=== PATIENT | female | born 1945 | race Caucasian/White ===

== ENCOUNTER 2021-12-17 11:50 | Outpatient (CLI) | payer MEDICARE, MEDICAID, SELFPAY ==
[2021-12-17 14:10] LABS: Basophils % 0.5 %; Eosinophils # 0.3 10^3/uL (0.0-0.8); Eosinophils % 3.9 %; Hematocrit 38.7 % (37.0-47.0); Hemoglobin 12.3 g/dL (11.5-15.3); Lymphocytes # 1.9 10^3/uL (0.8-4.8); Mean Corpuscular HGB Conc 31.8 g/dL (30.0-36.0); Mean Corpuscular Hemoglobin 29.3 pg (28.0-34.0); Mean Corpuscular Volume 92.1 fl (81-99); Mean Platelet Volume 10.3 fL (7.4-10.4); Monocytes # 0.6 10^3/uL (0.2-0.9); Monocytes % 7.5 %; Neutrophils # 4.71 10^3/uL (1.8-7.7); Neutrophils % 62.7 %; Nucleated Red Blood Cells % 0 %; Platelet Count 289 10^3/cmm (130-400); Red Cell Distribution Width 12.8 % (12.1-15.1); White Blood Count 7.5 10^3/uL (4.0-10.0)
[2021-12-17 14:40] LABS: Alanine Aminotransferase 21 U/L (0-33); Albumin Level 3.9 g/dL (3.5-5.2); Alkaline Phosphatase 85 IU/L (35-105); Aspartate Amino Transferase 23 U/L (0-32); Blood Urea Nitrogen 8 mg/dL (8-23); Calcium 9.3 mg/dL (8.5-10.5); Carbon Dioxide 22 mmol/L (22-29); Chloride 99 mmol/L (98-107); Globulin 3.6 g/dL (1.3-4.6); Glucose 117 mg/dL (65-115); Osmolality Calculated 283 mOsm/kg (285-295); Sodium 137 mmol/L (136-145); Total Bilirubin 0.4 mg/dL (0.15-1.2); Total Protein 7.5 g/dL (6.6-8.7)
[2021-12-17 21:40] LABS: Carcinoembryonic Antigen 52.1 ng/mL (0.0-4.7)
--- NOTE | 2021-12-18 16:31 | ONC CON_ITS ---
Dr. Gonzalez New Patient Note Patient: Beryl Cespedes Unit #: [id number]: 1945 Dicatated By: Mita Gonzalez M.D.Date of Visit: Dec 17, 2021 Onc MED New Patient/Consult Referring Physician: Brannon Genao History of Present Illness: Ms. Beryl Cespedes, is a 76-year-old female with a history of progressive constipation, abdominal fullness, and abdominal pain went to [facility] in [place] and underwent CT scan of abdomen pelvis on November 23, 2021 which showed primary colonic neoplasm involving the mid sigmoid colon resulting in high-grade obstruction and an area of contained perforation along the left lateral aspect of sigmoid colon extending to the central mesentery. Also findings suggesting of widespread peritoneal carcinomatosis. Small volume ascites in the scattered area of omental nodularity. Enlarged retroperitoneal lymph nodes and extensive bilateral pulmonary metastasis. No visualized hepatic metastasis., She was transferred to [facility] and underwent exploratory laparotomy, lysis of adhesions, total abdominal colectomy with en bloc resection of aortocaval lymph nodes. Ileorectal anastomosis, omentectomy, cholecystectomy, small bowel resection x1 on November 23, 2021. 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 She has history of hysterectomy,, denies any smoking or alcohol use. Today, patient denies any fever chills denies any nausea or vomiting denies any diarrhea or constipation denies any abdominal pain or fullness, Past Medical History: Ms. Cespedes's medical history is unremarkable. Past Surgical History: Ms. Severinos surgical/procedural history consists of cholecystectomy, exploratory laparotomy in 2021, and total colectomy, omenectomy, small bowel resection in 2021. Medications: Atenolol 1 Tablet (of 50 mg) Oral daily, Lisinopril 1 Tablet (of 40 mg) Oral daily, Magnesium Tablet Oral, One-A-Day Womens 50 Plus 1 Tablet Oral daily, Zinc (50 mg) Tablet Oral daily Allergies: No Known Allergies. Social History: Ms. Cespedes is . Ms. Cespedes has never smoked. She drinks occasionally. Family History: There is no documented family history. Review Of Symptoms: Review of Systems is not available for this patient. Vital Signs: Performed on Dec 17, 2021 13:45: 5, 0, 29.62, 1.79 sq.m, 63 in, 96 %, 120 /min (HIGH), 16 /min, 191/113 mm(hg) (HIGH), 97.7 F (LOW), and 167.2 lbs (HIGH). Performance Status: 1 - No physically strenuous activity, but ambulatory and able to carry out light or sedentary work (e.g. office work, light house work). (ECOG) Physical Examination: ENMT - No mouth sores, no thrush, no jaundice, Respiratory - Lungs are clear to auscultation, Cardiovascular - Regular rate and rhythm of heart, Abdomen - Soft, bowel sounds present, well-healed surgical scar, Extremities - No visible edema. Lab/Imaging: Most recent lab results are not available for this patient. Impression: Moderately differentiated adenocarcinoma involving distal sigmoid colon status post exploratory laparotomy, total abdominal colectomy with en bloc resection of aortocaval lymph nodes, ileorectal anastomosis, omentectomy, lysis of adhesions done on November 23, 2021 and final pathology report showed moderately differentiated adenocarcinoma tumor invades visceral peritoneum, T4a, 1 out of 22 lymph node positive, N1 a and resected omentum shows multifocal metastatic adenocarcinoma M1c, CT scan of abdomen pelvis done on November 23, 2021 showed extensive bibasal pulmonary nodules/metastasis, visualized liver was unremarkable. And primary colonic neoplasm involving mid sigmoid colon causing high-grade obstruction and there is an area of contained perforation along the left lateral aspect of sigmoid colon. And findings consistent with widespread peritoneal carcinomatosis and scattered areas of omental nodularity Plan: Discussed with patient regarding her disease status and treatment options, patient has advanced stage locoregional disease but concern was bibasilar nodules seen on her CT scan of abdomen pelvis done on November 23, 2021, which could be metastatic disease or inflammatory/infection/aspiration. At this point, we will consider CT PET scan to assess extent of disease, also obtain baseline CEA, CBC CMP. I will also discuss with pathology regarding testing for molecular profiling including [place]/NRAS, BRAF and MMR/MSI status also request for HER-2/jose status. She will return to clinic after CT PET scan, hopefully by that time will have her molecular testing report back for further discussion and treatment planning. Signed By: Mita Gonzalez M.D. <<Signature on File>>
== END 2021-12-17 11:51 | disposition home or self-care (01) ==
PROVIDERS: Family Provider Nurse Practitioner Family; PCP Registered Nurse; Visit Provider Internal Medicine Hematology & Oncology
DX: C18.9 Malignant neoplasm of colon, unspecified (principal); C77.8 Secondary and unspecified malignant neoplasm of lymph nodes of multiple regions; Z79.899 Other long term (current) drug therapy
CPT/HCPCS: 36415; 80053; 82378; 85025; 99205

== ENCOUNTER 2022-01-07 13:47 | Outpatient (CLI) | payer MEDICARE, MEDICAID, SELFPAY ==
[2022-01-07 14:32] LABS: Basophils # 0.1 10^3/uL (0.0-0.1); Basophils % 0.7 %; Eosinophils # 0.4 10^3/uL (0.0-0.8); Eosinophils % 3.6 %; Hematocrit 42.5 % (37.0-47.0); Lymphocytes # 2.8 10^3/uL (0.8-4.8); Lymphocytes % 28.4 %; Mean Corpuscular HGB Conc 30.6 g/dL (30.0-36.0); Mean Corpuscular Hemoglobin 29.2 pg (28.0-34.0); Mean Corpuscular Volume 95.5 fl (81-99); Mean Platelet Volume 10.4 fL (7.4-10.4); Monocytes # 0.7 10^3/uL (0.2-0.9); Monocytes % 7.3 %; Neutrophils # 5.88 10^3/uL (1.8-7.7); Neutrophils % 59.6 %; Nucleated Red Blood Cells % 0 %; Platelet Count 314 10^3/cmm (130-400); Red Blood Count 4.45 10^6/uL (4.1-5.3); Red Cell Distribution Width 13.2 % (12.1-15.1); White Blood Count 9.9 10^3/uL (4.0-10.0)
[2022-01-07 15:05] LABS: Carcinoembryonic Antigen 63.1 ng/mL (0.0-4.7)
[2022-01-07 15:16] LABS: Alanine Aminotransferase 19 U/L (0-33); Albumin Level 4.1 g/dL (3.5-5.2); Alkaline Phosphatase 82 IU/L (35-105); Aspartate Amino Transferase 20 U/L (0-32); Blood Urea Nitrogen 16 mg/dL (8-23); Calcium 9.3 mg/dL (8.5-10.5); Carbon Dioxide 20 mmol/L (22-29); Chloride 98 mmol/L (98-107); Globulin 3.8 g/dL (1.3-4.6); Glucose 138 mg/dL (65-115); Osmolality Calculated 281 mOsm/kg (285-295); Sodium 134 mmol/L (136-145); Total Bilirubin 0.3 mg/dL (0.15-1.2); Total Protein 7.9 g/dL (6.6-8.7)
--- NOTE | 2022-01-07 16:41 | ONC FU_ITS ---
Dr. Gonzalez follow up note Patient: Beryl Cespedes Unit #: [id number]: 1945 Dicatated By: Mita Gonzalez M.D.Date of Visit:Jan 07, 2022 Onc Med Follow-up/Prog Note History of Present Illness: Ms. Beryl Cespedes, is a 76-year-old female with a history of progressive constipation, abdominal fullness, and abdominal pain went to [facility] in [place] and underwent CT scan of abdomen pelvis on November 23, 2021 which showed primary colonic neoplasm involving the mid sigmoid colon resulting in high-grade obstruction and an area of contained perforation along the left lateral aspect of sigmoid colon extending to the central mesentery. Also findings suggesting of widespread peritoneal carcinomatosis. Small volume ascites in the scattered area of omental nodularity. Enlarged retroperitoneal lymph nodes and extensive bilateral pulmonary metastasis. No visualized hepatic metastasis., She was transferred to [facility] and underwent exploratory laparotomy, lysis of adhesions, total abdominal colectomy with en bloc resection of aortocaval lymph nodes. Ileorectal anastomosis, omentectomy, cholecystectomy, small bowel resection x1 on November 23, 2021. 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 She has history of hysterectomy,, denies any smoking or alcohol use. CT PET scan done on December 27, 2021 showed FDG positive left supraclavicular lymph node measured 2.7 cm with SUV of 5.9. Multiple mediastinal lymph nodes are FDG positive and consistent with mesenteric disease. Also right paratracheal, left hilar, right para-aortic, right hilar and bilateral retrocrural territory. There are innumerable bilateral FDG positive pulmonary nodules representing metastatic disease. At the level of abdomen, retroperitoneal lymph nodes are too small to characterize. The right-sided mesenteric root node measures 1.6 cm SUV 3.8 consistent with malignancy. Came for follow-up, denies any specific complaints, no fever chills, no nausea or vomiting, no diarrhea or constipation, no abdominal pain or fullness, no jaundice, no dysuria or hematuria. Medications: Atenolol 1 Tablet (of 50 mg) Oral daily, Lisinopril 1 Tablet (of 40 mg) Oral daily, Magnesium Tablet Oral, One-A-Day Womens 50 Plus 1 Tablet Oral daily, Zinc (50 mg) Tablet Oral daily Allergies: No Known Allergies. Review of Systems: Review of Systems is not available for this patient. Vital Signs: Performed on Jan 07, 2022 15:47 Height - 63.00 in Weight - 164.4 lbs (LOW) BSA - 1.78 sq.m BMI - 29.12 Temperature - 97.8 F (LOW) Pulse - 77 /min Respiration - 18 /min BP - 173/94 mm(hg) (HIGH) O2 Sat - 95 % (LOW) Pain - 0 Fatigue - 4 Performance Status: 0 - Fully active, able to carry on all predisease activities without restrictions. (ECOG) Physical Examination: ENMT - No mouth sores, no thrush, no jaundice, Respiratory - Lungs are clear to auscultation, Cardiovascular - Regular rate and rhythm of heart, Abdomen - Soft, bowel sounds present, Extremities - No visible edema. Lab/Imaging: Most recent lab results are not available for this patient. Impression: Moderately differentiated adenocarcinoma involving distal sigmoid colon status post exploratory laparotomy, total abdominal colectomy with en bloc resection of aortocaval lymph nodes, ileorectal anastomosis, omentectomy, lysis of adhesions done on November 23, 2021 and final pathology report showed moderately differentiated adenocarcinoma tumor invades visceral peritoneum, T4a, 1 out of 22 lymph node positive, N1 a and resected omentum shows multifocal metastatic adenocarcinoma M1c, CT scan of abdomen pelvis done on November 23, 2021 showed extensive bibasal pulmonary nodules/metastasis, visualized liver was unremarkable. And primary colonic neoplasm involving mid sigmoid colon causing high-grade obstruction and there is an area of contained perforation along the left lateral aspect of sigmoid colon. And findings consistent with widespread peritoneal carcinomatosis and scattered areas of omental nodularity Plan: Discussed with patient regarding her labs white blood count 9.9 hemoglobin 13 g hematocrit 42.5 platelets 314,000 CMP within normal limit except sodium 134 and CEA level 63.1 compared to 52.1 on December 17, [address] PET scan done on December 27, 2021 shows FDG positive lymphadenopathy in left supraclavicular, mediastinum, mesenteric root territories. Innumerable bilateral FDG positive pulmonary nodules. Postsurgical changes from recent colectomy. Clinically, patient doing well with no new signs symptom but her CT PET scan showed extensive metastatic disease involving bilateral lungs with multiple pulmonary nodules and extensive mediastinal/hilar/left supraclavicular lymphadenopathy and mesenteric root territories. Her lab work-up shows progressive CEA level, consistent with metastatic colorectal cancer. At this point we will consider systemic therapy with FOLFOX every 2 weeks x6, followed by CT PET scan to assess disease response. All the side effect possible benefits associate with FOLFOX including but not limited to bone marrow suppression, hair loss, nausea vomiting, peripheral neuropathy/intolerance to cold beverages especially with oxaliplatin, jaundice, mouth sores, diarrhea, skin rash especially with 5-FU. Further teaching will be done by chemotherapy nurse. We will obtain approval from her insurance prior to the treatment. In the meantime we will request port placement to facilitate chemotherapy. She will return to clinic 1 week after initiating FOLFOX, with CBC CMP. Signed By: Mita Gonzalez M.D. <<Signature on File>>
== END 2022-01-07 13:48 | disposition home or self-care (01) ==
PROVIDERS: PCP Registered Nurse; Visit Provider Internal Medicine Hematology & Oncology
DX: C18.7 Malignant neoplasm of sigmoid colon (principal); C77.8 Secondary and unspecified malignant neoplasm of lymph nodes of multiple regions; Z79.899 Other long term (current) drug therapy
CPT/HCPCS: 36415; 80053; 82378; 85025; 99214

== ENCOUNTER → 2022-01-21 08:59 | Outpatient (BNVA) | payer MEDICARE, SELFPAY | PROVIDERS: PCP Registered Nurse; Visit Provider Surgery | DX: Z20.822 Contact with and (suspected) exposure to COVID-19 (principal) | CPT/HCPCS: 87635 ==

== ENCOUNTER 2022-01-26 11:24 | Day surgery (SDC) | payer MEDICARE, MEDICAID, SELFPAY ==
[2022-01-23 11:48] VITALS: BMI 26.7
[2022-01-26] VITALS (8 sets, daily range): BP systolic 123–180; BP diastolic 83–123; PULSE 95–127; RESP 14–20; TEMP 36.2–36.6; O2SAT 94–98
--- NOTE | 2022-01-26 | SCC_ITS ---
Procedure done: 1. Placement of right internal jugular vein PowerPort 2. Fluoroscopic guidance and interpretation for placement of catheter 3. Ultrasound guidance to access the right internal jugular vein 9.3 seconds of fluoroscopic guidance, for a cumulative dose of 1.20 mGy, was provided to Dr. Lisa by the radiology department. C-arm images of the chest were saved for the patient's permanent record. [facility]
--- NOTE | 2022-01-26 11:58 | SC_ITS ---
WS: [id number] INTRAOPERATIVE TECHNIQUE: 2 Spot fluoroscopic images for intraoperative purposes. FLUOROSCOPY TIME: 9.3 seconds CLINICAL INFORMATION: Powerport Placement COMPARISON: None. FINDINGS: RIGHT Port-A-Cath with tip in the distal SVC. No visualized pneumothorax. SC/C-arm FL for CVA [id number] IMPRESSION: Images obtained for intraoperative purposes.
[2022-01-26] MEDS: sodium chloride 0.9% 1,000 ML 30 ML IV (12:18)
--- NOTE | 2022-01-26 14:05 | W.PM.OPSUD ---
Surgery/Procedure H&P Update DATE OF PROCEDURE: January 26, 2022 DATE H&P PERFORMED: 01/14/22 PREOP DIAGNOSIS: COLON CANCER PRIMARY INDICATION FOR PROCEDURE: The same PLANNED PROCEDURE: Operation Date: 01/26/22 13:10 Proposed Procedures p Portacath Placement 65507/c80.1(Not Applicable) - Flip Lisa MD
[2022-01-26] MEDS: midazolam 1 mg/mL INJ 2 mL 2 MG IVP (14:31)
--- NOTE | 2022-01-26 14:47 | ANES.PREANE2 ---
Pre-Anesthetic Assessment Height/Weight: Height 1.63 m Weight 70.76 kg Temp Pulse Resp BP Pulse Ox 97.9 F 109 H 14 123/83 94 01/26/22 14:32 01/26/22 14:32 01/26/22 14:32 01/26/22 14:32 01/26/22 14:32 Preop Diagnosis: COLON CANCER Operation Date: 01/26/22 13:10 Proposed Procedures p Portacath Placement 57510/c80.1(Not Applicable) - Flip Lisa MD Familial anesthetic complications: None Was Beta Benjie taken within 24 hours: Yes Was Clonidine taken within 24 hours: N/A Last intake: Intake Last Liquid Date 01/25/22 Last Liquid Time 20:00 Last Solid Date 01/25/22 Last Solid Time 20:00 Social No alcohol and No tobacco Exam alert, oriented x 3, clear to auscultation bilaterally and regular rate & rhythm Airway Submandibular: within normal limits Cervical ROM: within normal limits Mallampati: Class II Dentition: partials CV/HEM Hypertension Anesthetic Plan ASA status: 2 Anesthesia: Choice Risk of > 500 ml blood loss (7ml/kg in children): No Medications/Allergies Home Medications Medication Instructions Recorded Confirmed Last Taken Type lisinopril 40 mg tablet 40 mg PO DAILY 90 Days #90 tab 07/10/21 01/26/22 01/25/22 Rx atenolol 50 mg tablet 50 mg PO DAILY 01/23/22 01/26/22 01/25/22 History Allergies Allergy/AdvReac Type Severity Reaction Status Date / Time No Known Allergies Allergy Verified 01/26/22 12:02 Current Medications Generic Name Dose Route Start Last Admin Trade Name Cruzitoq PRN Reason Stop Dose Admin Sodium Chloride 1,000 mls @ 30 mls/hr 01/26/22 12:00 01/26/22 12:18 Sodium Chloride 0.9% IV 01/27/22 11:59 30 mls/hr .Q24H GARETT Administration PFSH Anesthesia Medical History Essential hypertension Social History Smoking and tobacco status: never smoked Alcohol intake: never Adopted: No Caregiver/support person: No Current gender identity: Female Data Anesthesia Cardiac Studies: No Data to Display
[2022-01-26] MEDS: lidocaine 2% INJ 20 mL INJECTION (15:43)
[2022-01-26] MEDS: heparin, porcine 1,000 unit/mL INJ 10 mL 10000 UNIT XX (16:00)
--- NOTE | 2022-01-26 16:08 | PM.OP ---
Operative Report Date of procedure: January 26, 2022 Pre-op diagnosis: Preop Diagnosis COLON CANCER Post-op diagnosis: The same Procedure done: 1. Placement of right internal jugular vein PowerPort 2. Fluoroscopic guidance and interpretation for placement of catheter 3. Ultrasound guidance to access the right internal jugular vein Surgeon: Flip Lisa MD [employer]: Hermila Patel Anesthesia: MAC (post acute care registered nurse Tomy Hernandez) Estimated blood loss (mL): 5 Procedure: Patient was identified in the holding area and taken to the operative room and placed in supine position IV propofol was given by the anesthesia provider ,both arms were tucked,Time-out was done verifying the patient's name/date of /planned procedure and destination after the procedure, all were in agreement. SCDs confirmed to be functioning, preoperative antibiotics administered per protocol, and beta ari protocol was confirmed, appropriate positioning of the patient was done by me. Medications were reviewed to assess for anticoagulant usage. Risks and benefits and prevention of central line associated blood stream infection (CLABSI) were discussed with the patient/CPOA, and a consent was obtained. Monitors were in place and monitored throughout the procedure. All necessary supplies were available prior to start. Hand hygiene was completed prior to starting. Maximum barrier technique was utilized including a sterile gown, sterile gloves with a hat and mask. Site was was prepped with [chlorhexidine] and a full body drape was placed. 5 mL of 2% lidocaine was injected into the skin with a 25 gauge needle. Prep& drape was done under the usual sterile technique, lidocaine 2% was injected at the site of the stick, started by the Right subclavian vein and I retrieved arterial blood in the attempt was done twice without obvious success to retrieve venous blood. So I decided to deviate my attention towards the right internal jugular vein. Appropriate pressure was held onto the subclavian area for few minutes. At that point right Internal Juglar vein stick that retrieved venous blood was obtained from the first stick under ultrasound guidance and there was no evidence of intraluminal thrombosis, interpretation was done by me through the whole entire procedure, a guidewire was then threaded and under the guidance of fluoroscopy position was confirmed to be in the IVC and my interpretation, there was no PVC changes, at that point the guidewire was secured to the drapes with a hemostat and the needle was taken out. Attention was then deviated towards creation of a pocket for the port were lidocaine 2% was injected using an 15 blade knife skin incision was created at the right upper Chest ,dissection using the Bovie to create a pocket for the PowerPortto be accommodated, hemostasis was secured, after the port being appropriately flushed it was inserted into the pocket and a tunneler was used to accommodate the catheter of the PowerPort to be delivered through the incision first created at the site of the stick, then I was able to retrieve the catheter at the index site of the stick. At that point under fluoroscopy an estimated length was measured for the catheter and was cut at the designed level, followed by that a dilator with the sheath introduced onto the guidewire the dilator and the wire were retrieved and the catheter of the port was introduced via the sheath where it was peeled off and the catheter maintained to be in the SVC that was confirmed with fluoroscopy, and the fluoroscopy interpretation was done by me throughout the entire procedure. Multiple flushes of the port was done by diluted heparin and I was able to retrieve without difficulty venous blood as well as appropriate flushing was achieved. The port was kept in its,3-0 Vicryl deep subdermal interrupted sutures, skin was then closed by 4-0 Monocryl as subcuticular closure. The port was appropriately flushed with heparin and venous blood was withdrawn without difficulty The stick site was closed by 4-0 Monocryl and Dermabond was used followed by dressing. Patient tolerated the procedure well was taken to the recovery area Count was correct at the end of the procedure I was present for the whole entire procedure Postprocedure chest x-ray was done and showed no pneumothorax and appropriate position of the PowerPort and catheter.
--- NOTE | 2022-01-26 16:22 | XRR_ITS ---
PROCEDURE INFORMATION: Exam: XR Chest Exam date and time: 01/26/2022 4:26 PM Age: 76 years old Clinical indication: Device placement; Other: Status post placement of right internal jugular vein, powerport; Prior surgery; Surgery date: Post-operative (0-2 days) TECHNIQUE: Imaging protocol: XR of the chest. Views: 1 view. COMPARISON: CT abdomen pelvis w con* [id number] 11/22/2021 8:20 PM FINDINGS: Tubes, catheters and devices: Right Mediport catheter. Lungs: Multiple pulmonary nodules consistent with pulmonary metastasis with the largest in the left lateral mid lung field measuring 1.9 cm in diameter. Pleural spaces: Unremarkable. No pleural effusion. No pneumothorax. Heart/Mediastinum: Unremarkable. No cardiomegaly. Bones/joints: Unremarkable. XR/XR chest 1V portable [id number] IMPRESSION: 1. Right Mediport catheter. 2. Multiple pulmonary nodules consistent with pulmonary metastasis with the largest in the left lateral mid lung field measuring 1.9 cm in diameter.
--- NOTE | 2022-01-26 17:39 | ANE.PACU2 ---
Inpatient post-anesthesia follow up: Airway intact: Yes Vital signs: Temperature 97.2 F Pulse Rate 101 Respiratory Rate 16 Blood Pressure 162/96 Pulse Oximetry 97 Oxygen Delivery Me thod Room Air Oxygen Flow Rate Fraction of Inspir ed Oxygen Hydration adequate: Yes Nausea and vomiting: No Pain level: 2 Mental status: Baseline
== END 2022-01-26 17:26 | disposition home or self-care (01) ==
PROVIDERS: PCP Registered Nurse; Visit Provider Surgery
PROC: (CPT 36561; principal; 2022-01-26 13:00)
DX: C18.9 Malignant neoplasm of colon, unspecified (principal); I10 Essential (primary) hypertension
CPT/HCPCS: 36561; 71045; 77001; C1788; J0690; J1644; J2250; J2704; J3010; J7030

== ENCOUNTER → 2022-01-27 09:15 | Outpatient (BNVA) | payer MEDICARE, SELFPAY | PROVIDERS: PCP Registered Nurse; Visit Provider Nurse Practitioner | DX: C18.9 Malignant neoplasm of colon, unspecified (principal); C77.2 Secondary and unspecified malignant neoplasm of intra-abdominal lymph nodes | CPT/HCPCS: 80053; 85025 ==

== ENCOUNTER 2022-01-28 07:51 | Outpatient (CLI) | payer MEDICARE, MEDICAID, SELFPAY ==
[2022-01-28] MEDS: palonosetron 0.25 mg/5 mL SDV IV (09:35)
[2022-01-28] MEDS: dextrose 5% 250 ML 75 ML IV (09:35)
--- NOTE | 2022-02-04 21:22 | ONC FU_ITS ---
Arelis Bradshaw Progress Note Patient: Beryl Cespedes Unit #: [id number]: 1945 Dicatated By: Arelis Bradshaw N.P.Date of Visit:Jan 28, 2022 Onc MED Follow-up/Prog Note Chief Complaint: Colon cancer History of Present Illness: Ms. Beryl Cespedes, is a 76-year-old female with a history of progressive constipation, abdominal fullness, and abdominal pain went to [facility] in [place] and underwent CT scan of abdomen pelvis on November 23, 2021 which showed primary colonic neoplasm involving the mid sigmoid colon resulting in high-grade obstruction and an area of contained perforation along the left lateral aspect of sigmoid colon extending to the central mesentery. Also findings suggesting of widespread peritoneal carcinomatosis. Small volume ascites in the scattered area of omental nodularity. Enlarged retroperitoneal lymph nodes and extensive bilateral pulmonary metastasis. No visualized hepatic metastasis., She was transferred to [facility] and underwent exploratory laparotomy, lysis of adhesions, total abdominal colectomy with en bloc resection of aortocaval lymph nodes. Ileorectal anastomosis, omentectomy, cholecystectomy, small bowel resection x1 on November 23, 2021. 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 She has history of hysterectomy,, denies any smoking or alcohol use. CT PET scan done on December 27, 2021 showed FDG positive left supraclavicular lymph node measured 2.7 cm with SUV of 5.9. Multiple mediastinal lymph nodes are FDG positive and consistent with mesenteric disease. Also right paratracheal, left hilar, right para-aortic, right hilar and bilateral retrocrural territory. There are innumerable bilateral FDG positive pulmonary nodules representing metastatic disease. At the level of abdomen, retroperitoneal lymph nodes are too small to characterize. The right-sided mesenteric root node measures 1.6 cm SUV 3.8 consistent with malignancy. Patient presents today for education on FOLFOX. She states she has some mild fatigue. Her appetite has been good. She denies fever, chills, night sweats. No sinus drainage or mouth sores. No shortness of breath, cough, chest pain. No nausea or vomiting. No urinary symptoms. No joint or muscle pain. No headaches or dizziness. Review Of Symptoms: see above. Past Medical History: Ms. Cespedes's medical history is unremarkable. Past Surgical History: Cholecystectomy Exploratory laparotomy in 2021 Total colectomy, omenectomy, small bowel resection in 2021 Allergies: No Known Allergies. Medications: Atenolol 1 Tablet (of 50 mg) Oral daily Lisinopril 1 Tablet (of 40 mg) Oral daily Magnesium Tablet Oral One-A-Day Womens 50 Plus 1 Tablet Oral daily Zinc (50 mg) Tablet Oral daily Family History: There is no documented family history. Social History: Ms. Cespedes is . Ms. Cespedes has never smoked. She drinks occasionally. Physical Examination: Performed on Jan 28, 2022 08:22: Height - 63.00 in, BP - 161/79 mm(hg) (HIGH), Performed on Jan 28, 2022 08:22: Height - 63.00 in, Weight - 164.2 lbs (LOW), BSA - 1.78 sq.m, BMI - 29.09, Temperature - 98.4 F, Pulse - 83 /min, Respiration - 16 /min, BP - 172/78 mm(hg) (HIGH), O2 Sat - 97 %, Pain - 0, and Fatigue - 3. Performance Status: 0 - Fully active, able to carry on all predisease activities without restrictions. (ECOG) Constitutional Alert, cooperative, oriented. Mood and affect appropriate. Appears close to chronological age. Well nourished. Well developed. Head Normocephalic; no scars. Respiratory Lungs are clear to auscultation without rhonchi or wheezing. Cardiovascular Regular rate and rhythm of heart without murmurs, gallops or rubs. Abdomen Non-tender, non-distended, no masses, ascites or hepatosplenomegaly. Good bowel sounds. No guarding or rebound tenderness. Extremities No visible deformities, no cyanosis, clubbing or edema. Pulses 3+ and equal bilaterally. Musculoskeletal No tenderness or swelling, normal range of motion without obvious weakness. Psychiatric Alert and oriented times three. Coherent speech. Verbalizes understanding of our discussions today. Laboratory: Test performed on Jan 28, 2022 08:08 Manual Diff Cancelled via OM: Entered in error Test performed on Jan 27, 2022 08:54 Cr Clearance (Est) 109.16 mL/min Neutrophils (Gran) 7.09 10^9/L Eosinophils 0.1836 10^9/L Basophils 0.0864 10^9/L Impression: Moderately differentiated adenocarcinoma involving distal sigmoid colon status post exploratory laparotomy, total abdominal colectomy with en bloc resection of aortocaval lymph nodes, ileorectal anastomosis, omentectomy, lysis of adhesions done on November 23, 2021 and final pathology report showed moderately differentiated adenocarcinoma tumor invades visceral peritoneum, T4a, 1 out of 22 lymph node positive, N1 a and resected omentum shows multifocal metastatic adenocarcinoma M1c, CT scan of abdomen pelvis done on November 23, 2021 showed extensive bibasal pulmonary nodules/metastasis, visualized liver was unremarkable. And primary colonic neoplasm involving mid sigmoid colon causing high-grade obstruction and there is an area of contained perforation along the left lateral aspect of sigmoid colon. And findings consistent with widespread peritoneal carcinomatosis and scattered areas of omental nodularity Plan: Patient presents today for education on FOLFOX. Handouts were provided. We discussed side effects including nausea, vomiting, neutropenia and thrombocytopenia. She denies questions at this time. She will receive her first dose of FOLFOX today and return to the clinic in 1 week with CBC and CMP. Signed By: Arelis Bradshaw N.Mike. <<Signature on File>>
== END 2022-01-28 07:52 | disposition home or self-care (01) ==
PROVIDERS: PCP Registered Nurse; Visit Provider Internal Medicine Hematology & Oncology
DX: Z51.11 Encounter for antineoplastic chemotherapy (principal); C18.7 Malignant neoplasm of sigmoid colon; C77.8 Secondary and unspecified malignant neoplasm of lymph nodes of multiple regions; Z79.899 Other long term (current) drug therapy
CPT/HCPCS: 96367; 96409; 96411; 96413; 96415; 96417; 99215; J0640; J1100; J2469; J9190; J9263

== ENCOUNTER 2022-01-30 10:40 | Outpatient (CLI) | payer MEDICARE, MEDICAID, SELFPAY | END 2022-01-30 10:41 | disposition home or self-care (01) | PROVIDERS: PCP Registered Nurse; Visit Provider Internal Medicine Hematology & Oncology | DX: Z45.2 Encounter for adjustment and management of vascular access device (principal) | CPT/HCPCS: 96523 ==

== ENCOUNTER 2022-02-03 07:43 | Outpatient (CLI) | payer MEDICARE, MEDICAID, SELFPAY ==
[2022-02-03 08:18] LABS: Basophils % 0.6 %; Eosinophils # 0.3 10^3/uL (0.0-0.8); Eosinophils % 3.8 %; Hematocrit 40.1 % (37.0-47.0); Hemoglobin 12.7 g/dL (11.5-15.3); Lymphocytes # 2.1 10^3/uL (0.8-4.8); Lymphocytes % 32.2 %; Mean Corpuscular HGB Conc 31.7 g/dL (30.0-36.0); Mean Corpuscular Hemoglobin 28.9 pg (28.0-34.0); Mean Corpuscular Volume 91.3 fl (81-99); Mean Platelet Volume 10.4 fL (7.4-10.4); Monocytes # 0.3 10^3/uL (0.2-0.9); Monocytes % 4.4 %; Neutrophils # 3.87 10^3/uL (1.8-7.7); Neutrophils % 58.8 %; Nucleated Red Blood Cells % 0 %; Platelet Count 229 10^3/cmm (130-400); Red Blood Count 4.39 10^6/uL (4.1-5.3); Red Cell Distribution Width 12.9 % (12.1-15.1); White Blood Count 6.6 10^3/uL (4.0-10.0)
[2022-02-03 08:36] LABS: Alanine Aminotransferase 13 U/L (0-33); Alkaline Phosphatase 68 IU/L (35-105); Anion Gap 14.7 (5-19); Aspartate Amino Transferase 14 U/L (0-32); Blood Urea Nitrogen 13 mg/dL (8-23); Calcium 9.5 mg/dL (8.5-10.5); Carbon Dioxide 24 mmol/L (22-29); Chloride 100 mmol/L (98-107); Globulin 3.3 g/dL (1.3-4.6); Glucose 127 mg/dL (65-115); Osmolality Calculated 282 mOsm/kg (285-295); Potassium 3.7 mmol/L (3.5-5.1); Sodium 135 mmol/L (136-145); Total Bilirubin 0.5 mg/dL (0.15-1.2); Total Protein 7.3 g/dL (6.6-8.7)
== END 2022-02-03 07:44 | disposition home or self-care (01) ==
PROVIDERS: PCP Registered Nurse; Visit Provider Internal Medicine Hematology & Oncology
DX: C18.7 Malignant neoplasm of sigmoid colon (principal); C78.7 Secondary malignant neoplasm of liver and intrahepatic bile duct; C78.6 Secondary malignant neoplasm of retroperitoneum and peritoneum; R19.7 Diarrhea, unspecified; Z79.899 Other long term (current) drug therapy
CPT/HCPCS: 36591; 80053; 85025

== ENCOUNTER 2022-02-04 10:48 | Outpatient (CLI) | payer MEDICARE, MEDICAID, SELFPAY ==
--- NOTE | 2022-02-09 07:55 | ONC FU_ITS ---
Dr. Gonzalez follow up note Patient: Beryl Cespedes Unit #: [id number]: 1945 Dicatated By: Mita Gonzalez M.D.Date of Visit:Feb 04, 2022 Onc Med Follow-up/Prog Note History of Present Illness: Ms. Beryl Cespedes, is a 76-year-old female with a history of progressive constipation, abdominal fullness, and abdominal pain went to [facility] in [place] and underwent CT scan of abdomen pelvis on November 23, 2021 which showed primary colonic neoplasm involving the mid sigmoid colon resulting in high-grade obstruction and an area of contained perforation along the left lateral aspect of sigmoid colon extending to the central mesentery. Also findings suggesting of widespread peritoneal carcinomatosis. Small volume ascites in the scattered area of omental nodularity. Enlarged retroperitoneal lymph nodes and extensive bilateral pulmonary metastasis. No visualized hepatic metastasis., She was transferred to [facility] and underwent exploratory laparotomy, lysis of adhesions, total abdominal colectomy with en bloc resection of aortocaval lymph nodes. Ileorectal anastomosis, omentectomy, cholecystectomy, small bowel resection x1 on November 23, 2021. 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 She has history of hysterectomy,, denies any smoking or alcohol use. CT PET scan done on December 27, 2021 showed FDG positive left supraclavicular lymph node measured 2.7 cm with SUV of 5.9. Multiple mediastinal lymph nodes are FDG positive and consistent with mesenteric disease. Also right paratracheal, left hilar, right para-aortic, right hilar and bilateral retrocrural territory. There are innumerable bilateral FDG positive pulmonary nodules representing metastatic disease. At the level of abdomen, retroperitoneal lymph nodes are too small to characterize. The right-sided mesenteric root node measures 1.6 cm SUV 3.8 consistent with malignancy. Started on FOLFOX on January 28, 2022 Came for follow-up, denies any specific complaints, no fever chills, no nausea or vomiting, no diarrhea constipation, no mouth sores, no peripheral numbness, tolerated first cycle of FOLFOX well Medications: Atenolol 1 Tablet (of 50 mg) Oral daily, Lisinopril 1 Tablet (of 40 mg) Oral daily, Magnesium Tablet Oral, One-A-Day Womens 50 Plus 1 Tablet Oral daily, Zinc (50 mg) Tablet Oral daily Allergies: No Known Allergies. Review of Systems: Review of Systems is not available for this patient. Vital Signs: Performed on Feb 04, 2022 15:33 Height - 63.00 in Weight - 162.2 lbs (LOW) BSA - 1.77 sq.m BMI - 28.73 Temperature - 97.4 F (LOW) Pulse - 93 /min Respiration - 18 /min BP - 156/87 mm(hg) (HIGH) O2 Sat - 98 % Pain - 0 Fatigue - 3 Performance Status: 1 - No physically strenuous activity, but ambulatory and able to carry out light or sedentary work (e.g. office work, light house work). (ECOG) Physical Examination: ENMT - No mouth sores, no thrush, no jaundice, Respiratory - Lungs are clear to auscultation, Cardiovascular - Regular rate and rhythm of heart, Abdomen - Soft, bowel sounds present, Extremities - No visible edema. Lab/Imaging: Test performed on Jan 28, 2022 08:08 Manual Diff Cancelled via OM: Entered in error Test performed on Jan 27, 2022 08:54 Cr Clearance (Est) 109.16 mL/min Neutrophils (Gran) 7.09 10^9/L Eosinophils 0.1836 10^9/L Basophils 0.0864 10^9/L Impression: Moderately differentiated adenocarcinoma involving distal sigmoid colon status post exploratory laparotomy, total abdominal colectomy with en bloc resection of aortocaval lymph nodes, ileorectal anastomosis, omentectomy, lysis of adhesions done on November 23, 2021 and final pathology report showed moderately differentiated adenocarcinoma tumor invades visceral peritoneum, T4a, 1 out of 22 lymph node positive, N1 a and resected omentum shows multifocal metastatic adenocarcinoma M1c, CT scan of abdomen pelvis done on November 23, 2021 showed extensive bibasal pulmonary nodules/metastasis, visualized liver was unremarkable. And primary colonic neoplasm involving mid sigmoid colon causing high-grade obstruction and there is an area of contained perforation along the left lateral aspect of sigmoid colon. And findings consistent with widespread peritoneal carcinomatosis and scattered areas of omental nodularity Plan: .Discussed with patient regarding her labs white blood count 6.6 hemoglobin 12.7 hematocrit 40.1 platelets 229,000 CMP within normal limit except sodium 135 Clinically, patient doing well with no new signs symptom suggestive of disease progression, tolerated first cycle of systemic therapy with FOLFOX well, her lab work-up is reasonable, she will return to clinic in 1 week with CBC CMP and if reasonable, will consider next cycle of FOLFOX. Signed By: Mita Gonzalez M.D. <<Signature on File>>
== END 2022-02-04 10:49 | disposition home or self-care (01) ==
PROVIDERS: PCP Registered Nurse; Visit Provider Internal Medicine Hematology & Oncology
DX: C18.7 Malignant neoplasm of sigmoid colon (principal); C78.02 Secondary malignant neoplasm of left lung; C78.01 Secondary malignant neoplasm of right lung; C78.6 Secondary malignant neoplasm of retroperitoneum and peritoneum; Z79.899 Other long term (current) drug therapy
CPT/HCPCS: 99214

== ENCOUNTER → 2022-02-10 11:11 | Outpatient (BNVA) | payer MEDICARE, MEDICAID, SELFPAY | PROVIDERS: PCP Registered Nurse; Visit Provider Internal Medicine Hematology & Oncology | DX: C18.9 Malignant neoplasm of colon, unspecified (principal); C77.2 Secondary and unspecified malignant neoplasm of intra-abdominal lymph nodes | CPT/HCPCS: 80053; 85025 ==

== ENCOUNTER 2022-02-11 07:41 | Outpatient (CLI) | payer MEDICARE, MEDICAID, SELFPAY ==
--- NOTE | 2022-02-11 08:52 | ONC FU_ITS ---
Dr. Gonzalez follow up note Patient: Beryl Cespedes Unit #: [id number]: 1945 Dicatated By: Mita Gonzalez M.D.Date of Visit:Feb 11, 2022 Onc Med Follow-up/Prog Note History of Present Illness: Ms. Beryl Cespedes, is a 76-year-old female with a history of progressive constipation, abdominal fullness, and abdominal pain went to [facility] in [place] and underwent CT scan of abdomen pelvis on November 23, 2021 which showed primary colonic neoplasm involving the mid sigmoid colon resulting in high-grade obstruction and an area of contained perforation along the left lateral aspect of sigmoid colon extending to the central mesentery. Also findings suggesting of widespread peritoneal carcinomatosis. Small volume ascites in the scattered area of omental nodularity. Enlarged retroperitoneal lymph nodes and extensive bilateral pulmonary metastasis. No visualized hepatic metastasis., She was transferred to [facility] and underwent exploratory laparotomy, lysis of adhesions, total abdominal colectomy with en bloc resection of aortocaval lymph nodes. Ileorectal anastomosis, omentectomy, cholecystectomy, small bowel resection x1 on November 23, 2021. 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 She has history of hysterectomy,, denies any smoking or alcohol use. CT PET scan done on December 27, 2021 showed FDG positive left supraclavicular lymph node measured 2.7 cm with SUV of 5.9. Multiple mediastinal lymph nodes are FDG positive and consistent with mesenteric disease. Also right paratracheal, left hilar, right para-aortic, right hilar and bilateral retrocrural territory. There are innumerable bilateral FDG positive pulmonary nodules representing metastatic disease. At the level of abdomen, retroperitoneal lymph nodes are too small to characterize. The right-sided mesenteric root node measures 1.6 cm SUV 3.8 consistent with malignancy. Started on FOLFOX on January 28, 2022 Came for follow-up, denies any specific complaints, no fever chills, no nausea or vomiting, no diarrhea or constipation, no mouth sores, no skin rash, no jaundice. Tolerated first cycle of FOLFOX well. Medications: Atenolol 1 Tablet (of 50 mg) Oral daily, Lisinopril 1 Tablet (of 40 mg) Oral daily, Magnesium Tablet Oral, One-A-Day Womens 50 Plus 1 Tablet Oral daily, Zinc (50 mg) Tablet Oral daily Allergies: No Known Allergies. Review of Systems: Review of Systems is not available for this patient. Vital Signs: Performed on Feb 11, 2022 08:17 Height - 63.00 in Weight - 162.4 lbs (HIGH) BSA - 1.77 sq.m BMI - 28.77 Temperature - 97.5 F (LOW) Pulse - 76 /min Respiration - 17 /min BP - 185/84 mm(hg) (HIGH) O2 Sat - 95 % (LOW) Pain - 0 Fatigue - 0 Performance Status: 0 - Fully active, able to carry on all predisease activities without restrictions. (ECOG) Physical Examination: ENMT - No mouth sores, no thrush, no jaundice, Respiratory - Lungs are clear to auscultation, Cardiovascular - Regular rate and rhythm of heart, Abdomen - Soft, bowel sounds present, Extremities - No visible edema. Lab/Imaging: Test performed on Jan 28, 2022 08:08 Manual Diff Cancelled via OM: Entered in error Test performed on Jan 27, 2022 08:54 Cr Clearance (Est) 109.16 mL/min Neutrophils (Gran) 7.09 10^9/L Eosinophils 0.1836 10^9/L Basophils 0.0864 10^9/L Impression: Moderately differentiated adenocarcinoma involving distal sigmoid colon status post exploratory laparotomy, total abdominal colectomy with en bloc resection of aortocaval lymph nodes, ileorectal anastomosis, omentectomy, lysis of adhesions done on November 23, 2021 and final pathology report showed moderately differentiated adenocarcinoma tumor invades visceral peritoneum, T4a, 1 out of 22 lymph node positive, N1 a and resected omentum shows multifocal metastatic adenocarcinoma M1c, CT scan of abdomen pelvis done on November 23, 2021 showed extensive bibasal pulmonary nodules/metastasis, visualized liver was unremarkable. And primary colonic neoplasm involving mid sigmoid colon causing high-grade obstruction and there is an area of contained perforation along the left lateral aspect of sigmoid colon. And findings consistent with widespread peritoneal carcinomatosis and scattered areas of omental nodularity Plan: Discussed with patient regarding her labs white blood count 7.1 hemoglobin 13.5 hematocrit 42.1 platelets 232,000, CMP within normal limits Clinically, patient doing well with no new signs symptom suggestive of disease progression, tolerated first cycle of FOLFOX well but with expected side effects. Her lab work-up is within normal range so we will proceed with cycle #2 with FOLFOX and then she will return to clinic in 2 weeks with CBC CMP This morning her blood pressure was up around 185/84 and patient has no symptoms, as per patient anytime she goes to doctor's office her blood pressure always go up but at home it is always within normal range, she is on atenolol and JACKSON inhibitors prescribed by her PMD. Patient also has anxiety disorder, she was given lorazepam in recent past but patient is not taking as recommended so she was advised to try lorazepam as recommended and also advised to monitor her blood pressure at home. We will also monitor her blood pressure during chemo infusion and intervene if needed. Signed By: Mita Gonzalez M.D. <<Signature on File>>
[2022-02-11] MEDS: LORazepam 0.5 mg Tablet PO (09:15)
[2022-02-11] MEDS: palonosetron 0.25 mg/5 mL SDV IV (09:34)
[2022-02-11] MEDS: dextrose 5% 250 ML 100 ML IV (09:55)
== END 2022-02-11 07:42 | disposition home or self-care (01) ==
PROVIDERS: PCP Registered Nurse; Visit Provider Internal Medicine Hematology & Oncology
DX: Z51.11 Encounter for antineoplastic chemotherapy (principal); C18.7 Malignant neoplasm of sigmoid colon; C78.02 Secondary malignant neoplasm of left lung; C78.01 Secondary malignant neoplasm of right lung; C78.6 Secondary malignant neoplasm of retroperitoneum and peritoneum; Z79.899 Other long term (current) drug therapy
CPT/HCPCS: 96367; 96368; 96374; 96411; 96413; 96415; 96416; 96417; 99215; J0640; J1100; J2469; J9190; J9263

== ENCOUNTER 2022-02-13 10:38 | Outpatient (CLI) | payer MEDICARE, SELFPAY | END 2022-02-13 10:39 | disposition home or self-care (01) | PROVIDERS: PCP Registered Nurse; Visit Provider Internal Medicine Hematology & Oncology | DX: Z45.2 Encounter for adjustment and management of vascular access device (principal) | CPT/HCPCS: 96523 ==

== ENCOUNTER 2022-02-26 11:42 | Outpatient (RCR) | payer MEDICARE, SELFPAY ==
[2022-02-24 08:29] LABS: Basophils # 0.1 10^3/uL (0.0-0.1); Basophils % 0.9 %; Eosinophils # 0.5 10^3/uL (0.0-0.8); Eosinophils % 6.5 %; Hematocrit 39.8 % (37.0-47.0); Hemoglobin 12.7 g/dL (11.5-15.3); Lymphocytes # 2.7 10^3/uL (0.8-4.8); Lymphocytes % 36.4 %; Mean Corpuscular HGB Conc 31.9 g/dL (30.0-36.0); Mean Corpuscular Hemoglobin 29.1 pg (28.0-34.0); Mean Corpuscular Volume 91.3 fl (81-99); Monocytes # 0.7 10^3/uL (0.2-0.9); Monocytes % 9.9 %; Neutrophils # 3.39 10^3/uL (1.8-7.7); Nucleated Red Blood Cells % 0 %; Platelet Count 171 10^3/cmm (130-400); Red Blood Count 4.36 10^6/uL (4.1-5.3); Red Cell Distribution Width 14.3 % (12.1-15.1); White Blood Count 7.4 10^3/uL (4.0-10.0)
[2022-02-24 08:44] LABS: Alanine Aminotransferase 15 U/L (0-33); Albumin Level 3.7 g/dL (3.5-5.2); Alkaline Phosphatase 75 IU/L (35-105); Anion Gap 13.9 (5-19); Aspartate Amino Transferase 21 U/L (0-32); Blood Urea Nitrogen 11 mg/dL (8-23); Calcium 9.5 mg/dL (8.5-10.5); Carbon Dioxide 24 mmol/L (22-29); Chloride 104 mmol/L (98-107); Globulin 3.8 g/dL (1.3-4.6); Glucose 107 mg/dL (65-115); Osmolality Calculated 286 mOsm/kg (285-295); Potassium 3.9 mmol/L (3.5-5.1); Sodium 138 mmol/L (136-145); Total Bilirubin 0.4 mg/dL (0.15-1.2); Total Protein 7.5 g/dL (6.6-8.7)
--- NOTE | 2022-02-24 09:51 | ONC FU_ITS ---
Arelis Bradshaw Progress Note Patient: Beryl Cespedes Unit #: [id number]: 1945 Dicatated By: Arelis Bradshaw N.P.Date of Visit:Feb 24, 2022 Onc MED Follow-up/Prog Note Chief Complaint: Colon cancer History of Present Illness: Ms. Beryl Cespedes, is a 76-year-old female with a history of progressive constipation, abdominal fullness, and abdominal pain went to [facility] in [place] and underwent CT scan of abdomen pelvis on November 23, 2021 which showed primary colonic neoplasm involving the mid sigmoid colon resulting in high-grade obstruction and an area of contained perforation along the left lateral aspect of sigmoid colon extending to the central mesentery. Also findings suggesting of widespread peritoneal carcinomatosis. Small volume ascites in the scattered area of omental nodularity. Enlarged retroperitoneal lymph nodes and extensive bilateral pulmonary metastasis. No visualized hepatic metastasis., She was transferred to [facility] and underwent exploratory laparotomy, lysis of adhesions, total abdominal colectomy with en bloc resection of aortocaval lymph nodes. Ileorectal anastomosis, omentectomy, cholecystectomy, small bowel resection x1 on November 23, 2021. 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 She has history of hysterectomy,, denies any smoking or alcohol use. CT PET scan done on December 27, 2021 showed FDG positive left supraclavicular lymph node measured 2.7 cm with SUV of 5.9. Multiple mediastinal lymph nodes are FDG positive and consistent with mesenteric disease. Also right paratracheal, left hilar, right para-aortic, right hilar and bilateral retrocrural territory. There are innumerable bilateral FDG positive pulmonary nodules representing metastatic disease. At the level of abdomen, retroperitoneal lymph nodes are too small to characterize. The right-sided mesenteric root node measures 1.6 cm SUV 3.8 consistent with malignancy. Started on FOLFOX on January 28, 2022 Patient presents today for follow-up. She states she is doing well. She is tolerating the FOLFOX regimen well. She states she has mild fatigue but she just rest when she needs to. Her appetite has been good. She denies fever, chills, hot flashes. No sinus drainage or mouth sores. No shortness of breath, cough, chest pain. No nausea or vomiting. She has diarrhea usually for the first day after treatment but it is controlled with Imodium. No urinary symptoms. No joint or muscle pain. No headaches or dizziness. No numbness or paresthesias. Review Of Symptoms:Review of Systems is not available for this patient. Past Medical History: Ms. Cespedes's medical history is unremarkable. Past Surgical History: Cholecystectomy Exploratory laparotomy in 2021 Total colectomy, omenectomy, small bowel resection in 2021 Allergies: No Known Allergies. Medications: Atenolol 1 Tablet (of 50 mg) Oral daily Lisinopril 1 Tablet (of 40 mg) Oral daily Magnesium Tablet Oral One-A-Day Womens 50 Plus 1 Tablet Oral daily Zinc (50 mg) Tablet Oral daily Family History: There is no documented family history. Social History: Ms. Cespedes is . Ms. Cespedes has never smoked. She drinks occasionally. Physical Examination: Performed on Feb 24, 2022 09:38: Height - 63.00 in, BP - 183/92 mm(hg) (HIGH), Performed on Feb 24, 2022 09:38: Height - 63.00 in, Weight - 164.0 lbs (HIGH), BSA - 1.78 sq.m, BMI - 29.05, Temperature - 97.6 F (LOW), Pulse - 74 /min, Respiration - 16 /min, BP - 198/80 mm(hg) (HIGH), O2 Sat - 98 %, Pain - 0, and Fatigue - 4. Performance Status: 1 - No physically strenuous activity, but ambulatory and able to carry out light or sedentary work (e.g. office work, light house work). (ECOG) Constitutional Alert, cooperative, oriented. Mood and affect appropriate. Appears close to chronological age. Well nourished. Well developed. Head Normocephalic; no scars. Respiratory Lungs are clear to auscultation without rhonchi or wheezing. Cardiovascular Regular rate and rhythm of heart without murmurs, gallops or rubs. Abdomen Non-tender, non-distended, no masses, ascites or hepatosplenomegaly. Good bowel sounds. No guarding or rebound tenderness. Extremities No edema Musculoskeletal No tenderness or swelling, normal range of motion without obvious weakness. Psychiatric Alert and oriented times three. Coherent speech. Verbalizes understanding of our discussions today. Laboratory: Test performed on Feb 24, 2022 08:10 Sodium 138 mmol/L Potassium 3.9 mmol/L Chloride 104 mmol/L CO2 24 mmol/L Anion Gap 13.9 BUN 11 mg/dL Creatinine 0.5 mg/dL Cr Clearance (Est) 109.1600 mL/min Glucose 107 mg/dL Osmolality - Calculated 286 mOsm/kg Calcium 9.5 mg/dL Protein, Total 7.5 g/dL Albumin 3.7 g/dL Globulin 3.8 g/dL Bilirubin, Total 0.4 mg/dL ALT (SGPT) 15 U/L AST (SGOT) 21 U/L Alkaline Phosphatase 75 IU/L WBC 7.4 10 3/uL RBC 4.36 10 6/uL HGB 12.7 g/dL HCT 39.8 % MCV 91.3 fl MCH 29.1 pg MCHC 31.9 g/dL RDW 14.3 % Platelet Count 171 10 3/cmm MPV 10.0 fL Neutrophils 3.39 10 3/uL Lymphocytes 2.7 10 3/uL Monocytes 0.7 10 3/uL Eosinophils 0.5 10 3/uL Basophils 0.1 10 3/uL Neutrophil % 46.0 % Lymphocyte % 36.4 % Monocyte % 9.9 % Eosinophil % 6.5 % Basophils % 0.9 % NRBC % 0 % Test performed on Jan 28, 2022 08:08 Manual Diff Cancelled via OM: Entered in error Impression: Moderately differentiated adenocarcinoma involving distal sigmoid colon status post exploratory laparotomy, total abdominal colectomy with en bloc resection of aortocaval lymph nodes, ileorectal anastomosis, omentectomy, lysis of adhesions done on November 23, 2021 and final pathology report showed moderately differentiated adenocarcinoma tumor invades visceral peritoneum, T4a, 1 out of 22 lymph node positive, N1 a and resected omentum shows multifocal metastatic adenocarcinoma M1c, CT scan of abdomen pelvis done on November 23, 2021 showed extensive bibasal pulmonary nodules/metastasis, visualized liver was unremarkable. And primary colonic neoplasm involving mid sigmoid colon causing high-grade obstruction and there is an area of contained perforation along the left lateral aspect of sigmoid colon. And findings consistent with widespread peritoneal carcinomatosis and scattered areas of omental nodularity Plan: Labs were reviewed with patient. CBC and CMP are within normal limits. Patient is doing well and tolerating FOLFOX treatment every 2 weeks. She is having mild diarrhea that is controlled with Imodium and the diarrhea only occurs immediately after treatment. She will continue with cycle 3 today and return to the clinic in 2 weeks with CBC and CMP. Signed By: Arelis Bradshaw N.P. <<Signature on File>>
[2022-02-24] MEDS: palonosetron 0.25 mg/5 mL SDV IV (10:00)
[2022-02-24] MEDS: dextrose 5% 250 ML 100 ML IV (10:00)
== END 2022-03-07 23:59 | disposition home or self-care (01) ==
LOC: ONCMED 11:42
PROVIDERS: PCP Registered Nurse; Visit Provider Nurse Practitioner Family
DX: Z51.11 Encounter for antineoplastic chemotherapy (principal); C18.7 Malignant neoplasm of sigmoid colon; C77.8 Secondary and unspecified malignant neoplasm of lymph nodes of multiple regions; C78.5 Secondary malignant neoplasm of large intestine and rectum; C78.6 Secondary malignant neoplasm of retroperitoneum and peritoneum; C78.01 Secondary malignant neoplasm of right lung; C78.02 Secondary malignant neoplasm of left lung; K52.1 Toxic gastroenteritis and colitis; T45.1X5A Adverse effect of antineoplastic and immunosuppressive drugs, initial encounter; Z79.899 Other long term (current) drug therapy
CPT/HCPCS: 80053; 85025; 96367; 96375; 96411; 96413; 96415; 96416; 96417; 96523; 99215; J0640; J1100; J2469; J9190; J9263

== ENCOUNTER 2022-04-07 08:30 | Oncology outpatient (recurring) (ONCR) | payer MEDICARE, MEDICAID, SELFPAY ==
[2022-03-09 08:38] LABS: Basophils # 0.1 10^3/uL (0.0-0.1); Basophils % 1.2 %; Eosinophils # 0.6 10^3/uL (0.0-0.8); Eosinophils % 7.7 %; Hematocrit 41.4 % (37.0-47.0); Hemoglobin 13.4 g/dL (11.5-15.3); Lymphocytes # 2.7 10^3/uL (0.8-4.8); Lymphocytes % 35.6 %; Mean Corpuscular HGB Conc 32.4 g/dL (30.0-36.0); Mean Corpuscular Hemoglobin 29.6 pg (28.0-34.0); Mean Corpuscular Volume 91.6 fl (81-99); Mean Platelet Volume 9.9 fL (7.4-10.4); Monocytes # 0.8 10^3/uL (0.2-0.9); Monocytes % 10.3 %; Neutrophils # 3.42 10^3/uL (1.8-7.7); Neutrophils % 44.8 %; Nucleated Red Blood Cells % 0 %; Platelet Count 138 10^3/cmm (130-400); Red Blood Count 4.52 10^6/uL (4.1-5.3); Red Cell Distribution Width 15.8 % (12.1-15.1); White Blood Count 7.6 10^3/uL (4.0-10.0)
[2022-03-09 09:02] LABS: Alanine Aminotransferase 18 U/L (0-33); Albumin Level 3.6 g/dL (3.5-5.2); Alkaline Phosphatase 78 IU/L (35-105); Anion Gap 15.1 (5-19); Aspartate Amino Transferase 24 U/L (0-32); Blood Urea Nitrogen 11 mg/dL (8-23); Calcium 9.9 mg/dL (8.5-10.5); Carbon Dioxide 25 mmol/L (22-29); Chloride 100 mmol/L (98-107); Glucose 99 mg/dL (65-115); Osmolality Calculated 281 mOsm/kg (285-295); Potassium 4.1 mmol/L (3.5-5.1); Sodium 136 mmol/L (136-145); Total Bilirubin 0.5 mg/dL (0.15-1.2); Total Protein 7.6 g/dL (6.6-8.7)
[2022-03-09 09:18] VITALS: BMI 27.8
[2022-03-09] MEDS: palonosetron 0.25 mg/5 mL SDV IVP (11:05)
[2022-03-09] MEDS: dextrose 5% 250 ML 75 ML IV (11:06)
[2022-03-09] MEDS: oxaliplatin 160 MG in dextrose 5% 250 ML 70.5 MG IV (12:02)
[2022-03-09] MEDS: leucovorin 740 MG in dextrose 5% 250 ML 81 MG IV (12:02)
[2022-03-09] MEDS: fluorouraciL 50 mg/ml MDV 100 mL 750 MG IVP (15:01)
[2022-03-09] MEDS: fluorouraciL 4,400 MG, elastomeric pump 1 PUMP in sodium chloride 0.9% (100 ml) 4 ML IV (15:10)
[2022-03-11 14:00] VITALS: BP 156/78; PULSE 67; RESP 16; O2SAT 100
[2022-03-23 08:09] VITALS: BMI 28.0
[2022-03-23 08:33] LABS: Basophils # 0.1 10^3/uL (0.0-0.1); Basophils % 1.2 %; Eosinophils # 0.3 10^3/uL (0.0-0.8); Eosinophils % 6.1 %; Hemoglobin 13.2 g/dL (11.5-15.3); Lymphocytes # 2.1 10^3/uL (0.8-4.8); Lymphocytes % 40.5 %; Mean Corpuscular HGB Conc 32.2 g/dL (30.0-36.0); Mean Corpuscular Hemoglobin 29.9 pg (28.0-34.0); Mean Corpuscular Volume 92.8 fl (81-99); Mean Platelet Volume 10.2 fL (7.4-10.4); Monocytes # 0.6 10^3/uL (0.2-0.9); Monocytes % 11.1 %; Neutrophils # 2.13 10^3/uL (1.8-7.7); Neutrophils % 40.9 %; Nucleated Red Blood Cells % 0 %; Platelet Count 104 10^3/cmm (130-400); Red Blood Count 4.42 10^6/uL (4.1-5.3); Red Cell Distribution Width 16.9 % (12.1-15.1); White Blood Count 5.2 10^3/uL (4.0-10.0)
[2022-03-23 08:54] LABS: Alanine Aminotransferase 18 U/L (0-33); Albumin Level 3.8 g/dL (3.5-5.2); Alkaline Phosphatase 86 IU/L (35-105); Anion Gap 15.9 (5-19); Aspartate Amino Transferase 28 U/L (0-32); Blood Urea Nitrogen 11 mg/dL (8-23); Calcium 9.5 mg/dL (8.5-10.5); Carbon Dioxide 24 mmol/L (22-29); Chloride 102 mmol/L (98-107); Globulin 3.6 g/dL (1.3-4.6); Glucose 103 mg/dL (65-115); Osmolality Calculated 286 mOsm/kg (285-295); Potassium 3.9 mmol/L (3.5-5.1); Sodium 138 mmol/L (136-145); Total Bilirubin 0.6 mg/dL (0.15-1.2); Total Protein 7.4 g/dL (6.6-8.7)
[2022-03-23] MEDS: dextrose 5% 250 ML 100 ML IV (09:52)
[2022-03-23] MEDS: palonosetron 0.25 mg/5 mL SDV IVP (09:54)
[2022-03-23] MEDS: leucovorin 740 MG in dextrose 5% 250 ML 81 MG IV (10:29)
[2022-03-23] MEDS: OXALIPLATIN IV (10:31)
[2022-03-23] MEDS: DEXTROSE 5% IV (10:31)
[2022-03-23] MEDS: fluorouraciL 50 mg/ml MDV 100 mL 750 MG IVP (14:20)
[2022-03-23] MEDS: fluorouraciL 4,400 MG, elastomeric pump 1 PUMP in sodium chloride 0.9% (100 ml) 4 ML IV (14:22)
[2022-03-23 14:31] VITALS: BP 190/94; PULSE 82; RESP 16; TEMP 36.1; O2SAT 96
[2022-03-25 14:35] VITALS: BP 151/71; PULSE 67; RESP 16; TEMP 36; O2SAT 96
[2022-04-07 08:43] LABS: Basophils # 0.1 10^3/uL (0.0-0.1); Eosinophils # 0.2 10^3/uL (0.0-0.8); Eosinophils % 3.8 %; Hematocrit 39.6 % (37.0-47.0); Hemoglobin 13.2 g/dL (11.5-15.3); Lymphocytes # 2.3 10^3/uL (0.8-4.8); Mean Corpuscular HGB Conc 33.3 g/dL (30.0-36.0); Mean Corpuscular Hemoglobin 30.7 pg (28.0-34.0); Mean Corpuscular Volume 92.1 fl (81-99); Mean Platelet Volume 10.5 fL (7.4-10.4); Monocytes # 0.6 10^3/uL (0.2-0.9); Monocytes % 13.9 %; Nucleated Red Blood Cells % 0 %; Platelet Count 97 10^3/cmm (130-400); Red Cell Distribution Width 17.6 % (12.1-15.1)
[2022-04-07 08:57] LABS: Neutrophils # 0.83 10^3/uL (1.8-7.7)
[2022-04-07 09:13] LABS: Alanine Aminotransferase 17 U/L (0-33); Albumin Level 3.8 g/dL (3.5-5.2); Alkaline Phosphatase 87 IU/L (35-105); Anion Gap 15.9 (5-19); Aspartate Amino Transferase 28 U/L (0-32); Blood Urea Nitrogen 12 mg/dL (8-23); Calcium 9.3 mg/dL (8.5-10.5); Carbon Dioxide 24 mmol/L (22-29); Chloride 102 mmol/L (98-107); Globulin 3.5 g/dL (1.3-4.6); Glucose 109 mg/dL (65-115); Osmolality Calculated 286 mOsm/kg (285-295); Potassium 3.9 mmol/L (3.5-5.1); Sodium 138 mmol/L (136-145); Total Bilirubin 0.7 mg/dL (0.15-1.2); Total Protein 7.3 g/dL (6.6-8.7)
== END 2022-04-07 23:59 | disposition home or self-care (01) ==
PROVIDERS: Nurse Practitioner; Nurse Practitioner Family; PCP Registered Nurse; Visit Provider Internal Medicine Hematology & Oncology
DX: C18.7 Malignant neoplasm of sigmoid colon (principal); C77.2 Secondary and unspecified malignant neoplasm of intra-abdominal lymph nodes; D70.1 Agranulocytosis secondary to cancer chemotherapy; T45.1X5A Adverse effect of antineoplastic and immunosuppressive drugs, initial encounter; I10 Essential (primary) hypertension; Z87.891 Personal history of nicotine dependence
CPT/HCPCS: 36591; 80053; 85025; 96367; 96368; 96375; 96411; 96413; 96415; 96416; 96523; 99214; 99999; J0640; J1100; J2469; J9190; J9263

== ENCOUNTER 2022-04-30 14:00 | Oncology outpatient (recurring) (ONCR) | payer MEDICARE, MEDICAID, SELFPAY ==
[2022-04-14 08:16] VITALS: BMI 27.9
[2022-04-14 08:40] LABS: Basophils # 0.1 10^3/uL (0.0-0.1); Basophils % 1.2 %; Eosinophils # 0.2 10^3/uL (0.0-0.8); Eosinophils % 3.5 %; Hematocrit 41.7 % (37.0-47.0); Hemoglobin 13.7 g/dL (11.5-15.3); Lymphocytes # 2.9 10^3/uL (0.8-4.8); Lymphocytes % 43.2 %; Mean Corpuscular HGB Conc 32.9 g/dL (30.0-36.0); Mean Corpuscular Hemoglobin 31.1 pg (28.0-34.0); Mean Corpuscular Volume 94.6 fl (81-99); Mean Platelet Volume 10.4 fL (7.4-10.4); Monocytes # 0.8 10^3/uL (0.2-0.9); Monocytes % 11.5 %; Neutrophils # 2.64 10^3/uL (1.8-7.7); Nucleated Red Blood Cells % 0 %; Platelet Count 209 10^3/cmm (130-400); Red Blood Count 4.41 10^6/uL (4.1-5.3); Red Cell Distribution Width 17.5 % (12.1-15.1); White Blood Count 6.8 10^3/uL (4.0-10.0)
[2022-04-14 08:46] LABS: Alanine Aminotransferase 16 U/L (0-33); Albumin Level 3.9 g/dL (3.5-5.2); Alkaline Phosphatase 100 IU/L (35-105); Anion Gap 14.4 (5-19); Aspartate Amino Transferase 25 U/L (0-32); Blood Urea Nitrogen 14 mg/dL (8-23); Calcium 9.5 mg/dL (8.5-10.5); Carbon Dioxide 28 mmol/L (22-29); Chloride 100 mmol/L (98-107); Globulin 3.8 g/dL (1.3-4.6); Glucose 109 mg/dL (65-115); Osmolality Calculated 287 mOsm/kg (285-295); Potassium 4.4 mmol/L (3.5-5.1); Sodium 138 mmol/L (136-145); Total Bilirubin 0.5 mg/dL (0.15-1.2); Total Protein 7.7 g/dL (6.6-8.7)
[2022-04-14] MEDS: dextrose 5% 250 ML 100 ML IV (09:25)
[2022-04-14] MEDS: palonosetron 0.25 mg/5 mL SDV IVP (09:27)
[2022-04-14 10:09] LABS: Carcinoembryonic Antigen 3.3 ng/mL (0.0-4.7)
[2022-04-14] MEDS: DEXTROSE 5% IV (10:38)
[2022-04-14] MEDS: OXALIPLATIN IV (10:38)
[2022-04-14] MEDS: leucovorin 740 MG in dextrose 5% 250 ML 81 MG IV (10:38)
[2022-04-14] MEDS: fluorouraciL 50 mg/ml MDV 100 mL 750 MG IVP (14:17)
[2022-04-14] MEDS: fluorouraciL 4,400 MG, elastomeric pump 1 PUMP in sodium chloride 0.9% (100 ml) 4 ML IV (14:18)
[2022-04-14 14:39] VITALS: BP 140/75; PULSE 80; RESP 18; TEMP 35.8; O2SAT 94
[2022-04-16 12:56] VITALS: BP 168/77; PULSE 70; RESP 16; TEMP 35.9; O2SAT 99
[2022-04-28 08:34] LABS: Basophils # 0.1 10^3/uL (0.0-0.1); Eosinophils # 0.2 10^3/uL (0.0-0.8); Hematocrit 38.4 % (37.0-47.0); Hemoglobin 12.7 g/dL (11.5-15.3); Lymphocytes # 2.4 10^3/uL (0.8-4.8); Mean Corpuscular HGB Conc 33.1 g/dL (30.0-36.0); Mean Corpuscular Hemoglobin 31.2 pg (28.0-34.0); Mean Corpuscular Volume 94.3 fl (81-99); Mean Platelet Volume 10.7 fL (7.4-10.4); Monocytes # 0.7 10^3/uL (0.2-0.9); Monocytes % 13.4 %; Neutrophils % 34.4 %; Nucleated Red Blood Cells % 0 %; Platelet Count 127 10^3/cmm (130-400); Red Blood Count 4.07 10^6/uL (4.1-5.3); Red Cell Distribution Width 16.7 % (12.1-15.1); White Blood Count 4.9 10^3/uL (4.0-10.0)
[2022-04-28 08:50] LABS: Alanine Aminotransferase 16 U/L (0-33); Albumin Level 3.8 g/dL (3.5-5.2); Alkaline Phosphatase 88 IU/L (35-105); Aspartate Amino Transferase 27 U/L (0-32); Blood Urea Nitrogen 13 mg/dL (8-23); Calcium 9.3 mg/dL (8.5-10.5); Carbon Dioxide 26 mmol/L (22-29); Chloride 101 mmol/L (98-107); Globulin 3.3 g/dL (1.3-4.6); Glucose 116 mg/dL (65-115); Osmolality Calculated 285 mOsm/kg (285-295); Sodium 137 mmol/L (136-145); Total Bilirubin 0.7 mg/dL (0.15-1.2); Total Protein 7.1 g/dL (6.6-8.7)
[2022-04-28] MEDS: dextrose 5% 250 ML 75 ML IV (10:45)
[2022-04-28] MEDS: palonosetron 0.25 mg/5 mL SDV IVP (10:45)
[2022-04-28] MEDS: leucovorin 740 MG in dextrose 5% 250 ML 81 MG IV (11:58)
[2022-04-28] MEDS: DEXTROSE 5% IV (11:59)
[2022-04-28] MEDS: OXALIPLATIN IV (11:59)
[2022-04-28] MEDS: fluorouraciL 50 mg/ml MDV 100 mL 750 MG IVP (15:32)
[2022-04-28] MEDS: fluorouraciL 4,400 MG, elastomeric pump 1 PUMP in sodium chloride 0.9% (100 ml) 4 ML IV (15:33)
[2022-04-28 16:02] VITALS: BP 138/81; PULSE 67; TEMP 36.4; O2SAT 97
== END 2022-05-07 23:59 | disposition home or self-care (01) ==
PROVIDERS: PCP Registered Nurse; Visit Provider Internal Medicine Hematology & Oncology
DX: Z45.2 Encounter for adjustment and management of vascular access device (principal); Z53.9 Procedure and treatment not carried out, unspecified reason
CPT/HCPCS: 36591; 80053; 82378; 85025; 96367; 96368; 96375; 96411; 96413; 96415; 96416; 96523; 99214; J0640; J1100; J2469; J9190; J9263

== ENCOUNTER 2022-06-01 09:00 | Oncology outpatient (recurring) (ONCR) | payer MEDICARE, MEDICAID, SELFPAY ==
[2022-05-12 08:29] LABS: Basophils # 0.1 10^3/uL (0.0-0.1); Basophils % 1.4 %; Eosinophils # 0.2 10^3/uL (0.0-0.8); Eosinophils % 3.6 %; Hematocrit 36.4 % (37.0-47.0); Hemoglobin 12.1 g/dL (11.5-15.3); Lymphocytes # 2.3 10^3/uL (0.8-4.8); Lymphocytes % 55.9 %; Mean Corpuscular HGB Conc 33.2 g/dL (30.0-36.0); Mean Corpuscular Hemoglobin 32.2 pg (28.0-34.0); Mean Corpuscular Volume 96.8 fl (81-99); Mean Platelet Volume 11.1 fL (7.4-10.4); Monocytes # 0.6 10^3/uL (0.2-0.9); Monocytes % 14.9 %; Nucleated Red Blood Cells % 0 %; Platelet Count 82 10^3/cmm (130-400); Red Blood Count 3.76 10^6/uL (4.1-5.3); Red Cell Distribution Width 16.8 % (12.1-15.1); White Blood Count 4.2 10^3/uL (4.0-10.0)
[2022-05-12 08:55] LABS: Alanine Aminotransferase 17 U/L (0-33); Albumin Level 3.8 g/dL (3.5-5.2); Alkaline Phosphatase 87 IU/L (35-105); Aspartate Amino Transferase 33 U/L (0-32); Blood Urea Nitrogen 9 mg/dL (8-23); Carbon Dioxide 23 mmol/L (22-29); Chloride 102 mmol/L (98-107); Globulin 3.1 g/dL (1.3-4.6); Glucose 101 mg/dL (65-115); Osmolality Calculated 285 mOsm/kg (285-295); Sodium 138 mmol/L (136-145); Total Bilirubin 0.6 mg/dL (0.15-1.2); Total Protein 6.9 g/dL (6.6-8.7)
[2022-05-18 09:02] VITALS: BMI 28.1
[2022-05-18 09:07] LABS: Basophils % 0.9 %; Eosinophils # 0.1 10^3/uL (0.0-0.8); Eosinophils % 2.5 %; Hematocrit 39.2 % (37.0-47.0); Hemoglobin 12.9 g/dL (11.5-15.3); Lymphocytes # 2.6 10^3/uL (0.8-4.8); Lymphocytes % 58.1 %; Mean Corpuscular HGB Conc 32.9 g/dL (30.0-36.0); Mean Corpuscular Hemoglobin 32.3 pg (28.0-34.0); Mean Platelet Volume 10.7 fL (7.4-10.4); Monocytes # 0.7 10^3/uL (0.2-0.9); Monocytes % 14.8 %; Neutrophils # 1.04 10^3/uL (1.8-7.7); Neutrophils % 23.3 %; Nucleated Red Blood Cells % 0 %; Platelet Count 152 10^3/cmm (130-400); Red Cell Distribution Width 16.1 % (12.1-15.1); White Blood Count 4.5 10^3/uL (4.0-10.0)
[2022-05-18 09:21] LABS: Alanine Aminotransferase 19 U/L (0-33); Alkaline Phosphatase 95 IU/L (35-105); Aspartate Amino Transferase 31 U/L (0-32); Blood Urea Nitrogen 11 mg/dL (8-23); Calcium 9.6 mg/dL (8.5-10.5); Carbon Dioxide 26 mmol/L (22-29); Chloride 100 mmol/L (98-107); Globulin 3.3 g/dL (1.3-4.6); Glucose 105 mg/dL (65-115); Osmolality Calculated 284 mOsm/kg (285-295); Sodium 137 mmol/L (136-145); Total Bilirubin 0.6 mg/dL (0.15-1.2); Total Protein 7.3 g/dL (6.6-8.7)
[2022-05-18 09:28] LABS: Anion Gap 15.2 (5-19); Potassium 4.2 mmol/L (3.5-5.1)
[2022-05-25 09:00] LABS: Basophils # 0.1 10^3/uL (0.0-0.1); Basophils % 0.7 %; Eosinophils # 0.2 10^3/uL (0.0-0.8); Eosinophils % 2.2 %; Hematocrit 39.9 % (37.0-47.0); Hemoglobin 12.8 g/dL (11.5-15.3); Lymphocytes # 2.5 10^3/uL (0.8-4.8); Lymphocytes % 36.7 %; Mean Corpuscular HGB Conc 32.1 g/dL (30.0-36.0); Mean Corpuscular Hemoglobin 32.7 pg (28.0-34.0); Mean Corpuscular Volume 101.8 fl (81-99); Mean Platelet Volume 10.4 fL (7.4-10.4); Monocytes # 0.7 10^3/uL (0.2-0.9); Monocytes % 10.5 %; Neutrophils # 3.36 10^3/uL (1.8-7.7); Neutrophils % 49.3 %; Nucleated Red Blood Cells % 0 %; Platelet Count 142 10^3/cmm (130-400); Red Blood Count 3.92 10^6/uL (4.1-5.3); Red Cell Distribution Width 15.2 % (12.1-15.1); White Blood Count 6.8 10^3/uL (4.0-10.0)
[2022-05-25 09:59] LABS: Alanine Aminotransferase 19 U/L (0-33); Albumin Level 3.9 g/dL (3.5-5.2); Alkaline Phosphatase 94 IU/L (35-105); Anion Gap 13.2 (5-19); Aspartate Amino Transferase 27 U/L (0-32); Blood Urea Nitrogen 12 mg/dL (8-23); Calcium 9.5 mg/dL (8.5-10.5); Carbon Dioxide 27 mmol/L (22-29); Chloride 103 mmol/L (98-107); Globulin 3.4 g/dL (1.3-4.6); Glucose 95 mg/dL (65-115); Osmolality Calculated 288 mOsm/kg (285-295); Potassium 4.2 mmol/L (3.5-5.1); Sodium 139 mmol/L (136-145); Total Bilirubin 0.5 mg/dL (0.15-1.2); Total Protein 7.3 g/dL (6.6-8.7)
[2022-05-25] MEDS: dextrose 5% 250 ML 100 ML IV (10:59)
[2022-05-25] MEDS: palonosetron 0.25 mg/5 mL SDV IVP (11:00)
[2022-05-25] MEDS: DEXTROSE 5% IV (11:21)
[2022-05-25] MEDS: leucovorin 740 MG in dextrose 5% 250 ML 81 MG IV (11:21)
[2022-05-25] MEDS: OXALIPLATIN IV (11:21)
[2022-05-25] MEDS: fluorouraciL 50 mg/ml MDV 100 mL 750 MG IVP (14:59)
[2022-05-25] MEDS: fluorouraciL 4,400 MG, elastomeric pump 1 PUMP in sodium chloride 0.9% (100 ml) 4 ML IV (14:59)
[2022-05-25 15:22] VITALS: BP 171/86; PULSE 78; TEMP 36.8; O2SAT 95
[2022-05-27] MEDS: pegfilgrastim 6 mg/0.6 mL Kit (onpro) SUBCUT (11:25)
[2022-05-27 11:57] VITALS: BP 136/72; PULSE 64; RESP 18; TEMP 36.7; O2SAT 95
[2022-06-01 09:11] LABS: Basophils # 0.1 10^3/uL (0.0-0.1); Basophils % 0.6 %; Eosinophils # 0.1 10^3/uL (0.0-0.8); Eosinophils % 0.7 %; Hematocrit 39.3 % (37.0-47.0); Hemoglobin 12.7 g/dL (11.5-15.3); Lymphocytes # 2.7 10^3/uL (0.8-4.8); Lymphocytes % 13.9 %; Mean Corpuscular HGB Conc 32.3 g/dL (30.0-36.0); Mean Corpuscular Hemoglobin 32.8 pg (28.0-34.0); Mean Corpuscular Volume 101.6 fl (81-99); Monocytes # 0.9 10^3/uL (0.2-0.9); Monocytes % 4.8 %; Neutrophils # 15.37 10^3/uL (1.8-7.7); Neutrophils % 79.3 %; Nucleated Red Blood Cells % 0 %; Platelet Count 84 10^3/cmm (130-400); Positive M 1; Red Blood Count 3.87 10^6/uL (4.1-5.3); Red Cell Distribution Width 14.4 % (12.1-15.1); White Blood Count 19.4 10^3/uL (4.0-10.0)
[2022-06-01 09:34] LABS: Alanine Aminotransferase 16 U/L (0-33); Alkaline Phosphatase 183 IU/L (35-105); Anion Gap 15.1 (5-19); Aspartate Amino Transferase 25 U/L (0-32); Blood Urea Nitrogen 9 mg/dL (8-23); Calcium 9.4 mg/dL (8.5-10.5); Carbon Dioxide 26 mmol/L (22-29); Chloride 101 mmol/L (98-107); Globulin 2.8 g/dL (1.3-4.6); Glucose 106 mg/dL (65-115); Osmolality Calculated 285 mOsm/kg (285-295); Potassium 4.1 mmol/L (3.5-5.1); Sodium 138 mmol/L (136-145); Total Bilirubin 0.7 mg/dL (0.15-1.2); Total Protein 6.8 g/dL (6.6-8.7)
== END 2022-06-07 23:59 | disposition home or self-care (01) ==
PROVIDERS: Nurse Practitioner Family; PCP Registered Nurse; Visit Provider Internal Medicine Hematology & Oncology
DX: C18.7 Malignant neoplasm of sigmoid colon (principal); C78.5 Secondary malignant neoplasm of large intestine and rectum; R18.0 Malignant ascites; C77.8 Secondary and unspecified malignant neoplasm of lymph nodes of multiple regions; C78.01 Secondary malignant neoplasm of right lung; C78.02 Secondary malignant neoplasm of left lung; D69.6 Thrombocytopenia, unspecified; Z79.899 Other long term (current) drug therapy
CPT/HCPCS: 36591; 80053; 85025; 96367; 96368; 96375; 96377; 96411; 96413; 96415; 96416; 96523; 99214; 99215; J0640; J1100; J2469; J2506; J9190; J9263

== ENCOUNTER 2022-07-08 13:00 | Oncology outpatient (recurring) (ONCR) | payer MEDICARE, MEDICAID, SELFPAY ==
[2022-06-08 08:48] VITALS: BMI 28.3
[2022-06-08 08:56] LABS: Basophils # 0.1 10^3/uL (0.0-0.1); Basophils % 0.7 %; Eosinophils # 0.2 10^3/uL (0.0-0.8); Eosinophils % 1.2 %; Hematocrit 42.4 % (37.0-47.0); Hemoglobin 13.7 g/dL (11.5-15.3); Lymphocytes % 23.1 %; Mean Corpuscular HGB Conc 32.3 g/dL (30.0-36.0); Mean Corpuscular Hemoglobin 32.9 pg (28.0-34.0); Mean Corpuscular Volume 101.7 fl (81-99); Mean Platelet Volume 11.2 fL (7.4-10.4); Monocytes # 0.9 10^3/uL (0.2-0.9); Monocytes % 6.8 %; Neutrophils # 8.42 10^3/uL (1.8-7.7); Neutrophils % 64.7 %; Nucleated Red Blood Cells % 0 %; Platelet Count 95 10^3/cmm (130-400); Red Blood Count 4.17 10^6/uL (4.1-5.3); Red Cell Distribution Width 14.7 % (12.1-15.1)
[2022-06-08 09:17] LABS: Alanine Aminotransferase 22 U/L (0-33); Albumin Level 3.9 g/dL (3.5-5.2); Alkaline Phosphatase 163 IU/L (35-105); Aspartate Amino Transferase 33 U/L (0-32); Blood Urea Nitrogen 10 mg/dL (8-23); Calcium 9.5 mg/dL (8.5-10.5); Carbon Dioxide 27 mmol/L (22-29); Chloride 102 mmol/L (98-107); Globulin 3.4 g/dL (1.3-4.6); Glucose 104 mg/dL (65-115); Osmolality Calculated 287 mOsm/kg (285-295); Sodium 139 mmol/L (136-145); Total Bilirubin 0.5 mg/dL (0.15-1.2); Total Protein 7.3 g/dL (6.6-8.7)
[2022-06-08 09:32] LABS: Anion Gap 14.4 (5-19); Potassium 4.4 mmol/L (3.5-5.1)
[2022-06-08] MEDS: dextrose 5% 250 ML 100 ML IV (10:50)
[2022-06-08] MEDS: palonosetron 0.25 mg/5 mL SDV IVP (10:51)
[2022-06-08] MEDS: leucovorin 740 MG in dextrose 5% 250 ML 81 MG IV (11:19)
[2022-06-08] MEDS: OXALIPLATIN IV (11:19)
[2022-06-08] MEDS: DEXTROSE 5% IV (11:19)
[2022-06-08] MEDS: fluorouraciL 4,400 MG, elastomeric pump 1 PUMP in sodium chloride 0.9% (100 ml) 4 ML IV (14:59)
[2022-06-08 15:09] VITALS: BP 153/78; PULSE 70; TEMP 37.1; O2SAT 96
[2022-06-10] MEDS: pegfilgrastim 6 mg/0.6 mL Kit (onpro) SUBCUT (13:23)
[2022-06-22 08:46] VITALS: BMI 28.1
[2022-06-22 08:46] LABS: Basophils # 0.1 10^3/uL (0.0-0.1); Basophils % 0.6 %; Eosinophils # 0.1 10^3/uL (0.0-0.8); Eosinophils % 0.6 %; Hematocrit 42.1 % (37.0-47.0); Hemoglobin 13.5 g/dL (11.5-15.3); Lymphocytes # 3.3 10^3/uL (0.8-4.8); Lymphocytes % 22.8 %; Mean Corpuscular HGB Conc 32.1 g/dL (30.0-36.0); Mean Corpuscular Hemoglobin 32.8 pg (28.0-34.0); Mean Corpuscular Volume 102.2 fl (81-99); Monocytes % 6.7 %; Neutrophils % 65.8 %; Nucleated Red Blood Cells % 0 %; Platelet Count 99 10^3/cmm (130-400); Red Blood Count 4.12 10^6/uL (4.1-5.3); Red Cell Distribution Width 14.6 % (12.1-15.1); White Blood Count 14.4 10^3/uL (4.0-10.0)
[2022-06-22 09:18] LABS: Alanine Aminotransferase 17 U/L (0-33); Albumin Level 4.1 g/dL (3.5-5.2); Alkaline Phosphatase 197 IU/L (35-105); Anion Gap 15.6 (5-19); Aspartate Amino Transferase 27 U/L (0-32); Blood Urea Nitrogen 18 mg/dL (8-23); Calcium 9.2 mg/dL (8.5-10.5); Carbon Dioxide 26 mmol/L (22-29); Chloride 102 mmol/L (98-107); Globulin 3.3 g/dL (1.3-4.6); Glucose 114 mg/dL (65-115); Osmolality Calculated 291 mOsm/kg (285-295); Potassium 4.6 mmol/L (3.5-5.1); Sodium 139 mmol/L (136-145); Total Bilirubin 0.5 mg/dL (0.15-1.2); Total Protein 7.4 g/dL (6.6-8.7)
[2022-06-22] MEDS: dextrose 5% 250 ML 100 ML IV (10:53)
[2022-06-22] MEDS: palonosetron 0.25 mg/5 mL SDV IVP (10:53)
[2022-06-22] MEDS: leucovorin 720 MG in dextrose 5% 250 ML 80.5 MG IV (11:17)
[2022-06-22 14:55] VITALS: BP 137/79; PULSE 66; RESP 16; TEMP 35.6; O2SAT 95
[2022-06-22] MEDS: fluorouraciL 4,300 MG, elastomeric pump 1 PUMP in sodium chloride 0.9% (100 ml) 6 ML IV (15:04)
[2022-07-06 08:47] LABS: Basophils # 0.1 10^3/uL (0.0-0.1); Basophils % 1.2 %; Eosinophils # 0.1 10^3/uL (0.0-0.8); Eosinophils % 2.3 %; Hematocrit 39.6 % (37.0-47.0); Hemoglobin 13.1 g/dL (11.5-15.3); Lymphocytes % 41.9 %; Mean Corpuscular HGB Conc 33.1 g/dL (30.0-36.0); Mean Corpuscular Hemoglobin 33.2 pg (28.0-34.0); Mean Corpuscular Volume 100.3 fl (81-99); Mean Platelet Volume 10.8 fL (7.4-10.4); Monocytes # 0.8 10^3/uL (0.2-0.9); Monocytes % 17.3 %; Neutrophils # 1.81 10^3/uL (1.8-7.7); Neutrophils % 37.3 %; Nucleated Red Blood Cells % 0 %; Platelet Count 106 10^3/cmm (130-400); Red Blood Count 3.95 10^6/uL (4.1-5.3); White Blood Count 4.9 10^3/uL (4.0-10.0)
[2022-07-06 09:10] LABS: Alanine Aminotransferase 16 U/L (0-33); Albumin Level 3.9 g/dL (3.5-5.2); Alkaline Phosphatase 107 U/L (35-105); Aspartate Amino Transferase 37 U/L (0-32); Blood Urea Nitrogen 10 mg/dL (8-23); Calcium 9.4 mg/dL (8.5-10.5); Carbon Dioxide 27 mmol/L (22-29); Chloride 102 mmol/L (98-107); Globulin 3.2 g/dL (1.3-4.6); Glucose 128 mg/dL (65-115); Osmolality Calculated 289 mOsm/kg (285-295); Sodium 139 mmol/L (136-145); Total Bilirubin 0.8 mg/dL (0.15-1.2); Total Protein 7.1 g/dL (6.6-8.7)
[2022-07-06 09:12] LABS: Anion Gap 14.7 (5-19); Potassium 4.7 mmol/L (3.5-5.1)
[2022-07-06] MEDS: dextrose 5% 250 ML 100 ML IV (10:51)
[2022-07-06] MEDS: palonosetron 0.25 mg/5 mL SDV IVP (10:52)
[2022-07-06] MEDS: leucovorin 720 MG in dextrose 5% 250 ML 80.5 MG IV (11:13)
[2022-07-06] MEDS: fluorouraciL 4,300 MG, elastomeric pump 1 PUMP in sodium chloride 0.9% (100 ml) 6 ML IV (14:50)
[2022-07-06 14:59] VITALS: BP 160/80; PULSE 70; TEMP 36.6; O2SAT 96
== END 2022-07-08 23:59 | disposition home or self-care (01) ==
PROVIDERS: Nurse Practitioner Family; PCP Registered Nurse; Visit Provider Internal Medicine Hematology & Oncology
DX: Z45.2 Encounter for adjustment and management of vascular access device (principal)
CPT/HCPCS: 80053; 85025; 96367; 96368; 96375; 96377; 96413; 96415; 96416; 96523; 99214; 99215; J0640; J1100; J2469; J2506; J9190; J9263

== ENCOUNTER 2022-07-29 13:01 | Oncology outpatient (recurring) (ONCR) | payer MEDICARE, MEDICAID, SELFPAY ==
[2022-07-20 08:41] LABS: Basophils # 0.1 10^3/uL (0.0-0.1); Basophils % 1.3 %; Eosinophils # 0.1 10^3/uL (0.0-0.8); Eosinophils % 3.1 %; Hematocrit 39.4 % (37.0-47.0); Hemoglobin 12.8 g/dL (11.5-15.3); Lymphocytes # 2.1 10^3/uL (0.8-4.8); Lymphocytes % 53.6 %; Mean Corpuscular HGB Conc 32.5 g/dL (30.0-36.0); Mean Corpuscular Hemoglobin 32.8 pg (28.0-34.0); Mean Platelet Volume 11.3 fL (7.4-10.4); Monocytes # 0.5 10^3/uL (0.2-0.9); Monocytes % 12.3 %; Neutrophils # 1.15 10^3/uL (1.8-7.7); Neutrophils % 29.4 %; Nucleated Red Blood Cells % 0 %; Platelet Count 64 10^3/cmm (130-400); Red Cell Distribution Width 13.9 % (12.1-15.1); White Blood Count 3.9 10^3/uL (4.0-10.0)
[2022-07-20 09:12] LABS: Alanine Aminotransferase 22 U/L (0-33); Alkaline Phosphatase 112 U/L (35-105); Anion Gap 13.1 (5-19); Aspartate Amino Transferase 33 U/L (0-32); Blood Urea Nitrogen 11 mg/dL (8-23); Calcium 9.2 mg/dL (8.5-10.5); Carbon Dioxide 26 mmol/L (22-29); Chloride 104 mmol/L (98-107); Globulin 3.2 g/dL (1.3-4.6); Glucose 111 mg/dL (65-115); Osmolality Calculated 288 mOsm/kg (285-295); Potassium 4.1 mmol/L (3.5-5.1); Sodium 139 mmol/L (136-145); Total Bilirubin 0.6 mg/dL (0.15-1.2); Total Protein 7.2 g/dL (6.6-8.7)
[2022-07-27 08:24] LABS: Eosinophils # 0.1 10^3/uL (0.0-0.8); Hematocrit 40.5 % (37.0-47.0); Hemoglobin 13.4 g/dL (11.5-15.3); Lymphocytes # 2.3 10^3/uL (0.8-4.8); Lymphocytes % 56.7 %; Mean Corpuscular HGB Conc 33.1 g/dL (30.0-36.0); Mean Corpuscular Hemoglobin 33.9 pg (28.0-34.0); Mean Corpuscular Volume 102.5 fl (81-99); Mean Platelet Volume 10.7 fL (7.4-10.4); Monocytes # 0.6 10^3/uL (0.2-0.9); Monocytes % 13.8 %; Neutrophils # 1.03 10^3/uL (1.8-7.7); Neutrophils % 25.3 %; Nucleated Red Blood Cells % 0 %; Platelet Count 119 10^3/cmm (130-400); Red Blood Count 3.95 10^6/uL (4.1-5.3); Red Cell Distribution Width 13.8 % (12.1-15.1); White Blood Count 4.1 10^3/uL (4.0-10.0)
[2022-07-27 08:52] LABS: Alanine Aminotransferase 17 U/L (0-33); Albumin Level 3.6 g/dL (3.5-5.2); Alkaline Phosphatase 106 U/L (35-105); Anion Gap 12.2 (5-19); Aspartate Amino Transferase 35 U/L (0-32); Blood Urea Nitrogen 8 mg/dL (8-23); Calcium 9.5 mg/dL (8.5-10.5); Carbon Dioxide 29 mmol/L (22-29); Chloride 99 mmol/L (98-107); Globulin 3.8 g/dL (1.3-4.6); Glucose 105 mg/dL (65-115); Osmolality Calculated 281 mOsm/kg (285-295); Potassium 4.2 mmol/L (3.5-5.1); Sodium 136 mmol/L (136-145); Total Bilirubin 0.6 mg/dL (0.15-1.2); Total Protein 7.4 g/dL (6.6-8.7)
[2022-07-27 09:12] VITALS: BMI 28.6
[2022-07-27] MEDS: dextrose 5% 250 ML 75 ML IV (10:27)
[2022-07-27] MEDS: palonosetron 0.25 mg/5 mL SDV IVP (10:29)
[2022-07-27] MEDS: leucovorin 720 MG in dextrose 5% 250 ML 80.5 MG IV (11:21)
[2022-07-27] MEDS: fluorouraciL 3,500 MG, elastomeric pump 1 PUMP in sodium chloride 0.9% (100 ml) 22 ML IV (14:55)
[2022-07-27 15:07] VITALS: BP 124/74; PULSE 66; RESP 16; TEMP 36.3; O2SAT 98
== END 2022-08-07 23:59 | disposition home or self-care (01) ==
PROVIDERS: PCP Registered Nurse; Visit Provider Internal Medicine Hematology & Oncology
DX: Z53.9 Procedure and treatment not carried out, unspecified reason; Z45.2 Encounter for adjustment and management of vascular access device
CPT/HCPCS: 36591; 80053; 85025; 96367; 96368; 96375; 96413; 96415; 96416; 96523; 99214; 99215; J0640; J1100; J2469; J9190; J9263

== ENCOUNTER → 2022-08-03 09:10 | Outpatient (BNVA) | payer MEDICARE, MEDICAID, SELFPAY | PROVIDERS: PCP Registered Nurse; Visit Provider Internal Medicine Hematology & Oncology | DX: C18.7 Malignant neoplasm of sigmoid colon (principal) | CPT/HCPCS: 80053; 85025 ==

== ENCOUNTER 2022-09-07 08:00 | Oncology outpatient (recurring) (ONCR) | payer MEDICARE, MEDICAID, SELFPAY ==
[2022-08-10 08:38] LABS: Basophils % 0.8 %; Eosinophils # 0.1 10^3/uL (0.0-0.8); Eosinophils % 1.8 %; Hematocrit 40.4 % (37.0-47.0); Hemoglobin 13.1 g/dL (11.5-15.3); Lymphocytes # 2.1 10^3/uL (0.8-4.8); Lymphocytes % 54.2 %; Mean Corpuscular HGB Conc 32.4 g/dL (30.0-36.0); Mean Corpuscular Hemoglobin 33.2 pg (28.0-34.0); Mean Corpuscular Volume 102.3 fl (81-99); Mean Platelet Volume 10.9 fL (7.4-10.4); Monocytes # 0.5 10^3/uL (0.2-0.9); Monocytes % 13.4 %; Neutrophils # 1.14 10^3/uL (1.8-7.7); Neutrophils % 29.8 %; Nucleated Red Blood Cells % 0 %; Platelet Count 113 10^3/cmm (130-400); Red Blood Count 3.95 10^6/uL (4.1-5.3); Red Cell Distribution Width 13.5 % (12.1-15.1); White Blood Count 3.8 10^3/uL (4.0-10.0)
[2022-08-10 09:06] LABS: Alanine Aminotransferase 19 U/L (0-33); Albumin Level 3.8 g/dL (3.5-5.2); Alkaline Phosphatase 104 U/L (35-105); Aspartate Amino Transferase 30 U/L (0-32); Blood Urea Nitrogen 9 mg/dL (8-23); Calcium 9.4 mg/dL (8.5-10.5); Carbon Dioxide 26 mmol/L (22-29); Chloride 101 mmol/L (98-107); Globulin 3.4 g/dL (1.3-4.6); Glucose 103 mg/dL (65-115); Osmolality Calculated 285 mOsm/kg (285-295); Sodium 138 mmol/L (136-145); Total Bilirubin 0.7 mg/dL (0.15-1.2); Total Protein 7.2 g/dL (6.6-8.7)
[2022-08-10] MEDS: dextrose 5% 250 ML 100 ML IV (10:30)
[2022-08-10] MEDS: palonosetron 0.25 mg/5 mL SDV IVP (10:30)
[2022-08-10] MEDS: leucovorin 730 MG in dextrose 5% 250 ML 80.75 MG IV (11:08)
[2022-08-10] MEDS: fluorouraciL 3,500 MG, elastomeric pump 1 PUMP in sodium chloride 0.9% (100 ml) 22 ML IV (14:41)
[2022-08-10 15:07] VITALS: BP 157/80; PULSE 72; TEMP 36.7; O2SAT 94
[2022-08-12] MEDS: pegfilgrastim 6 mg/0.6 mL Kit (onpro) SUBCUT (13:25)
[2022-08-24 08:13] LABS: Basophils # 0.1 10^3/uL (0.0-0.1); Basophils % 0.8 %; Eosinophils # 0.1 10^3/uL (0.0-0.8); Eosinophils % 0.5 %; Hematocrit 41.1 % (37.0-47.0); Hemoglobin 13.7 g/dL (11.5-15.3); Lymphocytes # 2.9 10^3/uL (0.8-4.8); Lymphocytes % 25.2 %; Mean Corpuscular HGB Conc 33.3 g/dL (30.0-36.0); Mean Corpuscular Hemoglobin 34.3 pg (28.0-34.0); Monocytes # 0.8 10^3/uL (0.2-0.9); Monocytes % 7.1 %; Neutrophils # 7.29 10^3/uL (1.8-7.7); Neutrophils % 62.8 %; Nucleated Red Blood Cells % 0 %; Platelet Count 73 10^3/cmm (130-400); Red Blood Count 3.99 10^6/uL (4.1-5.3); Red Cell Distribution Width 14.1 % (12.1-15.1); White Blood Count 11.6 10^3/uL (4.0-10.0)
[2022-08-24 08:38] LABS: Alanine Aminotransferase 19 U/L (0-33); Alkaline Phosphatase 175 U/L (35-105); Blood Urea Nitrogen 11 mg/dL (8-23); Calcium 9.6 mg/dL (8.5-10.5); Carbon Dioxide 27 mmol/L (22-29); Chloride 98 mmol/L (98-107); Globulin 3.6 g/dL (1.3-4.6); Glucose 106 mg/dL (65-115); Osmolality Calculated 282 mOsm/kg (285-295); Sodium 136 mmol/L (136-145); Total Bilirubin 0.7 mg/dL (0.15-1.2); Total Protein 7.6 g/dL (6.6-8.7)
[2022-08-24 08:41] LABS: Anion Gap 15.3 (5-19); Aspartate Amino Transferase 36 U/L (0-32); Potassium 4.3 mmol/L (3.5-5.1)
[2022-09-03 08:35] LABS: Basophils # 0.1 10^3/uL (0.0-0.1); Basophils % 0.7 %; Eosinophils # 0.1 10^3/uL (0.0-0.8); Hemoglobin 13.5 g/dL (11.5-15.3); Lymphocytes # 2.8 10^3/uL (0.8-4.8); Lymphocytes % 38.8 %; Mean Corpuscular HGB Conc 32.9 g/dL (30.0-36.0); Mean Corpuscular Hemoglobin 33.8 pg (28.0-34.0); Mean Corpuscular Volume 102.5 fl (81-99); Mean Platelet Volume 10.6 fL (7.4-10.4); Monocytes # 0.8 10^3/uL (0.2-0.9); Monocytes % 10.3 %; Neutrophils # 3.54 10^3/uL (1.8-7.7); Neutrophils % 48.8 %; Nucleated Red Blood Cells % 0 %; Platelet Count 150 10^3/cmm (130-400); Red Cell Distribution Width 13.9 % (12.1-15.1); White Blood Count 7.3 10^3/uL (4.0-10.0)
[2022-09-03 08:54] LABS: Alanine Aminotransferase 17 U/L (0-33); Albumin Level 3.9 g/dL (3.5-5.2); Alkaline Phosphatase 114 U/L (35-105); Anion Gap 14.2 (5-19); Aspartate Amino Transferase 28 U/L (0-32); Blood Urea Nitrogen 13 mg/dL (8-23); Calcium 9.6 mg/dL (8.5-10.5); Carbon Dioxide 26 mmol/L (22-29); Chloride 99 mmol/L (98-107); Globulin 3.6 g/dL (1.3-4.6); Glucose 100 mg/dL (65-115); Osmolality Calculated 280 mOsm/kg (285-295); Potassium 4.2 mmol/L (3.5-5.1); Sodium 135 mmol/L (136-145); Total Bilirubin 0.5 mg/dL (0.15-1.2); Total Protein 7.5 g/dL (6.6-8.7)
[2022-09-07 08:19] LABS: Basophils % 0.5 %; Eosinophils # 0.1 10^3/uL (0.0-0.8); Eosinophils % 1.1 %; Hematocrit 41.1 % (37.0-47.0); Hemoglobin 13.5 g/dL (11.5-15.3); Lymphocytes # 3.3 10^3/uL (0.8-4.8); Lymphocytes % 45.1 %; Mean Corpuscular HGB Conc 32.8 g/dL (30.0-36.0); Mean Corpuscular Hemoglobin 33.7 pg (28.0-34.0); Mean Corpuscular Volume 102.5 fl (81-99); Mean Platelet Volume 10.5 fL (7.4-10.4); Monocytes # 0.8 10^3/uL (0.2-0.9); Monocytes % 10.9 %; Neutrophils # 3.06 10^3/uL (1.8-7.7); Nucleated Red Blood Cells % 0 %; Platelet Count 132 10^3/cmm (130-400); Red Blood Count 4.01 10^6/uL (4.1-5.3); Red Cell Distribution Width 13.5 % (12.1-15.1); White Blood Count 7.3 10^3/uL (4.0-10.0)
[2022-09-07 08:42] LABS: Alanine Aminotransferase 18 U/L (0-33); Albumin Level 3.7 g/dL (3.5-5.2); Alkaline Phosphatase 117 U/L (35-105); Anion Gap 13.2 (5-19); Aspartate Amino Transferase 30 U/L (0-32); Blood Urea Nitrogen 10 mg/dL (8-23); Calcium 9.4 mg/dL (8.5-10.5); Carbon Dioxide 26 mmol/L (22-29); Chloride 96 mmol/L (98-107); Globulin 3.8 g/dL (1.3-4.6); Glucose 104 mg/dL (65-115); Osmolality Calculated 271 mOsm/kg (285-295); Potassium 4.2 mmol/L (3.5-5.1); Sodium 131 mmol/L (136-145); Total Bilirubin 0.7 mg/dL (0.15-1.2); Total Protein 7.5 g/dL (6.6-8.7)
[2022-09-07] MEDS: palonosetron 0.25 mg/5 mL SDV IVP (10:35)
[2022-09-07] MEDS: leucovorin 730 MG in dextrose 5% 250 ML 500 MG IV (11:05)
[2022-09-07] MEDS: fluorouraciL 3,500 MG, elastomeric pump 1 PUMP in sodium chloride 0.9% (100 ml) 22 ML IV (11:47)
[2022-09-07] MEDS: sodium chloride 0.9% (100 ml) 100 ML 25 ML (11:54)
[2022-09-07 11:59] VITALS: BP 151/76; PULSE 67; RESP 16; TEMP 36.1; O2SAT 97
== END 2022-09-07 23:59 | disposition home or self-care (01) ==
PROVIDERS: PCP Registered Nurse; Visit Provider Internal Medicine Hematology & Oncology
DX: C18.7 Malignant neoplasm of sigmoid colon (principal); C77.2 Secondary and unspecified malignant neoplasm of intra-abdominal lymph nodes
CPT/HCPCS: 36591; 80053; 85025; 96366; 96367; 96368; 96372; 96375; 96377; 96413; 96415; 96416; 96523; 99214; J0640; J1100; J2469; J2506; J7060; J9190; J9263

== ENCOUNTER 2022-10-07 10:00 | Oncology outpatient (recurring) (ONCR) | payer MEDICARE, MEDICAID, SELFPAY ==
[2022-09-21 12:39] LABS: Basophils % 0.5 %; Eosinophils # 0.1 10^3/uL (0.0-0.8); Eosinophils % 1.8 %; Hematocrit 39.3 % (37.0-47.0); Hemoglobin 13.2 g/dL (11.5-15.3); Lymphocytes # 3.7 10^3/uL (0.8-4.8); Lymphocytes % 49.5 %; Mean Corpuscular HGB Conc 33.6 g/dL (30.0-36.0); Mean Corpuscular Hemoglobin 34.1 pg (28.0-34.0); Mean Corpuscular Volume 101.6 fl (81-99); Mean Platelet Volume 10.3 fL (7.4-10.4); Monocytes # 0.7 10^3/uL (0.2-0.9); Monocytes % 8.8 %; Neutrophils % 39.3 %; Nucleated Red Blood Cells % 0 %; Platelet Count 118 10^3/cmm (130-400); Red Blood Count 3.87 10^6/uL (4.1-5.3); Red Cell Distribution Width 12.8 % (12.1-15.1); White Blood Count 7.4 10^3/uL (4.0-10.0)
[2022-09-21 13:07] LABS: Alanine Aminotransferase 18 U/L (0-33); Albumin Level 3.7 g/dL (3.5-5.2); Alkaline Phosphatase 103 U/L (35-105); Aspartate Amino Transferase 28 U/L (0-32); Blood Urea Nitrogen 12 mg/dL (8-23); Calcium 9.6 mg/dL (8.5-10.5); Carbon Dioxide 26 mmol/L (22-29); Chloride 99 mmol/L (98-107); Glucose 101 mg/dL (65-115); Osmolality Calculated 276 mOsm/kg (285-295); Sodium 133 mmol/L (136-145); Total Bilirubin 0.6 mg/dL (0.15-1.2); Total Protein 7.7 g/dL (6.6-8.7)
[2022-09-22] MEDS: sodium chloride 0.9% 250 ML 100 ML IV (10:11)
[2022-09-22] MEDS: palonosetron 0.25 mg/5 mL SDV IVP (10:12)
[2022-09-22] MEDS: bevacizumab-awwb 380 MG in sodium chloride 0.9% (100 ml) 100 ML 86.7 MG IV (10:43)
[2022-09-22] MEDS: leucovorin 730 MG in dextrose 5% 250 ML 62.5 MG IV (12:15)
[2022-09-22 12:45] LABS: Bilirubin Urine Neg (Negative); Blood Urine Neg (Negative); Glucose Urine UA Norm (Normal); Ketones Urine Negative (Negative); Leukocyte Esterase Urine 2+ (Negative); Nitrate Urine Negative (Negative); Protein Urine Trace (Negative); Urine Appearance Hazy (CLEAR); Urine Color Yellow (Yellow); Urobilinogen Urine Neg (Negative); pH Urine 5 (5-7)
[2022-09-22] MEDS: fluorouraciL 3,500 MG, elastomeric pump 1 PUMP in sodium chloride 0.9% (100 ml) 22 ML IV (12:54)
[2022-09-22 12:55] VITALS: BP 162/83; PULSE 78; RESP 18; TEMP 36.7; O2SAT 99
[2022-09-22 13:05] LABS: Add Urine Culture? No; Bacteria Urine TRACE /hpf; RBC Urine 0-4 /hpf (0-2); Squamous Epithelial Cell Urine 0-4 /hpf (0-5)
[2022-10-07 10:39] LABS: Basophils % 0.6 %; Eosinophils # 0.1 10^3/uL (0.0-0.8); Hematocrit 40.5 % (37.0-47.0); Hemoglobin 13.4 g/dL (11.5-15.3); Lymphocytes # 3.1 10^3/uL (0.8-4.8); Lymphocytes % 49.1 %; Mean Corpuscular HGB Conc 33.1 g/dL (30.0-36.0); Mean Corpuscular Hemoglobin 33.5 pg (28.0-34.0); Mean Corpuscular Volume 101.3 fl (81-99); Mean Platelet Volume 10.1 fL (7.4-10.4); Monocytes # 0.4 10^3/uL (0.2-0.9); Monocytes % 6.4 %; Neutrophils # 2.67 10^3/uL (1.8-7.7); Neutrophils % 41.9 %; Nucleated Red Blood Cells % 0 %; Platelet Count 145 10^3/cmm (130-400); Red Cell Distribution Width 12.4 % (12.1-15.1); White Blood Count 6.4 10^3/uL (4.0-10.0)
[2022-10-07 11:12] LABS: Carcinoembryonic Antigen 1.6 ng/mL (0.0-4.7)
[2022-10-07 11:23] LABS: Alanine Aminotransferase 21 U/L (0-33); Alkaline Phosphatase 103 U/L (35-105); Aspartate Amino Transferase 28 U/L (0-32); Blood Urea Nitrogen 14 mg/dL (8-23); Calcium 9.5 mg/dL (8.5-10.5); Carbon Dioxide 24 mmol/L (22-29); Chloride 102 mmol/L (98-107); Globulin 3.4 g/dL (1.3-4.6); Glucose 98 mg/dL (65-115); Osmolality Calculated 282 mOsm/kg (285-295); Sodium 136 mmol/L (136-145); Total Bilirubin 0.7 mg/dL (0.15-1.2); Total Protein 7.4 g/dL (6.6-8.7)
[2022-10-07] MEDS: dextrose 5% 250 ML 100 ML IV (12:52)
[2022-10-07] MEDS: palonosetron 0.25 mg/5 mL SDV IVP (12:52)
[2022-10-07] MEDS: leucovorin 730 MG in dextrose 5% 250 ML 80.75 MG IV (13:21)
[2022-10-07] MEDS: fluorouraciL 3,500 MG, elastomeric pump 1 PUMP in sodium chloride 0.9% (100 ml) 22 ML IV (13:58)
== END 2022-10-07 23:59 | disposition home or self-care (01) ==
PROVIDERS: PCP Registered Nurse; Visit Provider Internal Medicine Hematology & Oncology
DX: Z51.11 Encounter for antineoplastic chemotherapy (principal); C18.7 Malignant neoplasm of sigmoid colon; C78.6 Secondary malignant neoplasm of retroperitoneum and peritoneum; C77.8 Secondary and unspecified malignant neoplasm of lymph nodes of multiple regions; C78.01 Secondary malignant neoplasm of right lung; C78.02 Secondary malignant neoplasm of left lung; K65.8 Other peritonitis; G62.0 Drug-induced polyneuropathy; T45.1X5A Adverse effect of antineoplastic and immunosuppressive drugs, initial encounter; Z79.899 Other long term (current) drug therapy
CPT/HCPCS: 36591; 80053; 81001; 82378; 85025; 96367; 96375; 96413; 96415; 96416; 96523; 99214; J0640; J1100; J2469; J7050; J7060; J9190; Q5107

== ENCOUNTER 2022-10-19 08:00 | Oncology outpatient (recurring) (ONCR) | payer MEDICARE, MEDICAID, SELFPAY ==
[2022-10-19 08:31] LABS: Basophils % 0.7 %; Eosinophils # 0.1 10^3/uL (0.0-0.8); Eosinophils % 1.6 %; Hematocrit 40.8 % (37.0-47.0); Hemoglobin 13.6 g/dL (11.5-15.3); Lymphocytes # 2.9 10^3/uL (0.8-4.8); Lymphocytes % 47.3 %; Mean Corpuscular HGB Conc 33.3 g/dL (30.0-36.0); Mean Corpuscular Hemoglobin 33.4 pg (28.0-34.0); Mean Corpuscular Volume 100.2 fl (81-99); Mean Platelet Volume 10.2 fL (7.4-10.4); Monocytes # 0.6 10^3/uL (0.2-0.9); Monocytes % 9.1 %; Neutrophils # 2.53 10^3/uL (1.8-7.7); Neutrophils % 41.1 %; Nucleated Red Blood Cells % 0 %; Platelet Count 143 10^3/cmm (130-400); Red Blood Count 4.07 10^6/uL (4.1-5.3); Red Cell Distribution Width 12.3 % (12.1-15.1); White Blood Count 6.2 10^3/uL (4.0-10.0)
[2022-10-19 09:34] LABS: Alanine Aminotransferase 20 U/L (0-33); Alkaline Phosphatase 105 U/L (35-105); Anion Gap 14.7 (5-19); Aspartate Amino Transferase 26 U/L (0-32); Blood Urea Nitrogen 10 mg/dL (8-23); Calcium 9.8 mg/dL (8.5-10.5); Carbon Dioxide 26 mmol/L (22-29); Chloride 90 mmol/L (98-107); Globulin 3.4 g/dL (1.3-4.6); Glucose 91 mg/dL (65-115); Osmolality Calculated 263 mOsm/kg (285-295); Potassium 3.7 mmol/L (3.5-5.1); Sodium 127 mmol/L (136-145); Total Bilirubin 0.5 mg/dL (0.15-1.2); Total Protein 7.4 g/dL (6.6-8.7)
[2022-10-19] MEDS: palonosetron 0.25 mg/5 mL SDV IVP (10:50)
[2022-10-19] MEDS: sodium chloride 0.9% 250 ML 75 ML IV (10:50)
[2022-10-19] MEDS: bevacizumab-awwb 380 MG in sodium chloride 0.9% (100 ml) 100 ML 300 MG IV (11:15)
[2022-10-19] MEDS: leucovorin 720 MG in dextrose 5% 250 ML 62.5 MG IV (11:41)
[2022-10-19 12:17] VITALS: BP 156/75; PULSE 67; RESP 16; TEMP 36.2; O2SAT 97
[2022-10-19] MEDS: fluorouraciL 3,500 MG, elastomeric pump 1 PUMP in sodium chloride 0.9% (100 ml) 22 ML IV (12:22)
== END 2022-10-20 08:58 | disposition home or self-care (01) ==
PROVIDERS: PCP Registered Nurse; Visit Provider Internal Medicine Hematology & Oncology
DX: C18.7 Malignant neoplasm of sigmoid colon; Z51.11 Encounter for antineoplastic chemotherapy; Z90.49 Acquired absence of other specified parts of digestive tract; R91.8 Other nonspecific abnormal finding of lung field; C77.8 Secondary and unspecified malignant neoplasm of lymph nodes of multiple regions; G62.0 Drug-induced polyneuropathy; T45.1X5A Adverse effect of antineoplastic and immunosuppressive drugs, initial encounter; I10 Essential (primary) hypertension; E87.1 Hypo-osmolality and hyponatremia; F41.9 Anxiety disorder, unspecified; Z79.899 Other long term (current) drug therapy; Z79.52 Long term (current) use of systemic steroids
CPT/HCPCS: 80053; 85025; 96367; 96375; 96413; 96416; 96523; 99215; J0640; J1100; J2469; J7050; J7060; J9190; Q5107

== ENCOUNTER 2022-11-05 10:00 | Oncology outpatient (recurring) (ONCR) | payer MEDICARE, MEDICAID, SELFPAY ==
[2022-10-21 11:40] VITALS: BP 184/83; PULSE 65; RESP 18; TEMP 36.5; O2SAT 96
[2022-11-03 08:23] LABS: Basophils # 0.1 10^3/uL (0.0-0.1); Basophils % 0.8 %; Eosinophils # 0.1 10^3/uL (0.0-0.8); Eosinophils % 1.4 %; Hematocrit 41.3 % (37.0-47.0); Hemoglobin 13.7 g/dL (11.5-15.3); Lymphocytes # 3.1 10^3/uL (0.8-4.8); Lymphocytes % 48.4 %; Mean Corpuscular HGB Conc 33.2 g/dL (30.0-36.0); Mean Corpuscular Hemoglobin 33.2 pg (28.0-34.0); Mean Platelet Volume 9.7 fL (7.4-10.4); Monocytes # 0.5 10^3/uL (0.2-0.9); Neutrophils # 2.61 10^3/uL (1.8-7.7); Neutrophils % 41.2 %; Nucleated Red Blood Cells % 0 %; Platelet Count 180 10^3/cmm (130-400); Red Blood Count 4.13 10^6/uL (4.1-5.3); Red Cell Distribution Width 12.6 % (12.1-15.1); White Blood Count 6.3 10^3/uL (4.0-10.0)
[2022-11-03 08:44] LABS: Add Urine Microscopic? NO; Charge for UA Resulting for Rev
[2022-11-03 08:49] LABS: Bilirubin Urine Neg (Negative); Blood Urine Neg (Negative); Glucose Urine UA Norm (Normal); Ketones Urine Negative (Negative); Leukocyte Esterase Urine Negative (Negative); Nitrate Urine Negative (Negative); Protein Urine Neg (Negative); Urine Appearance Clear (CLEAR); Urine Color Amber (Yellow); Urobilinogen Urine Norm (Negative); pH Urine 5 (5-7)
[2022-11-03 08:54] LABS: Carcinoembryonic Antigen 1.9 ng/mL (0.0-4.7)
[2022-11-03 09:06] LABS: Alanine Aminotransferase 18 U/L (0-33); Alkaline Phosphatase 94 U/L (35-105); Anion Gap 14.3 (5-19); Aspartate Amino Transferase 25 U/L (0-32); Blood Urea Nitrogen 8 mg/dL (8-23); Calcium 9.4 mg/dL (8.5-10.5); Carbon Dioxide 28 mmol/L (22-29); Chloride 100 mmol/L (98-107); Globulin 3.4 g/dL (1.3-4.6); Glucose 104 mg/dL (65-115); Osmolality Calculated 285 mOsm/kg (285-295); Potassium 4.3 mmol/L (3.5-5.1); Sodium 138 mmol/L (136-145); Total Bilirubin 0.7 mg/dL (0.15-1.2); Total Protein 7.4 g/dL (6.6-8.7)
[2022-11-03] MEDS: dextrose 5% 250 ML 75 ML IV (10:51)
[2022-11-03] MEDS: palonosetron 0.25 mg/5 mL SDV IVP (10:53)
[2022-11-03] MEDS: leucovorin 720 MG in dextrose 5% 250 ML 62.5 MG IV (11:33)
[2022-11-03] MEDS: fluorouraciL 3,500 MG, elastomeric pump 1 PUMP in sodium chloride 0.9% (100 ml) 22 ML IV (12:07)
[2022-11-03 13:48] VITALS: BP 160/82; PULSE 57; RESP 16; TEMP 36.6; O2SAT 97
[2022-11-05 10:03] VITALS: BP 174/92; PULSE 70; RESP 18; TEMP 36.5; O2SAT 95
== END 2022-11-07 23:59 | disposition home or self-care (01) ==
PROVIDERS: PCP Registered Nurse; Visit Provider Internal Medicine Hematology & Oncology
DX: C18.7 Malignant neoplasm of sigmoid colon; C78.6 Secondary malignant neoplasm of retroperitoneum and peritoneum; C77.8 Secondary and unspecified malignant neoplasm of lymph nodes of multiple regions; C78.01 Secondary malignant neoplasm of right lung; C78.02 Secondary malignant neoplasm of left lung
CPT/HCPCS: 80053; 81003; 82378; 85025; 96367; 96375; 96416; 96523; 99214; J0640; J1100; J2469; J7060; J9190

== ENCOUNTER → 2022-11-17 08:06 | Outpatient (BNVA) | payer MEDICARE, MEDICAID, SELFPAY | PROVIDERS: PCP Registered Nurse; Visit Provider Internal Medicine Hematology & Oncology | DX: C18.7 Malignant neoplasm of sigmoid colon (principal) | CPT/HCPCS: 99215 ==

== ENCOUNTER 2022-12-03 12:00 | Oncology outpatient (recurring) (ONCR) | payer MEDICARE, MEDICAID, SELFPAY ==
[2022-11-17 08:36] LABS: Basophils # 0.1 10^3/uL (0.0-0.1); Basophils % 0.6 %; Eosinophils # 0.1 10^3/uL (0.0-0.8); Hemoglobin 13.3 g/dL (11.5-15.3); Lymphocytes # 3.3 10^3/uL (0.8-4.8); Lymphocytes % 40.5 %; Mean Corpuscular HGB Conc 32.4 g/dL (30.0-36.0); Mean Corpuscular Hemoglobin 32.6 pg (28.0-34.0); Mean Corpuscular Volume 100.5 fl (81-99); Monocytes # 0.5 10^3/uL (0.2-0.9); Monocytes % 6.4 %; Neutrophils # 4.21 10^3/uL (1.8-7.7); Neutrophils % 51.4 %; Nucleated Red Blood Cells % 0 %; Platelet Count 155 10^3/cmm (130-400); Red Blood Count 4.08 10^6/uL (4.1-5.3); Red Cell Distribution Width 12.9 % (12.1-15.1); White Blood Count 8.2 10^3/uL (4.0-10.0)
[2022-11-17 08:58] LABS: Alanine Aminotransferase 19 U/L (0-33); Alkaline Phosphatase 83 U/L (35-105); Anion Gap 16.2 (5-19); Aspartate Amino Transferase 29 U/L (0-32); Blood Urea Nitrogen 9 mg/dL (8-23); Calcium 8.9 mg/dL (8.5-10.5); Carbon Dioxide 25 mmol/L (22-29); Chloride 102 mmol/L (98-107); Globulin 3.3 g/dL (1.3-4.6); Glucose 104 mg/dL (65-115); Osmolality Calculated 287 mOsm/kg (285-295); Potassium 4.2 mmol/L (3.5-5.1); Sodium 139 mmol/L (136-145); Total Bilirubin 0.7 mg/dL (0.15-1.2); Total Protein 7.3 g/dL (6.6-8.7)
[2022-11-17 08:59] LABS: Creatinine Clr Calc Pharmacy 57.4721
[2022-11-17] MEDS: sodium chloride 0.9% 250 ML 75 ML IV (10:05)
[2022-11-17] MEDS: palonosetron 0.25 mg/5 mL SDV IVP (10:06)
[2022-11-17] MEDS: bevacizumab-awwb 380 MG in sodium chloride 0.9% (100 ml) 100 ML 300 MG IV (10:38)
[2022-11-17] MEDS: leucovorin 730 MG in dextrose 5% 250 ML 62.5 MG IV (11:11)
[2022-11-17] MEDS: fluorouraciL 3,500 MG, elastomeric pump 1 PUMP in sodium chloride 0.9% (100 ml) 22 ML IV (11:48)
[2022-11-17 11:55] VITALS: BP 181/90; PULSE 61; RESP 16; TEMP 35.9; O2SAT 97
[2022-12-01 09:41] VITALS: BMI 28.7
[2022-12-01 09:45] LABS: Basophils % 0.5 %; Eosinophils # 0.1 10^3/uL (0.0-0.8); Eosinophils % 1.4 %; Hematocrit 40.3 % (37.0-47.0); Hemoglobin 13.3 g/dL (11.5-15.3); Lymphocytes # 3.2 10^3/uL (0.8-4.8); Lymphocytes % 41.2 %; Mean Corpuscular Hemoglobin 32.9 pg (28.0-34.0); Mean Corpuscular Volume 99.8 fl (81-99); Mean Platelet Volume 9.8 fL (7.4-10.4); Monocytes # 0.6 10^3/uL (0.2-0.9); Monocytes % 7.6 %; Neutrophils # 3.81 10^3/uL (1.8-7.7); Nucleated Red Blood Cells % 0 %; Platelet Count 161 10^3/cmm (130-400); Red Blood Count 4.04 10^6/uL (4.1-5.3); Red Cell Distribution Width 12.9 % (12.1-15.1); White Blood Count 7.8 10^3/uL (4.0-10.0)
[2022-12-01 10:04] LABS: Add Urine Microscopic? NO; Charge for UA Resulting for Rev
[2022-12-01 10:28] LABS: Alanine Aminotransferase 19 U/L (0-33); Albumin Level 4.2 g/dL (3.5-5.2); Alkaline Phosphatase 86 U/L (35-105); Anion Gap 14.1 (5-19); Aspartate Amino Transferase 28 U/L (0-32); Blood Urea Nitrogen 9 mg/dL (8-23); Calcium 9.1 mg/dL (8.5-10.5); Carbon Dioxide 27 mmol/L (22-29); Chloride 99 mmol/L (98-107); Globulin 3.3 g/dL (1.3-4.6); Glucose 101 mg/dL (65-115); Osmolality Calculated 281 mOsm/kg (285-295); Potassium 4.1 mmol/L (3.5-5.1); Sodium 136 mmol/L (136-145); Total Bilirubin 0.7 mg/dL (0.15-1.2); Total Protein 7.5 g/dL (6.6-8.7)
[2022-12-01 10:42] LABS: Bilirubin Urine Neg (Negative); Blood Urine Neg (Negative); Glucose Urine UA Norm (Normal); Ketones Urine Negative (Negative); Leukocyte Esterase Urine Negative (Negative); Nitrate Urine Negative (Negative); Protein Urine Neg (Negative); Urine Appearance Clear (CLEAR); Urine Color Yellow (Yellow); Urobilinogen Urine Norm (Negative); pH Urine 5 (5-7)
[2022-12-01] MEDS: sodium chloride 0.9% 250 ML 75 ML IV (11:35)
[2022-12-01] MEDS: palonosetron 0.25 mg/5 mL SDV IVP (11:46)
[2022-12-01] MEDS: bevacizumab-awwb 380 MG in sodium chloride 0.9% (100 ml) 100 ML 240 MG IV (12:18)
[2022-12-01] MEDS: leucovorin 720 MG in dextrose 5% 250 ML 62.5 MG IV (13:22)
[2022-12-01] MEDS: fluorouraciL 3,500 MG, elastomeric pump 1 PUMP in sodium chloride 0.9% (100 ml) 22 ML IV (13:57)
[2022-12-01 14:00] VITALS: BP 180/79; BP 190/79; PULSE 80; RESP 18; TEMP 36.2; TEMP 36.6; O2SAT 98; O2SAT 99
[2022-12-03 11:18] VITALS: BP 138/70; PULSE 64; RESP 18; TEMP 36.4; O2SAT 98
== END 2022-12-08 23:59 | disposition home or self-care (01) ==
PROVIDERS: PCP Registered Nurse; Visit Provider Internal Medicine Hematology & Oncology
DX: C18.7 Malignant neoplasm of sigmoid colon (principal); C77.8 Secondary and unspecified malignant neoplasm of lymph nodes of multiple regions; C78.02 Secondary malignant neoplasm of left lung; C78.01 Secondary malignant neoplasm of right lung; C78.6 Secondary malignant neoplasm of retroperitoneum and peritoneum; C79.51 Secondary malignant neoplasm of bone; C78.7 Secondary malignant neoplasm of liver and intrahepatic bile duct; Z79.899 Other long term (current) drug therapy
CPT/HCPCS: 80053; 81003; 82378; 85025; 96367; 96368; 96375; 96413; 96416; 96523; 99214; J0640; J1100; J2469; J7050; J7060; J9190; Q5107

== ENCOUNTER 2022-12-12 07:52 | Outpatient (CLI) | payer MEDICARE, MEDICAID, SELFPAY ==
--- NOTE | 2022-12-12 | PETR_ITS ---
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 Then, PET images were obtained. Attenuation corrected images were constructed using the CT scan. Fused images of PET and CT were reviewed. The standardized uptake values (SUV) reported below are maximum values within a region of interest, expressed in gm/ml. Exam includes orbital meatal line to mid-thigh. Radiopharmaceutical: 13.54 mCi F-18 FDG (Fluorodeoxyglucose), IV. Time of imaging post radiopharmaceutical administration: 1 hour Injection site: Right antecubital COMPARISON: PT PET Scan 05/02/2022 10:15 AM FINDINGS: Tubes, catheters and devices: A right internal jugular central venous port catheter terminates in the distal SVC. Brain: Visualized brain has normal physiologic uptake. Paranasal sinuses: A small fluid level in the right maxillary sinus is noted. Pharynx: No abnormal uptake. Larynx: No abnormal uptake. Lungs, pleura and trachea: No abnormal uptake. There are several bilateral pulmonary nodules. Examples of the dominant nodules: Similar lateral left upper lobe nodule on series 3, image 53 measuring 1.2 x 1.0 cm. A non radiotracer avid posterior left apical 7 mm nodule on series 3, image 35 is stable. Additional scattered ill-defined pulmonary nodules are present, some which appear decreased in size. The largest measures 9 mm in the right lower lobe on series 3, image 60 (previously measuring 1.1 cm. Assessment of the lungs is somewhat limited by respiratory motion artifact. Heart: Normal physiologic uptake. Mediastinal space: No abnormal uptake. Liver: No abnormal uptake. Gallbladder and bile ducts: Cholecystectomy clips are present. Pancreas: No abnormal uptake. Spleen: No abnormal uptake. Adrenal glands: No abnormal uptake. Kidneys and ureters: Normal physiologic uptake. Stomach and bowel: No abnormal uptake. Reproductive: Asymmetric soft tissue density in the region of the left labia majora is noted without elevated activity measuring 4.4 x 1.8 cm on series 3, image 147 previously measuring 5.7 x 2.4 cm. Vasculature: No abnormal uptake. Diffuse atherosclerotic changes are noted including within the coronary arteries. Lymph nodes: No abnormal uptake. No lymphadenopathy in the head, neck, chest, abdomen, pelvis, and extremities. Previously noted radiotracer avid lymph nodes in the chest and abdomen are decreased in size and are no longer radiotracer avid. Interval resolution of previously noted radiotracer avid lymphadenopathy in the chest and abdomen. For example a precarinal lymph node currently measures 9 mm on series 3, image 46 (previously measuring 1.1 cm in diameter). A right portacaval lymph node is not radiotracer avid and measures 6-7 mm on series 3, image 100 (previously measuring 1.2 cm in diameter Bones/joints: No abnormal uptake in the visualized axial and appendicular skeleton. Benign-appearing well corticated erosive changes at the symphysis pubis are noted for example on CT series 3, image 139. The bones appear demineralized. [id number] diffuse degenerative vertebral body spondylosis is present. Mild thoracic spine kyphosis. Soft tissues: No abnormal uptake in the visualized head, neck, chest, abdomen, pelvis, and extremities. METRICS: Mediastinal blood pool: SUV max 2.9 PET/PET skulltothi SUBSEQ [id number] IMPRESSION: 1. No evidence of radiotracer avid malignancy. 2. Bilateral pulmonary nodules are noted which are not radiotracer avid, some of which are decreased in size suggestive an interval response to therapy. The nodules measuring under 9 mm are less well characterized by PET-CT. 3. No current evidence of radiotracer avid lymphadenopathy in the chest and abdomen suggestive interval response to therapy. 4. An ovoid region of soft tissue density involving the region of the left labia majora has decreased in size and continues to be non radiotracer avid favoring a benign etiology. Correlation with clinical findings is recommended. 5. Acute appearing right maxillary sinus disease. 6. Old-appearing a rest of changes involving the symphysis pubis which may be related to sequela of previous inflammatory arthropathy, infection or trauma. 7. Additional nonurgent findings as detailed above.
== END 2022-12-12 07:53 | disposition home or self-care (01) ==
LOC: RAD 12-14 06:05
PROVIDERS: PCP Registered Nurse; Visit Provider Internal Medicine Hematology & Oncology
DX: C18.7 Malignant neoplasm of sigmoid colon (principal); R91.8 Other nonspecific abnormal finding of lung field
CPT/HCPCS: 78815; A9552

== ENCOUNTER → 2022-12-15 09:43 | Outpatient (BNVA) | payer MEDICARE, MEDICAID, SELFPAY | PROVIDERS: PCP Registered Nurse; Visit Provider Internal Medicine Hematology & Oncology | DX: C18.7 Malignant neoplasm of sigmoid colon (principal) | CPT/HCPCS: 99214 ==

== ENCOUNTER → 2022-12-30 07:47 | Outpatient (BNVA) | payer MEDICARE, MEDICAID, SELFPAY | PROVIDERS: PCP Registered Nurse; Visit Provider Internal Medicine Hematology & Oncology | DX: C18.7 Malignant neoplasm of sigmoid colon (principal) | CPT/HCPCS: 99214 ==

== ENCOUNTER 2023-01-01 11:30 | Oncology outpatient (recurring) (ONCR) | payer MEDICARE, MEDICAID, SELFPAY ==
[2022-12-15 10:17] LABS: Basophils % 0.5 %; Eosinophils # 0.2 10^3/uL (0.0-0.8); Eosinophils % 2.2 %; Hematocrit 41.2 % (37.0-47.0); Hemoglobin 13.4 g/dL (11.5-15.3); Lymphocytes # 3.5 10^3/uL (0.8-4.8); Lymphocytes % 45.1 %; Mean Corpuscular HGB Conc 32.5 g/dL (30.0-36.0); Mean Corpuscular Hemoglobin 32.5 pg (28.0-34.0); Mean Platelet Volume 9.6 fL (7.4-10.4); Monocytes # 0.5 10^3/uL (0.2-0.9); Neutrophils # 3.49 10^3/uL (1.8-7.7); Neutrophils % 45.1 %; Nucleated Red Blood Cells % 0 %; Platelet Count 174 10^3/cmm (130-400); Red Blood Count 4.12 10^6/uL (4.1-5.3); Red Cell Distribution Width 13.1 % (12.1-15.1); White Blood Count 7.7 10^3/uL (4.0-10.0)
[2022-12-15 10:36] LABS: Alanine Aminotransferase 20 U/L (0-33); Albumin Level 4.2 g/dL (3.5-5.2); Alkaline Phosphatase 84 U/L (35-105); Anion Gap 14.2 (5-19); Aspartate Amino Transferase 26 U/L (0-32); Blood Urea Nitrogen 9 mg/dL (8-23); Calcium 9.3 mg/dL (8.5-10.5); Carbon Dioxide 26 mmol/L (22-29); Chloride 98 mmol/L (98-107); Glucose 100 mg/dL (65-115); Osmolality Calculated 277 mOsm/kg (285-295); Potassium 4.2 mmol/L (3.5-5.1); Sodium 134 mmol/L (136-145); Total Bilirubin 0.6 mg/dL (0.15-1.2); Total Protein 7.2 g/dL (6.6-8.7)
[2022-12-15 11:25] LABS: Charge for UA Resulting for Rev
[2022-12-15 11:43] LABS: Add Urine Microscopic? NO; Bilirubin Urine Neg (Negative); Blood Urine Neg (Negative); Glucose Urine UA Norm (Normal); Ketones Urine Negative (Negative); Leukocyte Esterase Urine Negative (Negative); Nitrate Urine Negative (Negative); Protein Urine Neg (Negative); Urine Appearance Clear (CLEAR); Urine Color Yellow (Yellow); Urobilinogen Urine Neg (Negative); pH Urine 5 (5-7)
[2022-12-15] MEDS: sodium chloride 0.9% 250 ML 75 ML IV (12:43)
[2022-12-15] MEDS: palonosetron 0.25 mg/5 mL SDV IVP (12:44)
[2022-12-15] MEDS: bevacizumab-awwb 380 MG in sodium chloride 0.9% (100 ml) 100 ML 230 MG IV (13:08)
[2022-12-15] MEDS: leucovorin 720 MG in dextrose 5% 250 ML 62.5 MG IV (13:49)
[2022-12-15] MEDS: fluorouraciL 3,500 MG, elastomeric pump 1 PUMP in sodium chloride 0.9% (100 ml) 22 ML IV (14:23)
[2022-12-15 15:25] VITALS: BP 125/77; PULSE 84; RESP 16; TEMP 36.7; O2SAT 98
--- NOTE | 2022-12-17 15:30 | PC.NURSE ---
Patient came in for Chemo pump unhook today. Chemo ball was found to be not deflated and upon further inspection the clamp to the line had been clamped off. Milly Mittal RN was notified and she call Dr. Gonzalez regarding this problem as he was at lunch. Pump was disconnected and port flushed per protocol.
[2022-12-30 08:38] LABS: Basophils % 0.5 %; Eosinophils # 0.4 10^3/uL (0.0-0.8); Eosinophils % 5.4 %; Hematocrit 40.6 % (37.0-47.0); Hemoglobin 13.1 g/dL (11.5-15.3); Lymphocytes # 3.4 10^3/uL (0.8-4.8); Lymphocytes % 42.7 %; Mean Corpuscular HGB Conc 32.3 g/dL (30.0-36.0); Mean Corpuscular Hemoglobin 32.4 pg (28.0-34.0); Mean Corpuscular Volume 100.5 fl (81-99); Mean Platelet Volume 9.9 fL (7.4-10.4); Monocytes # 0.6 10^3/uL (0.2-0.9); Monocytes % 7.7 %; Neutrophils # 3.42 10^3/uL (1.8-7.7); Neutrophils % 43.4 %; Nucleated Red Blood Cells % 0 %; Platelet Count 169 10^3/cmm (130-400); Red Blood Count 4.04 10^6/uL (4.1-5.3); White Blood Count 7.9 10^3/uL (4.0-10.0)
[2022-12-30 09:05] LABS: Alanine Aminotransferase 17 U/L (0-33); Albumin Level 3.6 g/dL (3.5-5.2); Alkaline Phosphatase 81 U/L (35-105); Anion Gap 12.1 (5-19); Aspartate Amino Transferase 26 U/L (0-32); Blood Urea Nitrogen 16 mg/dL (8-23); Calcium 9.4 mg/dL (8.5-10.5); Carbon Dioxide 26 mmol/L (22-29); Chloride 99 mmol/L (98-107); Globulin 3.5 g/dL (1.3-4.6); Glucose 101 mg/dL (65-115); Osmolality Calculated 277 mOsm/kg (285-295); Potassium 4.1 mmol/L (3.5-5.1); Sodium 133 mmol/L (136-145); Total Bilirubin 0.6 mg/dL (0.15-1.2); Total Protein 7.1 g/dL (6.6-8.7)
[2022-12-30 09:56] LABS: Add Urine Microscopic? NO; Charge for UA Resulting for Rev
[2022-12-30 10:07] LABS: Bilirubin Urine Neg (Negative); Blood Urine Neg (Negative); Glucose Urine UA Norm (Normal); Ketones Urine Negative (Negative); Leukocyte Esterase Urine Negative (Negative); Nitrate Urine Negative (Negative); Protein Urine Neg (Negative); Urine Appearance Clear (CLEAR); Urine Color Yellow (Yellow); Urobilinogen Urine Norm (Negative); pH Urine 5 (5-7)
[2022-12-30] MEDS: palonosetron 0.25 mg/5 mL SDV IVP (11:12)
[2022-12-30] MEDS: dextrose 5% 250 ML 75 ML IV (11:12)
[2022-12-30] MEDS: bevacizumab-awwb 390 MG in sodium chloride 0.9% (100 ml) 100 ML 300 MG IV (11:50)
[2022-12-30] MEDS: leucovorin 720 MG in dextrose 5% 250 ML 62.5 MG IV (12:22)
[2022-12-30] MEDS: fluorouraciL 3,500 MG, elastomeric pump 1 PUMP in sodium chloride 0.9% (100 ml) 22 ML IV (13:01)
[2022-12-30 13:06] VITALS: BP 152/76; PULSE 16; TEMP 36.7; O2SAT 97
== END 2023-01-05 23:59 | disposition home or self-care (01) ==
PROVIDERS: PCP Registered Nurse; Visit Provider Internal Medicine Hematology & Oncology
DX: Z45.2 Encounter for adjustment and management of vascular access device
CPT/HCPCS: 80053; 81003; 85025; 96368; 96375; 96413; 96416; 96523; J0640; J1100; J2469; J7050; J7060; J9190; Q5107

== ENCOUNTER → 2023-01-27 09:20 | Outpatient (BNVA) | payer MEDICARE, MEDICAID, SELFPAY | PROVIDERS: PCP Registered Nurse; Visit Provider Internal Medicine Hematology & Oncology | DX: C18.7 Malignant neoplasm of sigmoid colon (principal) | CPT/HCPCS: 99214 ==

== ENCOUNTER 2023-01-29 11:30 | Oncology outpatient (recurring) (ONCR) | payer MEDICARE, MEDICAID, SELFPAY ==
[2023-01-13 09:08] LABS: Add Urine Microscopic? NO; Charge for UA Resulting for Rev
[2023-01-13 09:15] LABS: Basophils # 0.1 10^3/uL (0.0-0.1); Basophils % 0.7 %; Eosinophils # 0.3 10^3/uL (0.0-0.8); Eosinophils % 4.4 %; Hematocrit 40.4 % (37.0-47.0); Lymphocytes # 3.2 10^3/uL (0.8-4.8); Lymphocytes % 41.1 %; Mean Corpuscular HGB Conc 32.2 g/dL (30.0-36.0); Mean Corpuscular Hemoglobin 32.6 pg (28.0-34.0); Mean Corpuscular Volume 101.3 fl (81-99); Mean Platelet Volume 9.7 fL (7.4-10.4); Monocytes # 0.6 10^3/uL (0.2-0.9); Monocytes % 7.8 %; Neutrophils # 3.51 10^3/uL (1.8-7.7); Neutrophils % 45.7 %; Nucleated Red Blood Cells % 0 %; Platelet Count 174 10^3/cmm (130-400); Red Blood Count 3.99 10^6/uL (4.1-5.3); Red Cell Distribution Width 13.3 % (12.1-15.1); White Blood Count 7.7 10^3/uL (4.0-10.0)
[2023-01-13 09:31] LABS: Alanine Aminotransferase 22 U/L (0-33); Alkaline Phosphatase 80 U/L (35-105); Anion Gap 12.1 (5-19); Aspartate Amino Transferase 32 U/L (0-32); Blood Urea Nitrogen 12 mg/dL (8-23); Calcium 9.3 mg/dL (8.5-10.5); Carbon Dioxide 27 mmol/L (22-29); Chloride 102 mmol/L (98-107); Globulin 3.1 g/dL (1.3-4.6); Glucose 104 mg/dL (65-115); Osmolality Calculated 284 mOsm/kg (285-295); Potassium 4.1 mmol/L (3.5-5.1); Sodium 137 mmol/L (136-145); Total Bilirubin 0.7 mg/dL (0.15-1.2); Total Protein 7.1 g/dL (6.6-8.7)
[2023-01-13 10:26] LABS: Bilirubin Urine Neg (Negative); Blood Urine Neg (Negative); Glucose Urine UA Norm (Normal); Ketones Urine Negative (Negative); Leukocyte Esterase Urine Negative (Negative); Nitrate Urine Negative (Negative); Protein Urine Neg (Negative); Specific Gravity, Urine 1.025 (1.005-1.030); Urine Appearance Clear (CLEAR); Urine Color Yellow (Yellow); Urobilinogen Urine Neg (Negative); pH Urine 5 (5-7)
[2023-01-13] MEDS: palonosetron 0.25 mg/5 mL SDV IVP (12:04)
[2023-01-13] MEDS: sodium chloride 0.9% 250 ML 75 ML IV (12:04)
[2023-01-13] MEDS: bevacizumab-awwb 390 MG in sodium chloride 0.9% (100 ml) 100 ML 300 MG IV (12:23)
[2023-01-13] MEDS: leucovorin 730 MG in dextrose 5% 250 ML 62.5 MG IV (12:51)
[2023-01-13] MEDS: fluorouraciL 3,500 MG, elastomeric pump 1 PUMP in sodium chloride 0.9% (100 ml) 22 ML IV (13:28)
[2023-01-13 13:36] VITALS: BP 150/77; PULSE 75; RESP 16; TEMP 36.1; O2SAT 98
[2023-01-15 11:41] VITALS: BP 148/75; PULSE 62; RESP 16; TEMP 36.4; O2SAT 98
[2023-01-27 09:56] LABS: Basophils # 0.1 10^3/uL (0.0-0.1); Basophils % 0.8 %; Eosinophils # 0.2 10^3/uL (0.0-0.8); Eosinophils % 2.5 %; Hematocrit 41.6 % (37.0-47.0); Hemoglobin 13.4 g/dL (11.5-15.3); Lymphocytes # 3.3 10^3/uL (0.8-4.8); Lymphocytes % 45.9 %; Mean Corpuscular HGB Conc 32.2 g/dL (30.0-36.0); Mean Corpuscular Hemoglobin 32.7 pg (28.0-34.0); Mean Corpuscular Volume 101.5 fl (81-99); Mean Platelet Volume 9.3 fL (7.4-10.4); Monocytes # 0.6 10^3/uL (0.2-0.9); Monocytes % 8.4 %; Neutrophils % 42.1 %; Nucleated Red Blood Cells % 0 %; Platelet Count 169 10^3/cmm (130-400); Red Cell Distribution Width 13.2 % (12.1-15.1); White Blood Count 7.1 10^3/uL (4.0-10.0)
[2023-01-27 10:24] LABS: Alanine Aminotransferase 20 U/L (0-33); Albumin Level 4.1 g/dL (3.5-5.2); Alkaline Phosphatase 68 U/L (35-105); Anion Gap 15.3 (5-19); Aspartate Amino Transferase 29 U/L (0-32); Blood Urea Nitrogen 11 mg/dL (8-23); Carbon Dioxide 27 mmol/L (22-29); Chloride 101 mmol/L (98-107); Globulin 3.1 g/dL (1.3-4.6); Glucose 101 mg/dL (65-115); Osmolality Calculated 288 mOsm/kg (285-295); Potassium 4.3 mmol/L (3.5-5.1); Sodium 139 mmol/L (136-145); Total Bilirubin 0.6 mg/dL (0.15-1.2); Total Protein 7.2 g/dL (6.6-8.7)
[2023-01-27 10:50] LABS: Add Urine Microscopic? NO; Charge for UA Resulting for Rev
[2023-01-27 10:57] LABS: Bilirubin Urine Neg (Negative); Blood Urine Neg (Negative); Glucose Urine UA Norm (Normal); Ketones Urine Negative (Negative); Leukocyte Esterase Urine Negative (Negative); Nitrate Urine Negative (Negative); Protein Urine Neg (Negative); Urine Appearance Clear (CLEAR); Urine Color Yellow (Yellow); Urobilinogen Urine Neg (Negative); pH Urine 5 (5-7)
[2023-01-27] MEDS: sodium chloride 0.9% 250 ML 75 ML IV (12:10)
[2023-01-27] MEDS: palonosetron 0.25 mg/5 mL SDV IVP (12:10)
[2023-01-27] MEDS: bevacizumab-awwb 390 MG in sodium chloride 0.9% (100 ml) 100 ML 300 MG IV (12:36)
[2023-01-27] MEDS: leucovorin 730 MG in dextrose 5% 250 ML 62.5 MG IV (13:12)
[2023-01-27 13:55] VITALS: BP 155/68; PULSE 63; RESP 16; TEMP 36.6; O2SAT 95
[2023-01-27] MEDS: fluorouraciL 3,500 MG, elastomeric pump 1 PUMP in sodium chloride 0.9% (100 ml) 22 ML IV (13:56)
[2023-01-29 11:21] VITALS: BP 173/75; PULSE 62; RESP 16; TEMP 36.8; O2SAT 95
== END 2023-02-05 23:59 | disposition home or self-care (01) ==
PROVIDERS: PCP Registered Nurse; Visit Provider Internal Medicine Hematology & Oncology
DX: C18.7 Malignant neoplasm of sigmoid colon
CPT/HCPCS: 80053; 81003; 85025; 96367; 96368; 96375; 96413; 96416; 96417; 96523; 99214; J0640; J1100; J2469; J7050; J7060; J9190; Q5107

== ENCOUNTER → 2023-02-10 08:22 | Outpatient (BNVA) | payer MEDICARE, MEDICAID, SELFPAY | PROVIDERS: PCP Registered Nurse; Visit Provider Nurse Practitioner Family | DX: C18.7 Malignant neoplasm of sigmoid colon (principal) | CPT/HCPCS: 99214 ==

== ENCOUNTER → 2023-03-03 11:35 | Outpatient (BNVA) | payer MEDICARE, MEDICAID, SELFPAY | PROVIDERS: PCP Registered Nurse; Visit Provider Nurse Practitioner Family | DX: C18.7 Malignant neoplasm of sigmoid colon (principal) | CPT/HCPCS: 99214 ==

== ENCOUNTER 2023-03-05 11:00 | Oncology outpatient (recurring) (ONCR) | payer MEDICARE, MEDICAID, SELFPAY ==
[2023-02-10 08:51] VITALS: BP 144/75; PULSE 62; RESP 16; TEMP 36.7; O2SAT 96
[2023-02-10 08:52] LABS: Basophils # 0.1 10^3/uL (0.0-0.1); Basophils % 0.9 %; Eosinophils # 0.2 10^3/uL (0.0-0.8); Eosinophils % 2.8 %; Hematocrit 41.5 % (37.0-47.0); Hemoglobin 13.6 g/dL (11.5-15.3); Lymphocytes # 3.6 10^3/uL (0.8-4.8); Lymphocytes % 50.6 %; Mean Corpuscular HGB Conc 32.8 g/dL (30.0-36.0); Mean Corpuscular Hemoglobin 32.9 pg (28.0-34.0); Mean Corpuscular Volume 100.5 fl (81-99); Mean Platelet Volume 9.6 fL (7.4-10.4); Monocytes # 0.7 10^3/uL (0.2-0.9); Monocytes % 9.4 %; Neutrophils # 2.55 10^3/uL (1.8-7.7); Neutrophils % 36.2 %; Nucleated Red Blood Cells % 0 %; Platelet Count 161 10^3/cmm (130-400); Red Blood Count 4.13 10^6/uL (4.1-5.3); Red Cell Distribution Width 13.6 % (12.1-15.1); White Blood Count 7.1 10^3/uL (4.0-10.0)
[2023-02-10 09:13] LABS: Alanine Aminotransferase 20 U/L (0-33); Alkaline Phosphatase 70 U/L (35-105); Anion Gap 14.3 (5-19); Aspartate Amino Transferase 25 U/L (0-32); Blood Urea Nitrogen 10 mg/dL (8-23); Calcium 8.9 mg/dL (8.5-10.5); Carbon Dioxide 26 mmol/L (22-29); Chloride 102 mmol/L (98-107); Creatinine Clr Calc Pharmacy 58.6153; Globulin 2.9 g/dL (1.3-4.6); Glucose 100 mg/dL (65-115); Osmolality Calculated 285 mOsm/kg (285-295); Potassium 4.3 mmol/L (3.5-5.1); Sodium 138 mmol/L (136-145); Total Bilirubin 0.7 mg/dL (0.15-1.2); Total Protein 6.9 g/dL (6.6-8.7)
[2023-02-10 09:16] LABS: Add Urine Microscopic? YES; Bilirubin Urine Neg (Negative); Blood Urine Neg (Negative); Glucose Urine UA Norm (Normal); Ketones Urine Negative (Negative); Leukocyte Esterase Urine 2+ (Negative); Nitrate Urine Negative (Negative); Protein Urine Neg (Negative); Specific Gravity, Urine 1.015 (1.005-1.030); Urine Appearance Clear (CLEAR); Urine Color Yellow (Yellow); Urobilinogen Urine Neg (Negative); pH Urine 6 (5-7)
[2023-02-10 09:20] LABS: Add Urine Culture? No; Bacteria Urine TRACE /hpf; Squamous Epithelial Cell Urine 0-4 /hpf (0-5); WBC Urine 0-4 /hpf (0-5)
[2023-02-10] MEDS: sodium chloride 0.9% 250 ML 75 ML IV (11:04)
[2023-02-10] MEDS: palonosetron 0.25 mg/5 mL SDV IVP (11:04)
[2023-02-10] MEDS: bevacizumab-awwb 400 MG in sodium chloride 0.9% (100 ml) 100 ML 300 MG IV (11:22)
[2023-02-10] MEDS: leucovorin 740 MG in dextrose 5% 250 ML 62.5 MG IV (11:53)
[2023-02-10] MEDS: fluorouraciL 3,550 MG, elastomeric pump 1 PUMP in sodium chloride 0.9% (100 ml) 21 ML IV (12:25)
[2023-02-10 12:28] VITALS: BP 168/73; PULSE 65; RESP 16; TEMP 36.4; O2SAT 95
[2023-02-12 10:46] VITALS: BP 143/76; PULSE 62; TEMP 36.8; O2SAT 99
[2023-03-03 10:12] VITALS: BP 149/82; PULSE 65; RESP 16; TEMP 36.6; O2SAT 97
[2023-03-03 10:30] LABS: Basophils # 0.1 10^3/uL (0.0-0.1); Basophils % 1.2 %; Eosinophils # 0.2 10^3/uL (0.0-0.8); Eosinophils % 2.9 %; Hemoglobin 13.4 g/dL (11.5-15.3); Lymphocytes # 3.3 10^3/uL (0.8-4.8); Lymphocytes % 55.8 %; Mean Corpuscular HGB Conc 32.7 g/dL (30.0-36.0); Mean Corpuscular Hemoglobin 32.5 pg (28.0-34.0); Mean Corpuscular Volume 99.5 fl (81-99); Mean Platelet Volume 9.8 fL (7.4-10.4); Monocytes # 0.5 10^3/uL (0.2-0.9); Monocytes % 8.4 %; Neutrophils # 1.84 10^3/uL (1.8-7.7); Neutrophils % 31.5 %; Nucleated Red Blood Cells % 0 %; Platelet Count 200 10^3/cmm (130-400); Red Blood Count 4.12 10^6/uL (4.1-5.3); Red Cell Distribution Width 13.1 % (12.1-15.1); White Blood Count 5.8 10^3/uL (4.0-10.0)
[2023-03-03 10:48] LABS: Alanine Aminotransferase 18 U/L (0-33); Albumin Level 4.1 g/dL (3.5-5.2); Alkaline Phosphatase 65 U/L (35-105); Anion Gap 14.4 (5-19); Aspartate Amino Transferase 25 U/L (0-32); Blood Urea Nitrogen 9 mg/dL (8-23); Calcium 9.4 mg/dL (8.5-10.5); Carbon Dioxide 26 mmol/L (22-29); Chloride 104 mmol/L (98-107); Globulin 2.9 g/dL (1.3-4.6); Glucose 97 mg/dL (65-115); Osmolality Calculated 289 mOsm/kg (285-295); Potassium 4.4 mmol/L (3.5-5.1); Sodium 140 mmol/L (136-145); Total Bilirubin 0.6 mg/dL (0.15-1.2)
[2023-03-03] MEDS: dextrose 5% 250 ML 75 ML IV (12:09)
[2023-03-03] MEDS: palonosetron 0.25 mg/5 mL SDV IVP (12:09)
[2023-03-03] MEDS: leucovorin 740 MG in dextrose 5% 250 ML 62.5 MG IV (12:29)
[2023-03-03 12:45] LABS: Carcinoembryonic Antigen 3.4 ng/mL (0.0-4.7)
[2023-03-03 13:06] VITALS: BP 153/73; PULSE 66; TEMP 36.4; O2SAT 97
[2023-03-03] MEDS: fluorouraciL 3,550 MG, elastomeric pump 1 PUMP in sodium chloride 0.9% (100 ml) 21 ML IV (13:06)
[2023-03-05 10:55] VITALS: BP 151/70; PULSE 63; RESP 18; TEMP 36.6; O2SAT 92
[2023-03-05 11:09] LABS: Add Urine Microscopic? NO; Charge for UA Resulting for Rev
[2023-03-05 11:21] LABS: Bilirubin Urine Neg (Negative); Blood Urine Neg (Negative); Glucose Urine UA Norm (Normal); Ketones Urine Negative (Negative); Leukocyte Esterase Urine Negative (Negative); Nitrate Urine Negative (Negative); Protein Urine Neg (Negative); Urine Appearance Clear (CLEAR); Urine Color Yellow (Yellow); Urobilinogen Urine Norm (Negative); pH Urine 6 (5-7)
== END 2023-03-07 23:59 | disposition home or self-care (01) ==
PROVIDERS: Nurse Practitioner Family; PCP Registered Nurse; Visit Provider Internal Medicine Hematology & Oncology
DX: C18.7 Malignant neoplasm of sigmoid colon; C77.8 Secondary and unspecified malignant neoplasm of lymph nodes of multiple regions; C78.6 Secondary malignant neoplasm of retroperitoneum and peritoneum; C78.01 Secondary malignant neoplasm of right lung; C78.02 Secondary malignant neoplasm of left lung
CPT/HCPCS: 80053; 81001; 81003; 82378; 85025; 87077; 87086; 87186; 96368; 96374; 96375; 96413; 96416; 96417; 96523; J0640; J1100; J1642; J2469; J7050; J7060; J9190; Q5107

== ENCOUNTER 2023-03-13 05:41 | Outpatient (CLI) | payer MEDICARE, MEDICAID, SELFPAY ==
--- NOTE | 2023-03-13 11:30 | PETR_ITS ---
PROCEDURE INFORMATION: Exam: PET/CT Skull Base to Mid-thigh Exam date and time: 03/13/2023 12:14 PM Age: 77 years old Clinical indication: Condition or disease; Primary cancer: Colon; Follow-up oncological assessment; Additional info: Colon cancer, please schedule for 1st week in March LABS AND CLINICAL REPORTS: Glucose: 104 mg/dl Treatment strategy for malignancy (PET staging): Restaging (PS) TECHNIQUE: Imaging protocol: Following at least four-hour fasting and following the injection of radiopharmaceutical, low dose CT images were obtained. Then, PET images were obtained. Attenuation corrected images were constructed using the CT scan. Fused images of PET and CT were reviewed. The standardized uptake values (SUV) reported below are maximum values within a region of interest, expressed in gm/ml. Exam includes orbital meatal line to mid-thigh. Radiopharmaceutical: 15.65 mCi F-18 FDG (Fluorodeoxyglucose), IV. Time of imaging post radiopharmaceutical administration: 1 hour Injection site: Not specified COMPARISON: [facility] [id number] 12/12/2022 8:32 AM FINDINGS: Tubes, catheters and devices: A right internal jugular central venous port catheter terminates in the distal SVC. Brain: Visualized brain has normal physiologic uptake. Pharynx: No abnormal uptake. Larynx: No abnormal uptake. Lungs, pleura and trachea: No abnormal uptake. Several scattered small non radiotracer avid noncalcified pulmonary nodules are identified bilaterally which appears similar in size and number compared with at least the prior PET-CT. Evaluation of the lungs is slightly limited by artifact. The dominant left-sided nodule is present in the left upper lobe on series 3, image 55 measuring 1.1 cm. The dominant nodule on the right measures 8 mm in the right lower lobe on series 3, image 59. Heart: Normal physiologic uptake. Mediastinal space: No abnormal uptake. Liver: No abnormal uptake. Non radiotracer avid mild lobulated mucosal thickening of the right maxillary sinuses consistent with benign sinusitis. Gallbladder and bile ducts: No abnormal uptake. Cholecystectomy clips are present. Pancreas: No abnormal uptake. Spleen: No abnormal uptake. Adrenal glands: No abnormal uptake. Kidneys and ureters: Normal physiologic uptake. Stomach and bowel: There are postoperative changes of colectomy. Uptake in the sigmoid colon is noted distal to a new sigmoid colonic surgical staple line compared with the prior PET-CT, SUV max 8.3. This is associated with new apparent diffuse moderate wall thickening for example on series 3, image [address] images lobe elevation of the wall is limited by artifact. Additional mild circumferential wall thickening of the rectum appears to be present, SUV max 7.1. Reproductive: A similar non radiotracer avid region of asymmetric lobulated soft tissue density in the labia majora on the left measures 4.8 x 2.3 cm on series 3, image 148. The uterus is not identified, likely surgically absent. No abnormal uptake. Vasculature: No abnormal uptake. Diffuse atherosclerotic changes are noted. Lymph nodes: No abnormal uptake. No lymphadenopathy in the head, neck, chest, abdomen, pelvis, and extremities. Bones/joints: No abnormal uptake in the visualized axial and appendicular skeleton. Degenerative changes in the spine are present. Similar chronic benign appearing erosive changes of the symphysis pubis. Soft tissues: No abnormal uptake in the visualized head, neck, chest, abdomen, pelvis, and extremities. METRICS: Mediastinal blood pool: SUV max 2.6 [facility] SUB[facility] [id number] IMPRESSION: 1. Bilateral pulmonary nodules are similar in size and number compared with the prior PET-CT and remain non radiotracer avid. 2. Since the prior CT there appear to been interval postoperative changes in the region of the sigmoid colon. Elevated uptake distal to this new surgical staple line is noted involving the sigmoid colon and rectum associated with apparent mild wall thickening. Although evaluation of the wall can be limited by nondistention, the possibility of inflammatory, infectious or neoplastic involvement in this region cannot be excluded. 3. Similar region of soft tissue density in the region of the labia majora on the left without abnormal uptake compatible with a benign finding. 4. Additional nonurgent findings as detailed above.
== END 2023-03-13 05:42 | disposition home or self-care (01) ==
LOC: RAD 03-15 05:42
PROVIDERS: PCP Registered Nurse; Visit Provider Nurse Practitioner Family
DX: C18.9 Malignant neoplasm of colon, unspecified (principal); C77.2 Secondary and unspecified malignant neoplasm of intra-abdominal lymph nodes
CPT/HCPCS: 78815; A9552

== ENCOUNTER → 2023-03-31 10:50 | Outpatient (BNVA) | payer MEDICARE, MEDICAID, SELFPAY | PROVIDERS: PCP Registered Nurse; Visit Provider Nurse Practitioner Family | DX: C18.7 Malignant neoplasm of sigmoid colon (principal) | CPT/HCPCS: 99214 ==

== ENCOUNTER 2023-04-02 11:17 | Oncology outpatient (recurring) (ONCR) | payer MEDICARE, MEDICAID, SELFPAY ==
[2023-03-17 10:09] VITALS: BP 159/79; PULSE 56; RESP 16; TEMP 36.3; O2SAT 99
[2023-03-17 10:34] LABS: Basophils # 0.1 10^3/uL (0.0-0.1); Basophils % 0.7 %; Eosinophils # 0.2 10^3/uL (0.0-0.8); Eosinophils % 2.5 %; Hematocrit 40.7 % (37.0-47.0); Hemoglobin 13.3 g/dL (11.5-15.3); Lymphocytes # 3.7 10^3/uL (0.8-4.8); Lymphocytes % 48.5 %; Mean Corpuscular HGB Conc 32.7 g/dL (30.0-36.0); Mean Platelet Volume 10.1 fL (7.4-10.4); Monocytes # 0.5 10^3/uL (0.2-0.9); Monocytes % 7.2 %; Neutrophils # 3.09 10^3/uL (1.8-7.7); Nucleated Red Blood Cells % 0 %; Platelet Count 156 10^3/cmm (130-400); Red Blood Count 4.03 10^6/uL (4.1-5.3); White Blood Count 7.5 10^3/uL (4.0-10.0)
[2023-03-17 10:50] LABS: Alanine Aminotransferase 18 U/L (0-33); Albumin Level 4.1 g/dL (3.5-5.2); Alkaline Phosphatase 63 U/L (35-105); Anion Gap 14.4 (5-19); Aspartate Amino Transferase 27 U/L (0-32); Blood Urea Nitrogen 12 mg/dL (8-23); Calcium 8.7 mg/dL (8.5-10.5); Carbon Dioxide 26 mmol/L (22-29); Chloride 102 mmol/L (98-107); Glucose 107 mg/dL (65-115); Osmolality Calculated 286 mOsm/kg (285-295); Potassium 4.4 mmol/L (3.5-5.1); Sodium 138 mmol/L (136-145); Total Bilirubin 0.7 mg/dL (0.15-1.2); Total Protein 7.1 g/dL (6.6-8.7)
[2023-03-17] MEDS: dextrose 5% 250 ML 75 ML IV (12:26)
[2023-03-17] MEDS: palonosetron 0.25 mg/5 mL SDV IVP (12:27)
[2023-03-17] MEDS: bevacizumab-awwb 390 MG in sodium chloride 0.9% (100 ml) 100 ML 300 MG IV (12:42)
[2023-03-17] MEDS: leucovorin 740 MG in dextrose 5% 250 ML 62.5 MG IV (13:22)
[2023-03-17] MEDS: fluorouraciL 3,550 MG, elastomeric pump 1 PUMP in sodium chloride 0.9% (100 ml) 21 ML IV (13:55)
[2023-03-17 14:02] VITALS: BP 166/78; PULSE 69; RESP 16; TEMP 36.6; O2SAT 97
[2023-03-19 11:42] VITALS: BP 157/85; PULSE 64; RESP 18; TEMP 36.8; O2SAT 97
[2023-03-31 09:50] VITALS: BP 127/69; PULSE 60; RESP 16; TEMP 36.3; O2SAT 98
[2023-03-31 10:05] LABS: Basophils # 0.1 10^3/uL (0.0-0.1); Basophils % 0.7 %; Eosinophils # 0.2 10^3/uL (0.0-0.8); Hematocrit 39.9 % (37.0-47.0); Hemoglobin 13.3 g/dL (11.5-15.3); Lymphocytes # 2.7 10^3/uL (0.8-4.8); Lymphocytes % 40.2 %; Mean Corpuscular HGB Conc 33.3 g/dL (30.0-36.0); Mean Corpuscular Hemoglobin 33.7 pg (28.0-34.0); Mean Platelet Volume 9.6 fL (7.4-10.4); Monocytes # 0.5 10^3/uL (0.2-0.9); Monocytes % 7.8 %; Neutrophils # 3.24 10^3/uL (1.8-7.7); Nucleated Red Blood Cells % 0 %; Platelet Count 152 10^3/cmm (130-400); Red Blood Count 3.95 10^6/uL (4.1-5.3); Red Cell Distribution Width 13.2 % (12.1-15.1); White Blood Count 6.8 10^3/uL (4.0-10.0)
[2023-03-31 10:26] LABS: Alkaline Phosphatase 63 U/L (35-105)
[2023-03-31 10:44] LABS: Alanine Aminotransferase 20 U/L (0-33); Albumin Level 3.8 g/dL (3.5-5.2); Aspartate Amino Transferase 28 U/L (0-32); Blood Urea Nitrogen 11 mg/dL (8-23); Carbon Dioxide 26 mmol/L (22-29); Chloride 102 mmol/L (98-107); Globulin 2.9 g/dL (1.3-4.6); Glucose 97 mg/dL (65-115); Osmolality Calculated 283 mOsm/kg (285-295); Sodium 137 mmol/L (136-145); Total Bilirubin 0.7 mg/dL (0.15-1.2); Total Protein 6.7 g/dL (6.6-8.7)
[2023-03-31] MEDS: sodium chloride 0.9% 250 ML 75 ML IV (11:36)
[2023-03-31] MEDS: palonosetron 0.25 mg/5 mL SDV IVP (11:37)
[2023-03-31 11:40] LABS: Add Urine Microscopic? NO; Charge for UA Resulting for Rev
[2023-03-31 12:06] LABS: Bilirubin Urine Neg (Negative); Blood Urine Neg (Negative); Glucose Urine UA Norm (Normal); Ketones Urine Negative (Negative); Leukocyte Esterase Urine Negative (Negative); Nitrate Urine Negative (Negative); Protein Urine Neg (Negative); Urine Appearance Clear (CLEAR); Urine Color Yellow (Yellow); Urobilinogen Urine Norm (Negative); pH Urine 5 (5-7)
[2023-03-31] MEDS: bevacizumab-awwb 380 MG in sodium chloride 0.9% (100 ml) 100 ML 300 MG IV (12:06)
[2023-03-31] MEDS: leucovorin 740 MG in dextrose 5% 250 ML 62.5 MG IV (12:29)
[2023-03-31] MEDS: fluorouraciL 3,550 MG, elastomeric pump 1 PUMP in sodium chloride 0.9% (100 ml) 21 ML IV (13:07)
[2023-03-31 13:15] VITALS: BP 144/73; PULSE 67; TEMP 36.5; O2SAT 98
[2023-04-02 11:30] VITALS: BP 156/78; PULSE 58; RESP 16; TEMP 36.2; O2SAT 98
== END 2023-04-07 23:59 | disposition home or self-care (01) ==
PROVIDERS: Nurse Practitioner Family; PCP Registered Nurse; Visit Provider Internal Medicine Hematology & Oncology
DX: C18.7 Malignant neoplasm of sigmoid colon (principal)
CPT/HCPCS: 80053; 81003; 85025; 96368; 96375; 96413; 96416; 96417; 96523; 99214; J0640; J1100; J1642; J2469; J7050; J7060; J9190; Q5107

== ENCOUNTER → 2023-04-14 09:27 | Outpatient (BNVA) | payer MEDICARE, MEDICAID, SELFPAY | PROVIDERS: PCP Registered Nurse; Visit Provider Nurse Practitioner Family | DX: Z53.9 Procedure and treatment not carried out, unspecified reason (principal) | CPT/HCPCS: 99214 ==

== ENCOUNTER → 2023-04-28 11:25 | Outpatient (BNVA) | payer MEDICARE, MEDICAID, SELFPAY | PROVIDERS: PCP Registered Nurse; Visit Provider Internal Medicine Hematology & Oncology | DX: C18.7 Malignant neoplasm of sigmoid colon (principal); C77.8 Secondary and unspecified malignant neoplasm of lymph nodes of multiple regions; C78.6 Secondary malignant neoplasm of retroperitoneum and peritoneum; C78.01 Secondary malignant neoplasm of right lung; C78.02 Secondary malignant neoplasm of left lung; S90.821D Blister (nonthermal), right foot, subsequent encounter; R97.0 Elevated carcinoembryonic antigen [CEA]; Z79.52 Long term (current) use of systemic steroids; Z79.899 Other long term (current) drug therapy | CPT/HCPCS: 99214 ==

== ENCOUNTER 2023-04-30 11:27 | Oncology outpatient (recurring) (ONCR) | payer MEDICARE, MEDICAID, SELFPAY ==
[2023-04-14 09:31] VITALS: BP 164/88; PULSE 73; RESP 18; TEMP 36.7; O2SAT 92
[2023-04-14 09:49] LABS: Basophils # 0.1 10^3/uL (0.0-0.1); Basophils % 0.7 %; Eosinophils # 0.2 10^3/uL (0.0-0.8); Eosinophils % 2.4 %; Hematocrit 39.9 % (37.0-47.0); Lymphocytes # 3.2 10^3/uL (0.8-4.8); Lymphocytes % 45.7 %; Mean Corpuscular HGB Conc 32.6 g/dL (30.0-36.0); Mean Corpuscular Hemoglobin 32.7 pg (28.0-34.0); Mean Corpuscular Volume 100.5 fl (81-99); Mean Platelet Volume 9.7 fL (7.4-10.4); Monocytes # 0.7 10^3/uL (0.2-0.9); Monocytes % 9.5 %; Neutrophils # 2.93 10^3/uL (1.8-7.7); Neutrophils % 41.4 %; Nucleated Red Blood Cells % 0 %; Platelet Count 155 10^3/cmm (130-400); Red Blood Count 3.97 10^6/uL (4.1-5.3); Red Cell Distribution Width 13.6 % (12.1-15.1); White Blood Count 7.1 10^3/uL (4.0-10.0)
[2023-04-14 10:23] LABS: Carcinoembryonic Antigen 4.5 ng/mL (0.0-4.7)
[2023-04-14 10:34] LABS: Alanine Aminotransferase 21 U/L (0-33); Albumin Level 3.9 g/dL (3.5-5.2); Alkaline Phosphatase 70 U/L (35-105); Anion Gap 15.2 (5-19); Aspartate Amino Transferase 26 U/L (0-32); Blood Urea Nitrogen 10 mg/dL (8-23); Calcium 9.2 mg/dL (8.5-10.5); Carbon Dioxide 25 mmol/L (22-29); Chloride 100 mmol/L (98-107); Glucose 92 mg/dL (65-115); Osmolality Calculated 281 mOsm/kg (285-295); Potassium 4.2 mmol/L (3.5-5.1); Sodium 136 mmol/L (136-145); Total Bilirubin 0.8 mg/dL (0.15-1.2); Total Protein 6.9 g/dL (6.6-8.7)
[2023-04-14] MEDS: sodium chloride 0.9% 250 ML 75 ML IV (11:38)
[2023-04-14] MEDS: palonosetron 0.25 mg/5 mL SDV IVP (11:39)
[2023-04-14] MEDS: bevacizumab-awwb 390 MG in sodium chloride 0.9% (100 ml) 100 ML 300 MG IV (12:04)
[2023-04-14] MEDS: leucovorin 740 MG in dextrose 5% 250 ML 62.5 MG IV (12:43)
[2023-04-14] MEDS: fluorouraciL 3,550 MG, elastomeric pump 1 PUMP in sodium chloride 0.9% (100 ml) 21 ML IV (13:20)
[2023-04-14 13:22] VITALS: BP 170/69; PULSE 69; RESP 16; TEMP 36; O2SAT 98
[2023-04-16 11:40] VITALS: BP 160/75; PULSE 61; RESP 16; TEMP 36.8; O2SAT 99
[2023-04-28 11:43] VITALS: BP 147/79; PULSE 77; RESP 18; TEMP 36.8; O2SAT 98
[2023-04-28 12:11] LABS: Basophils # 0.1 10^3/uL (0.0-0.1); Basophils % 0.8 %; Eosinophils # 0.2 10^3/uL (0.0-0.8); Hematocrit 41.2 % (37.0-47.0); Hemoglobin 13.3 g/dL (11.5-15.3); Lymphocytes # 3.4 10^3/uL (0.8-4.8); Lymphocytes % 44.2 %; Mean Corpuscular HGB Conc 32.3 g/dL (30.0-36.0); Mean Corpuscular Hemoglobin 32.6 pg (28.0-34.0); Monocytes # 0.6 10^3/uL (0.2-0.9); Monocytes % 8.4 %; Neutrophils # 3.37 10^3/uL (1.8-7.7); Neutrophils % 44.3 %; Nucleated Red Blood Cells % 0 %; Platelet Count 161 10^3/cmm (130-400); Red Blood Count 4.08 10^6/uL (4.1-5.3); Red Cell Distribution Width 13.6 % (12.1-15.1); White Blood Count 7.6 10^3/uL (4.0-10.0)
[2023-04-28 12:42] LABS: Carcinoembryonic Antigen 4.8 ng/mL (0.0-4.7)
[2023-04-28 12:54] LABS: Alanine Aminotransferase 20 U/L (0-33); Albumin Level 3.9 g/dL (3.5-5.2); Alkaline Phosphatase 67 U/L (35-105); Aspartate Amino Transferase 27 U/L (0-32); Blood Urea Nitrogen 10 mg/dL (8-23); Calcium 9.2 mg/dL (8.5-10.5); Carbon Dioxide 25 mmol/L (22-29); Chloride 101 mmol/L (98-107); Globulin 3.1 g/dL (1.3-4.6); Glucose 93 mg/dL (65-115); Osmolality Calculated 283 mOsm/kg (285-295); Sodium 137 mmol/L (136-145); Total Bilirubin 0.7 mg/dL (0.15-1.2)
[2023-04-28 12:57] LABS: Anion Gap 15.2 (5-19); Potassium 4.2 mmol/L (3.5-5.1)
[2023-04-28] MEDS: sodium chloride 0.9% 250 ML 75 ML IV (14:27)
[2023-04-28] MEDS: palonosetron 0.25 mg/5 mL SDV IVP (14:29)
[2023-04-28] MEDS: bevacizumab-awwb 390 MG in sodium chloride 0.9% (100 ml) 100 ML 300 MG IV (14:56)
[2023-04-28 15:03] LABS: Urine Color Yellow (Yellow)
[2023-04-28 15:04] LABS: Add Urine Microscopic? YES; Bilirubin Urine Neg (Negative); Blood Urine Neg (Negative); Glucose Urine UA Norm (Normal); Ketones Urine 1+ (Negative); Leukocyte Esterase Urine 1+ (Negative); Nitrate Urine Negative (Negative); Protein Urine Neg (Negative); Urine Appearance Clear (CLEAR); Urobilinogen Urine Norm (Negative); pH Urine 5 (5-7)
[2023-04-28 15:30] LABS: Bacteria Urine TRACE /hpf; Mucus Urine 2+ /hpf; RBC Urine 0-4 /hpf (0-2); Squamous Epithelial Cell Urine 0-4 /hpf (0-5); WBC Urine 0-4 /hpf (0-5)
[2023-04-28 15:37] LABS: Add Urine Culture? No
[2023-04-28] MEDS: leucovorin 740 MG in dextrose 5% 250 ML 62.5 MG IV (15:43)
[2023-04-28] MEDS: fluorouraciL 3,550 MG, elastomeric pump 1 PUMP in sodium chloride 0.9% (100 ml) 21 ML IV (16:21)
[2023-04-28 16:30] VITALS: BP 197/78; PULSE 68; RESP 16; TEMP 36.4; O2SAT 93
[2023-04-30 11:50] VITALS: BP 158/79; PULSE 67; RESP 16; TEMP 36.9; O2SAT 97
== END 2023-05-07 23:59 | disposition home or self-care (01) ==
PROVIDERS: Nurse Practitioner Family; PCP Registered Nurse; Visit Provider Internal Medicine Hematology & Oncology
DX: C18.7 Malignant neoplasm of sigmoid colon (principal)
CPT/HCPCS: 80053; 81001; 82378; 85025; 96367; 96368; 96375; 96413; 96416; 96523; 99214; J0640; J1100; J1642; J2469; J7050; J7060; J9190; Q5107

== ENCOUNTER 2023-05-12 11:58 | Oncology outpatient (recurring) (ONCR) | payer MEDICARE, MEDICAID, SELFPAY ==
[2023-05-12 12:02] VITALS: BP 170/87; PULSE 71; RESP 18; TEMP 36.4; O2SAT 97
[2023-05-12 12:15] LABS: Basophils # 0.1 10^3/uL (0.0-0.1); Basophils % 0.7 %; Eosinophils # 0.2 10^3/uL (0.0-0.8); Eosinophils % 1.7 %; Hematocrit 40.7 % (37.0-47.0); Hemoglobin 13.4 g/dL (11.5-15.3); Lymphocytes # 3.8 10^3/uL (0.8-4.8); Lymphocytes % 43.1 %; Mean Corpuscular HGB Conc 32.9 g/dL (30.0-36.0); Mean Corpuscular Hemoglobin 32.8 pg (28.0-34.0); Mean Corpuscular Volume 99.5 fl (81-99); Mean Platelet Volume 9.7 fL (7.4-10.4); Monocytes # 0.8 10^3/uL (0.2-0.9); Monocytes % 8.5 %; Neutrophils # 4.07 10^3/uL (1.8-7.7); Neutrophils % 45.8 %; Nucleated Red Blood Cells % 0 %; Platelet Count 163 10^3/cmm (130-400); Red Blood Count 4.09 10^6/uL (4.1-5.3); Red Cell Distribution Width 13.7 % (12.1-15.1); White Blood Count 8.9 10^3/uL (4.0-10.0)
[2023-05-12 12:30] LABS: Alanine Aminotransferase 19 U/L (0-33); Alkaline Phosphatase 75 U/L (35-105); Aspartate Amino Transferase 28 U/L (0-32); Blood Urea Nitrogen 13 mg/dL (8-23); Calcium 9.3 mg/dL (8.5-10.5); Carbon Dioxide 25 mmol/L (22-29); Chloride 100 mmol/L (98-107); Globulin 3.2 g/dL (1.3-4.6); Glucose 108 mg/dL (65-115); Osmolality Calculated 283 mOsm/kg (285-295); Sodium 136 mmol/L (136-145); Total Bilirubin 0.7 mg/dL (0.15-1.2); Total Protein 7.2 g/dL (6.6-8.7)
[2023-05-12 12:31] LABS: Anion Gap 15.5 (5-19); Potassium 4.5 mmol/L (3.5-5.1)
[2023-05-12] MEDS: sodium chloride 0.9% 250 ML 75 ML IV (14:20)
[2023-05-12] MEDS: palonosetron 0.25 mg/5 mL SDV IVP (14:24)
[2023-05-12] MEDS: bevacizumab-awwb 390 MG in sodium chloride 0.9% (100 ml) 100 ML 200 MG IV (14:57)
[2023-05-12] MEDS: leucovorin 740 MG in dextrose 5% 250 ML 62.5 MG IV (15:40)
[2023-05-12] MEDS: fluorouraciL 3,550 MG, elastomeric pump 1 PUMP in sodium chloride 0.9% (100 ml) 21 ML IV (16:23)
[2023-05-12 16:30] VITALS: BP 136/77; PULSE 65; RESP 18; TEMP 36.3; O2SAT 98
== END 2023-06-07 23:59 | disposition home or self-care (01) ==
PROVIDERS: PCP Registered Nurse; Visit Provider Internal Medicine Hematology & Oncology
DX: C18.7 Malignant neoplasm of sigmoid colon (principal); C78.6 Secondary malignant neoplasm of retroperitoneum and peritoneum; C77.8 Secondary and unspecified malignant neoplasm of lymph nodes of multiple regions; C78.01 Secondary malignant neoplasm of right lung; C78.02 Secondary malignant neoplasm of left lung; Z90.49 Acquired absence of other specified parts of digestive tract; Z79.899 Other long term (current) drug therapy
CPT/HCPCS: 80053; 85025; 96523; 99214; J0640; J1100; J2469; J7050; J7060; J9190; Q5107

== ENCOUNTER 2023-05-13 14:52 | Inpatient (IN) | payer MEDICARE, MEDICAID, SELFPAY ==
[2023-05-13] VITALS (8 sets, daily range): BP systolic 143–158; BP diastolic 72–97; PULSE 73–95; RESP 16–20; TEMP 36.7–36.8; O2SAT 92–100; BMI 29.2
--- NOTE | 2023-05-13 14:55 | XRR_ITS ---
PROCEDURE INFORMATION: Exam: XR Chest Exam date and time: 05/13/2023 3:23 PM Age: 77 years old Clinical indication: Injury or trauma; Blunt trauma (contusions or hematomas); Injury details: Fall hip pain; Patient HX: HX of colon cancer TECHNIQUE: Imaging protocol: Radiologic exam of the chest. Views: 1 view. COMPARISON: CR XR chest 1V portable [id number] 01/26/2022 4:26 PM FINDINGS: Tubes, catheters and devices: Port catheter remains in place. Lungs: Unremarkable. No consolidation. Pleural spaces: Unremarkable. No pleural effusion. No pneumothorax. Heart/Mediastinum: Unremarkable. No cardiomegaly. Bones/joints: Unremarkable. XR/XR chest 1V portable [id number] IMPRESSION: No acute findings.
--- NOTE | 2023-05-13 14:55 | XRR_ITS ---
PROCEDURE INFORMATION: Exam: XR Right Hip Exam date and time: 05/13/2023 3:23 PM Age: 77 years old Clinical indication: Injury or trauma; Fall; Blunt trauma (contusions or hematomas); Right; Hip TECHNIQUE: Imaging protocol: Radiologic exam of the right hip. Views: 1 view hip with pelvis when performed. COMPARISON: CT abdomen pelvis w con* [id number] 11/22/2021 8:20 PM FINDINGS: Bones/joints: There is a comminuted diastatic intertrochanteric fracture of the right hip with marked varus deformity. Right hip joint is unremarkable. Soft tissues: Unremarkable. XR/XR hip RT 2-3V wo/w pel* [id number] IMPRESSION: Intertrochanteric fracture of the right hip.
--- NOTE | 2023-05-13 15:06 | W.ED.EXTPRO ---
HPI - Extremity Problem General: Chief complaint: Extremity Injury, Lower Stated complaint: fall rt hip pain Time Seen by Provider: 05/13/23 14:55 Source: patient and EMS Mode of arrival: EMS Limitations: no limitations History of Present Illness: 77-year-old female who had a fall just prior to arrival. States she fell onto her right side had severe right hip pain since that fall. She rates her pain a 9 out of 10 much worse with movement she is not able to ambulate she denies hitting her head denies any head or neck pain. Associated symptoms: Deny chest pain, fever(s) or rash Review of Systems Const: Denies: fever(s) or chills Eyes: Denies: eye discomfort ENMT: Denies: throat pain or dental pain Card: Denies: chest pain Resp: Denies: dyspnea GI: Denies: abdominal pain, nausea, vomiting or diarrhea Musc: Reports: extremity pain; Denies: neck pain or back pain Skin/Breast: Denies: rash Neuro: Denies: headache(s) PFSH ED PFSH: Medical History Essential hypertension Family History Other CAD (coronary artery disease) Cancer Hypertension Stroke Denies family history of Diabetes Clotting disorder Dementia Hyperlipidemia Psychiatric illness Chronic kidney disease (CKD) Suicide Anesthesia complication Bleeding disorder Lung disease Social History Smoking and tobacco status: never smoked Alcohol intake: never Substance/Drug Use: never Adopted: No Caregiver/support person: No Do you think of yourself as: Straight/Heterosexual Current gender identity: Female Physical Exam Const: COMMON NORMALS: no acute distress, patient oriented x3 and healthy appearing HENMT: COMMON NORMALS: normocephalic and atraumatic HEAD & SCALP: normocephalic and atraumatic Eye: COMMON NORMALS: conjunctivae normal CONJUNCTIVA: Yes conjunctivae normal Neck/C-Spine: COMMON NORMALS: full ROM and supple Chest: COMMONS NORMALS: normal inspection of the chest Resp: COMMON NORMALS: normal respiratory effort Cardio: COMMON NORMALS: regular rate, regular rhythm and No murmurs present (Cardio) RATE: regular rate RHYTHM: regular rhythm GI: INSPECTION: Yes normal to inspection Extremity: NARRATIVE EXTREMITY EXAM: Tenderness over right hip pain with range of motion distal pulses sensation intact Neuro: COMMON NORMALS: patient oriented x3, moves all extremities and no focal motor deficits Psych: COMMON NORMALS: mental status grossly normal, Normal thought process present and cooperative THOUGHT PROCESS: Normal thought process present Skin: COMMON NORMALS: no rashes or lesions noted and no wounds GENERAL SKIN EXAM: no rashes or lesions noted Course Vital Signs: Vital signs: Vital Signs Pulse Rate 95 05/13/23 15:02 Respiratory Rate 18 05/13/23 15:02 Blood Pressure 145/97 05/13/23 15:17 Pulse Oximetry 92 05/13/23 15:17 Oxygen Delivery Me thod Room Air 05/13/23 15:17 Oxygen Flow Rate 2 05/13/23 15:02 MDM - Extremity (Nontraumatic) Medical Decision Making Patient presents here with a right hip fracture from a fall x-ray shows fracture of spoken to orthopedist along with hospitalist will admit at this time. Medical Records I reviewed the patient's medical records. Lab Data I reviewed the patient's lab results. 05/13/23 15:59 05/13/23 15:59 Radiology Impressions Chest X-Ray 05/13/23 14:55 IMPRESSION: No acute findings. Hip/Pelvis X-Ray 05/13/23 14:55 IMPRESSION: Intertrochanteric fracture of the right hip. Discharge Plan Discharge Condition: Stable Prescriptions: No Action lisinopril 40 mg tablet 40 mg PO DAILY 90 Days Qty: 90 4RF atenolol 50 mg tablet 50 mg PO DAILY 90 Days Qty: 90 4RF One-A-Day Women's 50 Plus 400-20 mcg tablet 1 tab PO DAILY zinc 50 mg tablet See Rx Instructions PO DAILY Rx Instructions: 1 tablet PO daily; magnesium glycinate 100 mg tablet 250 mg PO DAILY pyridoxine (vitamin B6) 25 mg tablet 100 mg PO DAILY mecobalamin (vitamin B12) 1,000 mcg tablet,chewable 1,000 mcg PO DAILY amlodipine 10 mg tablet See Rx Instructions .ROUTE .COMPLEX Qty: 90 0RF Dose Instruction: Take 1 tablet by mouth once daily for 90 days Rx Instructions: Take 1 tablet by mouth once daily for 90 days Referrals: Crystal Vergara FNP [Primary Care Provider] - Coding Level of Care Code ED Department Administrator for Todd [facility]ham
[2023-05-13] MEDS: HYDROmorphone 1 mg/mL INJ 1 mL IVP (15:11)
[2023-05-13] MEDS: ondansetron 2 mg/ML SDV 2 mL 4 MG IVP (15:11)
[2023-05-13 16:10] LABS: Basophils % 0.1 %; Eosinophils % 0.1 %; Hematocrit 38.9 % (37.0-47.0); Hemoglobin 12.4 g/dL (11.5-15.3); Lymphocytes # 1.2 10^3/uL (0.8-4.8); Lymphocytes % 6.6 %; Mean Corpuscular HGB Conc 31.9 g/dL (30.0-36.0); Mean Corpuscular Hemoglobin 32.6 pg (28.0-34.0); Mean Corpuscular Volume 102.4 fl (81-99); Monocytes # 1.1 10^3/uL (0.2-0.9); Monocytes % 6.3 %; Neutrophils # 15.45 10^3/uL (1.8-7.7); Neutrophils % 85.8 %; Nucleated Red Blood Cells % 0 %; Platelet Count 155 10^3/cmm (130-400); Red Cell Distribution Width 13.8 % (12.1-15.1)
[2023-05-13 16:30] LABS: Alanine Aminotransferase 22 U/L (0-33); Albumin Level 3.9 g/dL (3.5-5.2); Alkaline Phosphatase 77 U/L (35-105); Anion Gap 20.2 (5-19); Aspartate Amino Transferase 23 U/L (0-32); Blood Urea Nitrogen 20 mg/dL (8-23); Calcium 9.1 mg/dL (8.5-10.5); Carbon Dioxide 21 mmol/L (22-29); Chloride 105 mmol/L (98-107); Glucose 141 mg/dL (65-115); Osmolality Calculated 299 mOsm/kg (285-295); Potassium 4.2 mmol/L (3.5-5.1); Sodium 142 mmol/L (136-145); Total Bilirubin 0.4 mg/dL (0.15-1.2); Total Protein 6.9 g/dL (6.6-8.7)
--- NOTE | 2023-05-13 17:51 | P.HP_ITS ---
Providers/Chief Complaint Admitting Physician: Blaise Vasquez MD Primary Care Provider: NELLY Holley Chief Complaint: fall rt hip pain History of Present Illness Beryl Cespedes is a 77 year old female with pmh of htn came after experiencing a mechanical fall at home during that episode wendy denied any LOC,chest pain, sob, dizziness.xray rt intertrochanteric fracture.her labs and vitals have been reviewed, ortho has been consulted by ER. Review of Systems General: Reports: 10 or more systems reviewed and unremarkable except in HPI and below Const: Denies: fever(s), chills, body aches, change in appetite or diaphoresis Card: Denies: palpitations, edema, swelling of feet/ankles, dyspnea on exertion, orthopnea or leg pain with exertion Resp: Denies: dyspnea, productive cough, wheezing or pain on inspiration GI: Denies: abdominal pain, nausea, vomiting, diarrhea or constipation : Denies: flank pain Musc: Reports: extremity pain; Denies: back pain or extremity swelling Neuro: Denies: headache(s), difficulty walking or confusion Medications/Allergies Home Medications Medication Instructions Recorded Confirmed Last Taken Type bfbusmgeihid-iwswxczx-mrvaicf-folic 1 tab PO DAILY 03/09/22 05/13/23 05/12/23 History acid 400 mcg-vit K1 20 mcg tablet (One-A-Day Women's 50 Plus) zinc 50 mg tablet See Rx Instructions PO DAILY 03/09/22 05/13/23 05/12/23 History atenolol 50 mg tablet 50 mg PO DAILY 90 days #90 tabs 07/23/22 05/13/23 05/12/23 Rx lisinopril 40 mg tablet 40 mg PO DAILY 90 days #90 tabs 07/23/22 05/13/23 05/13/23 Rx magnesium glycinate 100 mg tablet 250 mg PO DAILY 10/19/22 05/13/23 05/12/23 History pyridoxine (vitamin B6) 25 mg 100 mg PO DAILY 10/19/22 05/13/23 05/12/23 History tablet mecobalamin (vitamin B12) 1,000 1,000 mcg PO DAILY 04/28/23 05/13/23 05/12/23 History mcg chewable tablet amlodipine 10 mg tablet 10 mg PO DAILY 05/13/23 05/13/23 05/12/23 History Allergies Allergy/AdvReac Type Severity Reaction Status Date / Time No Known Allergies Allergy Verified 05/13/23 15:05 PFSH Acute PFSH: Medical History Essential hypertension Family History Other CAD (coronary artery disease) Cancer Hypertension Stroke Denies family history of Diabetes Clotting disorder Dementia Hyperlipidemia Psychiatric illness Chronic kidney disease (CKD) Suicide Anesthesia complication Bleeding disorder Lung disease Social History Smoking and tobacco status: never smoked Alcohol intake: never Substance/Drug Use: never Adopted: No Caregiver/support person: No Do you think of yourself as: Straight/Heterosexual Current gender identity: Female Vitals/I&O/Wt Last Vital Signs Pulse 95 05/13/23 15:02 Resp 18 05/13/23 15:02 BP 152/78 05/13/23 17:00 Pulse Ox 92 05/13/23 15:17 O2 Del Method Room Air 05/13/23 15:17 O2 Flow Rate 2 05/13/23 15:02 Weight last 48 hrs Weight 77.111 kg Physical Exam HENMT: COMMON NORMALS: normocephalic and atraumatic HEAD & SCALP: norm ocephalic and atraumatic Resp: COMMON NORMALS: clear to auscultation bilaterally AUSCULTATION: clear to auscultation bilaterally Cardio: COMMON NORMALS: regular rate, regular rhythm, S1 normal heart sound present, S2 normal heart sound present, No gallops present (Cardio), No murmurs present (Cardio), No rub (Cardio) and Peripheral pulses 2+ throughout RATE: regular rate RHYTHM: regular rhythm HEART SOUNDS: S1 normal heart sound present and S2 normal heart sound present PERIPHERAL PULSES: Peripheral pulses 2+ throughout GI: COMMON NORMALS: Normal to inspection, nondistended, normoactive bowel michael nds present, Soft to palpation, non-tender, No hepatosplenomegaly present and no masses AUSCULTATION: Yes normoactive bowel sounds PALPATION: Yes Soft to palpation and Yes No hepatosplenomegaly present RECTAL EXAM: deferred Extremity: COMMON NORMALS: no clubbing, cyanosis or edema and no pedal edema Data 05/14/23 05:09 05/13/23 15:59 A&P Assessment and plan (1) Essential hypertension: (2) Leukocytosis: (3) Hip fracture, right: Plan 77 year old female with pmh of htn came after experiencing a mechanical fall at home during that episode wendy denied any LOC,chest pain, sob, dizziness. Assessment: Rt hip Fracture:s/p mechanical fall. xray rt intertrochanteric fracture. Pain Control Bowel regimen PT Ortho pedic on board NPO after midnight. HTN : Continue home anti HTN Medications. Code :Status : Full code DVT PPX: On lovenox. Attestations Medical Necessity Statement*: Patient needs to be in the hospital for the management of rt hip fracture.Anticipated LOS greater then 2 midnights, Coding Level of Care Code Acute Code for [facility] Fwd Diagnoses Essential hypertension I10 Leukocytosis D72.829 Hip fracture, right S72.001A
[2023-05-13] MEDS: oxyCODONE-APAP 5-325 mg Tablet 1 TAB PO (18:19)
--- NOTE | 2023-05-13 18:48 | P.CONIM_ITS ---
Providers/Reason For Consult Consulting Physician/Specialty*: Orthopedics Reason for Consult*: Right hip pain Attending Physician: Blaise Vasquez MD Primary Care Provider: NELLY Holley History of Present Illness History of Present Illness Beryl Cespedes is a 77 year old female who presented to the emergency room following a fall at home sustaining injury to her right hip. She felt immediate pain that was sharp stabbing constant in nature. Presented to the emergency room where x-rays confirmed a right hip fracture. Orthopedics was then consulted she was evaluated in room 251 bed 2 with no family present continued to complain of right hip pain that movement made it much worse rest gives her some temporary relief. She denied any loss of conscious in the fall denies any neck or back pain. Denies any ankle or knee pain. Movement of her right lower extremity makes the symptoms much worse. Describes it as 8 out of 10 on the pain scale. Review of Systems General: Reports: 10 or more systems reviewed and unremarkable except in HPI and below Const: Denies: fever(s), chills, body aches, change in appetite or diaphoresis Card: Denies: palpitations, edema, swelling of feet/ankles, dyspnea on exertion, orthopnea or leg pain with exertion Resp: Denies: dyspnea, productive cough, wheezing or pain on inspiration GI: Denies: abdominal pain, nausea, vomiting, diarrhea or constipation : Denies: flank pain Musc: Reports: extremity pain; Denies: back pain or extremity swelling Neuro: Denies: headache(s), difficulty walking or confusion Medications/Allergies Home Medications Medication Instructions Recorded Confirmed Last Taken Type lzavstnzvtwp-gkooibpd-hykwpkf-folic 1 tab PO DAILY 03/09/22 05/13/23 05/12/23 History acid 400 mcg-vit K1 20 mcg tablet (One-A-Day Women's 50 Plus) zinc 50 mg tablet See Rx Instructions PO DAILY 03/09/22 05/13/23 05/12/23 History atenolol 50 mg tablet 50 mg PO DAILY 90 days #90 tabs 07/23/22 05/13/23 05/12/23 Rx lisinopril 40 mg tablet 40 mg PO DAILY 90 days #90 tabs 07/23/22 05/13/23 05/13/23 Rx magnesium glycinate 100 mg tablet 250 mg PO DAILY 10/19/22 05/13/23 05/12/23 History pyridoxine (vitamin B6) 25 mg 100 mg PO DAILY 10/19/22 05/13/23 05/12/23 History tablet mecobalamin (vitamin B12) 1,000 1,000 mcg PO DAILY 04/28/23 05/13/23 05/12/23 History mcg chewable tablet amlodipine 10 mg tablet 10 mg PO DAILY 05/13/23 05/13/23 05/12/23 History Allergies Allergy/AdvReac Type Severity Reaction Status Date / Time No Known Allergies Allergy Verified 05/13/23 15:05 Current Medications Generic Name Dose Route Start Last Admin Trade Name Freq PRN Reason Stop Dose Admin Oxycodone/Acetaminophen 1 tab 05/13/23 17:47 05/13/23 18:19 Oxycodone-Apap 5-325 Mg Tablet PO 1 tab Q4H PRN Administration SEVERE PAIN (ORAL 1ST) PFSH Acute PFSH: Medical History Essential hypertension Family History Other CAD (coronary artery disease) Cancer Hypertension Stroke Denies family history of Diabetes Clotting disorder Dementia Hyperlipidemia Psychiatric illness Chronic kidney disease (CKD) Suicide Anesthesia complication Bleeding disorder Lung disease Social History Smoking and tobacco status: never smoked Alcohol intake: never Substance/Drug Use: never Adopted: No Caregiver/support person: No Do you think of yourself as: Straight/Heterosexual Current gender identity: Female Vitals/I&O/Wt Last Vital Signs Temp 98.0 F 05/13/23 17:47 Pulse 73 05/13/23 18:12 Resp 20 H 05/13/23 18:19 BP 158/78 05/13/23 17:47 Pulse Ox 98 05/13/23 18:12 O2 Del Method Room Air 05/13/23 18:12 O2 Flow Rate 2 05/13/23 15:02 Weight last 48 hrs Weight 170 lb Physical Exam Narrative: She is alert and orient x3 has a good general appearance normal mood and affect. Tender with palpation over the right hip she has positive logroll with obvious shortening and external rotation. She has good sensation light touch down both lower extremities skin is clear warm feet are warm good cap refill dorsalis pedis and posterior tibial pulses are palpable calves are supple. She wiggles all digits they are warm to the touch. Negative logroll on the left hip. No palpable pain in the lumbar thoracic or cervical spine full range of motion of both upper extremities at the shoulders elbows and wrists hands warm good cap refill good sensation light touch wiggles all digits radial pulses palpable. She has a right eye contusion from the fall. Eye: OTHER: Right inferior orbit contusion. Resp: COMMON NORMALS: normal respiratory effort Cardio: COMMON NORMALS: regular rate RATE: regular rate GI: COMMON NORMALS: Soft to palpation and non-tender PALPATION: Yes Soft to palpation : COMMON NORMALS: Yes no CVA tenderness BLADDER/KIDNEY EXAM: Yes no CVA tenderness Back/Pelvis: COMMON NORMALS: no CVA tenderness Psych: COMMON NORMALS: mental status grossly normal and cooperative Data 05/13/23 15:59 05/13/23 15:59 A&P Assessment and plan (1) Intertrochanteric fracture of right hip: Reviewed the radiographs with her discussed treatment options which involve open reduction internal fixation with a trochanteric femoral nail to the right hip. Explained the risks and benefits of the procedure which include but not limited to bleeding infection nerve damage continued right hip pain need for surgery reaction anesthesia she understands these risks wished to proceed. Discussed with Dr. Johnson he agrees above-stated plan. More than 50% of the time spent with the patient today involved coordination of care, counseling and discussion of conservative versus surgical treatment options. Total amount of time spent with the patient was 34 minutes. Coding Level of Care Code Acute Code for [facility] Fwd Diagnoses Intertrochanteric fracture of right hip S72.141A Time Spent (min) 34
[2023-05-14] VITALS (21 sets, daily range): BP systolic 109–174; BP diastolic 57–96; PULSE 58–87; RESP 14–118; TEMP 36.5–37.2; O2SAT 91–100
--- NOTE | 2023-05-14 | XR_ITS ---
WS: [id number] XR hip RT 2-3V wo/w pel* [id number] REASON FOR EXAM: KATI PICS FINDINGS: Short intramedullary pallavi and large femoral neck nail fixation of intertrochanteric fracture with medi al displacement of lesser trochanteric fragment. Fracture fragments are in proper position and alignment. Surgical appliances intact and in proper position and alignment. XR/XR hip RT 2-3V wo/w pel* [id number] IMPRESSION: Fixation of intertrochanteric fracture without abnormality.
[2023-05-14] MEDS: oxyCODONE-APAP 5-325 mg Tablet 1 TAB PO ×3 (04:37→17:56)
[2023-05-14 06:34] LABS: Basophils % 0.2 %; Hematocrit 37.4 % (37.0-47.0); Hemoglobin 12.1 g/dL (11.5-15.3); Lymphocytes # 2.1 10^3/uL (0.8-4.8); Mean Corpuscular HGB Conc 32.4 g/dL (30.0-36.0); Mean Corpuscular Hemoglobin 32.8 pg (28.0-34.0); Mean Corpuscular Volume 101.4 fl (81-99); Mean Platelet Volume 10.5 fL (7.4-10.4); Monocytes # 0.6 10^3/uL (0.2-0.9); Monocytes % 4.8 %; Neutrophils # 10.05 10^3/uL (1.8-7.7); Neutrophils % 78.6 %; Nucleated Red Blood Cells % 0 %; Platelet Count 151 10^3/cmm (130-400); Red Blood Count 3.69 10^6/uL (4.1-5.3); Red Cell Distribution Width 13.8 % (12.1-15.1); White Blood Count 12.8 10^3/uL (4.0-10.0)
[2023-05-14 06:51] LABS: Anion Gap 15.2 (5-19); Blood Urea Nitrogen 15 mg/dL (8-23); Carbon Dioxide 28 mmol/L (22-29); Chloride 99 mmol/L (98-107); Glucose 126 mg/dL (65-115); Osmolality Calculated 288 mOsm/kg (285-295); Potassium 4.2 mmol/L (3.5-5.1); Sodium 138 mmol/L (136-145)
--- NOTE | 2023-05-14 09:39 | W.PM.OPSUD ---
Surgery/Procedure H&P Update DATE OF PROCEDURE: May 14, 2023 DATE H&P PERFORMED: 05/13/23 H&P UPDATE INFORMATION: I have reviewed H&P completed within last 30 days, I have examined patient prior to procedure and No changes to prior documentation PREOP DIAGNOSIS: Right intertrochanteric hip fracture PLANNED PROCEDURE: Operation Date: 05/14/23 14:15 Proposed Procedures p Trochanteric Femoral Nail(Right) - Dylan Johnson DO
[2023-05-14] MEDS: sodium chloride 0.9% 1,000 ML 30 ML IV (10:12)
[2023-05-14] MEDS: ceFAZolin 2,000 MG in sodium chloride 0.9% (plus) 50 ML 100 MG IV ×2 (10:31→17:56)
--- NOTE | 2023-05-14 11:34 | PM.OP ---
Operative Report Date of procedure: May 14, 2023 Pre-op diagnosis: Preop Diagnosis Right intertrochanteric hip fracture Post-op diagnosis: same Procedure done: Right hip nail Surgeon: Dylan Johnson Journeyman Sheet Metal Worker: Omer Gibbons Journeyman Sheet Metal Worker: The certified ophthalmic surgical assistant, Omer Gibbons, JAGDEEP was needed for his expertise with fracture care. He was important and necessary throughout the procedure to complete in a safe and timely manner. He assisted with patient positioning prepping and draping tissue retraction suctioning of the operative field protection of the critical structures and tissue closure Estimated blood loss (mL): 10 Procedure: Right hip nail Patient brought to the operative suite after undergoing anesthesia was placed on the [facility] table. All areas impingement well-padded. The fracture was reduced by pulling traction and rotation. Patient was then prepped and draped in normal sterile fashion. Skin incision made proximal to the greater trochanter. The starting pin was inserted and driven in. Opening reamer was then used to open up the top of the femur into the canal. The gamma nail was then passed through. A wire was placed through the nail up into the center of the femoral head through the femoral neck. This was checked on AP and lateral fluoroscopy to ensure there is an adequate position. The femoral neck was drilled. And a measured to be 107 mm. 800 and millimeter screw was placed and the fracture was compressed. The locking bolt was then locked at the top of the nail. Next the distal locking screw was placed by using a drill and a 35 mm screw was used to lock the nail in place. Wounds were irrigated and closed with Vicryl and rey. Sterile dressings were applied patient was transferred to the PACU in stable condition.
--- NOTE | 2023-05-14 11:53 | ANES.PREANE2 ---
Pre-Anesthetic Assessment Height/Weight: Height 1.63 m Weight 77.111 kg Temp Pulse Resp BP Pulse Ox O2 Del Method O2 Flow Rate 98.9 F 79 18 156/77 94 Room Air 6 05/14/23 10:04 05/14/23 11:50 05/14/23 11:50 05/14/23 11:50 05/14/23 11:50 05/14/23 11:50 05/14/23 11:39 Preop Diagnosis: Right intertrochanteric hip fracture Operation Date: 05/14/23 14:15 Proposed Procedures p Trochanteric Femoral Nail(Right) - Dylan Johnson, Familial anesthetic complications: none Was Beta Benjie taken within 24 hours: Yes Was Clonidine taken within 24 hours: N/A Last intake: Intake Last Liquid Date 05/13/23 Last Liquid Time 23:59 Last Solid Date 05/13/23 Last Solid Time 12:00 Social No alcohol and No tobacco Exam alert, oriented x 3, clear to auscultation bilaterally and regular rate & rhythm Airway Submandibular: within normal limits Cervical ROM: within normal limits Mallampati: Class II Dentition: chipped CV/HEM Hypertension GI Colon CA---chemo Metabolic Morbid Obesity Anesthetic Plan ASA status: 3 Anesthesia: General Medications/Allergies Home Medications Medication Instructions Recorded Confirmed Last Taken Type ybwlczquaijf-wsjtnbvm-ytmlfvl-folic 1 tab PO DAILY 03/09/22 05/13/23 05/12/23 History acid 400 mcg-vit K1 20 mcg tablet (One-A-Day Women's 50 Plus) zinc 50 mg tablet See Rx Instructions PO DAILY 03/09/22 05/13/23 05/12/23 History atenolol 50 mg tablet 50 mg PO DAILY 90 days #90 tabs 07/23/22 05/13/23 05/12/23 Rx lisinopril 40 mg tablet 40 mg PO DAILY 90 days #90 tabs 07/23/22 05/13/23 05/13/23 Rx magnesium glycinate 100 mg tablet 250 mg PO DAILY 10/19/22 05/13/23 05/12/23 History pyridoxine (vitamin B6) 25 mg 100 mg PO DAILY 10/19/22 05/13/23 05/12/23 History tablet mecobalamin (vitamin B12) 1,000 1,000 mcg PO DAILY 04/28/23 05/13/23 05/12/23 History mcg chewable tablet amlodipine 10 mg tablet 10 mg PO DAILY 05/13/23 05/13/23 05/12/23 History Allergies Allergy/AdvReac Type Severity Reaction Status Date / Time No Known Allergies Allergy Verified 05/13/23 15:05 Current Medications Generic Name Dose Route Start Last Admin Trade Name Freq PRN Reason Stop Dose Admin Sodium Chloride 1,000 mls @ 30 mls/hr 05/14/23 10:00 05/14/23 10:12 Sodium Chloride 0.9% IV 05/15/23 09:59 30 mls/hr .Q24H GARETT Administration Oxycodone/Acetaminophen 1 tab 05/13/23 17:47 05/14/23 04:37 Oxycodone-Apap 5-325 Mg Tablet PO 1 tab Q4H PRN Administration SEVERE PAIN (ORAL 1ST) PFSH Anesthesia Medical History Essential hypertension Family History Other CAD (coronary artery disease) Cancer Hypertension Stroke Denies family history of Diabetes Clotting disorder Dementia Hyperlipidemia Psychiatric illness Chronic kidney disease (CKD) Suicide Anesthesia complication Bleeding disorder Lung disease Social History Smoking and tobacco status: never smoked Alcohol intake: never Substance/Drug Use: never Adopted: No Caregiver/support person: No Do you think of yourself as: Straight/Heterosexual Current gender identity: Female Data Anesthesia 05/14/23 05:09 05/14/23 05:09 Short CBC 05/13/23 05/14/23 Range/Units 15:59 05:09 WBC 18.0 H 12.8 H (4.0-10.0) 10^3/uL Hgb 12.4 12.1 (11.5-15.3) g/dL Hct 38.9 37.4 (37.0-47.0) % MCV 102.4 H 101.4 H (81-99) fl Plt Count 155 151 (130-400) 10^3/cmm Neut % (Auto) 85.8 78.6 % Neut # (Auto) 15.45 H 10.05 H (1.8-7.7) 10^3/uL BMP 05/13/23 05/14/23 15:59 05:09 Sodium 142 138 Potassium 4.2 4.2 Chloride 105 99 Carbon Dioxide 21 L 28 BUN 20 15 Creatinine 0.7 0.5 Glucose 141 H 126 H Calcium 9.1 9.0 Liver Function 05/13/23 Range/Units 15:59 Total Bilirubin 0.4 (0.15-1.2) mg/dL AST 23 (0-32) U/L ALT 22 (0-33) U/L Alkaline Phosphatase 77 (35-105) U/L Albumin 3.9 (3.5-5.2) g/dL Coags 05/13/23 15:59 PT 13.50 INR 1.00 Cardiac Studies: No Data to Display
[2023-05-14] MEDS: cyanocobalamin 1,000 mcg Tablet 1000 MCG PO (12:47)
[2023-05-14] MEDS: pyridoxine 50 mg Tablet 100 MG PO (12:47)
[2023-05-14] MEDS: atenolol 50 mg Tablet PO (12:47)
[2023-05-14] MEDS: amlodipine 10 mg Tablet PO (12:47)
[2023-05-14] MEDS: lisinopril 20 mg Tablet 40 MG PO (12:47)
[2023-05-14] MEDS: morphine 4 mg/mL SDV 1 mL 2 MG IVP (14:13)
--- NOTE | 2023-05-14 14:56 | ANE.PACU2 ---
Inpatient post-anesthesia follow up: Airway intact: Yes Vital signs: Temperature 97.7 F Pulse Rate 80 Respiratory Rate 14 Blood Pressure 166/78 Pulse Oximetry 94 Oxygen Delivery Me thod Room Air Oxygen Flow Rate 6 Fraction of Inspir ed Oxygen Hydration adequate: Yes Nausea and vomiting: No Pain level: 3 Mental status: Baseline
--- NOTE | 2023-05-14 15:50 | P.PN_ITS ---
Subjective Subjective: She was complaining of right lower extremity pain. Medications: Medication Review Details: Generic Name Dose Route Start Last Admin Trade Name Cyndy PRN Reason Stop Dose Admin Amlodipine Besylat e 10 mg 05/14/23 09:00 05/14/23 12:47 Amlodipine 10 Mg Tablet PO 10 mg DAILY GARETT Administration Atenolol 50 mg 05/14/23 09:00 05/14/23 12:47 Atenolol 50 Mg T ablet PO 50 mg DAILY GARETT Administration Cyanocobalamin 1,000 mcg 05/14/23 09:00 05/14/23 12:47 Cyanocobalamin 1 ,000 Mcg Tablet PO 1,000 mcg DAILY GARETT Administration Lisinopril 40 mg 05/14/23 09:00 05/14/23 12:47 Lisinopril 20 Mg Tablet PO 40 mg DAILY GARETT Administration Morphine Sulfate 2 mg 05/13/23 17:47 05/14/23 14:13 Morphine 4 Mg/Ml Sdv 1 Ml IVP 2 mg Q2H PRN Administration SEVERE PAIN Multivitamins/Mine rals 1 tab 05/14/23 09:00 05/14/23 12:48 Multivitamin W/M inerals Tablet PO 1 tab DAILY GARETT Administration Oxycodone/Acetamin ophen 1 tab 05/13/23 17:47 05/14/23 12:48 Oxycodone-Apap 5 -325 Mg Tablet PO 1 tab Q4H PRN Administration SEVERE PAIN (ORAL 1ST) Pyridoxine HCl 100 mg 05/14/23 09:00 05/14/23 12:47 Pyridoxine 50 Mg Tablet PO 100 mg DAILY GARETT Administration Vitals/I&O/Wt Last Vital Signs Temp 97.7 F 05/14/23 14:15 Pulse 80 05/14/23 14:15 Resp 14 05/14/23 14:15 BP 166/78 05/14/23 14:15 Pulse Ox 94 05/14/23 14:15 O2 Del Method Room Air 05/14/23 14:15 O2 Flow Rate 6 05/14/23 11:39 05/14/23 05/14/23 05/14/23 06:59 14:59 22:59 Intake Total 116.5 / 116.5 Output Total 325 / 325 Balance -208.5 / -208.5 Weight last 48 hrs Weight 77.111 kg Physical Exam HENMT: COMMON NORMALS: normocephalic and atraumatic HEAD & SCALP: normocephalic and atraumatic Resp: COMMON NORMALS: clear to auscultation bilaterally AUSCULTATION: clear to auscultation bilaterally Cardio: COMMON NORMALS: regular rate, regular rhythm, S1 normal heart sound present, S2 normal heart sound present, No gallops present (Cardio), No murmurs present (Cardio), No rub (Cardio) and Peripheral pulses 2+ throughout RATE: regular rate RHYTHM: regular rhythm HEART SOUNDS: S1 normal heart sound present and S2 normal heart sound present PERIPHERAL PULSES: Peripheral pulses 2+ throughout GI: COMMON NORMALS: Normal to inspection, nondistended, normoactive bowel sounds present, Soft to palpation, non-tender, No hepatosplenomegaly present and no masses AUSCULTATION: Yes normoactive bowel sounds PALPATION: Yes Soft to palpation and Yes No hepatosplenomegaly present RECTAL EXAM: deferred Extremity: COMMON NORMALS: no clubbing, cyanosis or edema and no pedal edema Urinary Catheter Management: Rabago: Cath Placed During This Visit: yes Urinary Catheter Date of Insertion: 05/14/23 Urinary Catheter Time of Insertion: 10:50 Data 05/14/23 05:09 05/14/23 05:09 A&P Assessment and plan (1) Essential hypertension: (2) Leukocytosis: (3) Hip fracture, right: Plan 77 year old female with pmh of htn came after experiencing a mechanical fall at home during that episode wendy denied any LOC,chest pain, sob, dizziness. Assessment: Rt hip Fracture:s/p mechanical fall.S/P Right hip nail xray rt intertrochanteric fracture. Pain Control Bowel regimen PT Ortho pedic on board NPO after midnight. HTN : Continue home anti HTN Medications. Leukocytosis likely reactive: Monitor CBC for now Code :Status : Full code DVT PPX: On lovenox. Attestations Medical Necessity Statement*: Needs to be in hospital for the management of right hip fracture. Coding Level of Care Code Acute Code for [facility] Fwd Diagnoses Essential hypertension I10 Leukocytosis D72.829 Hip fracture, right S72.001A
[2023-05-14] MEDS: enoxaparin 40 mg/0.4 mL Syringe SUBCUT (22:36)
[2023-05-15] VITALS (10 sets, daily range): BP systolic 105–157; BP diastolic 61–82; PULSE 58–65; RESP 16–17; TEMP 36.5–36.9; O2SAT 91–97
[2023-05-15] MEDS: ceFAZolin 2,000 MG in sodium chloride 0.9% (plus) 50 ML 100 MG IV ×2 (02:17→10:21)
[2023-05-15 05:36] LABS: Basophils % 0.1 %; Hematocrit 34.4 % (37.0-47.0); Hemoglobin 11.3 g/dL (11.5-15.3); Lymphocytes # 1.8 10^3/uL (0.8-4.8); Lymphocytes % 21.7 %; Mean Corpuscular HGB Conc 32.8 g/dL (30.0-36.0); Mean Corpuscular Hemoglobin 33.1 pg (28.0-34.0); Mean Corpuscular Volume 100.9 fl (81-99); Mean Platelet Volume 10.2 fL (7.4-10.4); Monocytes # 0.2 10^3/uL (0.2-0.9); Neutrophils # 6.02 10^3/uL (1.8-7.7); Neutrophils % 74.6 %; Nucleated Red Blood Cells % 0 %; Platelet Count 156 10^3/cmm (130-400); Red Blood Count 3.41 10^6/uL (4.1-5.3); Red Cell Distribution Width 13.6 % (12.1-15.1); White Blood Count 8.1 10^3/uL (4.0-10.0)
[2023-05-15 05:51] LABS: Anion Gap 12.4 (5-19); Blood Urea Nitrogen 14 mg/dL (8-23); Calcium 8.5 mg/dL (8.5-10.5); Carbon Dioxide 28 mmol/L (22-29); Chloride 99 mmol/L (98-107); Glucose 133 mg/dL (65-115); Osmolality Calculated 282 mOsm/kg (285-295); Potassium 4.4 mmol/L (3.5-5.1); Sodium 135 mmol/L (136-145)
[2023-05-15] MEDS: oxyCODONE-APAP 5-325 mg Tablet 1 TAB PO ×3 (06:44→20:22)
[2023-05-15] MEDS: lisinopril 20 mg Tablet 40 MG PO (07:58)
[2023-05-15] MEDS: pyridoxine 50 mg Tablet 100 MG PO (07:58)
[2023-05-15] MEDS: amlodipine 10 mg Tablet PO (07:58)
[2023-05-15] MEDS: atenolol 50 mg Tablet PO (07:58)
[2023-05-15] MEDS: cyanocobalamin 1,000 mcg Tablet 1000 MCG PO (08:00)
--- NOTE | 2023-05-15 09:28 | P.PN_ITS ---
Subjective Subjective: POD 1 Patient resting comfortably. Mild right hip pain. Denies shortness of breath or chest pain. Vitals/I&O/Wt Last Vital Signs Temp 98.2 F 05/15/23 07:25 Pulse 64 05/15/23 07:25 Resp 16 05/15/23 07:25 BP 154/82 05/15/23 07:25 Pulse Ox 92 05/15/23 07:25 O2 Del Method Room Air 05/15/23 03:46 O2 Flow Rate 6 05/14/23 11:39 05/14/23 05/15/23 05/15/23 22:59 06:59 14:59 Intake Total 290 / 406.5 50 / 456.5 360 / 360 Output Total 750 / 1075 Balance 290 / 81.5 -700 / -618.5 360 / 360 Weight last 48 hrs Weight 170 lb Physical Exam Narrative: Patient is alert and orient x3 has good general appearance normal normal affect. Right hip incision is healing nicely. There is no signs of erythema or drainage no signs of infection. Good motor strength throughout both lower extremities. Fires in all motor groups. Skin is clear warm, feet are warm with good cap r efill in all digits. Normal sensation to light touch. Calves are supple, no medial thigh tenderness, negative Homans' sign. No palpable edema peripherally. Urinary Catheter Management: Rabago: Cath Placed During This Visit: yes, but has since been removed by the nurse Reason for Continuing Indwelling Catheter: Decision to DC Catheter Urinary Catheter Date of Insertion: 05/14/23 Urinary Catheter Time of Insertion: 10:50 Date Urinary Catheter Removed: 05/15/23 Time Urinary Catheter Discontinued: 06:48 Data 05/15/23 04:45 05/15/23 04:45 A&P Assessment and plan (1) Intertrochanteric fracture of right hip: Physical therapy to mobilize. Continue incentive spirometer for pulmonary toilet. Continue SCDs for DVT prophylaxis. employment services director for placement. Attestations Medical Necessity Statement*: Defer to medical team Coding Level of Care Code Acute Code for [facility] Fwd Diagnoses Intertrochanteric fracture of right hip S72.141A
[2023-05-15] MEDS: diphenhydrAMINE 50 mg/mL SDV 1mL 25 MG IVP (14:29)
--- NOTE | 2023-05-15 15:11 | P.PN_ITS ---
Subjective Subjective: Patient was complaining of hip pain with movement, she was also complaining of some itching, has been given Benadryl. Medications: Medication Review Details: Generic Name Dose Route Start Last Admin Trade Name Cyndy PRN Reason Stop Dose Admin Amlodipine Besylat e 10 mg 05/14/23 09:00 05/15/23 07:58 Amlodipine 10 Mg Tablet PO 10 mg DAILY GARETT Administration Atenolol 50 mg 05/14/23 09:00 05/15/23 07:58 Atenolol 50 Mg T ablet PO 50 mg DAILY GARETT Administration Cyanocobalamin 1,000 mcg 05/14/23 09:00 05/15/23 08:00 Cyanocobalamin 1 ,000 Mcg Tablet PO 1,000 mcg DAILY GARETT Administration Diphenhydramine HC l 25 mg 05/15/23 12:48 05/15/23 14:29 Diphenhydramine 50 Mg/Ml Sdv 1ml IVP 25 mg Q8H PRN Administration ITCHING Enoxaparin Sodium 40 mg 05/14/23 23:30 05/14/23 22:36 Enoxaparin 40 Mg /0.4 Ml Syringe SUBCUT 40 mg Q24H GARETT Administration Lisinopril 40 mg 05/14/23 09:00 05/15/23 07:58 Lisinopril 20 Mg Tablet PO 40 mg DAILY GARETT Administration Morphine Sulfate 2 mg 05/13/23 17:47 05/14/23 14:13 Morphine 4 Mg/Ml Sdv 1 Ml IVP 2 mg Q2H PRN Administration SEVERE PAIN Multivitamins/Mine rals 1 tab 05/14/23 09:00 05/15/23 07:58 Multivitamin W/M inerals Tablet PO 1 tab DAILY GARETT Administration Oxycodone/Acetamin ophen 1 tab 05/13/23 17:47 05/15/23 11:32 Oxycodone-Apap 5 -325 Mg Tablet PO 1 tab Q4H PRN Administration SEVERE PAIN (ORAL 1ST) Pyridoxine HCl 100 mg 05/14/23 09:00 05/15/23 07:58 Pyridoxine 50 Mg Tablet PO 100 mg DAILY GARETT Administration Vitals/I&O/Wt Last Vital Signs Temp 97.7 F 05/15/23 12:00 Pulse 63 05/15/23 12:00 Resp 16 05/15/23 12:00 BP 117/61 05/15/23 12:00 Pulse Ox 92 05/15/23 12:00 O2 Del Method Room Air 05/15/23 03:46 O2 Flow Rate 6 05/14/23 11:39 05/15/23 05/15/23 05/15/23 06:59 14:59 22:59 Intake Total 50 / 456.5 410 / 410 Output Total 750 / 1075 Balance -700 / -618.5 410 / 410 Physical Exam HENMT: COMMON NORMALS: normocephalic and atraumatic HEAD & SCALP: normo cephalic and atraumatic Resp: COMMON NORMALS: clear to auscultation bilaterally AUSCULTATION: clear to auscultation bilaterally Cardio: COMMON NORMALS: regular rate, regular rhythm, S1 normal heart sound present, S2 normal heart sound present, No gallops present (Cardio), No murmurs present (Cardio), No rub (Cardio) and Peripheral pulses 2+ throughout RATE: regular rate RHYTHM: regular rhythm HEART SOUNDS: S1 normal heart sound present and S2 normal heart sound present PERIPHERAL PULSES: Peripheral pulses 2+ throughout GI: COMMON NORMALS: Normal to inspection, nondistended, normoactive bowel soun ds present, Soft to palpation, non-tender, No hepatosplenomegaly present and no masses AUSCULTATION: Yes normoactive bowel sounds PALPATION: Yes Soft to palpation and Yes No hepatosplenomegaly present RECTAL EXAM: deferred Extremity: COMMON NORMALS: no clubbing, cyanosis or edema and no pedal edema Urinary Catheter Management: Rabago: Cath Placed During This Visit: yes, but has since been removed by the nurse Reason for Continuing Indwelling Catheter: Decision to DC Catheter Urinary Catheter Date of Insertion: 05/14/23 Urinary Catheter Time of Insertion: 10:50 Date Urinary Catheter Removed: 05/15/23 Time Urinary Catheter Discontinued: 06:48 Data 05/15/23 04:45 05/15/23 04:45 A&P Assessment and plan (1) Essential hypertension: (2) Leukocytosis: (3) Hip fracture, right: Plan 77 year old female with pmh of htn came after experiencing a mechanical fall at home during that episode wendy denied any LOC,chest pain, sob, dizziness. Assessment: Rt hip Fracture:s/p mechanical fall.S/P Right hip nail xray rt intertrochanteric fracture. Pain Control Bowel regimen PT Ortho pedic on board HTN : Continue home anti HTN Medications. Leukocytosis likely reactive: Has normalized Monitor CBC for now Code :Status : Full code DVT PPX: On lovenox. Attestations Medical Necessity Statement*: Needs to be in hospital for the management right hip fracture. Coding Level of Care Code Acute Code for Chg Fwd Diagnoses Essential hypertension I10 Leukocytosis D72.829 Hip fracture, right S72.001A
[2023-05-16] VITALS (8 sets, daily range): BP systolic 121–152; BP diastolic 69–75; PULSE 60–67; RESP 16–17; TEMP 36.6–36.9; O2SAT 92–96
[2023-05-16] MEDS: acetaminophen 325 mg Tablet 650 MG PO (00:38)
[2023-05-16] MEDS: enoxaparin 40 mg/0.4 mL Syringe SUBCUT ×2 (00:38→23:08)
[2023-05-16 05:51] LABS: Basophils % 0.3 %; Eosinophils # 0.1 10^3/uL (0.0-0.8); Eosinophils % 1.2 %; Hematocrit 31.9 % (37.0-47.0); Hemoglobin 10.3 g/dL (11.5-15.3); Lymphocytes # 2.8 10^3/uL (0.8-4.8); Lymphocytes % 38.3 %; Mean Corpuscular HGB Conc 32.3 g/dL (30.0-36.0); Mean Corpuscular Hemoglobin 32.7 pg (28.0-34.0); Mean Corpuscular Volume 101.3 fl (81-99); Mean Platelet Volume 10.6 fL (7.4-10.4); Monocytes # 0.3 10^3/uL (0.2-0.9); Monocytes % 3.5 %; Neutrophils # 4.07 10^3/uL (1.8-7.7); Neutrophils % 56.3 %; Nucleated Red Blood Cells % 0 %; Platelet Count 147 10^3/cmm (130-400); Red Blood Count 3.15 10^6/uL (4.1-5.3); Red Cell Distribution Width 13.6 % (12.1-15.1); White Blood Count 7.2 10^3/uL (4.0-10.0)
[2023-05-16 06:08] LABS: Anion Gap 12.4 (5-19); Blood Urea Nitrogen 18 mg/dL (8-23); Calcium 8.4 mg/dL (8.5-10.5); Carbon Dioxide 26 mmol/L (22-29); Chloride 97 mmol/L (98-107); Glucose 127 mg/dL (65-115); Osmolality Calculated 277 mOsm/kg (285-295); Potassium 3.4 mmol/L (3.5-5.1); Sodium 132 mmol/L (136-145)
[2023-05-16] MEDS: oxyCODONE-APAP 5-325 mg Tablet 1 TAB PO ×3 (06:16→21:05)
[2023-05-16] MEDS: cyanocobalamin 1,000 mcg Tablet 1000 MCG PO (08:21)
[2023-05-16] MEDS: atenolol 50 mg Tablet PO (08:21)
[2023-05-16] MEDS: pyridoxine 50 mg Tablet 100 MG PO (08:21)
[2023-05-16] MEDS: lisinopril 20 mg Tablet 40 MG PO (08:21)
[2023-05-16] MEDS: amlodipine 10 mg Tablet PO (08:21)
--- NOTE | 2023-05-16 11:12 | PC.SOCIAL ---
Imm update Imm updated with patient at bedside. Copy of page 2 provided. Patient verbalized understanding. Copy in chart initialed, dated and timed.
--- NOTE | 2023-05-16 15:05 | PM.PN ---
Subjective Subjective: Pain is better controlled, denied any significant itching. Medications: Medication Review Details: Generic Name Dose Route Start Last Admin Trade Name Freq PRN Reason Stop Dose Admin Acetaminophen 650 mg 05/13/23 17:47 05/16/23 00:38 Acetaminophen 32 5 Mg Tablet PO 650 mg Q6H PRN Administration Mild/Mod Pain Or Temp >/= 101 Amlodipine Besylat e 10 mg 05/14/23 09:00 05/16/23 08:21 Amlodipine 10 Mg Tablet PO 10 mg DAILY GARETT Administration Atenolol 50 mg 05/14/23 09:00 05/16/23 08:21 Atenolol 50 Mg T ablet PO 50 mg DAILY GARETT Administration Cyanocobalamin 1,000 mcg 05/14/23 09:00 05/16/23 08:21 Cyanocobalamin 1 ,000 Mcg Tablet PO 1,000 mcg DAILY GARETT Administration Diphenhydramine HC l 25 mg 05/15/23 12:48 05/15/23 14:29 Diphenhydramine 50 Mg/Ml Sdv 1ml IVP 25 mg Q8H PRN Administration ITCHING Enoxaparin Sodium 40 mg 05/14/23 23:30 05/16/23 00:38 Enoxaparin 40 Mg /0.4 Ml Syringe SUBCUT 40 mg Q24H GARETT Administration Lisinopril 40 mg 05/14/23 09:00 05/16/23 08:21 Lisinopril 20 Mg Tablet PO 40 mg DAILY GARETT Administration Morphine Sulfate 2 mg 05/13/23 17:47 05/14/23 14:13 Morphine 4 Mg/Ml Sdv 1 Ml IVP 2 mg Q2H PRN Administration SEVERE PAIN Multivitamins/Mine rals 1 tab 05/14/23 09:00 05/16/23 08:21 Multivitamin W/M inerals Tablet PO 1 tab DAILY GARETT Administration Oxycodone/Acetamin ophen 1 tab 05/13/23 17:47 05/16/23 06:16 Oxycodone-Apap 5 -325 Mg Tablet PO 1 tab Q4H PRN Administration SEVERE PAIN (ORAL 1ST) Pyridoxine HCl 100 mg 05/14/23 09:00 05/16/23 08:21 Pyridoxine 50 Mg Tablet PO 100 mg DAILY GARETT Administration Vitals/I&O/Wt Last Vital Signs Temp 98.5 F 05/16/23 12:00 Pulse 67 05/16/23 12:00 Resp 16 05/16/23 12:00 BP 126/73 05/16/23 12:00 Pulse Ox 96 05/16/23 12:00 O2 Del Method Room Air 05/16/23 12:00 O2 Flow Rate 6 05/14/23 11:39 05/16/23 05/16/23 05/16/23 06:59 14:59 22:59 Intake Total 720 / 720 Balance 720 / 720 Physical Exam HENMT: COMMON NORMALS: normocephalic and atraumatic HEAD & SCALP: normocephalic and atraumatic Resp: COMMON NORMALS: clear to auscultation bilaterally AUSCULTATION: clear to auscultation bilaterally Cardio: COMMON NORMALS: regular rate, regular rhythm, S1 normal heart sound present, S2 normal heart sound present, No gallops present (Cardio), No murmurs present (Cardio), No rub (Cardio) and Peripheral pulses 2+ throughout RATE: regular rate RHYTHM: regular rhythm HEART SOUNDS: S1 normal heart sound present and S2 normal heart sound present PERIPHERAL PULSES: Peripheral pulses 2+ throughout GI: COMMON NORMALS: Normal to inspection, nondistended, normoactive bowel sounds present, Soft to palpation, non-tender, No hepatosplenomegaly present and no masses AUSCULTATION: Yes normoactive bowel sounds PALPATION: Yes Soft to palpation and Yes No hepatosplenomegaly present RECTAL EXAM: deferred Extremity: COMMON NORMALS: no clubbing, cyanosis or edema and no pedal edema Urinary Catheter Management: Rabago: Cath Placed During This Visit: yes, but has since been removed by the nurse Reason for Continuing Indwelling Catheter: Decision to DC Catheter Urinary Catheter Date of Insertion: 05/14/23 Urinary Catheter Time of Insertion: 10:50 Date Urinary Catheter Removed: 05/15/23 Time Urinary Catheter Discontinued: 06:48 Data 05/16/23 04:36 05/16/23 04:36 A&P Assessment and plan (1) Essential hypertension: (2) Leukocytosis: (3) Hip fracture, right: Plan 77 year old female with pmh of htn came after experiencing a mechanical fall at home during that episode wendy denied any LOC,chest pain, sob, dizziness. Assessment: Rt hip Fracture:s/p mechanical fall.S/P Right hip nail xray rt intertrochanteric fracture. Pain Control Bowel regimen PT Ortho pedic on board HTN : Continue home anti HTN Medications. Leukocytosis likely reactive: Has normalized Monitor CBC for now Code :Status : Full code DVT PPX: On lovenox. Disposition: Awaiting placement to SNF Attestations Medical Necessity Statement*: Awaiting placement to SNF Coding Level of Care Code Acute Code for Chg Fwd Diagnoses Essential hypertension I10 Leukocytosis D72.829 Hip fracture, right S72.001A
[2023-05-17] VITALS: BP 120/71; PULSE 58; RESP 18; TEMP 36.3; O2SAT 93
[2023-05-17 04:00] VITALS: BP 135/77; PULSE 69; RESP 17; TEMP 36.3; O2SAT 94
[2023-05-17 06:26] VITALS: RESP 17; O2SAT 94
[2023-05-17] MEDS: oxyCODONE-APAP 5-325 mg Tablet 1 TAB PO (06:26)
[2023-05-17 08:00] VITALS: BP 145/73; PULSE 68; RESP 17; TEMP 36.9; O2SAT 94
[2023-05-17] MEDS: lisinopril 20 mg Tablet 40 MG PO (08:05)
[2023-05-17] MEDS: cyanocobalamin 1,000 mcg Tablet 1000 MCG PO (08:05)
[2023-05-17] MEDS: pyridoxine 50 mg Tablet 100 MG PO (08:05)
[2023-05-17] MEDS: amlodipine 10 mg Tablet PO (08:06)
[2023-05-17] MEDS: atenolol 50 mg Tablet PO (08:06)
[2023-05-17 11:57] VITALS: BP 120/77; PULSE 62; RESP 18; TEMP 36.8; O2SAT 98
--- NOTE | 2023-05-17 12:37 | P.DS_ITS ---
Discharge Providers Date of Admission: 05/13/23 15:57 Date of Discharge: May 17, 2023 Attending Provider at Admission: Blaise Vasquez MD Attending Provider at Discharge: Ernesto Voss MD Consults: Orthopedics: Dr. Johnson Primary Care Provider: NELLY Holley Diagnoses at Discharge Discharge Diagnosis (1) Essential hypertension: Status: Chronic (2) Leukocytosis: Status: Acute (3) Hip fracture, right: Status: Acute Reason for Visit Reason for Visit: fall rt hip pain Hospital Course Hospital Course Beryl Cespedes is a 77 year old female with past medical history of hypertension, malignant neoplasm of sigmoid colon presented to the emergency room following a fall at home sustaining injury to her right hip.? She felt immediate pain that was sharp stabbing constant in nature.? Presented to the emergency room where x-rays confirmed a right hip fracture.? Orthopedics was then consulted. She bed complain of right hip pain that movement made it much worse rest gives her some temporary relief.? She denied any loss of conscious in the fall denies any neck or back pain.? Denies any ankle or knee pain.? Movement of her right lower extremity makes the symptoms much worse.? Describes it as 8 out of 10 on the pain scale. Patient underwent ORIF on 05/14 which she tolerated well. Post-ORIF hospital stay was unremarkable. She worked well with physical therapy. Hemoglobin remained stable. Safe discharge plan were discussed in detail with the patient and her family. Patient decided to go to SNF for further rehabitation. She has been discharged in hemodynamically stable condition. Physical Exam HENMT: COMMON NORMALS: normocephalic and atraumatic HEAD & SCALP: normocephalic and atraumatic Resp: COMMON NORMALS: clear to auscultation bilaterally AUSCULTATION: clear to auscultation bilaterally Cardio: COMMON NORMALS: regular rate, regular rhythm, S1 normal heart sound present, S2 normal heart sound present, No gallops present (Cardio), No murmurs present (Cardio), No rub (Cardio) and Peripheral pulses 2+ throughout RATE: regular rate RHYTHM: regular rhythm HEART SOUNDS: S1 normal heart sound present and S2 normal heart sound present PERIPHERAL PULSES: Peripheral pulses 2+ throughout GI: COMMON NORMALS: Normal to inspection, nondistended, normoactive bowel sounds present, Soft to palpation, non-tender, No hepatosplenomegaly present and no masses AUSCULTATION: Yes normoactive bowel sounds PALPATION: Yes Soft to palpation and Yes No hepatosplenomegaly present RECTAL EXAM: deferred Extremity: COMMON NORMALS: no clubbing, cyanosis or edema and no pedal edema Urinary Catheter Management: Rabago: Cath Placed During This Visit: yes, but has since been removed by the nurse Reason for Continuing Indwelling Catheter: Decision to DC Catheter Urinary Catheter Date of Insertion: 05/14/23 Urinary Catheter Time of Insertion: 10:50 Date Urinary Catheter Removed: 05/15/23 Time Urinary Catheter Discontinued: 06:48 Discharge Data Studies Completed and Pending Completed Studies During Hospitalization Category Date Time Status CXRP [XR chest 1V portable [id number]] Stat Exams 05/13/23 14:55 Completed XR hip RT 2-3V wo/w pel* [id number] Routine Exams 05/14/23 Completed XR hip RT 2-3V wo/w pel* [id number] Stat Exams 05/13/23 14:55 Completed Pending at discharge Category Date Time Status SARS Covid-2 Antigen Routine Lab 05/17/23 10:04 Uncollected Radiology Impressions Chest X-Ray 05/13/23 14:55 IMPRESSION: No acute findings. Hip/Pelvis X-Ray 05/14/23 00:00 IMPRESSION: Fixation of intertrochanteric fracture without abnormality. Laboratory Results WBC 7.2 10^3/uL (4.0-10.0) 05/16/23 04:36 RBC 3.15 10^6/uL (4.1-5.3) L 05/16/23 04:36 Hgb 10.3 g/dL (11.5-15.3) L 05/16/23 04:36 Hct 31.9 % (37.0-47.0) L 05/16/23 04:36 MCV 101.3 fl (81-99) H 05/16/23 04:36 MCH 32.7 pg (28.0-34.0) 05/16/23 04:36 MCHC 32.3 g/dL (30.0-36.0) 05/16/23 04:36 RDW 13.6 % (12.1-15.1) 05/16/23 04:36 Plt Count 147 10^3/cmm (130-400) 05/16/23 04:36 MPV 10.6 fL (7.4-10.4) H 05/16/23 04:36 Neut % (Auto) 56.3 % 05/16/23 04:36 Lymph % (Auto) 38.3 % 05/16/23 04:36 [place] % (Auto) 3.5 % 05/16/23 04:36 Eos % (Auto) 1.2 % 05/16/23 04:36 Baso % (Auto) 0.3 % 05/16/23 04:36 Neut # (Auto) 4.07 10^3/uL (1.8-7.7) 05/16/23 04:36 Lymph # (Auto) 2.8 10^3/uL (0.8-4.8) 05/16/23 04:36 [place] # (Auto) 0.3 10^3/uL (0.2-0.9) 05/16/23 04:36 Eos # (Auto) 0.1 10^3/uL (0.0-0.8) 05/16/23 04:36 Baso # (Auto) 0.0 10^3/uL (0.0-0.1) 05/16/23 04:36 Nucleated RBC % (auto) 0 % 05/16/23 04:36 Nucleated RBCs # 0.0 /100WBC 05/16/23 04:36 PT 13.50 SECONDS (12.1-14.9) 05/13/23 15:59 INR 1.00 (0.8-1.2) 05/13/23 15:59 Sodium 132 mmol/L (136-145) L 05/16/23 04:36 Potassium 3.4 mmol/L (3.5-5.1) L 05/16/23 04:36 Chloride 97 mmol/L (98-107) L 05/16/23 04:36 Carbon Dioxide 26 mmol/L (22-29) 05/16/23 04:36 Anion Gap 12.4 (5-19) 05/16/23 04:36 BUN 18 mg/dL (8-23) 05/16/23 04:36 Creatinine 0.5 mg/dL (0.5-0.9) 05/16/23 04:36 GFR Calculation Not Reportable 05/16/23 04:36 Glucose 127 mg/dL (65-115) H 05/16/23 04:36 Calculated Osmolality 277 mOsm/kg (285-295) L 05/16/23 04:36 Calcium 8.4 mg/dL (8.5-10.5) L 05/16/23 04:36 Total Bilirubin 0.4 mg/dL (0.15-1.2) 05/13/23 15:59 AST 23 U/L (0-32) 05/13/23 15:59 ALT 22 U/L (0-33) 05/13/23 15:59 Alkaline Phosphatase 77 U/L (35-105) 05/13/23 15:59 Total Protein 6.9 g/dL (6.6-8.7) 05/13/23 15:59 Albumin 3.9 g/dL (3.5-5.2) 05/13/23 15:59 Globulin 3.0 g/dL (1.3-4.6) 05/13/23 15:59 Vitals Last Vital Signs Temp 98.3 F 05/17/23 11:57 Pulse 62 05/17/23 11:57 Resp 18 05/17/23 11:57 BP 120/77 05/17/23 11:57 Pulse Ox 98 05/17/23 11:57 O2 Del Method Room Air 05/17/23 11:57 O2 Flow Rate 6 05/14/23 11:39 Discharge Plan Discharge Patient Disposition: Xfer SNF Condition: Stable Prescriptions: New ferrous gluconate 324 mg (37.5 mg iron) tablet 324 mg PO BID Qty: 60 0RF Continued lisinopril 40 mg tablet 40 mg PO DAILY 90 Days Qty: 90 4RF atenolol 50 mg tablet 50 mg PO DAILY 90 Days Qty: 90 4RF One-A-Day Women's 50 Plus 400-20 mcg tablet 1 tab PO DAILY zinc 50 mg tablet See Rx Instructions PO DAILY Rx Instructions: 1 tablet PO daily; magnesium glycinate 100 mg tablet 250 mg PO DAILY pyridoxine (vitamin B6) 25 mg tablet 100 mg PO DAILY mecobalamin (vitamin B12) 1,000 mcg tablet,chewable 1,000 mcg PO DAILY amlodipine 10 mg tablet 10 mg PO DAILY Discharge Orders: Discharge Order (Routine); Ordered 05/17/23 Ordered By: Ernesto Voss Referrals: Crystal Vergara FNP [Primary Care Provider] - 05/24/23 1:00 pm Discharge Diet: Advance as tolerated Discharge Activity: Limit activity as instructed Patient Instructions: Leukocytosis (DC), Hip Fracture (ED), Opioid Safety Activity Restrictions/Additional Instructions: You are being discharged from the hospital today during which time you have been under the care of Dr Johnson. You had a Right hip fracture. You were treated for this injury with IM nail. You may resume you normal diet (including any special diets as directed by your primary doctor) as well as your home medications. You should follow up with you primary doctor if you have any questions regarding medication you took prior to your stay in the hospital. You may take your pain medication as prescribed. After the first few days, take your pain medication as needed. Do not drive or drink alcohol while taking your pain medication. Your injury may increase your risk of developing a blood clot,or DVT, in your arm or leg. This could potentially dislodge and travel to your lungs and become a life threatening condition called apulmonary embolus,or PE. You have been prescribed eliquis to be taken to prevent this. Frequent movement of the legs will also help prevent this from occurring. If you develop any new or worsening cough, chestpain, bloody sputum or shortness of breath, call 911 or go to the EmergencyRoom. Always keep your surgical incision/dressing clean and dry. If you experience increasing pain at your incision site, redness, swelling, increasing discharge, foul odors, or fevers (greater than 100.4), night sweats or chills you should call the office at the above number. If you feel this is an emergency you should be evaluated in the Emergency Department of a nearby hospital. Orthopedic Patient Instructions Summary: Weight Bearing: WBAT Activity: as tolerated. Diet: regular. Wound Care: Keep dressing clean and dry. Change as needed Anticoagulation: Lovenox Pain Medication: Take only as needed. Ice, rest and elevation will be of great benefit. Please plan to follow-up wled Johnson in 2 weeks. You will need to call the clinic [phone] to schedule. Do not hesitate to call the office with any questions or concerns. Discharge Attestations Time Spent in Discharge Care*: greater than 30 min Specific Discharge Activities: educating patient, educating and/or supporting family/caregiver, discussing with pcp/other providers, discussing with geriatric case manager/social workers/dc planners, documenting/other paperwork and evaluating patient/reviewing data Status at Discharge: Cognitive status at discharge: cognitively intact , Behavioral status at discharge: cooperative , Functional status at discharge: uses cane/walker , Overall status at discharge: patient is progressing back to baseline Quality Metrics Clinical Quality Measures [ No reported AMI, CVA or VTE this stay] Coding Level of Care Code 08812 Total time (in minutes) for Discharge: 50 Diagnoses Essential hypertension I10 Leukocytosis D72.829 Hip fracture, right S72.001A
[2023-05-17 13:18] LABS: SARS Covid-2 Antigen negative (Negative)
[2023-05-17 14:20] VITALS: BP 120/77; PULSE 62; RESP 18; TEMP 36.8; O2SAT 98
== END 2023-05-17 14:22 | disposition skilled nursing facility (03) | DRG 482 ==
LOC: ER 16:48 → MEDSURG 17:14
PROVIDERS: Orthopaedic Surgery; Admitting Provider Internal Medicine; Emergency Provider Emergency Medicine; PCP Registered Nurse; Visit Provider Student in an Organized Health Care Education/Training Program
PROC: 0QH636Z Insertion of Intramedullary Internal Fixation Device into Right Upper Femur, Percutaneous Approach (ICD-10-PCS; CPT 27245; principal; 2023-05-14 14:05)
DX: S72.141A Displaced intertrochanteric fracture of right femur, initial encounter for closed fracture (principal); I10 Essential (primary) hypertension; W18.30XA Fall on same level, unspecified, initial encounter; Z85.038 Personal history of other malignant neoplasm of large intestine
CPT/HCPCS: 36415; 51702; 71045; 73502; 76000; 80048; 80053; 85025; 85610; 87426; 96372; 96523; 97110; 97116; 97161; 97165; 97530; 97535; 99214; 99285; C1713; C1776; J0640; J0690; J1100; J1170; J1200; J1650; J2270; J2405; J2469; J2704; J3010; J3490; J7030; J7050; J7060; J9190; Q5107

== ENCOUNTER → 2023-05-20 10:13 | Outpatient (BNVA) | payer OTHER, MEDICAID, SELFPAY | PROVIDERS: PCP Registered Nurse; Visit Provider Orthopaedic Surgery | DX: Z48.89 Encounter for other specified surgical aftercare (principal) | CPT/HCPCS: 99024 ==

== ENCOUNTER → 2023-06-17 14:26 | Outpatient (BNVA) | payer OTHER, SELFPAY | PROVIDERS: PCP Registered Nurse; Visit Provider Orthopaedic Surgery | DX: S72.141D Displaced intertrochanteric fracture of right femur, subsequent encounter for closed fracture with routine healing (principal); X58.XXXD Exposure to other specified factors, subsequent encounter | CPT/HCPCS: 73502; 99024 ==

== ENCOUNTER → 2023-07-29 13:06 | Outpatient (BNVA) | payer MEDICARE, MEDICAID, SELFPAY | PROVIDERS: PCP Registered Nurse; Visit Provider Orthopaedic Surgery | DX: S72.141D Displaced intertrochanteric fracture of right femur, subsequent encounter for closed fracture with routine healing (principal); X58.XXXD Exposure to other specified factors, subsequent encounter; Z96.7 Presence of other bone and tendon implants | CPT/HCPCS: 73502; 99024 ==

== ENCOUNTER 2023-08-17 10:51 | Outpatient (CLI) | payer MEDICARE, MEDICAID, SELFPAY ==
--- NOTE | 2023-08-17 12:00 | CT_ITS ---
WS: [id number] CT CHEST, ABDOMEN AND PELVIS WITH CONTRAST HISTORY: Follow up colon cancer TECHNIQUE: Contiguous 5 mm axial imaging performed through the chest, abdomen and pelvis with IV cont rast, oral contrast has been provided. Coronal and sagittal reformats chest. Coronal and sagittal ref ormats through the abdomen and pelvis. All CT scans at [facility] use at least one of these d ose optimization techniques: automated exposure control; mA and/or kV adjustment per patient size (in cludes targeted exams where dose is matched to clinical indication); or iterative reconstruction. CONTRAST: Omnipaque 350; 100 mL IV. DLP: 940.80 mGy.cm COMPARISON: 11/22/2021 CT abdomen and pelvis. PET/CT 03/13/[address]: Innumerable bilateral pulmonary nodules. These nodules were described as non radiotracer av id on the prior PET/CT. As compared to the prior PET/CT these nodules have increased in size and numb er. Nodules range in size from a few millimeters to 13 mm. The largest nodule in the RIGHT lower lobe . No pneumonia. RIGHT subclavian Port-A-Cath. No mediastinal or hilar adenopathy. Mild atherosclerosis aorta. Normal sized pulmonary artery. No pericardial or pleural effusion. Abdomen CT: Hypervascular 12 mm mass in the lower RIGHT lobe of the liver. On the portal venous imagi ng mass nearly completely fills in. No metastatic disease is identified. Normal portal vein. Prior ch olecystectomy. Normal spleen. Atrophied pancreas. No duct dilatation. Common bile duct is mildly dila nilda measuring up to 10 mm. No adrenal mass. No renal mass or obstruction. Mild atherosclerosis aorta. Normally distended stomach. No small bowel obstruction. Subtotal colectomy. Anastomotic sutures are n oted in the region of the sigmoid. No recurrent mass is identified at the anastomosis. Distal to the anastomosis there is continued marked distention of the rectum. Near the rectoanal junction there is increased soft tissue which may be extending along the posterior wall of the rectum. This will need t o be further evaluated for possible rectal neoplasm. Seen best on the sagittal reformats is a infiltr ation appearance of the soft tissue along the mucosa Pelvic CT: No free fluid in the pelvis. No adenopathy. Distended urinary bladder. Prior RIGHT hip arthroplasty. Stable sclerotic lesion LEFT acetabulum. Additional sclerotic lesion in the LEFT lateral ribs are stable. IMPRESSION: 1. Innumerable, bilateral noncalcified pulmonary nodules. These nodules range in size from a few mill imeters to 13 mm. These nodules were described on the PET/CT is nonradiotracer avid. Comparing today' s CT to the CT from the PET/CT the nodules have increased in size and number. These still may be post inflammatory but concern for metastatic disease should be considered. Repeat PET/CT imaging may be ne cessary. 2. Subtotal colectomy. Surgical anastomotic site at the sigmoid is intact. 3. New soft tissue thickening at the rectoanal junction infiltrating along the wall of the rectum. Re commend evaluation for possible neoplasm. 4. Prior cholecystectomy. 5. Hepatic hemangioma. No metastatic disease within the liver or adrenal glands.
[2023-08-17 12:11] LABS: Blood Urea Nitrogen 9 mg/dL (8-23)
[2023-08-17] MEDS: iohexol 350 mg/mL 500 mL Btl (per mL) IV (12:27)
[2023-08-17] MEDS: iohexol 350 mg/mL 500 mL Btl (per mL) PO (12:27)
== END 2023-08-17 10:52 | disposition home or self-care (01) ==
PROVIDERS: PCP Registered Nurse; Visit Provider Internal Medicine Medical Oncology
DX: C18.9 Malignant neoplasm of colon, unspecified (principal); C77.2 Secondary and unspecified malignant neoplasm of intra-abdominal lymph nodes; R91.8 Other nonspecific abnormal finding of lung field; R93.3 Abnormal findings on diagnostic imaging of other parts of digestive tract; Z90.49 Acquired absence of other specified parts of digestive tract
CPT/HCPCS: 71260; 74177; 82565; 84520; Q9967

== ENCOUNTER 2023-09-06 09:57 | Oncology outpatient (recurring) (ONCR) | payer MEDICARE, MEDICAID, SELFPAY ==
[2023-09-06 10:39] LABS: Basophils # 0.1 10^3/uL (0.0-0.1); Basophils % 0.8 %; Eosinophils # 0.2 10^3/uL (0.0-0.8); Eosinophils % 2.9 %; Hematocrit 43.4 % (36-47); Lymphocytes # 3.1 10^3/uL (0.8-4.8); Lymphocytes % 39.4 %; Mean Corpuscular Hemoglobin 30.2 pg (27-33); Mean Corpuscular Volume 94.3 fl (85-98); Mean Platelet Volume 10.3 fL (7.4-10.4); Monocytes # 0.5 10^3/uL (0.2-0.9); Monocytes % 6.7 %; Neutrophils # 3.92 10^3/uL (1.8-7.7); Neutrophils % 49.9 %; Nucleated Red Blood Cells % 0 %; Platelet Count 231 10^3/cmm (157-399); Red Cell Distribution Width 13.7 % (12.1-15.1); White Blood Count 7.86 10^3/uL (3.29-11.43)
[2023-09-06 10:59] LABS: Carcinoembryonic Antigen 17.4 ng/mL (0.0-4.7)
[2023-09-06 11:13] LABS: Alanine Aminotransferase 16 U/L (0-33); Albumin Level 4.3 g/dL (3.5-5.2); Alkaline Phosphatase 107 U/L (35-105); Aspartate Amino Transferase 23 U/L (0-32); Blood Urea Nitrogen 10 mg/dL (8-23); Calcium 9.7 mg/dL (8.5-10.5); Carbon Dioxide 25 mmol/L (22-29); Chloride 98 mmol/L (98-107); Globulin 3.5 g/dL (1.3-4.6); Glucose 117 mg/dL (65-115); Osmolality Calculated 280 mOsm/kg (285-295); Sodium 135 mmol/L (136-145); Total Bilirubin 0.6 mg/dL (0.15-1.2); Total Protein 7.8 g/dL (6.6-8.7)
[2023-09-06 11:17] LABS: Anion Gap 16.3 (5-19); Potassium 4.3 mmol/L (3.5-5.1)
== END 2023-09-07 23:59 | disposition home or self-care (01) ==
LOC: ONCMED 09:59
PROVIDERS: Internal Medicine Medical Oncology; PCP Registered Nurse; Visit Provider Internal Medicine Hematology & Oncology
DX: C18.7 Malignant neoplasm of sigmoid colon (principal); Z45.2 Encounter for adjustment and management of vascular access device; Z95.828 Presence of other vascular implants and grafts; Z51.11 Encounter for antineoplastic chemotherapy; C18.9 Malignant neoplasm of colon, unspecified; C77.2 Secondary and unspecified malignant neoplasm of intra-abdominal lymph nodes; C77.8 Secondary and unspecified malignant neoplasm of lymph nodes of multiple regions; C78.6 Secondary malignant neoplasm of retroperitoneum and peritoneum; C78.01 Secondary malignant neoplasm of right lung; C78.02 Secondary malignant neoplasm of left lung; Z79.52 Long term (current) use of systemic steroids; Z79.899 Other long term (current) drug therapy
CPT/HCPCS: 36591; 80053; 82378; 85025; 99215; J1642

== ENCOUNTER → 2023-09-09 13:07 | Outpatient (BNVA) | payer MEDICARE, MEDICAID, SELFPAY | PROVIDERS: PCP Registered Nurse; Visit Provider Orthopaedic Surgery | DX: S72.141A Displaced intertrochanteric fracture of right femur, initial encounter for closed fracture (principal); X58.XXXA Exposure to other specified factors, initial encounter; M25.551 Pain in right hip | CPT/HCPCS: 73502; 99213 ==

== ENCOUNTER 2023-09-14 15:02 | Outpatient (CLI) | payer MEDICARE, MEDICAID, SELFPAY ==
--- NOTE | 2023-09-14 12:00 | PETR_ITS ---
PROCEDURE INFORMATION: Exam: PET/CT Skull Base to Mid-thigh Exam date and time: 09/14/2023 1:37 PM Age: 77 years old Clinical indication: Abnormal findings; CT chest 08/17/23; Additional info: Compare to previous. Previously provided history of colon cancer. LABS AND CLINICAL REPORTS: Glucose: 106 mg/dl Treatment strategy for malignancy (PET staging): Restaging (PS) TECHNIQUE: Imaging protocol: Following at least four-hour fasting and following the injection of radiopharmaceutical, low dose CT images were obtained. Then, PET images were obtained. Attenuation corrected images were constructed using the CT scan. Fused images of PET and CT were reviewed. The standardized uptake values (SUV) reported below are maximum values within a region of interest, expressed in gm/ml. Exam includes orbital meatal line to mid-thigh. Radiopharmaceutical: 9.72 mCi F-18 FDG (Fluorodeoxyglucose), IV. Time of imaging post radiopharmaceutical administration: 1 hour Injection site: Not specified COMPARISON: CT chest, abdomen and pelvis 08/17/2023, PT PET skulltothigh SUBSEQ [id number] 03/13/2023 12:14 PM FINDINGS: Tubes, catheters and devices: There is a right internal jugular central venous port catheter terminating in the SVC. Brain: Visualized brain has normal physiologic uptake. Pharynx: No abnormal uptake. Larynx: No abnormal uptake. Lungs, pleura and trachea: There are numerous scattered soft tissue density nodules in both lungs which are increased in size or new since the prior PET-CT, several of which are newly radiotracer avid. Examples: Right lower lobe measuring 1.3 cm (previously 8 mm) on series 3, image 93, SUV max 3.2 (previously 1.8); medial left lower lobe measuring 1.3 cm on image 92, SUV max 3.2 (new); medial right upper lobe on image 81 measuring 1 cm (previously 4 mm), SUV max 2.9 (previously 0.9) and left upper lobe measuring 8 mm (previously 4 mm) on image 69, SUV max 2.4 (previously 0.8). Heart: Normal physiologic uptake. Mediastinal space: No abnormal uptake. Liver: No abnormal uptake. Gallbladder and bile ducts: No abnormal uptake. Cholecystectomy clips are present. Pancreas: No abnormal uptake. Spleen: No abnormal uptake. Adrenal glands: No abnormal uptake. Kidneys and ureters: Normal physiologic uptake. Stomach and bowel: No abnormal uptake. Surgical staple line in the region of the sigmoid colon is noted with evidence of partial colectomy. No abnormal uptake at or distal to the anastomotic site is noted. Vasculature: No abnormal uptake. Diffuse atherosclerotic changes are present. Lymph nodes: No abnormal uptake. No lymphadenopathy in the head, neck, chest, abdomen, pelvis, and extremities. Bones/joints: There is probable inflammatory uptake in the region of superior right hip joint capsule, SUV max 4.6. An intramedullary pallavi in the right femur is noted with a fixation screw traversing the femoral neck, with evidence of a healed intertrochanteric fracture.The bones appear demineralized. Degenerative changes in the spine are present. Soft tissues: No abnormal uptake in the visualized head, neck, chest, abdomen, pelvis, and extremities. METRICS: Mediastinal blood pool: SUV max 2.3 PET/PET skulltothi SUBSEQ [id number] IMPRESSION: 1. Interval increase in size and number of bilateral pulmonary nodules since the prior PET-CT, some of which are newly radiotracer avid concerning for metastases. 2. No current evidence of abnormal uptake within the bowel. Similar postoperative changes in the region of the sigmoid colon. Specifically, no abnormal uptake in the region suspected soft tissue thickening at the rectal-anal junction noted on the prior examinations. 3. Additional nonurgent findings as detailed above.
== END 2023-09-14 15:03 | disposition home or self-care (01) ==
LOC: RAD 15:02
PROVIDERS: PCP Registered Nurse; Visit Provider Internal Medicine Medical Oncology
DX: C18.9 Malignant neoplasm of colon, unspecified (principal); C77.2 Secondary and unspecified malignant neoplasm of intra-abdominal lymph nodes; R93.89 Abnormal findings on diagnostic imaging of other specified body structures
CPT/HCPCS: 78815; A9552

== ENCOUNTER 2023-10-05 07:58 | Oncology outpatient (recurring) (ONCR) | payer MEDICARE, MEDICAID, SELFPAY ==
[2023-09-20 08:26] LABS: Basophils % 0.6 %; Eosinophils # 0.2 10^3/uL (0.0-0.8); Eosinophils % 2.9 %; Hematocrit 40.4 % (36-47); Lymphocytes # 2.6 10^3/uL (0.8-4.8); Lymphocytes % 39.5 %; Mean Corpuscular HGB Conc 32.2 g/dL (30-55); Mean Corpuscular Hemoglobin 30.4 pg (27-33); Mean Corpuscular Volume 94.6 fl (85-98); Monocytes # 0.5 10^3/uL (0.2-0.9); Monocytes % 8.1 %; Neutrophils # 3.24 10^3/uL (1.8-7.7); Neutrophils % 48.7 %; Nucleated Red Blood Cells % 0 %; Platelet Count 192 10^3/cmm (157-399); Red Blood Count 4.27 10^6/uL (3.85-5.65); Red Cell Distribution Width 13.8 % (12.1-15.1); White Blood Count 6.64 10^3/uL (3.29-11.43)
[2023-09-20 08:38] VITALS: BP 155/95; PULSE 72; RESP 16; TEMP 36.7; O2SAT 99
[2023-09-20 08:48] LABS: Alanine Aminotransferase 14 U/L (0-33); Albumin Level 3.9 g/dL (3.5-5.2); Alkaline Phosphatase 102 U/L (35-105); Anion Gap 12.1 (5-19); Aspartate Amino Transferase 20 U/L (0-32); Blood Urea Nitrogen 10 mg/dL (8-23); Calcium 9.3 mg/dL (8.5-10.5); Carbon Dioxide 28 mmol/L (22-29); Chloride 101 mmol/L (98-107); Creatinine Clr Calc Pharmacy 57.4721; Globulin 3.7 g/dL (1.3-4.6); Glucose 123 mg/dL (65-115); Osmolality Calculated 284 mOsm/kg (285-295); Potassium 4.1 mmol/L (3.5-5.1); Sodium 137 mmol/L (136-145); Total Bilirubin 0.5 mg/dL (0.15-1.2); Total Protein 7.6 g/dL (6.6-8.7)
[2023-09-20] MEDS: sodium chloride 0.9% 250 ML 75 ML IV (11:19)
[2023-09-20] MEDS: palonosetron 0.25 mg/5 mL SDV IVP (11:21)
[2023-09-20 11:31] LABS: Urine Appearance Clear (CLEAR); Urine Color Straw (Yellow)
[2023-09-20 11:32] LABS: Add Urine Culture? No; Add Urine Microscopic? YES; Bacteria Urine TRACE /hpf; Bilirubin Urine Neg (Negative); Blood Urine Neg (Negative); Glucose Urine UA Norm (Normal); Ketones Urine Negative (Negative); Leukocyte Esterase Urine Trace (Negative); Nitrate Urine Negative (Negative); Protein Urine Neg (Negative); RBC Urine 0-4 /hpf (0-2); Squamous Epithelial Cell Urine 0-4 /hpf (0-5); Urobilinogen Urine Norm (Negative); WBC Urine 0-4 /hpf (0-5); pH Urine 5 (5-7)
[2023-09-20] MEDS: bevacizumab-awwb 380 MG in sodium chloride 0.9% (100 ml) 100 ML 100 MG IV (11:53)
[2023-09-20] MEDS: atropine 1 mg/mL SDV 1 mL 0.4 MG IV (13:31)
[2023-09-20] MEDS: dextrose 5% 250 ML 75 ML IV (13:43)
[2023-09-20] MEDS: irinotecan 300 MG, irinotecan 30 MG in dextrose 5% 250 ML 177.67 MG IV (13:44)
[2023-09-20] MEDS: leucovorin 720 MG in dextrose 5% 250 ML 166.67 MG IV (13:45)
[2023-09-20] MEDS: fluorouraciL 4,350 MG, elastomeric pump 1 PUMP in sodium chloride 0.9% (100 ml) 5 ML IV (15:31)
[2023-09-20 15:35] VITALS: BP 158/75; PULSE 79; RESP 17; TEMP 36.7; O2SAT 98
[2023-09-28 08:21] VITALS: BP 149/76; PULSE 70; RESP 16; TEMP 37.2; O2SAT 98
[2023-09-28 08:40] LABS: Basophils % 0.3 %; Eosinophils # 0.2 10^3/uL (0.0-0.8); Lymphocytes # 2.4 10^3/uL (0.8-4.8); Lymphocytes % 37.4 %; Mean Corpuscular HGB Conc 32.6 g/dL (30-55); Mean Corpuscular Hemoglobin 30.5 pg (27-33); Mean Corpuscular Volume 93.5 fl (85-98); Mean Platelet Volume 9.8 fL (7.4-10.4); Monocytes # 0.3 10^3/uL (0.2-0.9); Monocytes % 5.3 %; Neutrophils # 3.45 10^3/uL (1.8-7.7); Neutrophils % 53.5 %; Nucleated Red Blood Cells % 0 %; Platelet Count 206 10^3/cmm (157-399); Red Blood Count 4.17 10^6/uL (3.85-5.65); Red Cell Distribution Width 13.4 % (12.1-15.1); White Blood Count 6.44 10^3/uL (3.29-11.43)
[2023-09-28 08:56] LABS: Alanine Aminotransferase 13 U/L (0-33); Albumin Level 3.9 g/dL (3.5-5.2); Alkaline Phosphatase 97 U/L (35-105); Anion Gap 15.2 (5-19); Aspartate Amino Transferase 21 U/L (0-32); Blood Urea Nitrogen 9 mg/dL (8-23); Calcium 9.4 mg/dL (8.5-10.5); Carbon Dioxide 26 mmol/L (22-29); Chloride 100 mmol/L (98-107); Creatinine Clr Calc Pharmacy 58.6153; Globulin 3.4 g/dL (1.3-4.6); Glucose 114 mg/dL (65-115); Osmolality Calculated 284 mOsm/kg (285-295); Potassium 4.2 mmol/L (3.5-5.1); Sodium 137 mmol/L (136-145); Total Bilirubin 0.5 mg/dL (0.15-1.2); Total Protein 7.3 g/dL (6.6-8.7)
[2023-10-05 08:38] VITALS: BP 151/73; PULSE 66; RESP 16; TEMP 36.6; O2SAT 98
[2023-10-05 09:05] LABS: Basophils # 0.1 10^3/uL (0.0-0.1); Eosinophils # 0.2 10^3/uL (0.0-0.8); Eosinophils % 4.1 %; Hematocrit 40.2 % (36-47); Lymphocytes # 2.6 10^3/uL (0.8-4.8); Lymphocytes % 50.8 %; Mean Corpuscular HGB Conc 31.6 g/dL (30-55); Mean Corpuscular Hemoglobin 30.1 pg (27-33); Mean Corpuscular Volume 95.3 fl (85-98); Mean Platelet Volume 10.2 fL (7.4-10.4); Monocytes # 0.5 10^3/uL (0.2-0.9); Monocytes % 9.4 %; Neutrophils # 1.76 10^3/uL (1.8-7.7); Neutrophils % 34.5 %; Nucleated Red Blood Cells % 0 %; Platelet Count 216 10^3/cmm (157-399); Red Blood Count 4.22 10^6/uL (3.85-5.65)
[2023-10-05] MEDS: sodium chloride 0.9% (100 ml) 100 ML 75 ML (09:20)
[2023-10-05] MEDS: palonosetron 0.25 mg/5 mL SDV IVP (09:21)
[2023-10-05] MEDS: bevacizumab-awwb 380 MG in sodium chloride 0.9% (100 ml) 100 ML 230 MG IV (09:57)
[2023-10-05 10:09] LABS: Anion Gap 14.2 (5-19); Aspartate Amino Transferase 21 U/L (0-32); Blood Urea Nitrogen 13 mg/dL (8-23); Calcium 9.4 mg/dL (8.5-10.5); Carbon Dioxide 28 mmol/L (22-29); Chloride 99 mmol/L (98-107); Glucose 101 mg/dL (65-115); Osmolality Calculated 284 mOsm/kg (285-295); Potassium 4.2 mmol/L (3.5-5.1); Sodium 137 mmol/L (136-145); Total Bilirubin 0.5 mg/dL (0.15-1.2)
[2023-10-05 10:10] LABS: Alanine Aminotransferase 16 U/L (0-33); Albumin Level 3.9 g/dL (3.5-5.2); Alkaline Phosphatase 102 U/L (35-105); Globulin 3.2 g/dL (1.3-4.6); Total Protein 7.1 g/dL (6.6-8.7)
[2023-10-05] MEDS: atropine 1 mg/mL SDV 1 mL 0.4 MG IV (10:38)
[2023-10-05] MEDS: dextrose 5% 250 ML 75 ML IV (10:53)
[2023-10-05] MEDS: leucovorin 720 MG in dextrose 5% 250 ML 166.67 MG IV (10:57)
[2023-10-05] MEDS: irinotecan 300 MG, irinotecan 30 MG in dextrose 5% 250 ML 177.67 MG IV (10:57)
[2023-10-05] MEDS: fluorouraciL 4,350 MG, elastomeric pump 1 PUMP in sodium chloride 0.9% (100 ml) 5 ML IV (12:48)
[2023-10-05 12:51] VITALS: BP 152/95; PULSE 71; RESP 18; TEMP 36.9; O2SAT 98
== END 2023-10-05 23:59 | disposition home or self-care (01) ==
PROVIDERS: Internal Medicine; Nurse Practitioner Family; PCP Registered Nurse; Visit Provider Radiology Radiation Oncology
DX: Z51.11 Encounter for antineoplastic chemotherapy (principal); C18.7 Malignant neoplasm of sigmoid colon; Z95.828 Presence of other vascular implants and grafts; C77.2 Secondary and unspecified malignant neoplasm of intra-abdominal lymph nodes; Z45.2 Encounter for adjustment and management of vascular access device
CPT/HCPCS: 36591; 80053; 81001; 85025; 96365; 96366; 96367; 96375; 96413; 96415; 96416; 96417; 96523; 99214; 99215; J0461; J0640; J1100; J1642; J2469; J7050; J7060; J9190; J9206; Q5107

== ENCOUNTER 2023-10-07 11:20 | Oncology outpatient (recurring) (ONCR) | payer MEDICARE, MEDICAID, SELFPAY ==
[2023-10-07 12:05] VITALS: BP 120/78; PULSE 78; RESP 18; TEMP 36.6; O2SAT 98
== END 2023-10-07 23:59 | disposition home or self-care (01) ==
LOC: ONCMED 11:20
PROVIDERS: PCP Registered Nurse; Visit Provider Radiology Radiation Oncology
DX: Z51.11 Encounter for antineoplastic chemotherapy (principal); C18.7 Malignant neoplasm of sigmoid colon
CPT/HCPCS: 96416; 96523; J1642

== ENCOUNTER 2023-10-28 13:30 | Oncology outpatient (recurring) (ONCR) | payer MEDICARE, MEDICAID, SELFPAY ==
[2023-10-19 08:34] VITALS: BP 202/85; PULSE 60; RESP 18; TEMP 36.9; O2SAT 100
[2023-10-19 08:52] LABS: Basophils % 0.7 %; Eosinophils # 0.2 10^3/uL (0.0-0.8); Eosinophils % 3.1 %; Lymphocytes # 2.4 10^3/uL (0.8-4.8); Lymphocytes % 43.9 %; Mean Corpuscular HGB Conc 32.4 g/dL (30-55); Mean Corpuscular Hemoglobin 30.7 pg (27-33); Mean Corpuscular Volume 94.8 fl (85-98); Mean Platelet Volume 9.6 fL (7.4-10.4); Monocytes # 0.5 10^3/uL (0.2-0.9); Monocytes % 8.6 %; Neutrophils # 2.39 10^3/uL (1.8-7.7); Neutrophils % 43.5 %; Nucleated Red Blood Cells % 0 %; Platelet Count 173 10^3/cmm (157-399); Red Blood Count 4.01 10^6/uL (3.85-5.65); Red Cell Distribution Width 14.6 % (12.1-15.1); White Blood Count 5.49 10^3/uL (3.29-11.43)
[2023-10-19 09:13] LABS: Add Urine Microscopic? YES; Bacteria Urine TRACE /hpf; Bilirubin Urine Neg (Negative); Blood Urine Neg (Negative); Glucose Urine UA Norm (Normal); Ketones Urine Negative (Negative); Leukocyte Esterase Urine Negative (Negative); Nitrate Urine Negative (Negative); Protein Urine Trace (Negative); RBC Urine 0-4 /hpf (0-2); Specific Gravity, Urine 1.025 (1.005-1.030); Squamous Epithelial Cell Urine RARE /hpf (0-5); Urine Appearance Clear (CLEAR); Urine Color Yellow (Yellow); Urobilinogen Urine Norm (Negative); WBC Urine 0-4 /hpf (0-5); pH Urine 5 (5-7)
[2023-10-19 09:14] LABS: Mucus Urine 1+ /hpf
[2023-10-19 09:21] LABS: Carcinoembryonic Antigen 15.6 ng/mL (0.0-4.7)
[2023-10-19 09:32] LABS: Alanine Aminotransferase 12 U/L (0-33); Albumin Level 3.9 g/dL (3.5-5.2); Alkaline Phosphatase 91 U/L (35-105); Anion Gap 15.7 (5-19); Aspartate Amino Transferase 18 U/L (0-32); Blood Urea Nitrogen 10 mg/dL (8-23); Calcium 9.1 mg/dL (8.5-10.5); Carbon Dioxide 26 mmol/L (22-29); Chloride 102 mmol/L (98-107); Creatinine Clr Calc Pharmacy 57.4721; Globulin 2.9 g/dL (1.3-4.6); Glucose 106 mg/dL (65-115); Osmolality Calculated 289 mOsm/kg (285-295); Potassium 3.7 mmol/L (3.5-5.1); Sodium 140 mmol/L (136-145); Total Bilirubin 0.6 mg/dL (0.15-1.2); Total Protein 6.8 g/dL (6.6-8.7)
[2023-10-26 07:35] VITALS: BP 176/78; PULSE 67; RESP 16; TEMP 36.2; O2SAT 97
[2023-10-26 07:48] LABS: Basophils # 0.1 10^3/uL (0.0-0.1); Basophils % 0.9 %; Eosinophils # 0.2 10^3/uL (0.0-0.8); Eosinophils % 4.2 %; Hematocrit 41.5 % (36-47); Lymphocytes # 2.9 10^3/uL (0.8-4.8); Mean Corpuscular HGB Conc 31.6 g/dL (30-55); Mean Corpuscular Hemoglobin 30.9 pg (27-33); Mean Corpuscular Volume 97.9 fl (85-98); Mean Platelet Volume 9.8 fL (7.4-10.4); Monocytes # 0.6 10^3/uL (0.2-0.9); Monocytes % 10.5 %; Neutrophils # 1.88 10^3/uL (1.8-7.7); Nucleated Red Blood Cells % 0 %; Platelet Count 218 10^3/cmm (157-399); Red Blood Count 4.24 10^6/uL (3.85-5.65); Red Cell Distribution Width 15.2 % (12.1-15.1); White Blood Count 5.69 10^3/uL (3.29-11.43)
[2023-10-26 08:27] LABS: Alanine Aminotransferase 14 U/L (0-33); Alkaline Phosphatase 87 U/L (35-105); Anion Gap 12.3 (5-19); Aspartate Amino Transferase 19 U/L (0-32); Blood Urea Nitrogen 11 mg/dL (8-23); Calcium 9.4 mg/dL (8.5-10.5); Carbon Dioxide 28 mmol/L (22-29); Chloride 101 mmol/L (98-107); Globulin 3.1 g/dL (1.3-4.6); Glucose 106 mg/dL (65-115); Osmolality Calculated 284 mOsm/kg (285-295); Potassium 4.3 mmol/L (3.5-5.1); Sodium 137 mmol/L (136-145); Total Bilirubin 0.6 mg/dL (0.15-1.2); Total Protein 7.1 g/dL (6.6-8.7)
[2023-10-26] MEDS: sodium chloride 0.9% 250 ML 75 ML IV (09:36)
[2023-10-26] MEDS: palonosetron 0.25 mg/5 mL SDV IVP (09:36)
[2023-10-26] MEDS: bevacizumab-awwb 380 MG in sodium chloride 0.9% (100 ml) 100 ML 230 MG IV (10:00)
[2023-10-26] MEDS: atropine 1 mg/mL SDV 1 mL 0.4 MG IV (10:37)
[2023-10-26] MEDS: irinotecan 300 MG, irinotecan 30 MG in dextrose 5% 250 ML 177.67 MG IV (10:54)
[2023-10-26] MEDS: leucovorin 720 MG in dextrose 5% 250 ML 166.67 MG IV (10:54)
[2023-10-26] MEDS: fluorouraciL 4,350 MG, elastomeric pump 1 PUMP in sodium chloride 0.9% (100 ml) 5 ML IV (12:34)
[2023-10-26 12:40] VITALS: BP 160/80; PULSE 60; RESP 16; TEMP 36.5; O2SAT 98
[2023-10-28 11:49] VITALS: BP 180/75; PULSE 56; RESP 18; TEMP 36.1
[2023-10-28 11:50] VITALS: BP 120/78; PULSE 78; RESP 18; TEMP 36.6; O2SAT 98
== END 2023-11-07 23:59 | disposition home or self-care (01) ==
PROVIDERS: Internal Medicine; Internal Medicine Medical Oncology; Nurse Practitioner Family; PCP Registered Nurse; Visit Provider Radiology Radiation Oncology
DX: Z45.1 Encounter for adjustment and management of infusion pump; Z53.9 Procedure and treatment not carried out, unspecified reason
CPT/HCPCS: 80053; 81001; 82378; 85025; 96367; 96368; 96375; 96413; 96415; 96416; 96417; 96523; 99214; 99215; J0461; J0640; J1100; J1642; J2469; J7050; J7060; J9190; J9206; Q5107

== ENCOUNTER 2023-12-07 08:58 | Oncology outpatient (recurring) (ONCR) | payer MEDICARE, SELFPAY ==
[2023-11-09 08:30] VITALS: BP 175/78; PULSE 70; RESP 16; TEMP 36.7; O2SAT 98
[2023-11-09 08:45] LABS: Basophils % 0.5 %; Eosinophils # 0.1 10^3/uL (0.0-0.8); Eosinophils % 2.2 %; Hematocrit 40.6 % (36-47); Lymphocytes # 2.5 10^3/uL (0.8-4.8); Lymphocytes % 42.7 %; Mean Corpuscular HGB Conc 31.8 g/dL (30-55); Mean Corpuscular Hemoglobin 31.2 pg (27-33); Mean Corpuscular Volume 98.3 fl (85-98); Mean Platelet Volume 9.7 fL (7.4-10.4); Monocytes # 0.5 10^3/uL (0.2-0.9); Monocytes % 8.5 %; Neutrophils # 2.69 10^3/uL (1.8-7.7); Neutrophils % 45.9 %; Nucleated Red Blood Cells % 0 %; Platelet Count 182 10^3/cmm (157-399); Red Blood Count 4.13 10^6/uL (3.85-5.65); Red Cell Distribution Width 15.2 % (12.1-15.1); White Blood Count 5.86 10^3/uL (3.29-11.43)
[2023-11-09 09:03] LABS: Alanine Aminotransferase 11 U/L (0-33); Albumin Level 3.8 g/dL (3.5-5.2); Alkaline Phosphatase 86 U/L (35-105); Anion Gap 12.2 (5-19); Aspartate Amino Transferase 19 U/L (0-32); Blood Urea Nitrogen 10 mg/dL (8-23); Calcium 9.3 mg/dL (8.5-10.5); Carbon Dioxide 28 mmol/L (22-29); Chloride 101 mmol/L (98-107); Globulin 3.1 g/dL (1.3-4.6); Glucose 101 mg/dL (65-115); Osmolality Calculated 283 mOsm/kg (285-295); Potassium 4.2 mmol/L (3.5-5.1); Sodium 137 mmol/L (136-145); Total Bilirubin 0.7 mg/dL (0.15-1.2); Total Protein 6.9 g/dL (6.6-8.7)
[2023-11-09] MEDS: palonosetron 0.25 mg/5 mL SDV IVP (10:25)
[2023-11-09] MEDS: dextrose 5% 250 ML 75 ML IV (10:25)
[2023-11-09] MEDS: bevacizumab-awwb 380 MG in sodium chloride 0.9% (100 ml) 100 ML 230 MG IV (11:05)
[2023-11-09] MEDS: atropine 1 mg/mL SDV 1 mL 0.4 MG IV (11:48)
[2023-11-09] MEDS: irinotecan 300 MG, irinotecan 30 MG in dextrose 5% 250 ML 177.67 MG IV (11:57)
[2023-11-09] MEDS: leucovorin 720 MG in dextrose 5% 250 ML 214.67 MG IV (11:58)
[2023-11-09] MEDS: fluorouraciL 4,350 MG, elastomeric pump 1 PUMP in sodium chloride 0.9% (100 ml) 5 ML IV (14:01)
[2023-11-09 14:05] VITALS: BP 194/78; PULSE 84; RESP 18; TEMP 36.6; O2SAT 98
[2023-11-09 14:10] LABS: Add Urine Microscopic? NO; Charge for UA Resulting for Rev
[2023-11-09 14:30] LABS: Bilirubin Urine Neg (Negative); Blood Urine Neg (Negative); Glucose Urine UA Norm (Normal); Ketones Urine Negative (Negative); Leukocyte Esterase Urine Negative (Negative); Nitrate Urine Negative (Negative); Protein Urine Neg (Negative); Urine Appearance Clear (CLEAR); Urine Color Yellow (Yellow); Urobilinogen Urine Norm (Negative); pH Urine 5 (5-7)
[2023-11-11 12:55] VITALS: BP 178/88; PULSE 84; RESP 18; TEMP 36.6; O2SAT 98
[2023-11-23 08:45] VITALS: BP 198/84; PULSE 85; RESP 16; TEMP 37.4; O2SAT 95
[2023-11-23 08:58] LABS: Basophils # 0.1 10^3/uL (0.0-0.1); Basophils % 0.8 %; Eosinophils # 0.2 10^3/uL (0.0-0.8); Eosinophils % 3.1 %; Lymphocytes # 2.6 10^3/uL (0.8-4.8); Lymphocytes % 41.9 %; Mean Corpuscular HGB Conc 33.1 g/dL (30-55); Mean Corpuscular Hemoglobin 32.3 pg (27-33); Mean Corpuscular Volume 97.7 fl (85-98); Mean Platelet Volume 9.6 fL (7.4-10.4); Monocytes # 0.5 10^3/uL (0.2-0.9); Monocytes % 8.2 %; Neutrophils # 2.78 10^3/uL (1.8-7.7); Neutrophils % 45.7 %; Nucleated Red Blood Cells % 0 %; Platelet Count 170 10^3/cmm (157-399); Red Blood Count 3.99 10^6/uL (3.85-5.65); White Blood Count 6.09 10^3/uL (3.29-11.43)
[2023-11-23 09:21] LABS: Alanine Aminotransferase 14 U/L (0-33); Albumin Level 3.8 g/dL (3.5-5.2); Alkaline Phosphatase 82 U/L (35-105); Aspartate Amino Transferase 20 U/L (0-32); Blood Urea Nitrogen 9 mg/dL (8-23); Calcium 8.9 mg/dL (8.5-10.5); Carbon Dioxide 27 mmol/L (22-29); Chloride 101 mmol/L (98-107); Globulin 3.2 g/dL (1.3-4.6); Glucose 100 mg/dL (65-115); Osmolality Calculated 287 mOsm/kg (285-295); Sodium 139 mmol/L (136-145); Total Bilirubin 0.5 mg/dL (0.15-1.2)
[2023-11-23] MEDS: dextrose 5% 250 ML 75 ML IV (10:24)
[2023-11-23] MEDS: amlodipine 5 mg Tablet PO (10:25)
[2023-11-23] MEDS: palonosetron 0.25 mg/5 mL SDV IVP (10:27)
[2023-11-23] MEDS: bevacizumab-awwb 380 MG in sodium chloride 0.9% (100 ml) 100 ML 240 MG IV (11:01)
[2023-11-23] MEDS: atropine 1 mg/mL SDV 1 mL 0.4 MG IV (11:53)
[2023-11-23] MEDS: irinotecan 300 MG, irinotecan 30 MG in dextrose 5% 250 ML 177.67 MG IV (12:07)
[2023-11-23] MEDS: leucovorin 720 MG in dextrose 5% 250 ML 214.67 MG IV (12:07)
[2023-11-23] MEDS: fluorouraciL 4,350 MG, elastomeric pump 1 PUMP in sodium chloride 0.9% (100 ml) 5 ML IV (13:56)
[2023-11-23 14:05] VITALS: BP 182/92; PULSE 88; RESP 17; TEMP 36.1; O2SAT 99
[2023-11-25 12:52] VITALS: BP 200/76; PULSE 58; RESP 18; TEMP 36.6; O2SAT 97
[2023-11-25 12:55] VITALS: BP 172/86
[2023-12-07 09:30] LABS: Basophils # 0.1 10^3/uL (0.0-0.1); Basophils % 0.8 %; Eosinophils # 0.2 10^3/uL (0.0-0.8); Eosinophils % 2.9 %; Lymphocytes # 2.9 10^3/uL (0.8-4.8); Lymphocytes % 43.4 %; Mean Corpuscular HGB Conc 32.4 g/dL (30-55); Mean Corpuscular Hemoglobin 32.4 pg (27-33); Mean Platelet Volume 9.6 fL (7.4-10.4); Monocytes # 0.6 10^3/uL (0.2-0.9); Monocytes % 9.6 %; Neutrophils # 2.83 10^3/uL (1.8-7.7); Nucleated Red Blood Cells % 0 %; Platelet Count 178 10^3/cmm (157-399); Red Cell Distribution Width 15.1 % (12.1-15.1); White Blood Count 6.57 10^3/uL (3.29-11.43)
[2023-12-07 09:49] LABS: Alanine Aminotransferase 16 U/L (0-33); Albumin Level 3.8 g/dL (3.5-5.2); Alkaline Phosphatase 84 U/L (35-105); Anion Gap 13.5 (5-19); Aspartate Amino Transferase 22 U/L (0-32); Blood Urea Nitrogen 11 mg/dL (8-23); Calcium 9.3 mg/dL (8.5-10.5); Carbon Dioxide 28 mmol/L (22-29); Chloride 102 mmol/L (98-107); Globulin 3.4 g/dL (1.3-4.6); Glucose 107 mg/dL (65-115); Osmolality Calculated 288 mOsm/kg (285-295); Potassium 4.5 mmol/L (3.5-5.1); Sodium 139 mmol/L (136-145); Total Bilirubin 0.4 mg/dL (0.15-1.2); Total Protein 7.2 g/dL (6.6-8.7)
[2023-12-07] MEDS: sodium chloride 0.9% 250 ML 75 ML IV (12:28)
[2023-12-07] MEDS: palonosetron 0.25 mg/5 mL SDV IVP (12:29)
[2023-12-07] MEDS: bevacizumab-awwb 390 MG in sodium chloride 0.9% (100 ml) 100 ML 220 MG IV (13:14)
[2023-12-07 13:23] LABS: Specific Gravity, Urine 1.025 (1.005-1.030); Urine Appearance Clear (CLEAR); Urine Color Yellow (Yellow); pH Urine 5 (5-7)
[2023-12-07 13:24] LABS: Bilirubin Urine Neg (Negative); Blood Urine Neg (Negative); Glucose Urine UA Norm (Normal); Ketones Urine Negative (Negative); Leukocyte Esterase Urine Negative (Negative); Nitrate Urine Negative (Negative); Protein Urine Neg (Negative); Urobilinogen Urine Norm (Negative)
[2023-12-07 13:27] LABS: Add Urine Culture? No; Mucus Urine 2+ /hpf; RBC Urine 0-4 /hpf (0-2); Squamous Epithelial Cell Urine 0-4 /hpf (0-5); WBC Urine 0-4 /hpf (0-5)
[2023-12-07] MEDS: atropine 1 mg/mL SDV 1 mL 0.4 MG IV (14:27)
[2023-12-07] MEDS: dextrose 5% 250 ML 75 ML IV (14:27)
[2023-12-07] MEDS: irinotecan 300 MG, irinotecan 30 MG in dextrose 5% 250 ML 177.67 MG IV (14:32)
[2023-12-07] MEDS: leucovorin 740 MG in dextrose 5% 250 ML 216 MG IV (14:33)
[2023-12-07] MEDS: fluorouraciL 4,400 MG, elastomeric pump 1 PUMP in sodium chloride 0.9% (100 ml) 4 ML IV (16:12)
[2023-12-07 16:13] VITALS: BP 190/84; PULSE 75; RESP 18; TEMP 36.6; O2SAT 97
[2023-12-07 16:29] VITALS: BMI 30.4
== END 2023-12-08 23:59 | disposition home or self-care (01) ==
PROVIDERS: Internal Medicine; Nurse Practitioner Family; PCP Registered Nurse; Visit Provider Radiology Radiation Oncology
DX: Z53.9 Procedure and treatment not carried out, unspecified reason (principal); C18.7 Malignant neoplasm of sigmoid colon; C77.2 Secondary and unspecified malignant neoplasm of intra-abdominal lymph nodes; G62.9 Polyneuropathy, unspecified; I10 Essential (primary) hypertension; Z79.899 Other long term (current) drug therapy; Z51.11 Encounter for antineoplastic chemotherapy; Z87.891 Personal history of nicotine dependence
CPT/HCPCS: 80053; 81001; 81003; 85025; 96365; 96366; 96367; 96368; 96374; 96375; 96413; 96415; 96416; 96417; 96523; 99214; J0461; J0640; J1100; J1642; J2469; J7050; J7060; J9190; J9206; Q5107

== ENCOUNTER 2024-01-03 12:10 | Outpatient (CLI) | payer MEDICARE, MEDICAID, SELFPAY ==
[2024-01-03] MEDS: iohexol 350 mg/mL 500 mL Btl (per mL) PO (12:27)
--- NOTE | 2024-01-03 13:30 | CT_ITS ---
WS: [id number] Exam: CT chest abdpel w/*[id number] Date/Time of Exam: 01/03/2024 12:22 PM Reason For Exam: malignant neoplasm of sigmoid colon DLP: 986.[address] scans at [facility] use at least one of these dose optimization techniques: automated e xposure control; mA and/or kV adjustment per patient size (includes targeted exams where dose is matc hed to clinical indication); or iterative reconstruction. Comparison to prior study 08/17/2023. There are numerous bilateral pulmonary nodules some with partial calcification noted scattered throug hout both lungs. Size and number of the nodules demonstrate little change since the prior study. The lungs are fully inflated. No infiltrates or pneumothorax. The airway is patent. The thoracic aorta is normal in caliber. No filling defects within the pulmonary arteries. Normal thyroid lobes. No lympha denopathy in the mediastinum. No pericardial effusion. Moderate degenerative changes in the thoracic and lumbar spine. No sign of bone destruction. Small hiatal hernia. No axillary lymphadenopathy. Righ t-sided subclavian port noted. The chest wall is intact. IMPRESSION: 1. Numerous bilateral pulmonary nodules which appear stable in size and number since the prior study. Some of the nodules are beginning to calcify. 2. No other sign of lung mass or infiltrate. No lymphadenopathy in the chest. 3. Other minor findings as above. CT scan of the abdomen and pelvis with contrast. Comparison 08/17/2023. Small hiatal hernia noted. The stomach is otherwise unremarkable. Probable 12 mm hemangioma in the in ferior aspect of the RIGHT hepatic lobe. The liver is otherwise unremarkable. Normal spleen. Gallbla dder surgically absent. The abdominal aorta is normal in caliber. Normal adrenal glands. Unremarkable kidneys. The portal vein and IVC are patent. Major branches of the abdominal aorta are patent. No ly mphadenopathy. No free air or ascites. Small bowel loops are normal in caliber. Signs of subtotal col ectomy. No sign of recurrent mass at the anastomosis. Moderate amount retained stool in the sigmoid c olon. Intact urinary bladder. No pelvic mass or free fluid. Small posterior bladder diverticulum. Aga in noted is left-sided asymmetric wall thickening at the rectal anal junction. This is unchanged in a ppearance. Moderately advanced DJD of both hips. Hardware in the proximal RIGHT femur. No destructive bone lesions. Old biconcave L3 compression fracture. IMPRESSION: 1. Soft tissue thickening along the perez of the rectoanal junction unchanged since the prior study. A mass in this region is not excluded. 2. Small hemangioma in the RIGHT hepatic lobe unchanged. No sign of hepatic metastasis. No lymphadeno nesha in the abdomen or pelvis. 3. Subtotal colectomy. The surgical anastomosis shows no sign of obvious recurrent mass.
[2024-01-03] MEDS: iohexol 350 mg/mL 100 mL Btl IV (13:38)
== END 2024-01-03 12:11 | disposition home or self-care (01) ==
LOC: RAD 12:10
PROVIDERS: PCP Registered Nurse; Visit Provider Internal Medicine
DX: C18.7 Malignant neoplasm of sigmoid colon (principal); R91.8 Other nonspecific abnormal finding of lung field; D18.03 Hemangioma of intra-abdominal structures; Z90.49 Acquired absence of other specified parts of digestive tract
CPT/HCPCS: 71260; 74177; Q9967

== ENCOUNTER 2024-01-04 13:15 | Oncology outpatient (recurring) (ONCR) | payer MEDICARE, MEDICAID, SELFPAY ==
[2023-12-09 14:03] VITALS: BP 152/74; PULSE 59; RESP 17; TEMP 36.3; O2SAT 96
[2023-12-28 08:01] LABS: Basophils # 0.1 10^3/uL (0.0-0.1); Basophils % 1.2 %; Eosinophils # 0.3 10^3/uL (0.0-0.8); Eosinophils % 4.1 %; Hematocrit 40.3 % (36-47); Lymphocytes # 2.9 10^3/uL (0.8-4.8); Lymphocytes % 48.4 %; Mean Corpuscular HGB Conc 32.8 g/dL (30-55); Mean Corpuscular Hemoglobin 32.9 pg (27-33); Mean Corpuscular Volume 100.5 fl (85-98); Mean Platelet Volume 10.1 fL (7.4-10.4); Monocytes # 0.7 10^3/uL (0.2-0.9); Monocytes % 11.8 %; Neutrophils # 2.05 10^3/uL (1.8-7.7); Neutrophils % 33.7 %; Nucleated Red Blood Cells % 0 %; Platelet Count 218 10^3/cmm (157-399); Red Blood Count 4.01 10^6/uL (3.85-5.65); Red Cell Distribution Width 14.8 % (12.1-15.1); White Blood Count 6.08 10^3/uL (3.29-11.43)
[2023-12-28 08:31] LABS: Carcinoembryonic Antigen 11.3 ng/mL (0.0-4.7)
[2023-12-28 08:42] LABS: Alanine Aminotransferase 16 U/L (0-33); Albumin Level 3.8 g/dL (3.5-5.2); Alkaline Phosphatase 87 U/L (35-105); Anion Gap 14.5 (5-19); Aspartate Amino Transferase 23 U/L (0-32); Blood Urea Nitrogen 15 mg/dL (8-23); Calcium 9.1 mg/dL (8.5-10.5); Carbon Dioxide 24 mmol/L (22-29); Chloride 101 mmol/L (98-107); Globulin 3.3 g/dL (1.3-4.6); Glucose 104 mg/dL (65-115); Osmolality Calculated 281 mOsm/kg (285-295); Potassium 4.5 mmol/L (3.5-5.1); Sodium 135 mmol/L (136-145); Total Bilirubin 0.4 mg/dL (0.15-1.2); Total Protein 7.1 g/dL (6.6-8.7)
[2023-12-28] MEDS: sodium chloride 0.9% 250 ML 75 ML IV (09:30)
[2023-12-28] MEDS: palonosetron 0.25 mg/5 mL SDV IVP (09:33)
[2023-12-28 09:38] VITALS: BP 118/71; PULSE 55; RESP 16; TEMP 36.8; O2SAT 96
[2023-12-28] MEDS: bevacizumab-awwb 400 MG in sodium chloride 0.9% (100 ml) 100 ML 250 MG IV (10:09)
[2023-12-28] MEDS: atropine 1 mg/mL SDV 1 mL 0.400000000000000022 MG IV (10:53)
[2023-12-28] MEDS: dextrose 5% 250 ML 75 ML IV (11:09)
[2023-12-28] MEDS: leucovorin 740 MG in dextrose 5% 250 ML 166.669999999999987 MG IV (11:10)
[2023-12-28] MEDS: irinotecan 300 MG, irinotecan 30 MG in dextrose 5% 250 ML 177.669999999999987 MG IV (11:11)
[2023-12-28] MEDS: fluorouraciL 4,400 MG, elastomeric pump 1 PUMP in sodium chloride 0.9% (100 ml) 4 ML IV (13:18)
[2023-12-28 13:24] VITALS: BP 161/76; PULSE 74; RESP 18; TEMP 36.6; O2SAT 94
[2023-12-30 13:17] VITALS: BP 186/82; PULSE 70; O2SAT 95
== END 2024-01-06 23:59 | disposition home or self-care (01) ==
PROVIDERS: Internal Medicine; PCP Registered Nurse; Visit Provider Radiology Radiation Oncology
DX: Z53.9 Procedure and treatment not carried out, unspecified reason (principal)
CPT/HCPCS: 71260; 74177; 80053; 82378; 85025; 96367; 96375; 96413; 96415; 96416; 96523; 99214; J0461; J0640; J1100; J1642; J2469; J7050; J7060; J9190; J9206; Q5107; Q9967

== ENCOUNTER 2024-01-13 13:04 | Oncology outpatient (recurring) (ONCR) | payer MEDICARE, MEDICAID, SELFPAY ==
[2024-01-11 09:06] LABS: Basophils # 0.1 10^3/uL (0.0-0.1); Basophils % 0.9 %; Eosinophils # 0.2 10^3/uL (0.0-0.8); Eosinophils % 4.1 %; Hematocrit 39.5 % (36-47); Lymphocytes # 2.5 10^3/uL (0.8-4.8); Lymphocytes % 46.9 %; Mean Corpuscular HGB Conc 32.7 g/dL (30-55); Mean Platelet Volume 9.7 fL (7.4-10.4); Monocytes # 0.6 10^3/uL (0.2-0.9); Monocytes % 10.5 %; Neutrophils # 2.03 10^3/uL (1.8-7.7); Neutrophils % 37.4 %; Nucleated Red Blood Cells % 0 %; Platelet Count 183 10^3/cmm (157-399); Red Blood Count 3.91 10^6/uL (3.85-5.65); Red Cell Distribution Width 14.7 % (12.1-15.1); White Blood Count 5.42 10^3/uL (3.29-11.43)
[2024-01-11 09:29] LABS: Alanine Aminotransferase 15 U/L (0-33); Albumin Level 3.8 g/dL (3.5-5.2); Alkaline Phosphatase 78 U/L (35-105); Anion Gap 18.4 (5-19); Aspartate Amino Transferase 20 U/L (0-32); Blood Urea Nitrogen 15 mg/dL (8-23); Calcium 8.9 mg/dL (8.5-10.5); Carbon Dioxide 25 mmol/L (22-29); Chloride 99 mmol/L (98-107); Glucose 101 mg/dL (65-115); Osmolality Calculated 287 mOsm/kg (285-295); Potassium 4.4 mmol/L (3.5-5.1); Sodium 138 mmol/L (136-145); Total Bilirubin 0.5 mg/dL (0.15-1.2); Total Protein 6.8 g/dL (6.6-8.7)
[2024-01-11] MEDS: sodium chloride 0.9% 250 ML 75 ML IV (10:41)
[2024-01-11] MEDS: palonosetron 0.25 mg/5 mL SDV IVP (10:43)
[2024-01-11] MEDS: bevacizumab-awwb 400 MG in sodium chloride 0.9% (100 ml) 100 ML 220 MG IV (11:40)
[2024-01-11] MEDS: dextrose 5% 250 ML 75 ML IV (12:58)
[2024-01-11] MEDS: atropine 1 mg/mL SDV 1 mL 0.400000000000000022 MG IV (12:58)
[2024-01-11] MEDS: irinotecan 300 MG, irinotecan 30 MG in dextrose 5% 250 ML 177.669999999999987 MG IV (13:05)
[2024-01-11] MEDS: leucovorin 740 MG in dextrose 5% 250 ML 166.669999999999987 MG IV (13:05)
[2024-01-11] MEDS: fluorouraciL 4,400 MG, elastomeric pump 1 PUMP in sodium chloride 0.9% (100 ml) 4 ML IV (14:54)
[2024-01-11 15:10] VITALS: BP 157/78; PULSE 78; RESP 18; TEMP 36.6; O2SAT 98
[2024-01-11 15:13] LABS: Add Urine Microscopic? NO; Charge for UA Resulting for Rev
[2024-01-11 15:28] LABS: Bilirubin Urine Neg (Negative); Blood Urine Neg (Negative); Glucose Urine UA 2+ (Normal); Ketones Urine Negative (Negative); Leukocyte Esterase Urine Negative (Negative); Nitrate Urine Negative (Negative); Protein Urine Neg (Negative); Specific Gravity, Urine 1.015 (1.005-1.030); Urine Appearance Clear (CLEAR); Urine Color Light yellow (Yellow); Urobilinogen Urine Norm (Negative); pH Urine 5 (5-7)
[2024-01-13 13:41] VITALS: BP 170/77; PULSE 86; RESP 18; TEMP 36.6; O2SAT 95
== END 2024-02-06 23:59 | disposition home or self-care (01) ==
PROVIDERS: Nurse Practitioner Family; PCP Registered Nurse; Visit Provider Radiology Radiation Oncology
DX: Z45.1 Encounter for adjustment and management of infusion pump
CPT/HCPCS: 80053; 81003; 85025; 96367; 96368; 96375; 96413; 96415; 96416; 96417; 96523; 99214; J0461; J0640; J1100; J1642; J2469; J7050; J7060; J9190; J9206; Q5107

== ENCOUNTER 2024-03-07 08:15 | Oncology outpatient (recurring) (ONCR) | payer MEDICARE, MEDICAID, SELFPAY ==
[2024-02-08 08:10] LABS: Basophils # 0.1 10^3/uL (0.0-0.1); Basophils % 0.8 %; Eosinophils # 0.2 10^3/uL (0.0-0.8); Eosinophils % 3.1 %; Hematocrit 40.8 % (36-47); Lymphocytes # 2.6 10^3/uL (0.8-4.8); Lymphocytes % 35.8 %; Mean Corpuscular HGB Conc 32.6 g/dL (30-55); Mean Corpuscular Hemoglobin 32.9 pg (27-33); Mean Platelet Volume 9.9 fL (7.4-10.4); Monocytes # 0.6 10^3/uL (0.2-0.9); Monocytes % 8.6 %; Neutrophils # 3.77 10^3/uL (1.8-7.7); Neutrophils % 51.3 %; Nucleated Red Blood Cells % 0 %; Platelet Count 189 10^3/cmm (157-399); Red Blood Count 4.04 10^6/uL (3.85-5.65); Red Cell Distribution Width 13.7 % (12.1-15.1); White Blood Count 7.35 10^3/uL (3.29-11.43)
[2024-02-08 08:38] LABS: Carcinoembryonic Antigen 10.8 ng/mL (0.0-4.7)
[2024-02-08 08:49] LABS: Alanine Aminotransferase 15 U/L (0-33); Albumin Level 3.8 g/dL (3.5-5.2); Alkaline Phosphatase 80 U/L (35-105); Anion Gap 16.3 (5-19); Aspartate Amino Transferase 21 U/L (0-32); Blood Urea Nitrogen 13 mg/dL (8-23); Carbon Dioxide 25 mmol/L (22-29); Chloride 103 mmol/L (98-107); Globulin 3.3 g/dL (1.3-4.6); Glucose 105 mg/dL (65-115); Osmolality Calculated 290 mOsm/kg (285-295); Potassium 4.3 mmol/L (3.5-5.1); Sodium 140 mmol/L (136-145); Total Bilirubin 0.5 mg/dL (0.15-1.2); Total Protein 7.1 g/dL (6.6-8.7)
[2024-02-08] MEDS: sodium chloride 0.9% 250 ML 75 ML IV (10:08)
[2024-02-08] MEDS: palonosetron 0.25 mg/5 mL SDV IVP (10:11)
[2024-02-08 10:36] LABS: Add Urine Microscopic? YES; Bilirubin Urine Neg (Negative); Blood Urine Neg (Negative); Glucose Urine UA Norm (Normal); Ketones Urine Negative (Negative); Leukocyte Esterase Urine 1+ (Negative); Nitrate Urine Negative (Negative); Protein Urine Neg (Negative); Urine Appearance SL Hazy (CLEAR); Urine Color Yellow (Yellow); Urobilinogen Urine Norm (Negative); pH Urine 5 (5-7)
[2024-02-08] MEDS: bevacizumab-awwb 400 MG in sodium chloride 0.9% (100 ml) 100 ML 250 MG IV (10:36)
[2024-02-08 10:37] LABS: Bacteria Urine TRACE /hpf; Mucus Urine TRACE /hpf; RBC Urine 0-4 /hpf (0-2); Squamous Epithelial Cell Urine 0-4 /hpf (0-5)
[2024-02-08 10:38] LABS: Add Urine Culture? No
[2024-02-08] MEDS: atropine 1 mg/mL SDV 1 mL 0.400000000000000022 MG IV (11:21)
[2024-02-08] MEDS: dextrose 5% 250 ML 75 ML IV (11:22)
[2024-02-08] MEDS: leucovorin 740 MG in dextrose 5% 250 ML 166.669999999999987 MG IV (11:45)
[2024-02-08] MEDS: irinotecan 300 MG, irinotecan 30 MG in dextrose 5% 250 ML 177.669999999999987 MG IV (11:46)
[2024-02-08] MEDS: ELASTOMERIC PUMP PUMP IV (13:37)
[2024-02-08] MEDS: SODIUM CHLORIDE IV (13:37)
[2024-02-08] MEDS: FLUOROURACIL IV (13:37)
[2024-02-08 13:44] VITALS: BP 162/82; PULSE 75; RESP 18; TEMP 36.6; O2SAT 96
[2024-02-22 08:16] LABS: Basophils % 0.8 %; Eosinophils # 0.2 10^3/uL (0.0-0.8); Eosinophils % 3.9 %; Hematocrit 41.4 % (36-47); Lymphocytes # 2.2 10^3/uL (0.8-4.8); Mean Corpuscular HGB Conc 32.4 g/dL (30-55); Mean Corpuscular Hemoglobin 32.8 pg (27-33); Mean Corpuscular Volume 101.2 fl (85-98); Mean Platelet Volume 9.7 fL (7.4-10.4); Monocytes # 0.5 10^3/uL (0.2-0.9); Monocytes % 10.1 %; Neutrophils # 2.29 10^3/uL (1.8-7.7); Nucleated Red Blood Cells % 0 %; Platelet Count 172 10^3/cmm (157-399); Red Blood Count 4.09 10^6/uL (3.85-5.65); Red Cell Distribution Width 13.5 % (12.1-15.1); White Blood Count 5.33 10^3/uL (3.29-11.43)
[2024-02-22 08:34] LABS: Alanine Aminotransferase 17 U/L (0-33); Albumin Level 3.9 g/dL (3.5-5.2); Alkaline Phosphatase 84 U/L (35-105); Anion Gap 15.3 (5-19); Aspartate Amino Transferase 19 U/L (0-32); Blood Urea Nitrogen 9 mg/dL (8-23); Calcium 9.3 mg/dL (8.5-10.5); Carbon Dioxide 27 mmol/L (22-29); Chloride 102 mmol/L (98-107); Creatinine Clr Calc Pharmacy 55.8535; Globulin 3.3 g/dL (1.3-4.6); Glucose 103 mg/dL (65-115); Osmolality Calculated 289 mOsm/kg (285-295); Potassium 4.3 mmol/L (3.5-5.1); Sodium 140 mmol/L (136-145); Total Bilirubin 0.5 mg/dL (0.15-1.2); Total Protein 7.2 g/dL (6.6-8.7)
[2024-02-22] MEDS: sodium chloride 0.9% 250 ML 75 ML IV (10:47)
[2024-02-22] MEDS: palonosetron 0.25 mg/5 mL SDV IVP (10:48)
[2024-02-22] MEDS: bevacizumab-awwb 400 MG in sodium chloride 0.9% (100 ml) 100 ML 250 MG IV (11:25)
[2024-02-22] MEDS: atropine 1 mg/mL SDV 1 mL 0.400000000000000022 MG IV (12:13)
[2024-02-22] MEDS: leucovorin 740 MG in dextrose 5% 250 ML 166.669999999999987 MG IV (12:21)
[2024-02-22] MEDS: irinotecan 300 MG, irinotecan 30 MG in dextrose 5% 250 ML 177.669999999999987 MG IV (12:22)
[2024-02-22] MEDS: fluorouraciL 4,400 MG, elastomeric pump 1 PUMP in sodium chloride 0.9% (100 ml) 4 ML IV (14:39)
[2024-02-22 14:40] VITALS: BP 156/78; PULSE 74; RESP 18; TEMP 36.6; O2SAT 98
[2024-02-24 13:54] VITALS: BP 145/71; PULSE 72; TEMP 36.8; O2SAT 92
[2024-03-07 08:18] LABS: Basophils # 0.1 10^3/uL (0.0-0.1); Eosinophils # 0.2 10^3/uL (0.0-0.8); Eosinophils % 3.4 %; Hematocrit 41.4 % (36-47); Lymphocytes # 2.4 10^3/uL (0.8-4.8); Lymphocytes % 47.6 %; Mean Corpuscular HGB Conc 32.9 g/dL (30-55); Mean Corpuscular Hemoglobin 33.1 pg (27-33); Mean Corpuscular Volume 100.7 fl (85-98); Mean Platelet Volume 9.4 fL (7.4-10.4); Monocytes # 0.6 10^3/uL (0.2-0.9); Monocytes % 12.2 %; Neutrophils % 35.8 %; Nucleated Red Blood Cells % 0 %; Platelet Count 166 10^3/cmm (157-399); Red Blood Count 4.11 10^6/uL (3.85-5.65); Red Cell Distribution Width 13.8 % (12.1-15.1); White Blood Count 5.02 10^3/uL (3.29-11.43)
[2024-03-07 08:52] LABS: Alanine Aminotransferase 18 U/L (0-33); Albumin Level 3.9 g/dL (3.5-5.2); Alkaline Phosphatase 79 U/L (35-105); Anion Gap 13.5 (5-19); Aspartate Amino Transferase 21 U/L (0-32); Blood Urea Nitrogen 16 mg/dL (8-23); Calcium 9.4 mg/dL (8.5-10.5); Carbon Dioxide 28 mmol/L (22-29); Chloride 98 mmol/L (98-107); Creatinine Clr Calc Pharmacy 56.9748; Globulin 3.1 g/dL (1.3-4.6); Glucose 103 mg/dL (65-115); Osmolality Calculated 281 mOsm/kg (285-295); Potassium 4.5 mmol/L (3.5-5.1); Sodium 135 mmol/L (136-145); Total Bilirubin 0.5 mg/dL (0.15-1.2)
[2024-03-07] MEDS: sodium chloride 0.9% 250 ML 75 ML IV (10:48)
[2024-03-07] MEDS: palonosetron 0.25 mg/5 mL SDV IVP (10:51)
[2024-03-07] MEDS: bevacizumab-awwb 400 MG, bevacizumab-awwb 10 MG in sodium chloride 0.9% (100 ml) 100 ML 232 MG IV (11:25)
[2024-03-07] MEDS: atropine 1 mg/mL SDV 1 mL 0.400000000000000022 MG IV (12:06)
[2024-03-07] MEDS: leucovorin 740 MG in dextrose 5% 250 ML 166.669999999999987 MG IV (12:08)
[2024-03-07] MEDS: irinotecan 300 MG, irinotecan 30 MG in dextrose 5% 250 ML 177.669999999999987 MG IV (12:08)
[2024-03-07] MEDS: fluorouraciL 4,450 MG, elastomeric pump 1 PUMP in sodium chloride 0.9% (100 ml) 3 ML IV (14:05)
[2024-03-07 14:20] VITALS: BP 165/80; PULSE 74; RESP 16; TEMP 36.4; O2SAT 96
[2024-03-07 14:25] LABS: Add Urine Microscopic? NO; Charge for UA Resulting for Rev
[2024-03-07 14:51] LABS: Bilirubin Urine Neg (Negative); Blood Urine Neg (Negative); Glucose Urine UA 2+ (Normal); Ketones Urine Negative (Negative); Leukocyte Esterase Urine Negative (Negative); Nitrate Urine Negative (Negative); Protein Urine Neg (Negative); Urine Appearance Clear (CLEAR); Urine Color Yellow (Yellow); Urobilinogen Urine Norm (Negative); pH Urine 5 (5-7)
== END 2024-03-07 23:59 | disposition home or self-care (01) ==
PROVIDERS: Internal Medicine Medical Oncology; Nurse Practitioner Family; PCP Registered Nurse; Visit Provider Radiology Radiation Oncology
DX: Z51.11 Encounter for antineoplastic chemotherapy (principal); Z53.9 Procedure and treatment not carried out, unspecified reason; C18.7 Malignant neoplasm of sigmoid colon; C77.2 Secondary and unspecified malignant neoplasm of intra-abdominal lymph nodes; G62.9 Polyneuropathy, unspecified; I10 Essential (primary) hypertension; Z79.52 Long term (current) use of systemic steroids; Z79.899 Other long term (current) drug therapy; Z95.828 Presence of other vascular implants and grafts
CPT/HCPCS: 80053; 81001; 81003; 82378; 85025; 96365; 96366; 96367; 96368; 96375; 96413; 96415; 96416; 96417; 96523; 99214; J0461; J0640; J1100; J2469; J7050; J7060; J9190; J9206; Q5107

== ENCOUNTER 2024-04-04 08:30 | Oncology outpatient (recurring) (ONCR) | payer MEDICARE, MEDICAID, SELFPAY ==
[2024-03-21 07:47] LABS: Basophils % 0.8 %; Eosinophils # 0.2 10^3/uL (0.0-0.8); Eosinophils % 3.3 %; Hematocrit 39.5 % (36-47); Lymphocytes # 2.6 10^3/uL (0.8-4.8); Lymphocytes % 50.8 %; Mean Corpuscular HGB Conc 32.2 g/dL (30-55); Mean Corpuscular Hemoglobin 32.6 pg (27-33); Mean Corpuscular Volume 101.3 fl (85-98); Mean Platelet Volume 9.6 fL (7.4-10.4); Monocytes # 0.6 10^3/uL (0.2-0.9); Monocytes % 11.4 %; Neutrophils % 33.5 %; Nucleated Red Blood Cells % 0 %; Platelet Count 153 10^3/cmm (157-399); White Blood Count 5.08 10^3/uL (3.29-11.43)
[2024-03-21 08:06] LABS: Carcinoembryonic Antigen 8.5 ng/mL (0.0-4.7)
[2024-03-21 08:16] LABS: Alanine Aminotransferase 17 U/L (0-33); Albumin Level 3.7 g/dL (3.5-5.2); Alkaline Phosphatase 79 U/L (35-105); Anion Gap 14.2 (5-19); Aspartate Amino Transferase 20 U/L (0-32); Blood Urea Nitrogen 17 mg/dL (8-23); Calcium 9.1 mg/dL (8.5-10.5); Carbon Dioxide 25 mmol/L (22-29); Chloride 102 mmol/L (98-107); Globulin 3.1 g/dL (1.3-4.6); Glucose 106 mg/dL (65-115); Osmolality Calculated 286 mOsm/kg (285-295); Potassium 4.2 mmol/L (3.5-5.1); Sodium 137 mmol/L (136-145); Total Bilirubin 0.5 mg/dL (0.15-1.2); Total Protein 6.8 g/dL (6.6-8.7)
[2024-03-21] MEDS: palonosetron 0.25 mg/5 mL SDV IVP (09:50)
[2024-03-21] MEDS: sodium chloride 0.9% 250 ML 75 ML IV (09:50)
[2024-03-21 10:29] LABS: Bilirubin Urine Neg (Negative); Blood Urine Neg (Negative); Glucose Urine UA Norm (Normal); Ketones Urine Negative (Negative); Leukocyte Esterase Urine Negative (Negative); Nitrate Urine Negative (Negative); Protein Urine Neg (Negative); Urine Appearance Clear (CLEAR); Urine Color Yellow (Yellow); Urobilinogen Urine Norm (Negative); pH Urine 5 (5-7)
[2024-03-21 10:34] LABS: Add Urine Culture? No; Bacteria Urine TRACE /hpf; Mucus Urine 1+ /hpf; Squamous Epithelial Cell Urine 0-4 /hpf (0-5); WBC Urine 0-4 /hpf (0-5)
[2024-03-21] MEDS: bevacizumab-awwb 400 MG in sodium chloride 0.9% (100 ml) 100 ML 250 MG IV (10:39)
[2024-03-21] MEDS: atropine 1 mg/mL SDV 1 mL 0.400000000000000022 MG IV (11:02)
[2024-03-21] MEDS: irinotecan 300 MG, irinotecan 30 MG in dextrose 5% 250 ML 177.669999999999987 MG IV (11:07)
[2024-03-21] MEDS: leucovorin 740 MG in dextrose 5% 250 ML 166.669999999999987 MG IV (11:08)
[2024-03-21] MEDS: fluorouraciL 4,450 MG, elastomeric pump 1 PUMP in sodium chloride 0.9% (100 ml) 3 ML IV (13:04)
[2024-03-21 13:25] VITALS: BP 155/78; PULSE 74; RESP 18; TEMP 36.6; O2SAT 98
[2024-04-04 09:00] LABS: Eosinophils # 0.2 10^3/uL (0.0-0.8); Eosinophils % 5.3 %; Hematocrit 40.4 % (36-47); Lymphocytes % 47.4 %; Mean Corpuscular HGB Conc 31.9 g/dL (30-55); Mean Corpuscular Volume 100.2 fl (85-98); Mean Platelet Volume 9.7 fL (7.4-10.4); Monocytes # 0.6 10^3/uL (0.2-0.9); Monocytes % 13.2 %; Neutrophils # 1.37 10^3/uL (1.8-7.7); Neutrophils % 32.9 %; Nucleated Red Blood Cells % 0 %; Platelet Count 157 10^3/cmm (157-399); Red Blood Count 4.03 10^6/uL (3.85-5.65); Red Cell Distribution Width 13.9 % (12.1-15.1); White Blood Count 4.16 10^3/uL (3.29-11.43)
[2024-04-04 09:26] LABS: Carcinoembryonic Antigen 8.6 ng/mL (0.0-4.7)
[2024-04-04 09:38] LABS: Alanine Aminotransferase 16 U/L (0-33); Albumin Level 3.6 g/dL (3.5-5.2); Alkaline Phosphatase 78 U/L (35-105); Aspartate Amino Transferase 21 U/L (0-32); Blood Urea Nitrogen 12 mg/dL (8-23); Calcium 9.1 mg/dL (8.5-10.5); Carbon Dioxide 25 mmol/L (22-29); Chloride 100 mmol/L (98-107); Creatinine Clr Calc Pharmacy 57.7681; Globulin 3.1 g/dL (1.3-4.6); Glucose 108 mg/dL (65-115); Osmolality Calculated 284 mOsm/kg (285-295); Sodium 137 mmol/L (136-145); Total Bilirubin 0.5 mg/dL (0.15-1.2); Total Protein 6.7 g/dL (6.6-8.7)
[2024-04-04 09:44] LABS: Anion Gap 16.2 (5-19); Potassium 4.2 mmol/L (3.5-5.1)
== END 2024-04-07 23:59 | disposition home or self-care (01) ==
PROVIDERS: Nurse Practitioner Family; PCP Registered Nurse; Visit Provider Radiology Radiation Oncology
DX: C77.2 Secondary and unspecified malignant neoplasm of intra-abdominal lymph nodes (principal); Z53.9 Procedure and treatment not carried out, unspecified reason; C18.7 Malignant neoplasm of sigmoid colon; Z87.891 Personal history of nicotine dependence; Z90.49 Acquired absence of other specified parts of digestive tract; C78.00 Secondary malignant neoplasm of unspecified lung; D70.1 Agranulocytosis secondary to cancer chemotherapy; T45.1X5A Adverse effect of antineoplastic and immunosuppressive drugs, initial encounter; Z79.899 Other long term (current) drug therapy
CPT/HCPCS: 80053; 81001; 82378; 85025; 96367; 96368; 96375; 96413; 96415; 96416; 96417; 96523; 99213; 99214; J0461; J0640; J1100; J2469; J7050; J7060; J9190; J9206; Q5107

== ENCOUNTER 2024-04-25 08:00 | Oncology outpatient (recurring) (ONCR) | payer MEDICARE, MEDICAID, SELFPAY ==
[2024-04-11 07:50] LABS: Basophils # 0.1 10^3/uL (0.0-0.1); Basophils % 1.1 %; Eosinophils # 0.2 10^3/uL (0.0-0.8); Eosinophils % 4.2 %; Hematocrit 41.8 % (36-47); Lymphocytes # 2.8 10^3/uL (0.8-4.8); Lymphocytes % 48.9 %; Mean Corpuscular HGB Conc 32.3 g/dL (30-55); Mean Corpuscular Hemoglobin 32.5 pg (27-33); Mean Corpuscular Volume 100.7 fl (85-98); Mean Platelet Volume 9.8 fL (7.4-10.4); Monocytes # 0.8 10^3/uL (0.2-0.9); Monocytes % 13.6 %; Neutrophils # 1.79 10^3/uL (1.8-7.7); Neutrophils % 31.5 %; Nucleated Red Blood Cells % 0 %; Platelet Count 227 10^3/cmm (157-399); Red Blood Count 4.15 10^6/uL (3.85-5.65); Red Cell Distribution Width 14.4 % (12.1-15.1); White Blood Count 5.68 10^3/uL (3.29-11.43)
[2024-04-11 08:09] LABS: Alanine Aminotransferase 16 U/L (0-33); Albumin Level 3.8 g/dL (3.5-5.2); Alkaline Phosphatase 77 U/L (35-105); Anion Gap 14.3 (5-19); Aspartate Amino Transferase 20 U/L (0-32); Blood Urea Nitrogen 13 mg/dL (8-23); Calcium 8.8 mg/dL (8.5-10.5); Carbon Dioxide 27 mmol/L (22-29); Chloride 101 mmol/L (98-107); Globulin 3.3 g/dL (1.3-4.6); Glucose 113 mg/dL (65-115); Osmolality Calculated 287 mOsm/kg (285-295); Potassium 4.3 mmol/L (3.5-5.1); Sodium 138 mmol/L (136-145); Total Bilirubin 0.4 mg/dL (0.15-1.2); Total Protein 7.1 g/dL (6.6-8.7)
[2024-04-11] MEDS: sodium chloride 0.9% 250 ML 75 ML IV (10:19)
[2024-04-11] MEDS: palonosetron 0.25 mg/5 mL SDV IVP (10:59)
[2024-04-11] MEDS: SODIUM CHLORIDE 0.9% IV (11:02)
[2024-04-11] MEDS: BEVACIZUMAB AWWB IV (11:02)
[2024-04-11] MEDS: atropine 1 mg/mL SDV 1 mL 0.400000000000000022 MG IV (11:41)
[2024-04-11] MEDS: irinotecan 200 MG, irinotecan 70 MG in dextrose 5% 250 ML 175.669999999999987 MG IV (11:51)
[2024-04-11] MEDS: leucovorin 760 MG in dextrose 5% 250 ML 166.669999999999987 MG IV (11:52)
[2024-04-11] MEDS: fluorouraciL 3,600 MG, elastomeric pump 1 PUMP in sodium chloride 0.9% (100 ml) 20 ML IV (13:49)
[2024-04-11 14:00] VITALS: BP 143/76; PULSE 78; RESP 17; TEMP 35.8; O2SAT 95
[2024-04-13 14:15] VITALS: BP 175/95; PULSE 86; RESP 17; O2SAT 99
--- NOTE | 2024-04-13 17:27 | PC.NURSE ---
Patient came in to get her chemo pump unhooked and she let me know that she had rolled over and bed and some how got tangeld up and she felt the needle tugging and then she had some blood leaking around the port site. Patient did not check to see if the port needle was dislodged. The put extra bandage underneath the bioclusive to soak up any blood or fluid. Patient did not call to let us know as she did not have a way to get here. She thinks she received about 12 hours worth of chemo. This nurse noted that the port needle had been dislodged all the way out and that she had chemo that leaked out as the pump was empty. This nurse reaccessed the patient's port to make sure there was blood return and too flush it really well.
--- NOTE | 2024-04-14 08:47 | PC.PHAR ---
ger came to my office this morning and stated that patient's 5FU pump leaked overnight, patient states her needle came out, and that patient had an area of blanched skin over her breast area. i called Bisi Ramos at dermatology for a recommendation. She stated that area could blister and swell and that patient might benefit from topical steroid cream and vaseline. she also stated that patient must keep the area out of the sun as it will be quite photosensitive. she offered for patient to text a picture of the area. I called patient and she states that her skin is back to normal this morning so she didn't feel a picture is warranted at this time. I told her she must stay out of the sun and to call us if the area worsens or becomes irritated. she voiced understanding.
--- NOTE | 2024-04-14 09:27 | PC.PHAR ---
maritza feliciano called back. after speaking with Dr. Thornton she is requesting patient take a picture of the area so that we can track it over the next few days. they are also offering to see the patient in the office on Wednesday if the area changes at all. I phoned patient again and asked that she text me a picture of the area. Patient lives alone and states she did not want to do that. I asked that she phone a friend or neighbor so that they may send me a picture but she was not comfortable with that either. I encouraged her to call me this weekend with ANY changes in her skin. I provided my cell phone number and I gave her Bisi's cell phone as well.
[2024-04-25 08:11] LABS: Basophils # 0.1 10^3/uL (0.0-0.1); Basophils % 0.9 %; Eosinophils # 0.3 10^3/uL (0.0-0.8); Eosinophils % 3.9 %; Hematocrit 40.1 % (36-47); Lymphocytes # 2.4 10^3/uL (0.8-4.8); Lymphocytes % 36.6 %; Mean Corpuscular HGB Conc 32.4 g/dL (30-55); Mean Corpuscular Hemoglobin 32.4 pg (27-33); Mean Platelet Volume 9.9 fL (7.4-10.4); Monocytes # 0.7 10^3/uL (0.2-0.9); Monocytes % 10.2 %; Neutrophils # 3.19 10^3/uL (1.8-7.7); Neutrophils % 48.1 %; Nucleated Red Blood Cells % 0 %; Platelet Count 169 10^3/cmm (157-399); Red Blood Count 4.01 10^6/uL (3.85-5.65); Red Cell Distribution Width 13.9 % (12.1-15.1); White Blood Count 6.64 10^3/uL (3.29-11.43)
[2024-04-25 08:38] LABS: Carcinoembryonic Antigen 9.6 ng/mL (0.0-4.7)
[2024-04-25 08:49] LABS: Alanine Aminotransferase 16 U/L (0-33); Albumin Level 3.8 g/dL (3.5-5.2); Alkaline Phosphatase 81 U/L (35-105); Aspartate Amino Transferase 18 U/L (0-32); Blood Urea Nitrogen 11 mg/dL (8-23); Calcium 8.8 mg/dL (8.5-10.5); Carbon Dioxide 25 mmol/L (22-29); Chloride 100 mmol/L (98-107); Creatinine Clr Calc Pharmacy 57.8786; Glucose 101 mg/dL (65-115); Osmolality Calculated 288 mOsm/kg (285-295); Sodium 139 mmol/L (136-145); Total Bilirubin 0.5 mg/dL (0.15-1.2); Total Protein 6.8 g/dL (6.6-8.7)
[2024-04-25] MEDS: sodium chloride 0.9% 250 ML 75 ML IV (10:44)
[2024-04-25] MEDS: palonosetron 0.25 mg/5 mL SDV IVP (10:45)
[2024-04-25] MEDS: dexamethasone 4 mg/mL INJ 5 mL 12 MG IVP (10:47)
[2024-04-25] MEDS: SODIUM CHLORIDE 0.9% IV (11:15)
[2024-04-25] MEDS: BEVACIZUMAB AWWB IV (11:15)
[2024-04-25] MEDS: atropine 1 mg/mL SDV 1 mL 0.400000000000000022 MG IV (11:52)
[2024-04-25] MEDS: leucovorin 760 MG in dextrose 5% 250 ML 166.669999999999987 MG IV (12:16)
[2024-04-25] MEDS: irinotecan 200 MG, irinotecan 70 MG in dextrose 5% 250 ML 175.669999999999987 MG IV (12:17)
[2024-04-25] MEDS: fluorouraciL 3,600 MG, elastomeric pump 1 PUMP in sodium chloride 0.9% (100 ml) 20 ML IV (13:56)
[2024-04-25 13:57] VITALS: BP 161/76; PULSE 73; RESP 16; TEMP 36.4; O2SAT 94
== END 2024-04-25 23:59 | disposition home or self-care (01) ==
PROVIDERS: Nurse Practitioner Family; PCP Registered Nurse; Visit Provider Radiology Radiation Oncology
DX: Z53.9 Procedure and treatment not carried out, unspecified reason (principal); Z51.11 Encounter for antineoplastic chemotherapy; Z51.12 Encounter for antineoplastic immunotherapy; Z79.52 Long term (current) use of systemic steroids; Z79.899 Other long term (current) drug therapy; C18.9 Malignant neoplasm of colon, unspecified; C77.2 Secondary and unspecified malignant neoplasm of intra-abdominal lymph nodes
CPT/HCPCS: 36591; 80053; 82378; 85025; 96365; 96366; 96367; 96368; 96375; 96413; 96415; 96416; 96417; 96523; 99214; J0461; J0640; J1100; J2469; J7050; J7060; J9190; J9206; Q5107

== ENCOUNTER 2024-05-03 13:30 | Oncology outpatient (recurring) (ONCR) | payer MEDICARE, SELFPAY ==
[2024-04-27 12:00] VITALS: BP 172/78; PULSE 89; RESP 18; TEMP 36.6; O2SAT 98
[2024-05-03] MEDS: iohexol 350 mg/mL 500 mL Btl (per mL) PO (13:24)
--- NOTE | 2024-05-03 13:30 | CTR_ITS ---
PROCEDURE INFORMATION: Exam: CT Chest With Contrast; Diagnostic Exam date and time: 05/03/2024 1:46 PM Age: 78 years old Clinical indication: Condition or disease; Cancer; Prior surgery; Surgery date: 6+ months; Surgery type: Colon, port, gb, appy, hyst, RT hip; Additional info: Staging TECHNIQUE: Imaging protocol: Diagnostic computed tomography of the chest with contrast. Radiation optimization: All CT scans at this facility use at least one of these dose optimization techniques: automated exposure control; mA and/or kV adjustment per patient size (includes targeted exams where dose is matched to clinical indication); or iterative reconstruction. Contrast material: OMNI 350; Contrast volume: 100 ml; Contrast route: INTRAVENOUS (IV); COMPARISON: CT chest abdpel w/*[id number] 01/03/2024 1:33 PM RADIATION DOSE METRICS: Total DLP (mGy-cm): 1074.74 FINDINGS: Tubes, catheters and devices: Stable [id number]. Lungs: Too numerous to count diffuse pulmonary nodules. The largest nodule on the right measures 15 x 11 mm image 3/34 and is unchanged. The largest nodule on the left is in the base measuring 8 x 7 mm image 3/39. Overall the multitude of nodules appear unchanged since the previous examination. Pleural spaces: Unremarkable. No pneumothorax. No pleural effusion. Heart: Unremarkable. No cardiomegaly. No pericardial effusion. Lymph nodes: Small subcentimeter mediastinal lymph nodes. Largest lymph node is in the pre-vascular space measuring 19 x 8 mm image 3/18 is stable. No abnormal axillary adenopathy. Vasculature: Unremarkable. No aortic aneurysm. Diaphragm: Small hiatal hernia. Intraperitoneal space: The abdomen and pelvis will be discussed below. Bones/joints: Arthritic changes in the spine. No fracture. Soft tissues: Unremarkable. PROCEDURE INFORMATION: Exam: CT Abdomen And Pelvis With Contrast Exam date and time: 05/03/2024 1:46 PM Age: 78 years old Clinical indication: Condition or disease; Cancer; Prior surgery; Surgery date: 6+ months; Surgery type: Colon, port, gb, appy, hyst, RT hip; Additional info: Staging TECHNIQUE: Imaging protocol: Computed tomography of the abdomen and pelvis with contrast. Radiation optimization: All CT scans at this facility use at least one of these dose optimization techniques: automated exposure control; mA and/or kV adjustment per patient size (includes targeted exams where dose is matched to clinical indication); or iterative reconstruction. Contrast material: OMNI 350; Contrast volume: 100 ml; Contrast route: INTRAVENOUS (IV); COMPARISON: CT chest abdpel w/*[id number] 01/03/2024 1:33 PM RADIATION DOSE METRICS: Total DLP (mGy-cm): 1074.74 FINDINGS: Lungs: The lung bases will be discussed above. Liver: Fatty nonenlarged liver. Intensely enhancing mass again identified involving the posterior aspect of the right lobe of the liver measuring 12 x 10 mm image 03/31. Gallbladder and biliary ducts: Post cholecystectomy. No biliary dilatation. Pancreas: Normal. No ductal dilation. Spleen: Normal. No splenomegaly. Adrenal glands: Normal. No mass. Kidneys and ureters: Normal. No hydronephrosis. Stomach and bowel: Moderate fecal retention is specially in the rectosigmoid colon. Suture line in the rectosigmoid colon is stable. Stable subtotal colectomy. Appendix: No evidence of appendicitis. Intraperitoneal space: Unremarkable. No free air. No significant fluid collection. Vasculature: Unremarkable. No abdominal aortic aneurysm. Lymph nodes: Unremarkable. No enlarged lymph nodes. Urinary bladder: Unremarkable as visualized. Reproductive: Unremarkable as visualized. Bones/joints: Inferior compression fracture of the L3 vertebral body which is stable. Stable fixation involving right hip. Soft tissues: Unremarkable. CT/CT chest abdpel w/*[id number] IMPRESSION: Again there are too many nodules to count throughout the lungs consistent diffuse metastatic disease however, findings do appear stable since the previous examination. IMPRESSION: 1. No acute abnormality. There are postoperative changes in the rectosigmoid colon with fecal retention without evidence of an abnormal mass lesion. 2. Liver lesion again consistent with a hemangioma.
[2024-05-03] MEDS: iohexol 350 mg/mL 500 mL Btl (per mL) IV (13:51)
== END 2024-05-07 23:59 | disposition home or self-care (01) ==
LOC: ONCMED 05-08 10:39
PROVIDERS: PCP Registered Nurse; Visit Provider Nurse Practitioner Family
DX: Z53.9 Procedure and treatment not carried out, unspecified reason (principal); C18.9 Malignant neoplasm of colon, unspecified; C77.2 Secondary and unspecified malignant neoplasm of intra-abdominal lymph nodes; K76.9 Liver disease, unspecified
CPT/HCPCS: 36591; 71260; 74177; 96523; Q9967

== ENCOUNTER 2024-05-23 07:30 | Oncology outpatient (recurring) (ONCR) | payer MEDICARE, MEDICAID, SELFPAY ==
[2024-05-09 07:59] LABS: Basophils # 0.1 10^3/uL (0.0-0.1); Basophils % 1.1 %; Eosinophils # 0.4 10^3/uL (0.0-0.8); Eosinophils % 6.5 %; Hematocrit 40.5 % (36-47); Lymphocytes # 2.5 10^3/uL (0.8-4.8); Lymphocytes % 45.8 %; Mean Corpuscular HGB Conc 32.8 g/dL (30-55); Mean Corpuscular Hemoglobin 32.8 pg (27-33); Mean Corpuscular Volume 99.8 fl (85-98); Mean Platelet Volume 9.7 fL (7.4-10.4); Monocytes # 0.8 10^3/uL (0.2-0.9); Monocytes % 14.2 %; Neutrophils # 1.72 10^3/uL (1.8-7.7); Neutrophils % 32.2 %; Nucleated Red Blood Cells % 0 %; Platelet Count 171 10^3/cmm (157-399); Red Blood Count 4.06 10^6/uL (3.85-5.65); Red Cell Distribution Width 14.5 % (12.1-15.1); White Blood Count 5.35 10^3/uL (3.29-11.43)
[2024-05-09 08:17] LABS: Alanine Aminotransferase 18 U/L (0-33); Alkaline Phosphatase 82 U/L (35-105); Anion Gap 17.4 (5-19); Aspartate Amino Transferase 21 U/L (0-32); Blood Urea Nitrogen 12 mg/dL (8-23); Carbon Dioxide 26 mmol/L (22-29); Chloride 101 mmol/L (98-107); Glucose 112 mg/dL (65-115); Osmolality Calculated 291 mOsm/kg (285-295); Potassium 4.4 mmol/L (3.5-5.1); Sodium 140 mmol/L (136-145); Total Bilirubin 0.5 mg/dL (0.15-1.2)
[2024-05-09 09:30] LABS: Add Urine Microscopic? YES; Bilirubin Urine Neg (Negative); Blood Urine Neg (Negative); Glucose Urine UA Norm (Normal); Ketones Urine Negative (Negative); Leukocyte Esterase Urine 2+ (Negative); Nitrate Urine Negative (Negative); Protein Urine Neg (Negative); RBC Urine 0-4 /hpf (0-2); Specific Gravity, Urine 1.015 (1.005-1.030); Squamous Epithelial Cell Urine 0-4 /hpf (0-5); Urine Appearance Cloudy (CLEAR); Urine Color Yellow (Yellow); Urobilinogen Urine Norm (Negative); pH Urine 5 (5-7)
[2024-05-09 09:31] LABS: Amorphous Sediment Urine 1+ /hpf; Bacteria Urine 1+ /hpf; Mucus Urine 1+ /hpf
[2024-05-09 09:38] LABS: Carcinoembryonic Antigen 11.1 ng/mL (0.0-4.7)
[2024-05-09] MEDS: SODIUM CHLORIDE 0.9% IV (10:28)
[2024-05-09] MEDS: BEVACIZUMAB AWWB IV (10:28)
[2024-05-09] MEDS: sodium chloride 0.9% 250 ML 75 ML IV (10:28)
[2024-05-09 11:05] VITALS: BP 142/78; PULSE 68; RESP 18; TEMP 36.6; O2SAT 98
[2024-05-10 08:04] VITALS: BP 163/79; PULSE 82; RESP 16; TEMP 36.6; O2SAT 97
[2024-05-10] MEDS: dextrose 5% 250 ML 75 ML IV (08:49)
[2024-05-10] MEDS: dexamethasone 4 mg/mL INJ 5 mL 12 MG IV (08:50)
[2024-05-10] MEDS: palonosetron 0.25 mg/5 mL SDV IVP (08:59)
[2024-05-10] MEDS: atropine 1 mg/mL SDV 1 mL 0.4 MG IV (09:04)
[2024-05-10] MEDS: leucovorin 760 MG in dextrose 5% 250 ML 166.67 MG IV (09:49)
[2024-05-10] MEDS: irinotecan 200 MG, irinotecan 70 MG in dextrose 5% 250 ML 175.67 MG IV (09:49)
[2024-05-10 11:58] VITALS: BP 132/78; PULSE 74; RESP 17; TEMP 36.6; O2SAT 98
[2024-05-10] MEDS: fluorouraciL 3,600 MG, elastomeric pump 1 PUMP in sodium chloride 0.9% (100 ml) 20 ML IV (11:59)
[2024-05-12 12:28] VITALS: BP 156/76; PULSE 96; RESP 16; TEMP 36.7; O2SAT 98
[2024-05-23 08:00] LABS: Basophils % 0.9 %; Eosinophils # 0.3 10^3/uL (0.0-0.8); Eosinophils % 6.3 %; Hematocrit 39.6 % (36-47); Lymphocytes % 45.5 %; Mean Corpuscular HGB Conc 32.6 g/dL (30-55); Mean Corpuscular Hemoglobin 32.3 pg (27-33); Mean Corpuscular Volume 99.2 fl (85-98); Mean Platelet Volume 9.9 fL (7.4-10.4); Monocytes # 0.7 10^3/uL (0.2-0.9); Monocytes % 14.8 %; Neutrophils # 1.44 10^3/uL (1.8-7.7); Neutrophils % 32.3 %; Nucleated Red Blood Cells % 0 %; Platelet Count 180 10^3/cmm (157-399); Red Blood Count 3.99 10^6/uL (3.85-5.65); Red Cell Distribution Width 14.6 % (12.1-15.1); White Blood Count 4.46 10^3/uL (3.29-11.43)
[2024-05-23 08:33] LABS: Carcinoembryonic Antigen 11.6 ng/mL (0.0-4.7)
[2024-05-23 08:45] LABS: Alanine Aminotransferase 20 U/L (0-33); Albumin Level 3.8 g/dL (3.5-5.2); Alkaline Phosphatase 78 U/L (35-105); Blood Urea Nitrogen 17 mg/dL (8-23); Calcium 8.9 mg/dL (8.5-10.5); Carbon Dioxide 23 mmol/L (22-29); Chloride 99 mmol/L (98-107); Creatinine Clr Calc Pharmacy 57.8786; Glucose 110 mg/dL (65-115); Osmolality Calculated 286 mOsm/kg (285-295); Sodium 137 mmol/L (136-145); Total Bilirubin 0.6 mg/dL (0.15-1.2); Total Protein 6.8 g/dL (6.6-8.7)
[2024-05-23 08:56] LABS: Anion Gap 19.5 (5-19); Aspartate Amino Transferase 22 U/L (0-32); Potassium 4.5 mmol/L (3.5-5.1)
[2024-05-23] MEDS: sodium chloride 0.9% 250 ML 75 ML IV (10:02)
[2024-05-23] MEDS: dexamethasone 4 mg/mL INJ 5 mL 12 MG IV (10:05)
[2024-05-23] MEDS: palonosetron 0.25 mg/5 mL SDV IVP (10:10)
[2024-05-23] MEDS: SODIUM CHLORIDE 0.9% IV (10:39)
[2024-05-23] MEDS: BEVACIZUMAB AWWB IV (10:39)
[2024-05-23] MEDS: atropine 1 mg/mL SDV 1 mL 0.4 MG IV (11:22)
[2024-05-23] MEDS: irinotecan 200 MG, irinotecan 70 MG in dextrose 5% 250 ML 175.67 MG IV (11:28)
[2024-05-23] MEDS: leucovorin 760 MG in dextrose 5% 250 ML 166.67 MG IV (11:29)
[2024-05-23] MEDS: fluorouraciL 3,600 MG, elastomeric pump 1 PUMP in sodium chloride 0.9% (100 ml) 20 ML IV (13:21)
[2024-05-23 13:28] VITALS: BP 168/85; PULSE 94; RESP 18; TEMP 36.6; O2SAT 98
== END 2024-05-23 23:59 | disposition home or self-care (01) ==
PROVIDERS: Internal Medicine; PCP Registered Nurse; Visit Provider Nurse Practitioner Family
DX: Z53.9 Procedure and treatment not carried out, unspecified reason (principal); Z51.11 Encounter for antineoplastic chemotherapy; Z51.12 Encounter for antineoplastic immunotherapy; C18.7 Malignant neoplasm of sigmoid colon; Z90.49 Acquired absence of other specified parts of digestive tract; G62.0 Drug-induced polyneuropathy; T45.1X5A Adverse effect of antineoplastic and immunosuppressive drugs, initial encounter; Z79.52 Long term (current) use of systemic steroids; Z79.899 Other long term (current) drug therapy
CPT/HCPCS: 80053; 81001; 82378; 85025; 96367; 96368; 96375; 96413; 96415; 96417; 96523; 99213; 99214; J0461; J0640; J1100; J2469; J7050; J7060; J9190; J9206; Q5107

== ENCOUNTER 2024-06-06 07:30 | Oncology outpatient (recurring) (ONCR) | payer MEDICARE, MEDICAID, SELFPAY ==
[2024-05-25 13:15] VITALS: BP 176/92; PULSE 98; RESP 20; O2SAT 95
[2024-06-06 07:48] LABS: Basophils # 0.1 10^3/uL (0.0-0.1); Basophils % 1.6 %; Eosinophils # 0.4 10^3/uL (0.0-0.8); Eosinophils % 10.1 %; Hematocrit 39.8 % (36-47); Lymphocytes # 1.9 10^3/uL (0.8-4.8); Lymphocytes % 44.3 %; Mean Corpuscular HGB Conc 31.7 g/dL (30-55); Mean Corpuscular Hemoglobin 31.8 pg (27-33); Mean Corpuscular Volume 100.5 fl (85-98); Mean Platelet Volume 9.3 fL (7.4-10.4); Monocytes # 0.8 10^3/uL (0.2-0.9); Monocytes % 17.4 %; Neutrophils # 1.14 10^3/uL (1.8-7.7); Neutrophils % 26.1 %; Nucleated Red Blood Cells % 0 %; Platelet Count 209 10^3/cmm (157-399); Red Blood Count 3.96 10^6/uL (3.85-5.65); Red Cell Distribution Width 14.9 % (12.1-15.1); White Blood Count 4.36 10^3/uL (3.29-11.43)
[2024-06-06 08:08] LABS: Alanine Aminotransferase 17 U/L (0-33); Albumin Level 3.7 g/dL (3.5-5.2); Alkaline Phosphatase 88 U/L (35-105); Anion Gap 17.6 (5-19); Aspartate Amino Transferase 18 U/L (0-32); Blood Urea Nitrogen 9 mg/dL (8-23); Carbon Dioxide 25 mmol/L (22-29); Chloride 101 mmol/L (98-107); Globulin 3.3 g/dL (1.3-4.6); Glucose 114 mg/dL (65-115); Osmolality Calculated 288 mOsm/kg (285-295); Potassium 4.6 mmol/L (3.5-5.1); Sodium 139 mmol/L (136-145); Total Bilirubin 0.5 mg/dL (0.15-1.2)
[2024-06-06 10:10] VITALS: BP 163/80; PULSE 68; RESP 16; TEMP 36.7; O2SAT 96
[2024-06-06] MEDS: sodium chloride 0.9% 250 ML 75 ML IV (10:31)
[2024-06-06] MEDS: palonosetron 0.25 mg/5 mL SDV IVP (10:31)
[2024-06-06] MEDS: BEVACIZUMAB AWWB IV (10:50)
[2024-06-06] MEDS: SODIUM CHLORIDE 0.9% IV (10:50)
[2024-06-06] MEDS: atropine 1 mg/mL SDV 1 mL 0.4 MG IV (11:34)
[2024-06-06] MEDS: irinotecan 200 MG, irinotecan 70 MG in dextrose 5% 250 ML 175.67 MG IV (11:49)
[2024-06-06] MEDS: leucovorin 760 MG in dextrose 5% 250 ML 166.67 MG IV (11:49)
[2024-06-06] MEDS: fluorouraciL 3,650 MG, elastomeric pump 1 PUMP in sodium chloride 0.9% (100 ml) 19 ML IV (13:27)
[2024-06-06 13:30] VITALS: BP 174/83; PULSE 75; RESP 16; TEMP 36.9; O2SAT 93
== END 2024-06-07 23:59 | disposition home or self-care (01) ==
PROVIDERS: Nurse Practitioner Family; PCP Registered Nurse; Visit Provider Nurse Practitioner Family
DX: Z53.9 Procedure and treatment not carried out, unspecified reason; Z51.11 Encounter for antineoplastic chemotherapy; C18.7 Malignant neoplasm of sigmoid colon; Z79.52 Long term (current) use of systemic steroids; Z79.899 Other long term (current) drug therapy
CPT/HCPCS: 80053; 85025; 96368; 96375; 96413; 96415; 96416; 96417; 96523; 99214; J0461; J0640; J1100; J2469; J7050; J7060; J9190; J9206; Q5107

== ENCOUNTER 2024-07-11 07:30 | Oncology outpatient (recurring) (ONCR) | payer MEDICARE, MEDICAID, SELFPAY ==
[2024-06-08 13:27] VITALS: BP 144/86; PULSE 94; RESP 16; TEMP 36.3; O2SAT 96
[2024-06-20 08:12] LABS: Basophils % 1.1 %; Eosinophils # 0.3 10^3/uL (0.0-0.8); Eosinophils % 9.1 %; Lymphocytes # 1.3 10^3/uL (0.8-4.8); Lymphocytes % 45.6 %; Mean Corpuscular HGB Conc 32.4 g/dL (30-55); Mean Corpuscular Hemoglobin 31.7 pg (27-33); Mean Corpuscular Volume 97.9 fl (85-98); Mean Platelet Volume 9.9 fL (7.4-10.4); Monocytes # 0.5 10^3/uL (0.2-0.9); Monocytes % 17.5 %; Neutrophils % 26.3 %; Nucleated Red Blood Cells % 0 %; Platelet Count 202 10^3/cmm (157-399); Red Blood Count 3.88 10^6/uL (3.85-5.65); Red Cell Distribution Width 14.7 % (12.1-15.1); White Blood Count 2.85 10^3/uL (3.29-11.43)
[2024-06-20 08:36] LABS: Carcinoembryonic Antigen 10.1 ng/mL (0.0-4.7)
[2024-06-20 08:47] LABS: Alanine Aminotransferase 13 U/L (0-33); Albumin Level 3.6 g/dL (3.5-5.2); Alkaline Phosphatase 83 U/L (35-105); Anion Gap 15.2 (5-19); Aspartate Amino Transferase 16 U/L (0-32); Blood Urea Nitrogen 10 mg/dL (8-23); Calcium 8.9 mg/dL (8.5-10.5); Carbon Dioxide 25 mmol/L (22-29); Chloride 100 mmol/L (98-107); Creatinine Clr Calc Pharmacy 58.2973; Globulin 3.2 g/dL (1.3-4.6); Glucose 114 mg/dL (65-115); Osmolality Calculated 282 mOsm/kg (285-295); Potassium 4.2 mmol/L (3.5-5.1); Sodium 136 mmol/L (136-145); Total Bilirubin 0.5 mg/dL (0.15-1.2); Total Protein 6.8 g/dL (6.6-8.7)
[2024-06-20 08:50] LABS: Neutrophils # 0.75 10^3/uL (1.8-7.7)
[2024-06-20 15:12] VITALS: BP 183/86; PULSE 84; RESP 16; TEMP 36.6; O2SAT 96
[2024-06-27 07:51] LABS: Basophils # 0.1 10^3/uL (0.0-0.1); Basophils % 1.5 %; Eosinophils # 0.3 10^3/uL (0.0-0.8); Eosinophils % 5.5 %; Hematocrit 39.5 % (36-47); Lymphocytes # 2.3 10^3/uL (0.8-4.8); Lymphocytes % 39.3 %; Mean Corpuscular HGB Conc 31.6 g/dL (30-55); Mean Corpuscular Hemoglobin 31.3 pg (27-33); Mean Corpuscular Volume 98.8 fl (85-98); Mean Platelet Volume 9.5 fL (7.4-10.4); Monocytes # 0.8 10^3/uL (0.2-0.9); Monocytes % 13.4 %; Neutrophils # 2.32 10^3/uL (1.8-7.7); Nucleated Red Blood Cells % 0 %; Platelet Count 281 10^3/cmm (157-399); Red Cell Distribution Width 15.2 % (12.1-15.1); White Blood Count 5.96 10^3/uL (3.29-11.43)
[2024-06-27 08:05] LABS: Alanine Aminotransferase 12 U/L (0-33); Albumin Level 3.5 g/dL (3.5-5.2); Alkaline Phosphatase 84 U/L (35-105); Anion Gap 17.3 (5-19); Aspartate Amino Transferase 20 U/L (0-32); Blood Urea Nitrogen 9 mg/dL (8-23); Calcium 8.9 mg/dL (8.5-10.5); Carbon Dioxide 25 mmol/L (22-29); Chloride 103 mmol/L (98-107); Globulin 3.5 g/dL (1.3-4.6); Glucose 118 mg/dL (65-115); Osmolality Calculated 292 mOsm/kg (285-295); Potassium 4.3 mmol/L (3.5-5.1); Sodium 141 mmol/L (136-145); Total Bilirubin 0.4 mg/dL (0.15-1.2)
[2024-06-27] MEDS: palonosetron 0.25 mg/5 mL SDV IVP (09:48)
[2024-06-27] MEDS: sodium chloride 0.9% 250 ML 75 ML IV (09:48)
[2024-06-27] MEDS: dexamethasone 4 mg/mL INJ 5 mL 12 MG IVP (09:49)
[2024-06-27] MEDS: BEVACIZUMAB AWWB IV (10:14)
[2024-06-27] MEDS: SODIUM CHLORIDE 0.9% IV (10:14)
[2024-06-27] MEDS: atropine 1 mg/mL SDV 1 mL 0.4 MG IV (11:04)
[2024-06-27] MEDS: irinotecan 200 MG, irinotecan 70 MG in dextrose 5% 250 ML 175.67 MG IV (11:13)
[2024-06-27] MEDS: leucovorin 760 MG in dextrose 5% 250 ML 166.67 MG IV (11:14)
[2024-06-27 12:31] LABS: Charge for UA Resulting for Rev
[2024-06-27 12:56] LABS: Glucose Urine UA 1+ (Normal); Protein Urine Neg (Negative); Urine Appearance Clear (CLEAR); Urine Color Yellow (Yellow); pH Urine 6 (5-7)
[2024-06-27 12:57] LABS: Bilirubin Urine Neg (Negative); Blood Urine Neg (Negative); Ketones Urine Negative (Negative); Leukocyte Esterase Urine 1+ (Negative); Nitrate Urine Negative (Negative); UA Manual Slide Review YES; UA Slide Review UA Slide Review Perf; Urobilinogen Urine Norm (Negative)
[2024-06-27 12:58] LABS: Add Urine Culture? No; Squamous Epithelial Cell Urine RARE /hpf (0-5); Transitional Epi Cells Urine 0-4 /hpf; WBC Urine 0-4 /hpf (0-5)
[2024-06-27] MEDS: fluorouraciL 3,650 MG, elastomeric pump 1 PUMP in sodium chloride 0.9% (100 ml) 19 ML IV (13:25)
[2024-06-27 13:30] VITALS: BP 132/99; PULSE 98; RESP 18; TEMP 36.2; O2SAT 97
[2024-06-29 13:25] VITALS: BP 148/82; PULSE 74; RESP 18; TEMP 36.6; O2SAT 98
[2024-07-11 07:55] LABS: Eosinophils # 0.3 10^3/uL (0.0-0.8); Eosinophils % 7.2 %; Hematocrit 39.5 % (36-47); Lymphocytes # 1.9 10^3/uL (0.8-4.8); Lymphocytes % 44.6 %; Mean Corpuscular HGB Conc 32.2 g/dL (30-55); Mean Corpuscular Hemoglobin 31.7 pg (27-33); Mean Corpuscular Volume 98.5 fl (85-98); Monocytes # 0.5 10^3/uL (0.2-0.9); Monocytes % 11.7 %; Neutrophils # 1.48 10^3/uL (1.8-7.7); Neutrophils % 35.3 %; Nucleated Red Blood Cells % 0 %; Platelet Count 191 10^3/cmm (157-399); Red Blood Count 4.01 10^6/uL (3.85-5.65); Red Cell Distribution Width 15.5 % (12.1-15.1); White Blood Count 4.19 10^3/uL (3.29-11.43)
[2024-07-11 08:17] LABS: Alanine Aminotransferase 12 U/L (0-33); Albumin Level 3.6 g/dL (3.5-5.2); Alkaline Phosphatase 79 U/L (35-105); Anion Gap 17.1 (5-19); Aspartate Amino Transferase 18 U/L (0-32); Blood Urea Nitrogen 11 mg/dL (8-23); Calcium 8.7 mg/dL (8.5-10.5); Carbon Dioxide 23 mmol/L (22-29); Chloride 103 mmol/L (98-107); Creatinine Clr Calc Pharmacy 57.0754; Globulin 3.3 g/dL (1.3-4.6); Glucose 118 mg/dL (65-115); Osmolality Calculated 288 mOsm/kg (285-295); Potassium 4.1 mmol/L (3.5-5.1); Sodium 139 mmol/L (136-145); Total Bilirubin 0.5 mg/dL (0.15-1.2); Total Protein 6.9 g/dL (6.6-8.7)
[2024-07-11] MEDS: sodium chloride 0.9% 250 ML 75 ML IV (08:54)
[2024-07-11] MEDS: dexamethasone 4 mg/mL INJ 5 mL 12 MG IVP (08:55)
[2024-07-11] MEDS: palonosetron 0.25 mg/5 mL SDV IVP (09:05)
[2024-07-11] MEDS: atropine 1 mg/mL SDV 1 mL 0.4 MG IV (09:07)
[2024-07-11] MEDS: BEVACIZUMAB AWWB IV (09:25)
[2024-07-11] MEDS: SODIUM CHLORIDE 0.9% IV (09:25)
[2024-07-11] MEDS: leucovorin 760 MG in dextrose 5% 250 ML 166.67 MG IV (10:21)
[2024-07-11] MEDS: irinotecan 200 MG, irinotecan 70 MG in dextrose 5% 250 ML 175.67 MG IV (10:22)
[2024-07-11] MEDS: dextrose 5% 250 ML 75 ML IV (10:25)
[2024-07-11 12:30] VITALS: BP 168/87; PULSE 68; RESP 18; TEMP 36.4; O2SAT 98
[2024-07-11] MEDS: fluorouraciL 3,650 MG, elastomeric pump 1 PUMP in sodium chloride 0.9% (100 ml) 19 ML IV (12:30)
== END 2024-07-11 23:59 | disposition home or self-care (01) ==
PROVIDERS: Internal Medicine Medical Oncology; Nurse Practitioner Family; PCP Registered Nurse; Visit Provider Nurse Practitioner Family
DX: Z53.9 Procedure and treatment not carried out, unspecified reason (principal)
CPT/HCPCS: 80053; 81003; 81015; 82378; 85025; 96365; 96368; 96375; 96413; 96415; 96416; 96417; 96523; 99214; J0461; J0640; J1100; J2469; J7050; J7060; J9190; J9206; Q5107

== ENCOUNTER 2024-07-25 07:30 | Oncology outpatient (recurring) (ONCR) | payer MEDICARE, MEDICAID, SELFPAY ==
[2024-07-25 07:52] LABS: Basophils # 0.1 10^3/uL (0.0-0.1); Basophils % 1.4 %; Eosinophils # 0.2 10^3/uL (0.0-0.8); Eosinophils % 4.3 %; Hematocrit 39.7 % (36-47); Lymphocytes % 45.4 %; Mean Corpuscular HGB Conc 31.2 g/dL (30-55); Mean Corpuscular Hemoglobin 30.7 pg (27-33); Mean Corpuscular Volume 98.3 fl (85-98); Mean Platelet Volume 9.8 fL (7.4-10.4); Monocytes # 0.6 10^3/uL (0.2-0.9); Monocytes % 13.8 %; Neutrophils # 1.53 10^3/uL (1.8-7.7); Neutrophils % 34.6 %; Nucleated Red Blood Cells % 0 %; Platelet Count 187 10^3/cmm (157-399); Red Blood Count 4.04 10^6/uL (3.85-5.65); Red Cell Distribution Width 15.8 % (12.1-15.1); White Blood Count 4.41 10^3/uL (3.29-11.43)
[2024-07-25 08:34] LABS: Alanine Aminotransferase 13 U/L (0-33); Albumin Level 3.5 g/dL (3.5-5.2); Alkaline Phosphatase 79 U/L (35-105); Anion Gap 14.1 (5-19); Aspartate Amino Transferase 17 U/L (0-32); Blood Urea Nitrogen 9 mg/dL (8-23); Calcium 8.7 mg/dL (8.5-10.5); Carbon Dioxide 27 mmol/L (22-29); Chloride 104 mmol/L (98-107); Globulin 3.2 g/dL (1.3-4.6); Glucose 111 mg/dL (65-115); Osmolality Calculated 291 mOsm/kg (285-295); Potassium 4.1 mmol/L (3.5-5.1); Sodium 141 mmol/L (136-145); Total Bilirubin 0.6 mg/dL (0.15-1.2); Total Protein 6.7 g/dL (6.6-8.7)
[2024-07-25] MEDS: sodium chloride 0.9% 250 ML 75 ML IV (09:33)
[2024-07-25] MEDS: palonosetron 0.25 mg/5 mL SDV IVP (09:36)
[2024-07-25] MEDS: dexamethasone 4 mg/mL INJ 5 mL 12 MG IVP (09:40)
[2024-07-25 09:42] LABS: Urine Appearance Clear (CLEAR); Urine Color Yellow (Yellow)
[2024-07-25 09:43] LABS: pH Urine 5 (5-7)
[2024-07-25] MEDS: atropine 1 mg/mL SDV 1 mL 0.4 MG IV (09:48)
[2024-07-25 09:59] LABS: Add Urine Microscopic? YES; Bilirubin Urine Neg (Negative); Blood Urine Neg (Negative); Glucose Urine UA Norm (Normal); Ketones Urine Negative (Negative); Leukocyte Esterase Urine 1+ (Negative); Nitrate Urine Negative (Negative); Protein Urine Neg (Negative); Urobilinogen Urine Norm (Negative)
[2024-07-25 10:01] LABS: Add Urine Culture? No; Mucus Urine 2+ /hpf; RBC Urine 0-4 /hpf (0-2); Squamous Epithelial Cell Urine 0-4 /hpf (0-5); Transitional Epi Cells Urine 0-4 /hpf; WBC Urine 0-4 /hpf (0-5)
[2024-07-25] MEDS: SODIUM CHLORIDE 0.9% IV (10:05)
[2024-07-25] MEDS: BEVACIZUMAB AWWB IV (10:05)
[2024-07-25] MEDS: irinotecan 200 MG, irinotecan 70 MG in dextrose 5% 250 ML 175.67 MG IV (11:00)
[2024-07-25] MEDS: leucovorin 760 MG in dextrose 5% 250 ML 166.67 MG IV (11:00)
[2024-07-25] MEDS: fluorouraciL 3,650 MG, elastomeric pump 1 PUMP in sodium chloride 0.9% (100 ml) 19 ML IV (12:55)
[2024-07-25 13:00] VITALS: BP 173/92; PULSE 97; RESP 18; TEMP 36.8; O2SAT 98
== END 2024-07-25 23:59 | disposition home or self-care (01) ==
PROVIDERS: Nurse Practitioner Family; PCP Registered Nurse; Visit Provider Nurse Practitioner Family
DX: Z51.11 Encounter for antineoplastic chemotherapy (principal); Z53.9 Procedure and treatment not carried out, unspecified reason; C18.7 Malignant neoplasm of sigmoid colon; Z79.52 Long term (current) use of systemic steroids; Z79.899 Other long term (current) drug therapy; C77.2 Secondary and unspecified malignant neoplasm of intra-abdominal lymph nodes
CPT/HCPCS: 36591; 80053; 81001; 82378; 85025; 96365; 96366; 96368; 96375; 96413; 96415; 96416; 96417; 96523; 99214; J0461; J0640; J1100; J2469; J7050; J7060; J9190; J9206; Q5107

== ENCOUNTER 2024-07-27 13:24 | Oncology outpatient (recurring) (ONCR) | payer MEDICARE, MEDICAID, SELFPAY ==
[2024-07-27 14:05] VITALS: BP 164/77; PULSE 67; RESP 17; TEMP 36.3; O2SAT 95
== END 2024-08-07 23:59 | disposition home or self-care (01) ==
LOC: ONCMED 13:24
PROVIDERS: PCP Registered Nurse; Visit Provider Nurse Practitioner Family
DX: Z53.9 Procedure and treatment not carried out, unspecified reason (principal); Z45.1 Encounter for adjustment and management of infusion pump; Z51.11 Encounter for antineoplastic chemotherapy; C18.7 Malignant neoplasm of sigmoid colon; C77.2 Secondary and unspecified malignant neoplasm of intra-abdominal lymph nodes; Z79.899 Other long term (current) drug therapy; Z79.52 Long term (current) use of systemic steroids
CPT/HCPCS: 96523

== ENCOUNTER 2024-08-23 07:30 | Oncology outpatient (recurring) (ONCR) | payer MEDICARE, MEDICAID, SELFPAY ==
[2024-08-08 07:48] LABS: Basophils # 0.1 10^3/uL (0.0-0.1); Basophils % 1.2 %; Eosinophils # 0.2 10^3/uL (0.0-0.8); Eosinophils % 4.4 %; Hematocrit 40.6 % (36-47); Lymphocytes # 2.3 10^3/uL (0.8-4.8); Lymphocytes % 45.1 %; Mean Corpuscular HGB Conc 31.3 g/dL (30-55); Mean Corpuscular Hemoglobin 31.1 pg (27-33); Mean Corpuscular Volume 99.3 fl (85-98); Mean Platelet Volume 9.9 fL (7.4-10.4); Monocytes # 0.7 10^3/uL (0.2-0.9); Monocytes % 13.1 %; Neutrophils # 1.82 10^3/uL (1.8-7.7); Nucleated Red Blood Cells % 0 %; Platelet Count 175 10^3/cmm (157-399); Red Blood Count 4.09 10^6/uL (3.85-5.65); White Blood Count 5.05 10^3/uL (3.29-11.43)
[2024-08-08 07:50] VITALS: BMI 32.4
[2024-08-08 08:21] LABS: Alanine Aminotransferase 13 U/L (0-33); Albumin Level 3.7 g/dL (3.5-5.2); Alkaline Phosphatase 77 U/L (35-105); Anion Gap 14.2 (5-19); Aspartate Amino Transferase 16 U/L (0-32); Blood Urea Nitrogen 12 mg/dL (8-23); Calcium 8.8 mg/dL (8.5-10.5); Carbon Dioxide 27 mmol/L (22-29); Chloride 101 mmol/L (98-107); Creatinine Clr Calc Pharmacy 57.2358; Globulin 2.8 g/dL (1.3-4.6); Glucose 110 mg/dL (65-115); Osmolality Calculated 286 mOsm/kg (285-295); Potassium 4.2 mmol/L (3.5-5.1); Sodium 138 mmol/L (136-145); Total Bilirubin 0.5 mg/dL (0.15-1.2); Total Protein 6.5 g/dL (6.6-8.7)
[2024-08-08] MEDS: sodium chloride 0.9% 250 ML 75 ML IV (09:34)
[2024-08-08] MEDS: palonosetron 0.25 mg/5 mL SDV IVP (09:35)
[2024-08-08] MEDS: dexamethasone 4 mg/mL INJ 5 mL 12 MG IV (09:37)
[2024-08-08] MEDS: BEVACIZUMAB AWWB IV (09:49)
[2024-08-08] MEDS: SODIUM CHLORIDE 0.9% IV (09:49)
[2024-08-08] MEDS: atropine 1 mg/mL SDV 1 mL 0.4 MG IV (10:26)
[2024-08-08] MEDS: leucovorin 760 MG in dextrose 5% 250 ML 166.67 MG IV (10:39)
[2024-08-08] MEDS: irinotecan 200 MG, irinotecan 70 MG in dextrose 5% 250 ML 175.67 MG IV (10:39)
[2024-08-08] MEDS: fluorouraciL 3,650 MG, elastomeric pump 1 PUMP in sodium chloride 0.9% (100 ml) 19 ML IV (12:48)
[2024-08-08 12:50] VITALS: BP 152/86; PULSE 84; RESP 18; TEMP 36.6; O2SAT 98
[2024-08-23 07:42] LABS: Basophils # 0.1 10^3/uL (0.0-0.1); Basophils % 1.2 %; Eosinophils # 0.2 10^3/uL (0.0-0.8); Eosinophils % 4.5 %; Hematocrit 41.1 % (36-47); Lymphocytes # 2.2 10^3/uL (0.8-4.8); Lymphocytes % 44.5 %; Mean Corpuscular HGB Conc 31.4 g/dL (30-55); Mean Corpuscular Hemoglobin 30.9 pg (27-33); Mean Corpuscular Volume 98.3 fl (85-98); Mean Platelet Volume 9.8 fL (7.4-10.4); Monocytes # 0.7 10^3/uL (0.2-0.9); Neutrophils # 1.76 10^3/uL (1.8-7.7); Neutrophils % 35.6 %; Nucleated Red Blood Cells % 0 %; Platelet Count 189 10^3/cmm (157-399); Red Blood Count 4.18 10^6/uL (3.85-5.65); Red Cell Distribution Width 16.4 % (12.1-15.1); White Blood Count 4.94 10^3/uL (3.29-11.43)
[2024-08-23 08:10] LABS: Carcinoembryonic Antigen 11.8 ng/mL (0.0-4.7)
[2024-08-23 08:21] LABS: Alanine Aminotransferase 17 U/L (0-33); Albumin Level 3.9 g/dL (3.5-5.2); Alkaline Phosphatase 85 U/L (35-105); Anion Gap 14.4 (5-19); Aspartate Amino Transferase 20 U/L (0-32); Blood Urea Nitrogen 11 mg/dL (8-23); Calcium 8.9 mg/dL (8.5-10.5); Carbon Dioxide 26 mmol/L (22-29); Chloride 102 mmol/L (98-107); Creatinine Clr Calc Pharmacy 58.2973; Globulin 2.9 g/dL (1.3-4.6); Glucose 119 mg/dL (65-115); Lactate Dehydrogenase 197 U/L (135-214); Magnesium 2.1 mg/dL (1.7-2.3); Osmolality Calculated 287 mOsm/kg (285-295); Potassium 4.4 mmol/L (3.5-5.1); Sodium 138 mmol/L (136-145); Total Bilirubin 0.5 mg/dL (0.15-1.2); Total Protein 6.8 g/dL (6.6-8.7)
[2024-08-23] MEDS: sodium chloride 0.9% 250 ML 75 ML IV (09:46)
[2024-08-23] MEDS: dexamethasone 4 mg/mL INJ 5 mL 12 MG IV (09:48)
[2024-08-23] MEDS: palonosetron 0.25 mg/5 mL SDV IVP (09:56)
[2024-08-23] MEDS: atropine 1 mg/mL SDV 1 mL 0.4 MG IV (09:58)
[2024-08-23] MEDS: bevacizumab-awwb 400 MG in sodium chloride 0.9% (100 ml) 100 ML 240 MG IV (10:03)
[2024-08-23] MEDS: leucovorin 760 MG in dextrose 5% 250 ML 166.67 MG IV (11:02)
[2024-08-23] MEDS: irinotecan 200 MG, irinotecan 70 MG in dextrose 5% 250 ML 175.67 MG IV (11:03)
[2024-08-23] MEDS: fluorouraciL 3,600 MG, elastomeric pump 1 PUMP in sodium chloride 0.9% (100 ml) 20 ML IV (12:38)
[2024-08-23 12:54] VITALS: BP 144/86; PULSE 98; RESP 18; TEMP 36.6; O2SAT 96
== END 2024-08-23 23:59 | disposition home or self-care (01) ==
PROVIDERS: Internal Medicine Hematology & Oncology; Nurse Practitioner Family; PCP Registered Nurse; Visit Provider Nurse Practitioner Family
DX: Z53.9 Procedure and treatment not carried out, unspecified reason (principal); Z51.12 Encounter for antineoplastic immunotherapy; Z51.11 Encounter for antineoplastic chemotherapy; C18.7 Malignant neoplasm of sigmoid colon; C77.2 Secondary and unspecified malignant neoplasm of intra-abdominal lymph nodes; Z79.899 Other long term (current) drug therapy; Z79.52 Long term (current) use of systemic steroids; Z79.631 Long term (current) use of antimetabolite agent; Z95.828 Presence of other vascular implants and grafts; Z87.891 Personal history of nicotine dependence
CPT/HCPCS: 80053; 82378; 83615; 83735; 85025; 96367; 96368; 96375; 96413; 96415; 96416; 96417; 96523; 99214; J0461; J0640; J1100; J2469; J7050; J7060; J9190; J9206; Q5107

== ENCOUNTER 2024-09-06 12:12 | Oncology outpatient (recurring) (ONCR) | payer MEDICARE, MEDICAID, SELFPAY ==
[2024-09-06 07:57] LABS: Basophils # 0.1 10^3/uL (0.0-0.1); Basophils % 1.1 %; Eosinophils # 0.2 10^3/uL (0.0-0.8); Eosinophils % 3.4 %; Hematocrit 40.8 % (36-47); Lymphocytes # 2.2 10^3/uL (0.8-4.8); Lymphocytes % 46.8 %; Mean Corpuscular HGB Conc 31.9 g/dL (30-55); Mean Corpuscular Hemoglobin 31.6 pg (27-33); Mean Platelet Volume 9.9 fL (7.4-10.4); Monocytes # 0.6 10^3/uL (0.2-0.9); Monocytes % 13.1 %; Neutrophils # 1.64 10^3/uL (1.8-7.7); Neutrophils % 35.4 %; Nucleated Red Blood Cells % 0 %; Platelet Count 178 10^3/cmm (157-399); Red Blood Count 4.12 10^6/uL (3.85-5.65); Red Cell Distribution Width 16.4 % (12.1-15.1); White Blood Count 4.64 10^3/uL (3.29-11.43)
[2024-09-06 08:42] LABS: Carcinoembryonic Antigen 11.5 ng/mL (0.0-4.7)
[2024-09-06 08:53] LABS: Alanine Aminotransferase 15 U/L (0-33); Albumin Level 3.9 g/dL (3.5-5.2); Alkaline Phosphatase 77 U/L (35-105); Anion Gap 15.3 (5-19); Aspartate Amino Transferase 22 U/L (0-32); Blood Urea Nitrogen 8 mg/dL (8-23); Calcium 8.7 mg/dL (8.5-10.5); Carbon Dioxide 27 mmol/L (22-29); Chloride 100 mmol/L (98-107); Creatinine Clr Calc Pharmacy 57.1154; Glucose 123 mg/dL (65-115); Lactate Dehydrogenase 257 U/L (135-214); Magnesium 2.2 mg/dL (1.7-2.3); Osmolality Calculated 286 mOsm/kg (285-295); Potassium 4.3 mmol/L (3.5-5.1); Sodium 138 mmol/L (136-145); Total Bilirubin 0.7 mg/dL (0.15-1.2); Total Protein 6.9 g/dL (6.6-8.7)
--- NOTE | 2024-09-06 12:00 | CTR_ITS ---
PROCEDURE INFORMATION: Exam: CT Chest With Contrast; Diagnostic Exam date and time: 09/06/2024 12:27 PM Age: 78 years old Clinical indication: Condition or disease; Other: Colon cancer; Prior surgery; Surgery date: 6+ months; Surgery type: Hysterectomy total, port placement, colon; Patient HX: Initial colon CA dx x2 yrs ago, chemo ongoing; Additional info: Followup colon cancer TECHNIQUE: Imaging protocol: Diagnostic computed tomography of the chest with contrast. Radiation optimization: All CT scans at this facility use at least one of these dose optimization techniques: automated exposure control; mA and/or kV adjustment per patient size (includes targeted exams where dose is matched to clinical indication); or iterative reconstruction. Contrast material: OMNI 350; Contrast volume: 100 ml; Contrast route: INTRAVENOUS (IV); COMPARISON: CT chest abdpel w/*[id number] 05/03/2024 1:46 PM RADIATION DOSE METRICS: Total DLP (mGy-cm): 1023.27 FINDINGS: Lungs: Redemonstration of numerous circumscribed pulmonary nodules of varying sizes measuring up to 1.6 cm some of which have mildly increased in size and presumed metastatic in nature. Pleural spaces: Unremarkable. No pneumothorax. No pleural effusion. Heart: Heart is not significantly enlarged. No detectable coronary artery calcifications. No significant pericardial effusion. Lymph nodes: Unremarkable. No enlarged lymph nodes. Vasculature: There is a MediPort whose tip terminates just above the cavoatrial junction unchanged. Bones/joints: Moderate multilevel degenerative changes throughout the thoracic spine. No suspicious bone lesions detected. Soft tissues: Unremarkable. PROCEDURE INFORMATION: Exam: CT Abdomen And Pelvis With Contrast Exam date and time: 09/06/2024 12:27 PM Age: 78 years old Clinical indication: Condition or disease; Other: Colon cancer; Prior surgery; Surgery date: 6+ months; Surgery type: Hysterectomy total, port placement, colon; Patient HX: Initial colon CA dx x2 yrs ago, chemo ongoing; Additional info: Followup colon cancer TECHNIQUE: Imaging protocol: Computed tomography of the abdomen and pelvis with contrast. Radiation optimization: All CT scans at this facility use at least one of these dose optimization techniques: automated exposure control; mA and/or kV adjustment per patient size (includes targeted exams where dose is matched to clinical indication); or iterative reconstruction. Contrast material: OMNI 350; Contrast volume: 100 ml; Contrast route: INTRAVENOUS (IV); COMPARISON: CT chest abdpel w/*[id number] 05/03/2024 1:46 PM RADIATION DOSE METRICS: Total DLP (mGy-cm): 1023.27 FINDINGS: Lungs: Please refer to discussion of CT chest exam. Liver: Mild fatty infiltration throughout the liver. Stable small nodular area of enhancement within the right lobe likely benign and may be secondary to small hemangioma. Gallbladder and biliary ducts: Gallbladder has been removed. Bile ducts are not appreciably dilated. Pancreas: Normal. No ductal dilation. Spleen: Normal. No splenomegaly. Adrenal glands: Normal. No mass. Kidneys and ureters: Normal. No hydronephrosis. Stomach and bowel: Majority of the large bowel is then removed. There is small bowel anastomosis with the rectosigmoid that remains somewhat distended and stool-filled, unchanged.. No obstruction. No mucosal thickening. Appendix: No evidence of appendicitis. Intraperitoneal space: Unremarkable. No free air. No significant fluid collection. Vasculature: Scattered atherosclerotic changes of the abdominal aorta.. No abdominal aortic aneurysm. Lymph nodes: Unremarkable. No enlarged lymph nodes. Urinary bladder: Unremarkable as visualized. Reproductive: Unremarkable as visualized. Bones/joints: Chronic endplate compression deformity inferior endplate of L3. Moderate degenerative changes lower lumbar spine. Internally fixed intertrochanteric fracture right hip unchanged. No suspicious bone lesions detected. Soft tissues: Unremarkable. CT/CT chest [facility] w/*[id number] IMPRESSION: Diffuse pulmonary metastasis with innumerable pulmonary nodules some of which have mildly increased in size from previous examination. IMPRESSION: 1. No evidence of metastatic disease in the abdomen and pelvis. 2. Stable enhancing liver lesion right lobe presumed to represent a benign hemangioma. 3. Subtotal colectomy with stable appearance at the anastomotic site.
[2024-09-06] MEDS: iohexol 350 mg/mL 500 mL Btl (per mL) PO (12:46)
[2024-09-06] MEDS: iohexol 350 mg/mL 500 mL Btl (per mL) IV (12:46)
== END 2024-09-07 23:59 | disposition home or self-care (01) ==
LOC: ONCMED 12:12 → RAD 09-07
PROVIDERS: Internal Medicine Hematology & Oncology; PCP Registered Nurse; Visit Provider Nurse Practitioner Family
DX: C18.7 Malignant neoplasm of sigmoid colon (principal); Z53.9 Procedure and treatment not carried out, unspecified reason; C77.2 Secondary and unspecified malignant neoplasm of intra-abdominal lymph nodes; R60.0 Localized edema
CPT/HCPCS: 71260; 74177; 80053; 82378; 83615; 83735; 85025; 96523; 99214

== ENCOUNTER 2024-09-27 13:00 | Oncology outpatient (recurring) (ONCR) | payer MEDICARE, MEDICAID, SELFPAY ==
[2024-09-11 08:12] VITALS: BP 153/76; PULSE 65; RESP 17; TEMP 36.3; O2SAT 95
[2024-09-11] MEDS: sodium chloride 0.9% 250 ML 75 ML IV (08:32)
[2024-09-11] MEDS: palonosetron 0.25 mg/5 mL SDV IVP (08:35)
[2024-09-11] MEDS: dexamethasone 4 mg/mL INJ 5 mL 12 MG IV (08:45)
[2024-09-11] MEDS: bevacizumab-awwb 400 MG in sodium chloride 0.9% (100 ml) 100 ML 240 MG IV (08:52)
[2024-09-11] MEDS: atropine 1 mg/mL SDV 1 mL 0.4 MG IV (09:34)
[2024-09-11] MEDS: irinotecan 200 MG, irinotecan 70 MG in dextrose 5% 250 ML 175.67 MG IV (09:47)
[2024-09-11] MEDS: leucovorin 740 MG in dextrose 5% 250 ML 166.67 MG IV (09:47)
[2024-09-11] MEDS: fluorouraciL 3,550 MG, elastomeric pump 1 PUMP in sodium chloride 0.9% (100 ml) 21 ML IV (11:40)
[2024-09-11 11:51] VITALS: BP 189/93; PULSE 93; RESP 17; TEMP 36.2; O2SAT 99
[2024-09-14 13:18] VITALS: BP 112/68; PULSE 68; RESP 16; TEMP 36.5; O2SAT 96
[2024-09-25 08:00] LABS: Basophils % 0.5 %; Eosinophils # 0.1 10^3/uL (0.0-0.8); Eosinophils % 2.5 %; Hematocrit 39.8 % (36-47); Lymphocytes # 2.5 10^3/uL (0.8-4.8); Lymphocytes % 44.9 %; Mean Corpuscular HGB Conc 31.7 g/dL (30-55); Monocytes # 0.7 10^3/uL (0.2-0.9); Monocytes % 11.8 %; Neutrophils # 2.25 10^3/uL (1.8-7.7); Neutrophils % 40.1 %; Nucleated Red Blood Cells % 0 %; Platelet Count 168 10^3/cmm (157-399); Red Blood Count 4.06 10^6/uL (3.85-5.65); White Blood Count 5.61 10^3/uL (3.29-11.43)
[2024-09-25 08:19] LABS: Alanine Aminotransferase 14 U/L (0-33); Albumin Level 3.7 g/dL (3.5-5.2); Alkaline Phosphatase 78 U/L (35-105); Aspartate Amino Transferase 22 U/L (0-32); Blood Urea Nitrogen 12 mg/dL (8-23); Calcium 9.2 mg/dL (8.5-10.5); Carbon Dioxide 25 mmol/L (22-29); Chloride 102 mmol/L (98-107); Creatinine Clr Calc Pharmacy 57.2358; Globulin 2.8 g/dL (1.3-4.6); Glucose 111 mg/dL (65-115); Osmolality Calculated 284 mOsm/kg (285-295); Sodium 137 mmol/L (136-145); Total Bilirubin 0.5 mg/dL (0.15-1.2); Total Protein 6.5 g/dL (6.6-8.7)
[2024-09-25 08:31] LABS: Anion Gap 14.5 (5-19); Potassium 4.5 mmol/L (3.5-5.1)
[2024-09-25] MEDS: sodium chloride 0.9% 250 ML 75 ML IV (09:37)
[2024-09-25] MEDS: dexamethasone 4 mg/mL INJ 5 mL 12 MG IV (09:39)
[2024-09-25] MEDS: palonosetron 0.25 mg/5 mL SDV IVP (09:39)
[2024-09-25] MEDS: BEVACIZUMAB BVZR IV (10:11)
[2024-09-25] MEDS: SODIUM CHLORIDE 0.9% IV (10:11)
[2024-09-25] MEDS: atropine 1 mg/mL SDV 1 mL 0.4 MG IV (11:12)
[2024-09-25] MEDS: leucovorin 740 MG in dextrose 5% 250 ML 166.67 MG IV (11:19)
[2024-09-25] MEDS: irinotecan 200 MG, irinotecan 70 MG in dextrose 5% 250 ML 175.67 MG IV (11:20)
[2024-09-25] MEDS: fluorouraciL 3,550 MG, elastomeric pump 1 PUMP in sodium chloride 0.9% (100 ml) 21 ML IV (13:11)
== END 2024-10-07 23:59 | disposition home or self-care (01) ==
PROVIDERS: Internal Medicine Medical Oncology; PCP Registered Nurse; Visit Provider Nurse Practitioner Family
DX: Z45.1 Encounter for adjustment and management of infusion pump (principal); Z53.9 Procedure and treatment not carried out, unspecified reason
CPT/HCPCS: 80053; 85025; 96365; 96366; 96368; 96375; 96413; 96415; 96416; 96417; 96523; 99214; J0461; J0640; J1100; J2469; J7050; J7060; J9190; J9206; Q5107; Q5118

== ENCOUNTER 2024-10-23 09:00 | Oncology outpatient (recurring) (ONCR) | payer MEDICARE, MEDICAID, SELFPAY ==
[2024-10-09 09:30] LABS: Basophils % 0.7 %; Eosinophils # 0.2 10^3/uL (0.0-0.8); Hematocrit 39.7 % (36-47); Lymphocytes # 2.3 10^3/uL (0.8-4.8); Lymphocytes % 40.7 %; Mean Platelet Volume 9.8 fL (7.4-10.4); Monocytes # 0.7 10^3/uL (0.2-0.9); Monocytes % 12.5 %; Neutrophils # 2.42 10^3/uL (1.8-7.7); Neutrophils % 42.7 %; Nucleated Red Blood Cells % 0 %; Platelet Count 196 10^3/cmm (157-399); Red Blood Count 3.97 10^6/uL (3.85-5.65); Red Cell Distribution Width 16.4 % (12.1-15.1); White Blood Count 5.67 10^3/uL (3.29-11.43)
[2024-10-09 09:40] LABS: Alanine Aminotransferase 14 U/L (0-33); Albumin Level 3.8 g/dL (3.5-5.2); Alkaline Phosphatase 77 U/L (35-105); Aspartate Amino Transferase 21 U/L (0-32); Blood Urea Nitrogen 9 mg/dL (8-23); Calcium 9.6 mg/dL (8.5-10.5); Carbon Dioxide 28 mmol/L (22-29); Chloride 99 mmol/L (98-107); Creatinine Clr Calc Pharmacy 57.3966; Globulin 3.3 g/dL (1.3-4.6); Glucose 115 mg/dL (65-115); Osmolality Calculated 282 mOsm/kg (285-295); Sodium 136 mmol/L (136-145); Total Bilirubin 0.6 mg/dL (0.15-1.2); Total Protein 7.1 g/dL (6.6-8.7)
[2024-10-09 10:22] LABS: Carcinoembryonic Antigen 13.7 ng/mL (0.0-4.7)
[2024-10-09] MEDS: sodium chloride 0.9% 250 ML 50 ML IV (11:53)
[2024-10-09] MEDS: palonosetron 0.25 mg/5 mL SDV IVP (11:54)
[2024-10-09 12:00] LABS: Bilirubin Urine Negative (Negative); Blood Urine Negative (Negative); Glucose Urine UA Negative (Normal); Ketones Urine Negative (Negative); Leukocyte Esterase Urine 2+ (Negative); Nitrate Urine Negative (Negative); Protein Urine Negative (Negative); Specific Gravity, Urine 1.018 (1.005-1.030); Urine Appearance Clear (CLEAR); Urine Color Yellow (Yellow); Urobilinogen Urine 0.2 mg/dL (Negative)
[2024-10-09] MEDS: dexamethasone 4 mg/mL INJ 5 mL 12 MG IVP (12:01)
[2024-10-09 12:05] LABS: Bacteria Urine None Seen /hpf; Hyaline Casts Urine 1.65 /lpf; RBC Urine 0-2 /hpf (0-2); Squamous Epithelial Cell Urine 0-5 /hpf (0-5); WBC Urine 21-50 /hpf (0-5)
[2024-10-09 12:08] LABS: Add Urine Culture? Yes
[2024-10-09] MEDS: SODIUM CHLORIDE 0.9% IV (12:22)
[2024-10-09] MEDS: BEVACIZUMAB BVZR IV (12:22)
[2024-10-09] MEDS: atropine 1 mg/mL SDV 1 mL 0.4 MG IV (13:07)
[2024-10-09] MEDS: irinotecan 200 MG, irinotecan 70 MG in dextrose 5% 250 ML 175.67 MG IV (13:08)
[2024-10-09] MEDS: leucovorin 740 MG in dextrose 5% 250 ML 166.67 MG IV (13:09)
[2024-10-09 14:47] VITALS: BP 193/87; PULSE 78; RESP 17; TEMP 37.1; O2SAT 98
[2024-10-09] MEDS: fluorouraciL 3,550 MG, elastomeric pump 1 PUMP in sodium chloride 0.9% (100 ml) 21 ML IV (14:56)
[2024-10-11 13:12] VITALS: BP 163/88; PULSE 69; RESP 18; TEMP 36.8; O2SAT 98
[2024-10-23 08:46] LABS: Basophils # 0.1 10^3/uL (0.0-0.1); Eosinophils # 0.2 10^3/uL (0.0-0.8); Eosinophils % 2.8 %; Hematocrit 40.5 % (36-47); Lymphocytes # 2.5 10^3/uL (0.8-4.8); Lymphocytes % 40.5 %; Mean Corpuscular HGB Conc 31.9 g/dL (30-55); Mean Corpuscular Hemoglobin 31.2 pg (27-33); Mean Corpuscular Volume 98.1 fl (85-98); Mean Platelet Volume 9.7 fL (7.4-10.4); Monocytes # 0.7 10^3/uL (0.2-0.9); Monocytes % 11.5 %; Neutrophils # 2.69 10^3/uL (1.8-7.7); Nucleated Red Blood Cells % 0 %; Platelet Count 168 10^3/cmm (157-399); Red Blood Count 4.13 10^6/uL (3.85-5.65)
[2024-10-23 09:20] LABS: Carcinoembryonic Antigen 16.1 ng/mL (0.0-4.7)
[2024-10-23 09:32] LABS: Alanine Aminotransferase 16 U/L (0-33); Albumin Level 3.7 g/dL (3.5-5.2); Alkaline Phosphatase 82 U/L (35-105); Anion Gap 16.2 (5-19); Aspartate Amino Transferase 22 U/L (0-32); Blood Urea Nitrogen 10 mg/dL (8-23); Calcium 9.2 mg/dL (8.5-10.5); Carbon Dioxide 24 mmol/L (22-29); Chloride 102 mmol/L (98-107); Creatinine Clr Calc Pharmacy 57.0754; Globulin 3.2 g/dL (1.3-4.6); Glucose 120 mg/dL (65-115); Osmolality Calculated 286 mOsm/kg (285-295); Potassium 4.2 mmol/L (3.5-5.1); Sodium 138 mmol/L (136-145); Total Bilirubin 0.6 mg/dL (0.15-1.2); Total Protein 6.9 g/dL (6.6-8.7)
[2024-10-23] MEDS: sodium chloride 0.9% 250 ML 75 ML IV (10:44)
[2024-10-23] MEDS: palonosetron 0.25 mg/5 mL SDV IVP (10:45)
[2024-10-23] MEDS: dexamethasone 4 mg/mL INJ 5 mL 12 MG IVP (10:48)
[2024-10-23] MEDS: SODIUM CHLORIDE 0.9% IV (11:13)
[2024-10-23] MEDS: BEVACIZUMAB BVZR IV (11:13)
[2024-10-23] MEDS: atropine 1 mg/mL SDV 1 mL 0.4 MG IV (11:53)
[2024-10-23] MEDS: leucovorin 740 MG in dextrose 5% 250 ML 166.67 MG IV (12:22)
[2024-10-23] MEDS: irinotecan 200 MG, irinotecan 70 MG in dextrose 5% 250 ML 175.67 MG IV (12:22)
[2024-10-23] MEDS: fluorouraciL 3,550 MG, elastomeric pump 1 PUMP in sodium chloride 0.9% (100 ml) 21 ML IV (14:16)
[2024-10-23 14:20] VITALS: BP 183/72; PULSE 94; TEMP 36.8; O2SAT 94
== END 2024-10-23 23:59 | disposition home or self-care (01) ==
PROVIDERS: Internal Medicine Medical Oncology; PCP Registered Nurse; Visit Provider Nurse Practitioner Family
DX: Z51.11 Encounter for antineoplastic chemotherapy (principal); Z53.9 Procedure and treatment not carried out, unspecified reason; Z51.12 Encounter for antineoplastic immunotherapy; C77.2 Secondary and unspecified malignant neoplasm of intra-abdominal lymph nodes; C18.7 Malignant neoplasm of sigmoid colon; Z79.899 Other long term (current) drug therapy; Z79.52 Long term (current) use of systemic steroids; Z95.828 Presence of other vascular implants and grafts; I10 Essential (primary) hypertension
CPT/HCPCS: 80053; 81001; 82378; 85025; 87086; 96368; 96375; 96413; 96415; 96416; 96417; 96523; 99214; J0461; J0640; J1100; J2469; J7050; J7060; J9190; J9206; Q5118

== ENCOUNTER 2024-11-06 09:00 | Oncology outpatient (recurring) (ONCR) | payer MEDICARE, MEDICAID, SELFPAY ==
[2024-11-06 10:56] LABS: Basophils % 0.7 %; Eosinophils # 0.1 10^3/uL (0.0-0.8); Eosinophils % 2.1 %; Hematocrit 40.5 % (36-47); Lymphocytes # 2.1 10^3/uL (0.8-4.8); Lymphocytes % 39.9 %; Mean Corpuscular HGB Conc 32.3 g/dL (30-55); Mean Platelet Volume 9.6 fL (7.4-10.4); Monocytes # 0.6 10^3/uL (0.2-0.9); Monocytes % 10.8 %; Neutrophils # 2.47 10^3/uL (1.8-7.7); Neutrophils % 46.1 %; Nucleated Red Blood Cells % 0 %; Platelet Count 166 10^3/cmm (157-399); Red Blood Count 4.09 10^6/uL (3.85-5.65); Red Cell Distribution Width 16.1 % (12.1-15.1); White Blood Count 5.36 10^3/uL (3.29-11.43)
[2024-11-06 11:22] LABS: Carcinoembryonic Antigen 16.3 ng/mL (0.0-4.7)
[2024-11-06 11:34] LABS: Alanine Aminotransferase 17 U/L (0-33); Albumin Level 3.8 g/dL (3.5-5.2); Alkaline Phosphatase 83 U/L (35-105); Aspartate Amino Transferase 24 U/L (0-32); Blood Urea Nitrogen 8 mg/dL (8-23); Calcium 9.1 mg/dL (8.5-10.5); Carbon Dioxide 26 mmol/L (22-29); Chloride 98 mmol/L (98-107); Globulin 2.9 g/dL (1.3-4.6); Glucose 112 mg/dL (65-115); Osmolality Calculated 287 mOsm/kg (285-295); Sodium 139 mmol/L (136-145); Total Bilirubin 0.6 mg/dL (0.15-1.2); Total Protein 6.7 g/dL (6.6-8.7)
[2024-11-06] MEDS: sodium chloride 0.9% 250 ML 75 ML IV (12:35)
[2024-11-06] MEDS: dexamethasone 4 mg/mL INJ 5 mL 12 MG IVP (12:39)
[2024-11-06] MEDS: atropine 1 mg/mL SDV 1 mL 0.4 MG IV (12:41)
[2024-11-06] MEDS: palonosetron 0.25 mg/5 mL SDV IVP (12:42)
[2024-11-06] MEDS: SODIUM CHLORIDE 0.9% IV (13:02)
[2024-11-06] MEDS: BEVACIZUMAB BVZR IV (13:02)
[2024-11-06] MEDS: irinotecan 200 MG, irinotecan 70 MG in dextrose 5% 250 ML 175.67 MG IV (13:53)
[2024-11-06] MEDS: leucovorin 740 MG in dextrose 5% 250 ML 166.67 MG IV (13:53)
[2024-11-06] MEDS: fluorouraciL 3,550 MG, elastomeric pump 1 PUMP in sodium chloride 0.9% (100 ml) 21 ML IV (16:04)
[2024-11-06 16:09] VITALS: BP 189/105; PULSE 87; O2SAT 97
[2024-11-06] MEDS: amlodipine 5 mg Tablet PO (16:25)
== END 2024-11-07 23:59 | disposition home or self-care (01) ==
PROVIDERS: Internal Medicine Medical Oncology; PCP Registered Nurse; Visit Provider Nurse Practitioner Family
DX: C77.2 Secondary and unspecified malignant neoplasm of intra-abdominal lymph nodes; Z45.1 Encounter for adjustment and management of infusion pump; Z51.11 Encounter for antineoplastic chemotherapy; C18.7 Malignant neoplasm of sigmoid colon; Z79.899 Other long term (current) drug therapy; Z79.52 Long term (current) use of systemic steroids; Z53.9 Procedure and treatment not carried out, unspecified reason
CPT/HCPCS: 80053; 82378; 85025; 96368; 96375; 96413; 96415; 96416; 96417; 96523; 99214; J0461; J0640; J1100; J2469; J7050; J7060; J9190; J9206; Q5118

== ENCOUNTER 2024-12-07 12:15 | Oncology outpatient (recurring) (ONCR) | payer MEDICARE, SELFPAY ==
--- NOTE | 2024-11-09 13:30 | CT_ITS ---
WS: [id number] CT CHEST, ABDOMEN AND PELVIS WITH CONTRAST HISTORY: Follow-up colon cancer. TECHNIQUE: Contiguous 5 mm axial imaging performed through the chest, abdomen and pelvis with IV cont rast, oral contrast has been provided. Coronal and sagittal reformats chest. Coronal and sagittal ref ormats through the abdomen and pelvis. All CT scans at [facility] use at least one of these d ose optimization techniques: automated exposure control; mA and/or kV adjustment per patient size (in cludes targeted exams where dose is matched to clinical indication); or iterative reconstruction. CONTRAST: Omnipaque 350; 100 mL IV. DLP: 1020.38 mGy.cm COMPARISON: 09/06/2024, 05/03/2024, PET/CT 09/14/[address]: Innumerable pulmonary nodules are scattered throughout both lungs. These nodules have been described on prior exams consistent with metastatic disease. Majority of the nodules are stable in si ze. Few of the nodules do appear more prominent and there are few additional new pulmonary nodules. N odules range in size from a few millimeters to 15 mm. No mediastinal or hilar adenopathy. No axillary adenopathy. Heart is slightly enlarged. No pericardial or pleural effusions. Abdomen CT: No metastatic lesions in the liver. Stable enhancing hyperdense nodule in the RIGHT lobe thought to be hemangioma. Normal spleen. Prior cholecystectomy. No adrenal mass. Diffuse atrophy of t he pancreas. No renal obstruction. There are a few too small to characterize cortical hypodensities. Mild atherosclerosis thoracic aorta. Very minimal narrowing of the proximal celiac axis. Subtotal colectomy. No recurrent mass is identified at the anastomosis. No obstruction. Mildly patulo us appearance of the colon at the anastomosis is stable. No ascites or adenopathy. Pelvic CT: No free fluid or adenopathy. Negative urinary bladder. Osteopenia involving the bones of the spine and pelvis. Prior ORIF RIGHT hip. No osteoblastic or oste olytic bone disease. CT/CT chest abdpel w/*[id number] IMPRESSION: 1. Innumerable pulmonary nodules ranging in size from a few millimeters to 15 mm. Although subtle there has been a slight increase in size and number of some of the nodules. Majority of the nodules are stable. 2. No mediastinal or hilar lymphadenopathy. 3. Stable subtotal colectomy and anastomosis. 4. No ascites. 5. No metastatic disease to the liver or adrenal glands.
[2024-11-09] MEDS: iohexol 350 mg/mL 500 mL Btl (per mL) PO (14:18)
[2024-11-09] MEDS: iohexol 350 mg/mL 500 mL Btl (per mL) IV (14:18)
[2024-11-20 09:01] LABS: Basophils % 0.7 %; Eosinophils # 0.2 10^3/uL (0.0-0.8); Eosinophils % 2.8 %; Hematocrit 41.6 % (36-47); Lymphocytes # 2.5 10^3/uL (0.8-4.8); Lymphocytes % 41.9 %; Mean Corpuscular HGB Conc 31.7 g/dL (30-55); Mean Corpuscular Hemoglobin 32.3 pg (27-33); Mean Corpuscular Volume 101.7 fl (85-98); Monocytes # 0.7 10^3/uL (0.2-0.9); Monocytes % 11.5 %; Neutrophils # 2.58 10^3/uL (1.8-7.7); Neutrophils % 42.8 %; Nucleated Red Blood Cells % 0 %; Platelet Count 168 10^3/cmm (157-399); Red Blood Count 4.09 10^6/uL (3.85-5.65); White Blood Count 6.02 10^3/uL (3.29-11.43)
[2024-11-20 09:35] LABS: Alanine Aminotransferase 15 U/L (0-33); Albumin Level 3.8 g/dL (3.5-5.2); Alkaline Phosphatase 81 U/L (35-105); Anion Gap 17.3 (5-19); Aspartate Amino Transferase 21 U/L (0-32); Blood Urea Nitrogen 9 mg/dL (8-23); Calcium 9.1 mg/dL (8.5-10.5); Carbon Dioxide 23 mmol/L (22-29); Chloride 102 mmol/L (98-107); Creatinine Clr Calc Pharmacy 55.8082; Globulin 2.7 g/dL (1.3-4.6); Glucose 115 mg/dL (65-115); Osmolality Calculated 286 mOsm/kg (285-295); Potassium 4.3 mmol/L (3.5-5.1); Sodium 138 mmol/L (136-145); Total Bilirubin 0.5 mg/dL (0.15-1.2); Total Protein 6.5 g/dL (6.6-8.7)
[2024-11-20] MEDS: sodium chloride 0.9% 250 ML 75 ML IV (12:03)
[2024-11-20] MEDS: palonosetron 0.25 mg/5 mL SDV IVP (12:04)
[2024-11-20] MEDS: dexamethasone 4 mg/mL INJ 5 mL 12 MG IVP (12:06)
[2024-11-20] MEDS: atropine 1 mg/mL SDV 1 mL 0.4 MG IV (12:13)
[2024-11-20] MEDS: leucovorin 740 MG in dextrose 5% 250 ML 166.67 MG IV (12:32)
[2024-11-20] MEDS: irinotecan 200 MG, irinotecan 70 MG in dextrose 5% 250 ML 175.67 MG IV (12:32)
[2024-11-20] MEDS: fluorouraciL 3,550 MG, elastomeric pump 1 PUMP in sodium chloride 0.9% (100 ml) 21 ML IV (14:07)
[2024-11-20 14:12] VITALS: BP 188/89; PULSE 92; TEMP 36.6; O2SAT 99
[2024-12-05 08:51] LABS: Basophils % 0.6 %; Eosinophils # 0.2 10^3/uL (0.0-0.8); Eosinophils % 3.4 %; Hematocrit 39.8 % (36-47); Lymphocytes # 2.1 10^3/uL (0.8-4.8); Mean Corpuscular HGB Conc 32.4 g/dL (30-55); Mean Corpuscular Hemoglobin 32.3 pg (27-33); Mean Corpuscular Volume 99.5 fl (85-98); Mean Platelet Volume 9.6 fL (7.4-10.4); Monocytes # 0.6 10^3/uL (0.2-0.9); Monocytes % 12.1 %; Neutrophils # 2.32 10^3/uL (1.8-7.7); Neutrophils % 43.7 %; Nucleated Red Blood Cells % 0 %; Platelet Count 155 10^3/cmm (157-399); Red Cell Distribution Width 15.4 % (12.1-15.1)
[2024-12-05 09:19] LABS: Carcinoembryonic Antigen 15.2 ng/mL (0.0-4.7)
[2024-12-05 09:30] LABS: Alanine Aminotransferase 15 U/L (0-33); Albumin Level 3.8 g/dL (3.5-5.2); Alkaline Phosphatase 82 U/L (35-105); Anion Gap 18.3 (5-19); Aspartate Amino Transferase 20 U/L (0-32); Blood Urea Nitrogen 10 mg/dL (8-23); Calcium 9.1 mg/dL (8.5-10.5); Carbon Dioxide 25 mmol/L (22-29); Chloride 98 mmol/L (98-107); Creatinine Clr Calc Pharmacy 320.5654; Globulin 2.8 g/dL (1.3-4.6); Glucose 114 mg/dL (65-115); Osmolality Calculated 284 mOsm/kg (285-295); Potassium 4.3 mmol/L (3.5-5.1); Sodium 137 mmol/L (136-145); Total Bilirubin 0.5 mg/dL (0.15-1.2); Total Protein 6.6 g/dL (6.6-8.7)
[2024-12-05] MEDS: sodium chloride 0.9% 250 ML 75 ML IV (09:51)
[2024-12-05] MEDS: dexamethasone 4 mg/mL INJ 5 mL 12 MG IVP (09:52)
[2024-12-05] MEDS: palonosetron 0.25 mg/5 mL SDV IVP (09:52)
[2024-12-05] MEDS: SODIUM CHLORIDE 0.9% IV (10:32)
[2024-12-05] MEDS: BEVACIZUMAB BVZR IV (10:32)
[2024-12-05] MEDS: atropine 1 mg/mL SDV 1 mL 0.4 MG IV (11:40)
[2024-12-05] MEDS: irinotecan 200 MG, irinotecan 70 MG in dextrose 5% 250 ML 175.67 MG IV (11:42)
[2024-12-05] MEDS: leucovorin 740 MG in dextrose 5% 250 ML 166.67 MG IV (11:42)
[2024-12-05] MEDS: fluorouraciL 3,600 MG, elastomeric pump 1 PUMP in sodium chloride 0.9% (100 ml) 20 ML IV (13:36)
[2024-12-05 13:40] VITALS: BP 185/84; PULSE 84; RESP 17; TEMP 36.6; O2SAT 98
== END 2024-12-08 23:59 | disposition home or self-care (01) ==
PROVIDERS: PCP Registered Nurse; Visit Provider Internal Medicine Medical Oncology
DX: Z53.9 Procedure and treatment not carried out, unspecified reason (principal); Z45.1 Encounter for adjustment and management of infusion pump
CPT/HCPCS: 71260; 74177; 80053; 82378; 85025; 96368; 96375; 96413; 96415; 96416; 96417; 96523; 99214; J0461; J0640; J1100; J2469; J7050; J7060; J9190; J9206; Q5118

== ENCOUNTER 2025-01-04 13:30 | Oncology outpatient (recurring) (ONCR) | payer MEDICARE, MEDICAID, SELFPAY ==
[2024-12-19 08:16] LABS: Basophils % 0.7 %; Eosinophils # 0.2 10^3/uL (0.0-0.8); Eosinophils % 3.1 %; Hematocrit 41.7 % (36-47); Lymphocytes # 2.6 10^3/uL (0.8-4.8); Lymphocytes % 43.4 %; Mean Corpuscular HGB Conc 31.7 g/dL (30-55); Mean Corpuscular Hemoglobin 31.8 pg (27-33); Mean Corpuscular Volume 100.5 fl (85-98); Monocytes # 0.8 10^3/uL (0.2-0.9); Monocytes % 12.3 %; Neutrophils # 2.45 10^3/uL (1.8-7.7); Neutrophils % 40.3 %; Nucleated Red Blood Cells % 0 %; Platelet Count 171 10^3/cmm (157-399); Red Blood Count 4.15 10^6/uL (3.85-5.65); Red Cell Distribution Width 15.3 % (12.1-15.1); White Blood Count 6.08 10^3/uL (3.29-11.43)
[2024-12-19 08:44] LABS: Carcinoembryonic Antigen 20.6 ng/mL (0.0-4.7)
[2024-12-19 08:55] LABS: Alanine Aminotransferase 15 U/L (0-33); Albumin Level 3.8 g/dL (3.5-5.2); Alkaline Phosphatase 82 U/L (35-105); Anion Gap 19.2 (5-19); Aspartate Amino Transferase 18 U/L (0-32); Blood Urea Nitrogen 14 mg/dL (8-23); Calcium 9.4 mg/dL (8.5-10.5); Carbon Dioxide 24 mmol/L (22-29); Chloride 98 mmol/L (98-107); Glucose 116 mg/dL (65-115); Osmolality Calculated 285 mOsm/kg (285-295); Potassium 4.2 mmol/L (3.5-5.1); Sodium 137 mmol/L (136-145); Total Bilirubin 0.5 mg/dL (0.15-1.2); Total Protein 6.8 g/dL (6.6-8.7)
[2024-12-19] MEDS: sodium chloride 0.9% 250 ML 75 ML IV (10:19)
[2024-12-19] MEDS: palonosetron 0.25 mg/5 mL SDV IVP (10:21)
[2024-12-19] MEDS: dexamethasone 4 mg/mL INJ 5 mL 12 MG IVP (10:23)
[2024-12-19] MEDS: SODIUM CHLORIDE 0.9% IV (10:44)
[2024-12-19] MEDS: BEVACIZUMAB BVZR IV (10:44)
[2024-12-19] MEDS: atropine 1 mg/mL SDV 1 mL 0.4 MG IV (11:42)
[2024-12-19] MEDS: leucovorin 740 MG in dextrose 5% 250 ML 166.67 MG IV (11:52)
[2024-12-19] MEDS: irinotecan 200 MG, irinotecan 70 MG in dextrose 5% 250 ML 175.67 MG IV (11:52)
[2024-12-19] MEDS: fluorouraciL 3,600 MG, elastomeric pump 1 PUMP in sodium chloride 0.9% (100 ml) 20 ML IV (13:59)
[2024-12-19 14:16] VITALS: BP 191/81; PULSE 95; RESP 17; TEMP 35.9; O2SAT 96
[2024-12-21 12:48] VITALS: BP 163/77; PULSE 73; RESP 17; TEMP 36.3
[2025-01-02 08:24] LABS: Basophils % 0.7 %; Eosinophils # 0.2 10^3/uL (0.0-0.8); Hematocrit 40.4 % (36-47); Lymphocytes # 2.4 10^3/uL (0.8-4.8); Lymphocytes % 43.9 %; Mean Corpuscular HGB Conc 31.9 g/dL (30-55); Mean Corpuscular Hemoglobin 31.6 pg (27-33); Mean Platelet Volume 9.7 fL (7.4-10.4); Monocytes # 0.7 10^3/uL (0.2-0.9); Monocytes % 12.3 %; Neutrophils # 2.15 10^3/uL (1.8-7.7); Neutrophils % 39.9 %; Nucleated Red Blood Cells % 0 %; Platelet Count 165 10^3/cmm (157-399); Red Blood Count 4.08 10^6/uL (3.85-5.65); Red Cell Distribution Width 15.4 % (12.1-15.1); White Blood Count 5.38 10^3/uL (3.29-11.43)
[2025-01-02 08:57] LABS: Alanine Aminotransferase 17 U/L (0-33); Albumin Level 3.8 g/dL (3.5-5.2); Alkaline Phosphatase 82 U/L (35-105); Anion Gap 17.2 (5-19); Aspartate Amino Transferase 20 U/L (0-32); Blood Urea Nitrogen 9 mg/dL (8-23); Calcium 9.1 mg/dL (8.5-10.5); Carbon Dioxide 24 mmol/L (22-29); Chloride 101 mmol/L (98-107); Creatinine Clr Calc Pharmacy 56.5981; Glucose 115 mg/dL (65-115); Osmolality Calculated 286 mOsm/kg (285-295); Potassium 4.2 mmol/L (3.5-5.1); Sodium 138 mmol/L (136-145); Total Bilirubin 0.5 mg/dL (0.15-1.2); Total Protein 6.8 g/dL (6.6-8.7)
[2025-01-02] MEDS: sodium chloride 0.9% 250 ML 75 ML IV (10:32)
[2025-01-02] MEDS: palonosetron 0.25 mg/5 mL SDV IVP (10:34)
[2025-01-02] MEDS: dexamethasone 4 mg/mL INJ 5 mL 12 MG IVP (10:37)
[2025-01-02] MEDS: SODIUM CHLORIDE 0.9% IV (10:41)
[2025-01-02] MEDS: BEVACIZUMAB BVZR IV (10:41)
[2025-01-02] MEDS: atropine 1 mg/mL SDV 1 mL 0.4 MG IV (11:43)
[2025-01-02] MEDS: leucovorin 740 MG in dextrose 5% 250 ML 166.67 MG IV (12:10)
[2025-01-02] MEDS: irinotecan 200 MG, irinotecan 70 MG in dextrose 5% 250 ML 175.67 MG IV (12:10)
[2025-01-02] MEDS: fluorouraciL 3,600 MG, elastomeric pump 1 PUMP in sodium chloride 0.9% (100 ml) 20 ML IV (13:45)
[2025-01-02 13:49] VITALS: BP 186/79; PULSE 90; TEMP 36.7
== END 2025-01-04 23:59 | disposition home or self-care (01) ==
PROVIDERS: Nurse Practitioner Family; PCP Registered Nurse; Visit Provider Internal Medicine Medical Oncology
DX: Z53.9 Procedure and treatment not carried out, unspecified reason; Z45.1 Encounter for adjustment and management of infusion pump
CPT/HCPCS: 80053; 82378; 85025; 96365; 96366; 96367; 96368; 96375; 96413; 96415; 96416; 96417; 96523; 99214; J0461; J0640; J1100; J2469; J7050; J7060; J9190; J9206; Q5118

== ENCOUNTER 2025-02-01 13:00 | Oncology outpatient (recurring) (ONCR) | payer MEDICARE, MEDICAID, SELFPAY ==
[2025-01-16 08:32] LABS: Basophils % 0.7 %; Eosinophils # 0.2 10^3/uL (0.0-0.8); Eosinophils % 4.1 %; Hematocrit 39.7 % (36-47); Lymphocytes # 2.3 10^3/uL (0.8-4.8); Lymphocytes % 42.8 %; Mean Corpuscular HGB Conc 32.2 g/dL (30-55); Mean Corpuscular Hemoglobin 32.7 pg (27-33); Mean Corpuscular Volume 101.5 fl (85-98); Mean Platelet Volume 9.6 fL (7.4-10.4); Monocytes # 0.7 10^3/uL (0.2-0.9); Monocytes % 12.3 %; Neutrophils # 2.11 10^3/uL (1.8-7.7); Neutrophils % 39.5 %; Nucleated Red Blood Cells % 0 %; Platelet Count 176 10^3/cmm (157-399); Red Blood Count 3.91 10^6/uL (3.85-5.65); Red Cell Distribution Width 15.8 % (12.1-15.1); White Blood Count 5.35 10^3/uL (3.29-11.43)
[2025-01-16 09:07] LABS: Carcinoembryonic Antigen 25.5 ng/mL (0.0-4.7)
[2025-01-16 09:19] LABS: Alanine Aminotransferase 17 U/L (0-33); Albumin Level 3.6 g/dL (3.5-5.2); Alkaline Phosphatase 78 U/L (35-105); Aspartate Amino Transferase 19 U/L (0-32); Blood Urea Nitrogen 11 mg/dL (8-23); Calcium 9.1 mg/dL (8.5-10.5); Carbon Dioxide 24 mmol/L (22-29); Chloride 104 mmol/L (98-107); Globulin 3.1 g/dL (1.3-4.6); Glucose 110 mg/dL (65-115); Osmolality Calculated 290 mOsm/kg (285-295); Sodium 140 mmol/L (136-145); Total Bilirubin 0.4 mg/dL (0.15-1.2); Total Protein 6.7 g/dL (6.6-8.7)
[2025-01-16] MEDS: sodium chloride 0.9% 250 ML 75 ML IV (10:24)
[2025-01-16] MEDS: SODIUM CHLORIDE 0.9% IV (10:25)
[2025-01-16] MEDS: BEVACIZUMAB BVZR IV (10:25)
[2025-01-16] MEDS: dextrose 5% 250 ML 75 ML IV (10:47)
[2025-01-16] MEDS: dexamethasone 4 mg/mL INJ 5 mL 12 MG IVP (10:49)
[2025-01-16] MEDS: palonosetron 0.25 mg/5 mL SDV IVP (10:51)
[2025-01-16] MEDS: atropine 1 mg/mL SDV 1 mL 0.4 MG IV (11:32)
[2025-01-16] MEDS: irinotecan 200 MG, irinotecan 70 MG in dextrose 5% 250 ML 175.67 MG IV (11:33)
[2025-01-16] MEDS: leucovorin 740 MG in dextrose 5% 250 ML 166.67 MG IV (11:34)
[2025-01-16] MEDS: fluorouraciL 3,600 MG, elastomeric pump 1 PUMP in sodium chloride 0.9% (100 ml) 20 ML IV (13:25)
[2025-01-16 13:38] VITALS: BP 185/81; PULSE 100; RESP 18; TEMP 36.9; O2SAT 95
[2025-01-30 08:25] LABS: Basophils # 0.1 10^3/uL (0.0-0.1); Basophils % 0.9 %; Eosinophils # 0.2 10^3/uL (0.0-0.8); Eosinophils % 3.4 %; Hematocrit 40.2 % (36-47); Lymphocytes # 2.2 10^3/uL (0.8-4.8); Lymphocytes % 41.9 %; Mean Corpuscular HGB Conc 31.8 g/dL (30-55); Mean Corpuscular Hemoglobin 32.2 pg (27-33); Mean Corpuscular Volume 101.3 fl (85-98); Mean Platelet Volume 10.3 fL (7.4-10.4); Monocytes # 0.7 10^3/uL (0.2-0.9); Monocytes % 13.3 %; Neutrophils # 2.15 10^3/uL (1.8-7.7); Neutrophils % 40.1 %; Nucleated Red Blood Cells % 0 %; Platelet Count 178 10^3/cmm (157-399); Red Blood Count 3.97 10^6/uL (3.85-5.65); White Blood Count 5.35 10^3/uL (3.29-11.43)
[2025-01-30 08:53] LABS: Carcinoembryonic Antigen 26.5 ng/mL (0.0-4.7)
[2025-01-30 09:04] LABS: Alanine Aminotransferase 19 U/L (0-33); Albumin Level 3.8 g/dL (3.5-5.2); Alkaline Phosphatase 81 U/L (35-105); Anion Gap 16.4 (5-19); Aspartate Amino Transferase 21 U/L (0-32); Blood Urea Nitrogen 15 mg/dL (8-23); Calcium 9.1 mg/dL (8.5-10.5); Carbon Dioxide 24 mmol/L (22-29); Chloride 101 mmol/L (98-107); Glucose 114 mg/dL (65-115); Osmolality Calculated 286 mOsm/kg (285-295); Potassium 4.4 mmol/L (3.5-5.1); Sodium 137 mmol/L (136-145); Total Bilirubin 0.5 mg/dL (0.15-1.2); Total Protein 6.8 g/dL (6.6-8.7)
[2025-01-30] MEDS: sodium chloride 0.9% 250 ML 75 ML IV (09:53)
[2025-01-30] MEDS: dexamethasone 4 mg/mL INJ 5 mL 12 MG IVP (09:54)
[2025-01-30] MEDS: palonosetron 0.25 mg/5 mL SDV IVP (09:55)
[2025-01-30] MEDS: BEVACIZUMAB BVZR IV (10:39)
[2025-01-30] MEDS: SODIUM CHLORIDE 0.9% IV (10:39)
[2025-01-30] MEDS: atropine 1 mg/mL SDV 1 mL 0.4 MG IV (11:25)
[2025-01-30] MEDS: leucovorin 740 MG in dextrose 5% 250 ML 166.67 MG IV (11:30)
[2025-01-30] MEDS: irinotecan 200 MG, irinotecan 70 MG in dextrose 5% 250 ML 175.67 MG IV (11:31)
[2025-01-30] MEDS: fluorouraciL 3,600 MG, elastomeric pump 1 PUMP in sodium chloride 0.9% (100 ml) 20 ML IV (13:14)
[2025-01-30 13:25] VITALS: BP 168/94; PULSE 99; RESP 17; TEMP 36.9; O2SAT 96
== END 2025-02-05 23:59 | disposition home or self-care (01) ==
PROVIDERS: Nurse Practitioner Family; PCP Registered Nurse; Visit Provider Internal Medicine Medical Oncology
DX: Z53.9 Procedure and treatment not carried out, unspecified reason; Z45.2 Encounter for adjustment and management of vascular access device
CPT/HCPCS: 80053; 82378; 85025; 96375; 96413; 96415; 96416; 96417; 96523; 99214; J0461; J0640; J1100; J2469; J7050; J7060; J9190; J9206; Q5118

== ENCOUNTER 2025-02-27 08:15 | Oncology outpatient (recurring) (ONCR) | payer MEDICARE, SELFPAY ==
[2025-02-06] MEDS: iohexol 350 mg/mL 500 mL Btl (per mL) PO (11:29)
--- NOTE | 2025-02-06 12:00 | CTR_ITS ---
PROCEDURE INFORMATION: Exam: CT Chest With Contrast; Diagnostic Exam date and time: 02/06/2025 12:11 PM Age: 79 years old Clinical indication: Condition or disease; Other: Colon cancer; Prior surgery; Surgery date: 6+ months; Surgery type: Colon, hyst, gb, appy, port; Additional info: Malignant neoplasm of sigmoid colon TECHNIQUE: Imaging protocol: Diagnostic computed tomography of the chest with contrast. Radiation optimization: All CT scans at this facility use at least one of these dose optimization techniques: automated exposure control; mA and/or kV adjustment per patient size (includes targeted exams where dose is matched to clinical indication); or iterative reconstruction. Contrast material: OMNI 350; Contrast volume: 100 ml; Contrast route: INTRAVENOUS (IV); COMPARISON: CT chest abdpel w/*[id number] 11/09/2024 2:10 PM RADIATION DOSE METRICS: Total DLP (mGy-cm): 1080.89 FINDINGS: Tubes, catheters and devices: Buck catheter in the right chest wall again seen terminating in the superior vena cava. Lungs: There are innumerable pulmonary nodules again noted without appreciable interval change consistent with metastatic disease. A right lower lobe 1.7 x 1.4 cm nodule is stable. Pleural spaces: Unremarkable. No pneumothorax. No pleural effusion. Heart: Unremarkable. No cardiomegaly. No pericardial effusion. Lymph nodes: Unremarkable. No enlarged lymph nodes. Vasculature: Unremarkable. No aortic aneurysm. Bones/joints: Unremarkable. No acute fracture. Soft tissues: Unremarkable. PROCEDURE INFORMATION: Exam: CT Abdomen And Pelvis With Contrast Exam date and time: 02/06/2025 12:11 PM Age: 79 years old Clinical indication: Condition or disease; Other: Colon cancer; Prior surgery; Surgery date: 6+ months; Surgery type: Colon, hyst, gb, appy, port; Additional info: Malignant neoplasm of sigmoid colon TECHNIQUE: Imaging protocol: Computed tomography of the abdomen and pelvis with contrast. Radiation optimization: All CT scans at this facility use at least one of these dose optimization techniques: automated exposure control; mA and/or kV adjustment per patient size (includes targeted exams where dose is matched to clinical indication); or iterative reconstruction. Contrast material: OMNI 350; Contrast volume: 100 ml; Contrast route: INTRAVENOUS (IV); COMPARISON: CT chest abdpel w/*[id number] 11/09/2024 2:10 PM RADIATION DOSE METRICS: Total DLP (mGy-cm): 1080.89 FINDINGS: Diaphragm: Small hiatal hernia. Liver: The liver is diffusely low in density consistent with fatty infiltration. Stable hypervascular lesion in the right hepatic lobe posteriorly measures 0.8 cm. Gallbladder and biliary ducts: Status post cholecystectomy. Pancreas: Normal. No ductal dilation. Spleen: Normal. No splenomegaly. Adrenal glands: Normal. No mass. Kidneys and ureters: Normal. No hydronephrosis. Stomach and bowel: Postsurgical changes of the sigmoid colon with partial colonic resection, again noted. Appendix: No evidence of appendicitis. Intraperitoneal space: Unremarkable. No free air. No significant fluid collection. Vasculature: Unremarkable. No abdominal aortic aneurysm. Lymph nodes: Unremarkable. No enlarged lymph nodes. Urinary bladder: Unremarkable as visualized. Reproductive: Status post hysterectomy. Bones/joints: Partially visualized hardware in the proximal right femur. Invagination of the inferior endplate of L3 without change. Soft tissues: Unremarkable. CT/CT chest abdpel w/*[id number] IMPRESSION: Innumerable pulmonary nodules or metastases without appreciable change. IMPRESSION: 1. Diffuse hepatic steatosis with stable hypervascular lesion. 2. Small hiatal hernia. 3. Postsurgical changes of the colon.
[2025-02-06] MEDS: iohexol 350 mg/mL 500 mL Btl (per mL) IV (12:13)
[2025-02-13 08:16] LABS: Basophils # 0.1 10^3/uL (0.0-0.1); Basophils % 1.3 %; Eosinophils # 0.2 10^3/uL (0.0-0.8); Eosinophils % 3.4 %; Hematocrit 40.8 % (36-47); Lymphocytes # 2.5 10^3/uL (0.8-4.8); Lymphocytes % 44.7 %; Mean Corpuscular HGB Conc 31.6 g/dL (30-55); Mean Corpuscular Hemoglobin 31.9 pg (27-33); Mean Corpuscular Volume 100.7 fl (85-98); Monocytes # 0.7 10^3/uL (0.2-0.9); Monocytes % 11.8 %; Neutrophils # 2.13 10^3/uL (1.8-7.7); Neutrophils % 38.4 %; Nucleated Red Blood Cells % 0 %; Platelet Count 165 10^3/cmm (157-399); Red Blood Count 4.05 10^6/uL (3.85-5.65); Red Cell Distribution Width 15.6 % (12.1-15.1); White Blood Count 5.53 10^3/uL (3.29-11.43)
[2025-02-13 08:51] LABS: Carcinoembryonic Antigen 30.2 ng/mL (0.0-4.7)
[2025-02-13 09:02] LABS: Alanine Aminotransferase 18 U/L (0-33); Albumin Level 3.8 g/dL (3.5-5.2); Alkaline Phosphatase 79 U/L (35-105); Anion Gap 16.2 (5-19); Aspartate Amino Transferase 20 U/L (0-32); Blood Urea Nitrogen 11 mg/dL (8-23); Carbon Dioxide 25 mmol/L (22-29); Chloride 102 mmol/L (98-107); Globulin 2.9 g/dL (1.3-4.6); Glucose 112 mg/dL (65-115); Osmolality Calculated 288 mOsm/kg (285-295); Potassium 4.2 mmol/L (3.5-5.1); Sodium 139 mmol/L (136-145); Total Bilirubin 0.5 mg/dL (0.15-1.2); Total Protein 6.7 g/dL (6.6-8.7)
[2025-02-13] MEDS: sodium chloride 0.9% 250 ML 75 ML IV (10:03)
[2025-02-13] MEDS: dexamethasone 4 mg/mL INJ 5 mL 12 MG IVP (10:04)
[2025-02-13] MEDS: palonosetron 0.25 mg/5 mL SDV IVP (10:04)
[2025-02-13] MEDS: SODIUM CHLORIDE 0.9% IV (10:13)
[2025-02-13] MEDS: BEVACIZUMAB BVZR IV (10:13)
[2025-02-13] MEDS: atropine 1 mg/mL SDV 1 mL 0.4 MG IV (11:05)
[2025-02-13] MEDS: irinotecan 200 MG, irinotecan 70 MG in dextrose 5% 250 ML 175.67 MG IV (11:14)
[2025-02-13] MEDS: leucovorin 740 MG in dextrose 5% 250 ML 216 MG IV (11:15)
[2025-02-13] MEDS: fluorouraciL 3,600 MG, elastomeric pump 1 PUMP in sodium chloride 0.9% (100 ml) 20 ML IV (12:58)
[2025-02-13 13:00] VITALS: BP 143/78; PULSE 74; RESP 18; TEMP 36.6; O2SAT 98
[2025-02-27 08:10] LABS: Basophils # 0.1 10^3/uL (0.0-0.1); Basophils % 0.9 %; Eosinophils # 0.2 10^3/uL (0.0-0.8); Eosinophils % 4.1 %; Hematocrit 40.7 % (36-47); Lymphocytes # 2.3 10^3/uL (0.8-4.8); Lymphocytes % 40.1 %; Mean Corpuscular HGB Conc 31.7 g/dL (30-55); Mean Platelet Volume 9.5 fL (7.4-10.4); Monocytes # 0.7 10^3/uL (0.2-0.9); Neutrophils # 2.41 10^3/uL (1.8-7.7); Neutrophils % 42.5 %; Nucleated Red Blood Cells % 0 %; Platelet Count 165 10^3/cmm (157-399); Red Blood Count 4.03 10^6/uL (3.85-5.65); Red Cell Distribution Width 15.9 % (12.1-15.1); White Blood Count 5.66 10^3/uL (3.29-11.43)
[2025-02-27 08:37] LABS: Carcinoembryonic Antigen 30.3 ng/mL (0.0-4.7)
[2025-02-27 08:48] LABS: Alanine Aminotransferase 17 U/L (0-33); Albumin Level 3.9 g/dL (3.5-5.2); Alkaline Phosphatase 80 U/L (35-105); Anion Gap 17.5 (5-19); Aspartate Amino Transferase 19 U/L (0-32); Blood Urea Nitrogen 10 mg/dL (8-23); Calcium 9.1 mg/dL (8.5-10.5); Carbon Dioxide 25 mmol/L (22-29); Chloride 104 mmol/L (98-107); Glucose 108 mg/dL (65-115); Osmolality Calculated 294 mOsm/kg (285-295); Potassium 4.5 mmol/L (3.5-5.1); Sodium 142 mmol/L (136-145); Total Bilirubin 0.5 mg/dL (0.15-1.2); Total Protein 6.9 g/dL (6.6-8.7)
[2025-02-27] MEDS: dextrose 5% 250 ML 75 ML IV (10:37)
[2025-02-27] MEDS: palonosetron 0.25 mg/5 mL SDV IVP (10:40)
[2025-02-27] MEDS: dexamethasone 4 mg/mL INJ 5 mL 12 MG IVP (10:42)
[2025-02-27] MEDS: sodium chloride 0.9% 250 ML 75 ML IV (11:03)
[2025-02-27] MEDS: BEVACIZUMAB BVZR IV (11:10)
[2025-02-27] MEDS: SODIUM CHLORIDE 0.9% IV (11:10)
[2025-02-27] MEDS: atropine 1 mg/mL SDV 1 mL 0.4 MG IV (11:50)
[2025-02-27] MEDS: leucovorin 740 MG in dextrose 5% 250 ML 166.67 MG IV (12:01)
[2025-02-27] MEDS: irinotecan 200 MG, irinotecan 70 MG in dextrose 5% 250 ML 175.67 MG IV (12:01)
[2025-02-27] MEDS: fluorouraciL 3,600 MG, elastomeric pump 1 PUMP in sodium chloride 0.9% (100 ml) 20 ML IV (13:55)
[2025-02-27 14:15] VITALS: BP 165/89; PULSE 73; RESP 17; TEMP 35.8; O2SAT 97
== END 2025-02-27 23:59 | disposition home or self-care (01) ==
PROVIDERS: Nurse Practitioner Family; PCP Registered Nurse; Visit Provider Internal Medicine Medical Oncology
DX: Z53.9 Procedure and treatment not carried out, unspecified reason; Z51.11 Encounter for antineoplastic chemotherapy; C18.7 Malignant neoplasm of sigmoid colon; C77.2 Secondary and unspecified malignant neoplasm of intra-abdominal lymph nodes; I10 Essential (primary) hypertension; D70.1 Agranulocytosis secondary to cancer chemotherapy; T45.1X5A Adverse effect of antineoplastic and immunosuppressive drugs, initial encounter; Z79.52 Long term (current) use of systemic steroids; Z79.631 Long term (current) use of antimetabolite agent; Z79.899 Other long term (current) drug therapy
CPT/HCPCS: 71260; 74177; 80053; 82378; 85025; 96368; 96375; 96411; 96413; 96415; 96416; 96417; 96523; 99214; J0461; J0640; J1100; J2469; J7050; J7060; J9190; J9206; Q5118

== ENCOUNTER 2025-03-01 12:50 | Oncology outpatient (recurring) (ONCR) | payer MEDICARE, SELFPAY | END 2025-03-07 23:59 | disposition home or self-care (01) | LOC: ONCMED 12:50 | PROVIDERS: PCP Registered Nurse; Visit Provider Internal Medicine Medical Oncology | DX: Z45.1 Encounter for adjustment and management of infusion pump (principal) | CPT/HCPCS: 96523 ==

== ENCOUNTER 2025-03-27 08:30 | Oncology outpatient (recurring) (ONCR) | payer MEDICARE, SELFPAY ==
[2025-03-13 08:31] LABS: Basophils # 0.1 10^3/uL (0.0-0.1); Basophils % 0.8 %; Eosinophils # 0.3 10^3/uL (0.0-0.8); Eosinophils % 3.8 %; Hematocrit 41.9 % (36-47); Lymphocytes # 3.4 10^3/uL (0.8-4.8); Mean Corpuscular HGB Conc 32.2 g/dL (30-55); Mean Corpuscular Hemoglobin 32.7 pg (27-33); Mean Corpuscular Volume 101.5 fl (85-98); Monocytes # 0.9 10^3/uL (0.2-0.9); Monocytes % 11.4 %; Neutrophils # 2.88 10^3/uL (1.8-7.7); Neutrophils % 38.7 %; Nucleated Red Blood Cells % 0 %; Platelet Count 190 10^3/cmm (157-399); Red Blood Count 4.13 10^6/uL (3.85-5.65); Red Cell Distribution Width 15.6 % (12.1-15.1); White Blood Count 7.44 10^3/uL (3.29-11.43)
[2025-03-13 09:02] LABS: Carcinoembryonic Antigen 30.7 ng/mL (0.0-4.7)
[2025-03-13 09:13] LABS: Alanine Aminotransferase 17 U/L (0-33); Albumin Level 3.7 g/dL (3.5-5.2); Alkaline Phosphatase 81 U/L (35-105); Anion Gap 18.3 (5-19); Aspartate Amino Transferase 19 U/L (0-32); Blood Urea Nitrogen 13 mg/dL (8-23); Calcium 9.2 mg/dL (8.5-10.5); Carbon Dioxide 24 mmol/L (22-29); Chloride 98 mmol/L (98-107); Creatinine Clr Calc Pharmacy 57.0717; Globulin 3.2 g/dL (1.3-4.6); Glucose 131 mg/dL (65-115); Osmolality Calculated 284 mOsm/kg (285-295); Potassium 4.3 mmol/L (3.5-5.1); Sodium 136 mmol/L (136-145); Total Bilirubin 0.7 mg/dL (0.15-1.2); Total Protein 6.9 g/dL (6.6-8.7)
[2025-03-13] MEDS: sodium chloride 0.9% 250 ML 75 ML IV (10:16)
[2025-03-13] MEDS: palonosetron 0.25 mg/5 mL SDV IVP (10:18)
[2025-03-13] MEDS: dexamethasone 4 mg/mL INJ 5 mL 12 MG IVP (10:24)
[2025-03-13] MEDS: SODIUM CHLORIDE 0.9% IV (10:48)
[2025-03-13] MEDS: BEVACIZUMAB BVZR IV (10:48)
[2025-03-13] MEDS: atropine 1 mg/mL SDV 1 mL 0.4 MG IV (11:34)
[2025-03-13] MEDS: irinotecan 200 MG, irinotecan 70 MG in dextrose 5% 250 ML 175.67 MG IV (11:47)
[2025-03-13] MEDS: leucovorin 760 MG in dextrose 5% 250 ML 166.67 MG IV (11:47)
[2025-03-13] MEDS: fluorouraciL 3,600 MG, elastomeric pump 1 PUMP in sodium chloride 0.9% (100 ml) 20 ML IV (13:44)
[2025-03-13 13:52] VITALS: BP 161/83; PULSE 78; RESP 17; TEMP 36.2; O2SAT 95
[2025-03-27 08:43] LABS: Basophils % 0.7 %; Eosinophils # 0.2 10^3/uL (0.0-0.8); Eosinophils % 3.4 %; Hematocrit 39.4 % (36-47); Lymphocytes # 2.1 10^3/uL (0.8-4.8); Lymphocytes % 36.8 %; Mean Corpuscular HGB Conc 32.5 g/dL (30-55); Mean Corpuscular Hemoglobin 32.8 pg (27-33); Mean Platelet Volume 9.5 fL (7.4-10.4); Monocytes # 0.7 10^3/uL (0.2-0.9); Neutrophils # 2.65 10^3/uL (1.8-7.7); Neutrophils % 46.9 %; Nucleated Red Blood Cells % 0 %; Platelet Count 171 10^3/cmm (157-399); Red Cell Distribution Width 15.7 % (12.1-15.1); White Blood Count 5.65 10^3/uL (3.29-11.43)
[2025-03-27 09:11] LABS: Carcinoembryonic Antigen 30.2 ng/mL (0.0-4.7)
[2025-03-27 09:21] LABS: Anion Gap 14.8 (5-19); Blood Urea Nitrogen 9 mg/dL (8-23); Carbon Dioxide 27 mmol/L (22-29); Chloride 101 mmol/L (98-107); Potassium 3.8 mmol/L (3.5-5.1); Sodium 139 mmol/L (136-145)
[2025-03-27 09:22] LABS: Alanine Aminotransferase 16 U/L (0-33); Albumin Level 3.5 g/dL (3.5-5.2); Alkaline Phosphatase 77 U/L (35-105); Aspartate Amino Transferase 19 U/L (0-32); Calcium 8.9 mg/dL (8.5-10.5); Creatinine Clr Calc Pharmacy 57.0717; Globulin 2.9 g/dL (1.3-4.6); Glucose 110 mg/dL (65-115); Osmolality Calculated 287 mOsm/kg (285-295); Total Bilirubin 0.6 mg/dL (0.15-1.2); Total Protein 6.4 g/dL (6.6-8.7)
[2025-03-27] MEDS: sodium chloride 0.9% 250 ML 75 ML IV (10:46)
[2025-03-27] MEDS: dexamethasone 4 mg/mL INJ 5 mL 12 MG IVP (10:48)
[2025-03-27] MEDS: palonosetron 0.25 mg/5 mL SDV IVP (10:49)
[2025-03-27] MEDS: SODIUM CHLORIDE 0.9% IV (11:11)
[2025-03-27] MEDS: BEVACIZUMAB BVZR IV (11:11)
[2025-03-27] MEDS: atropine 1 mg/mL SDV 1 mL 0.4 MG IV (12:02)
[2025-03-27] MEDS: leucovorin 760 MG in dextrose 5% 250 ML 166.67 MG IV (12:08)
[2025-03-27] MEDS: irinotecan 200 MG, irinotecan 70 MG in dextrose 5% 250 ML 175.67 MG IV (12:08)
[2025-03-27] MEDS: fluorouraciL 3,600 MG, elastomeric pump 1 PUMP in sodium chloride 0.9% (100 ml) 20 ML IV (13:48)
[2025-03-27 13:58] VITALS: BP 170/100; PULSE 72; RESP 18; TEMP 36.3; O2SAT 96
== END 2025-03-27 23:59 | disposition home or self-care (01) ==
PROVIDERS: PCP Registered Nurse; Visit Provider Internal Medicine Medical Oncology
DX: Z53.9 Procedure and treatment not carried out, unspecified reason; Z51.11 Encounter for antineoplastic chemotherapy; C18.7 Malignant neoplasm of sigmoid colon; C77.2 Secondary and unspecified malignant neoplasm of intra-abdominal lymph nodes; R03.0 Elevated blood-pressure reading, without diagnosis of hypertension; D70.1 Agranulocytosis secondary to cancer chemotherapy; T45.1X5A Adverse effect of antineoplastic and immunosuppressive drugs, initial encounter; Z79.631 Long term (current) use of antimetabolite agent; Z79.52 Long term (current) use of systemic steroids
CPT/HCPCS: 36415; 80053; 82378; 85025; 96368; 96374; 96375; 96413; 96415; 96416; 96417; 96523; 99214; J0461; J0640; J1100; J2469; J7050; J7060; J9190; J9206; Q5118

== ENCOUNTER 2025-03-29 12:56 | Oncology outpatient (recurring) (ONCR) | payer MEDICARE, SELFPAY | END 2025-04-07 23:59 | disposition home or self-care (01) | PROVIDERS: PCP Registered Nurse; Visit Provider Internal Medicine Medical Oncology | DX: Z53.9 Procedure and treatment not carried out, unspecified reason (principal); Z45.1 Encounter for adjustment and management of infusion pump; Z51.11 Encounter for antineoplastic chemotherapy; C77.2 Secondary and unspecified malignant neoplasm of intra-abdominal lymph nodes; C18.7 Malignant neoplasm of sigmoid colon; R03.0 Elevated blood-pressure reading, without diagnosis of hypertension; I10 Essential (primary) hypertension; D07.1 Carcinoma in situ of vulva; T45.1X5A Adverse effect of antineoplastic and immunosuppressive drugs, initial encounter; Z79.631 Long term (current) use of antimetabolite agent | CPT/HCPCS: 96523 ==

== ENCOUNTER 2025-04-12 13:15 | Oncology outpatient (recurring) (ONCR) | payer MEDICARE, SELFPAY ==
[2025-04-10 08:51] LABS: Basophils % 0.7 %; Eosinophils # 0.1 10^3/uL (0.0-0.8); Eosinophils % 2.3 %; Lymphocytes # 2.4 10^3/uL (0.8-4.8); Lymphocytes % 42.1 %; Mean Corpuscular HGB Conc 31.8 g/dL (30-55); Mean Corpuscular Hemoglobin 32.2 pg (27-33); Mean Corpuscular Volume 101.3 fl (85-98); Mean Platelet Volume 9.6 fL (7.4-10.4); Monocytes # 0.8 10^3/uL (0.2-0.9); Monocytes % 13.3 %; Neutrophils # 2.34 10^3/uL (1.8-7.7); Neutrophils % 41.1 %; Nucleated Red Blood Cells % 0 %; Platelet Count 178 10^3/cmm (157-399); Red Blood Count 3.95 10^6/uL (3.85-5.65); Red Cell Distribution Width 15.7 % (12.1-15.1)
[2025-04-10 09:18] LABS: Carcinoembryonic Antigen 30.6 ng/mL (0.0-4.7)
[2025-04-10 09:29] LABS: Alanine Aminotransferase 16 U/L (0-33); Albumin Level 3.6 g/dL (3.5-5.2); Alkaline Phosphatase 77 U/L (35-105); Anion Gap 16.2 (5-19); Aspartate Amino Transferase 19 U/L (0-32); Blood Urea Nitrogen 14 mg/dL (8-23); Calcium 9.3 mg/dL (8.5-10.5); Carbon Dioxide 27 mmol/L (22-29); Chloride 99 mmol/L (98-107); Globulin 3.2 g/dL (1.3-4.6); Glucose 123 mg/dL (65-115); Osmolality Calculated 288 mOsm/kg (285-295); Potassium 4.2 mmol/L (3.5-5.1); Sodium 138 mmol/L (136-145); Total Bilirubin 0.6 mg/dL (0.15-1.2); Total Protein 6.8 g/dL (6.6-8.7)
[2025-04-10] MEDS: sodium chloride 0.9% 250 ML 75 ML IV (09:49)
[2025-04-10] MEDS: dexamethasone 4 mg/mL INJ 5 mL 12 MG IVP (09:50)
[2025-04-10] MEDS: palonosetron 0.25 mg/5 mL SDV IVP (09:51)
[2025-04-10] MEDS: BEVACIZUMAB BVZR IV (10:02)
[2025-04-10] MEDS: SODIUM CHLORIDE 0.9% IV (10:02)
[2025-04-10] MEDS: atropine 1 mg/mL SDV 1 mL 0.4 MG IV (10:53)
[2025-04-10] MEDS: leucovorin 760 MG in dextrose 5% 250 ML 166.67 MG IV (11:08)
[2025-04-10] MEDS: irinotecan 200 MG, irinotecan 70 MG in dextrose 5% 250 ML 175.67 MG IV (11:09)
[2025-04-10] MEDS: fluorouraciL 3,650 MG, elastomeric pump 1 PUMP in sodium chloride 0.9% (100 ml) 19 ML IV (13:01)
== END 2025-05-07 23:59 | disposition home or self-care (01) ==
PROVIDERS: Nurse Practitioner Family; PCP Registered Nurse; Visit Provider Internal Medicine
DX: Z53.9 Procedure and treatment not carried out, unspecified reason; Z45.1 Encounter for adjustment and management of infusion pump
CPT/HCPCS: 80053; 82378; 85025; 96368; 96375; 96413; 96415; 96416; 96417; 96523; 99213; J0461; J0640; J1100; J2469; J7050; J7060; J9190; J9206; Q5118

== ENCOUNTER 2025-04-25 17:26 | Emergency (ER) | payer MEDICARE, SELFPAY ==
[2025-04-25 17:29] VITALS: BP 116/67; PULSE 85; RESP 16; TEMP 37.1; O2SAT 92
[2025-04-25 17:32] VITALS: BP 114/55; PULSE 72; RESP 18; O2SAT 98
--- NOTE | 2025-04-25 17:37 | XRR_ITS ---
PROCEDURE INFORMATION: Exam: XR Chest Exam date and time: 04/25/2025 6:21 PM Age: 79 years old Clinical indication: Other: Weakness TECHNIQUE: Imaging protocol: Radiologic exam of the chest. Views: 1 view. COMPARISON: CT chest abdpel w/*[id number] 11/11/2024 12:11 demonstrating innumerable pulmonary nodules or metastases. FINDINGS: Tubes, catheters and devices: Support device: A right central line/reservoir appears to be present with its distal tip ending in the azygos SVC level. Lungs: Trace vaguely defined nodular densities are seen over both chest areas. Increased densities are seen in the bibasilar and right central regions. degree on the left Clothing artifacts overlie areas of the chest. No consolidation. Pleural spaces: Unremarkable. No pleural effusion. No pneumothorax. Heart/Mediastinum: Unremarkable. No cardiomegaly. Bones/joints: Degenerative changes of the thoracic spine with slight convexity being directed to the right are noted. XR/XR chest 1V portable [id number] IMPRESSION: 1. Multiple vague pulmonary nodules/metastases not well visualized on this portable study and best appreciated on the earlier CT study from 02/06/2025. 2. Mild bibasilar areas of infiltrate/atelectasis. 3. Trace right central infiltrate.
--- NOTE | 2025-04-25 18:12 | CTR_ITS ---
PROCEDURE INFORMATION: Exam: CT Head Without Contrast Exam date and time: 04/25/2025 7:21 PM Age: 79 years old Clinical indication: Injury or trauma; Fall; Blunt trauma (contusions or hematomas); Without loss of consciousness; Additional info: Multiple falls TECHNIQUE: Imaging protocol: Computed tomography of the head without contrast. Radiation optimization: All CT scans at this facility use at least one of these dose optimization techniques: automated exposure control; mA and/or kV adjustment per patient size (includes targeted exams where dose is matched to clinical indication); or iterative reconstruction. COMPARISON: PT PET skull to thigh SUBS [id number] 05/18/2023 13:37 RADIATION DOSE METRICS: Total DLP (mGy-cm): 1131.68 FINDINGS: Brain: Mild to moderate patchy periventricular and deep white matter decreased density seen in both cerebral hemispheres. The midline is intact.Beam hardening artifact obscures resolution through the posterior fossa structures.. No hemorrhage. No mass effect. Vertebrobasilar dolichoectasia is noted with marked atherosclerotic calcifications of the visualized distal left vertebral artery extending to and involving the proximal aspect basilar artery. Atherosclerotic calcifications are also seen in the right supraclinoid ICA. Cerebral ventricles: Ventricles demonstrate normal size shape and configuration and are felt to be in proportion to the degree of widening of the sulci, sylvian fissures and basilar cisterns. Paranasal sinuses: Areas of mucosal thickening are noted almost completely opacifying the bilateral ethmoid sinus air cells. Mucosal thickening is also seen about the right maxillary sinus and portions of the sphenoid sinuses. Partially visualized at the edge of the field of view is a calcification within the right maxillary sinus which indicates a chronic component question fungal.. Air-fluid levels are seen in the right frontal right maxillary and sphenoid sinus air cells. Mastoid air cells: Visualized mastoid air cells are well aerated. Bones: Mild hyperostosis frontalis interna is noted and in the range of normal. No acute fracture. Orbital floors appear to be grossly intact as best seen in the edge of the [id number] on the coronal images. Soft tissues: Unremarkable. CT/CT head wo con* [id number] IMPRESSION: 1. No acute intracranial head CT findings identified. 2. Atrophy/involutional changes of aging with components of chronic small-vessel disease. 3. Marked atherosclerotic calcifications particularly involving vertebrobasilar system. 4. Sinusitis with both acute and chronic components, as described above.
--- NOTE | 2025-04-25 18:13 | W.ED.FALL ---
HPI - Fall General: Chief Complaint: Fall Stated Complaint: Fall Time Seen by Provider: 04/25/25 17:33 History of Present Illness: 79-year-old female with a history of hypertension who presents to the emergency room after multiple falls at home. Patient says she tripped and fell and landed on her bottom on the carpet. She has no pain complaints. She did not hit her head. No loss of consciousness. Family is concerned that she has been more confused and off balance recently. They had taken a clinic earlier today where they had her medications adjusted. Then they brought her to the emergency room. She says she did not want to be here but they want her to be evaluated. She does have some congestion and cough the family says and she has been exposed to RSV recently. Related Data Previous Rx's ?Medication ?Instructions ?Recorded amlodipine 10 mg tablet 10 mg PO DAILY HTN #90 tabs 04/25/25 azithromycin 250 mg tablet See Rx Instructions PO .COMPLEX #6 04/25/25 (Zithromax Z-Joel) tabs cephalexin 500 mg tablet 500 mg PO TID 7 days #21 tabs 04/25/25 furosemide 20 mg tablet 20 mg PO DAILY PRN edema #90 tabs 04/25/25 gabapentin 300 mg capsule 300 mg PO BID #60 caps 04/25/25 lisinopril 40 mg tablet See Rx Instructions .Route 04/25/25 .COMPLEX #90 tabs potassium chloride 10 mEq 10 meq PO DAILY PRN edema 90 days 04/25/25 capsule,extended release #90 caps Allergies Allergy/AdvReac Type Severity Reaction Status Date / Time No Known Allergies Allergy Verified 04/25/25 08:26 Review of Systems Narrative: Constitutional symptoms: Negative except as documented in HPI. Skin symptoms: Negative except as documented in HPI. Eye symptoms: Negative except as documented in HPI. ENMT symptoms: Negative except as documented in HPI. Respiratory symptoms: Negative except as documented in HPI. Cardiovascular symptoms: Negative except as documented in HPI. Gastrointestinal symptoms: Negative except as documented in HPI. Genitourinary symptoms: Negative except as documented in HPI. Musculoskeletal symptoms: Negative except as documented in HPI. Neurologic symptoms: Negative except as documented in HPI. Psychiatric symptoms: Negative except as documented in HPI. Endocrine symptoms: Negative except as documented in HPI. PFS ED PFSH: Medical History Colon cancer Essential hypertension Surgical History S/P ORIF (open reduction internal fixation) fracture (05/14/23) ORIF for traumatic right hip fracture History of hysterectomy History of Mohs micrographic surgery for skin cancer Port-A-Cath in place History of exploratory laparotomy (11/23/21) Total abdominal colectomy, resection of aortocaval lymph nodes, omentectomy, cholecystectomy, distal small bowel resection, and ileorectal anastomosis Family History Other CAD (coronary artery disease) Cancer Hypertension Stroke Denies family history of Diabetes Clotting disorder Dementia Hyperlipidemia Psychiatric illness Chronic kidney disease (CKD) Suicide Anesthesia complication Bleeding disorder Lung disease Social History Smoking and tobacco/nicotine status: never used tobacco/nicotine Quit status (tobacco/nicotine): has quit using Year quit tobacco: 1962 Former quit date comment: smoked only a couple of months Alcohol intake: never Substance/Drug Use: never Adopted: No Caregiver/support person: No Do you think of yourself as: Straight/Heterosexual Current gender identity: Female Physical Exam Narrative: EXAM NARRATIVE: General: Alert, no acute distress. Skin: Warm, dry. Head: Normocephalic, atraumatic. Neck: Supple, trachea midline. Eye: Extraocular movements are intact. Ears, nose, mouth and throat: mucosa moist. Cardiovascular: Regular, Normal peripheral perfusion. Respiratory: Lungs are clear to auscultation, respirations are non-labored, breath sounds are equal, Symmetrical chest wall expansion. Gastrointestinal: Soft, Nontender, Non distended Musculoskeletal: Normal ROM, no deformity. Neurological: Alert and oriented, No focal neurological deficit observed. Psychiatric: Cooperative, appropriate mood & affect. Course Vital Signs: Vital signs: Vital Signs Temperature 98.7 F 04/25/25 17:29 Pulse Rate 73 04/25/25 21:00 Respiratory Rate 18 04/25/25 17:32 Blood Pressure 117/61 04/25/25 21:00 Pulse Oximetry 93 04/25/25 21:00 Oxygen Delivery Me thod Room Air 04/25/25 21:00 MDM - Fall Medical Decision Making Medical decision making: Differential diagnosis for patient presenting with generalized weakness including but not limited to and based on the above HPI, review of systems and physical exam: Sepsis. Dehydration. Renal failure. Electrolyte abnormalities. Anemia. Congestive heart failure. Hypotension. Coronary syndrome. Hepatitis. Cirrhosis. Infections such as pneumonia, urinary tract infection, Tick bourne illness, Cellulitis, Viral infections including influenza and Covid-19. Workup: labwork and lab/exam driven imaging ordered to evaluate, rule in and rule out above pathologies. EKG: Time 1818. Rate 69. Normal sinus rhythm, No ST-T changes, PVCs, normal NC & QRS intervals, This was reviewed and interpreted by myself the ER physician at 1822 Lab Review: Laboratory results were reviewed and interpreted by myself the emergency room physician. No leukocytosis. No anemia. No renal failure. Patient is positive for RSV and does have a urinary tract infection. Chest x-ray: Multiple vague pulmonary nodules that were seen on a previous CT. Mild bibasilar infiltrate versus atelectasis. Could be RSV pneumonitis versus a secondary pneumonia so treating urinary tract infection with Rocephin and possible pneumonia with azithromycin. I reviewed the patient's medical record. Reexamination: Patient remained stable. No increased work of breathing. No altered mental status. No focal motor deficits. Assessment and plan: Urinary tract infection RSV Multiple falls ? IV Rocephin and azithromycin. - Discharged home - Discussed plan with patient. Answered any questions. - Evaluation and treatment of this problem were appropriate in the emergency setting. Lab Data 04/25/25 18:06 04/25/25 18:06 Radiology Impressions Chest X-Ray 04/25/25 17:37 IMPRESSION: 1. Multiple vague pulmonary nodules/metastases not well visualized on this portable study and best appreciated on the earlier CT study from 02/06/2025. 2. Mild bibasilar areas of infiltrate/atelectasis. 3. Trace right central infiltrate. Head CT 04/25/25 18:12 IMPRESSION: 1. No acute intracranial head CT findings identified. 2. Atrophy/involutional changes of aging with components of chronic small-vessel disease. 3. Marked atherosclerotic calcifications particularly involving vertebrobasilar system. 4. Sinusitis with both acute and chronic components, as described above. Laboratory Results WBC 5.39 10^3/uL (3.29-11.43) 04/25/25 18:06 RBC 4.09 10^6/uL (3.85-5.65) 04/25/25 18:06 Hgb 12.80 g/dL (11.27-16.99) 04/25/25 18:06 Hct 40.6 % (36-47) 04/25/25 18:06 MCV 99.3 fl (85-98) H 04/25/25 18:06 MCH 31.3 pg (27-33) 04/25/25 18:06 MCHC 31.5 g/dL (30-55) 04/25/25 18:06 RDW 15.8 % (12.1-15.1) H 04/25/25 18:06 Plt Count 184 10^3/cmm (157-399) 04/25/25 18:06 MPV 10.2 fL (7.4-10.4) 04/25/25 18:06 Neut % (Auto) 49.8 % 04/25/25 18:06 Lymph % (Auto) 29.7 % 04/25/25 18:06 [place] % (Auto) 18.4 % 04/25/25 18:06 Eos % (Auto) 0.9 % 04/25/25 18:06 Baso % (Auto) 0.6 % 04/25/25 18:06 Neut # (Auto) 2.69 10^3/uL (1.8-7.7) 04/25/25 18:06 Lymph # (Auto) 1.6 10^3/uL (0.8-4.8) 04/25/25 18:06 [place] # (Auto) 1.0 10^3/uL (0.2-0.9) H 04/25/25 18:06 Eos # (Auto) 0.1 10^3/uL (0.0-0.8) 04/25/25 18:06 Baso # (Auto) 0.0 10^3/uL (0.0-0.1) 04/25/25 18:06 Nucleated RBC % (auto) 0 % 04/25/25 18:06 Nucleated RBCs # 0.0 /100WBC 04/25/25 18:06 Sodium 130 mmol/L (136-145) L 04/25/25 18:06 Potassium 3.4 mmol/L (3.5-5.1) L 04/25/25 18:06 Chloride 90 mmol/L (98-107) L 04/25/25 18:06 Carbon Dioxide 25 mmol/L (22-29) 04/25/25 18:06 Anion Gap 18.4 (5-19) 04/25/25 18:06 BUN 16 mg/dL (8-23) 04/25/25 18:06 Creatinine 0.9 mg/dL (0.5-0.9) 04/25/25 18:06 GFR Calculation Not Reportable 04/25/25 18:06 Glucose 133 mg/dL (65-115) H 04/25/25 18:06 Calculated Osmolality 273 mOsm/kg (285-295) L 04/25/25 18:06 Lactic Acid 1.5 mmol/L (0.5-2.2) 04/25/25 18:06 Calcium 8.7 mg/dL (8.5-10.5) 04/25/25 18:06 Total Bilirubin 1.0 mg/dL (0.15-1.2) 04/25/25 18:06 AST 31 U/L (0-32) 04/25/25 18:06 ALT 18 U/L (0-33) 04/25/25 18:06 Alkaline Phosphatase 79 U/L (35-105) 04/25/25 18:06 Total Protein 6.7 g/dL (6.6-8.7) 04/25/25 18:06 Albumin 3.4 g/dL (3.5-5.2) L 04/25/25 18:06 Globulin 3.3 g/dL (1.3-4.6) 04/25/25 18:06 Urine Color Dark yellow (Yellow) A 04/25/25: Urine Appearance Cloudy (CLEAR) A 04/25/25: Urine pH 6.0 (5-7) 04/25/25: Ur Specific [place] 1.013 (1.005-1.030) 04/25/25: Urine Protein 1+ (Negative) A 04/25/25: Urine Glucose (UA) Negative (Normal) 04/25/25: Urine Ketones Trace (Negative) 06/18/25 21:44 Urine Blood Negative (Negative) 04/25/25 21:44 Urine Nitrate Negative (Negative) 04/25/25 21:44 Urine Bilirubin Negative (Negative) 04/25/25 21:44 Urine Urobilinogen 1.0 mg/dL (Negative) 04/25/25 21:44 Ur Leukocyte Esterase 2+ (Negative) A 04/25/25 21:44 Urine RBC 0-2 /hpf (0-2) 04/25/25 21:44 Urine WBC 21-50 /hpf (0-5) H 04/25/25 21:44 Ur Squamous Epith Cells 11-20 /hpf (0-5) H 04/25/25 21:44 Amorphous Sediment Not Reportable 04/25/25 21:44 Urine Bacteria Trace /hpf (NONE) 04/25/25 21:44 Hyaline Casts 12.81 /lpf 04/25/25 21:44 Influenza A (PCR) Negative (Negative) 04/25/25 18:18 Influenza Type B (PCR) Negative (Negative) 04/25/25 18:18 RSV (PCR) Positive (Negative) A 04/25/25 18:18 SARS-CoV-2 (PCR) Negative (Negative) 04/25/25 18:18 All radiology interpretation(s) finalized by discharge Discharge Plan Discharge Patient Disposition: Home Clinical Impression: RSV bronchiolitis, Urinary tract infection, Multiple falls Condition: Stable Prescriptions: New cephalexin 500 mg tablet 500 mg PO TID 7 Days Qty: 21 0RF azithromycin [Zithromax Z-Joel] 250 mg tablet See Rx Instructions .ROUTE .COMPLEX Qty: 6 0RF Rx Instructions: For 250 mg dose pack: take 500 mg today (day 1), then 250 mg for 4 days (days 2-5) No Action lisinopril 40 mg tablet See Rx Instructions .ROUTE .COMPLEX Qty: 90 3RF Dose Instruction: Take 1 tablet by mouth once daily for 90 days Rx Instructions: Take 1 tablet by mouth once daily for 90 days furosemide 20 mg tablet 20 mg PO DAILY PRN (Reason: edema) Qty: 90 1RF Rx Instructions: take one tab daily in AM for edema 1 or 2 x per week amlodipine 10 mg tablet 10 mg PO DAILY Qty: 90 3RF Rx Instructions: Take 1 tab daily in the evening for high blood pressure. gabapentin 300 mg capsule 300 mg PO BID Qty: 60 3RF potassium chloride 10 mEq capsule, extended release 10 meq PO DAILY PRN (Reason: edema) 90 Days Qty: 90 1RF Rx Instructions: take on days you take furosemide Discharge Orders: Discharge ED (Routine); Ordered 04/25/25 Ordered By: Martha Muñoz Referrals: Crystal Vergara FNP [Primary Care Provider, [facility]] Discharge Diet: Usual diet Discharge Activity: Increase activity as tolerated Patient Instructions: Fall Prevention for Older Adults (ED), Urinary Tract Infection in Older Adults (ED), Opioid Safety, Pain Management Activity Restrictions/Additional Instructions: Thank you for choosing [facility] for your healthcare needs today. You have been screened and evaluated and felt safe for discharge. Health conditions do change or evolve sometimes and as such it is important that you follow up with your Primary Doctor to be re checked, 3-5 days is a general good time frame for follow up. You are always welcome to return to the ED for re assessment if your symptoms are worsening or you have new concerns Print Language: Zimbabwean Coding Level of Care Code ED Detective Supervisor for Todd Markham
--- NOTE | 2025-04-25 18:18 | ECG_ITS ---
[facility] Test Date: 2025-04-25 Pat Name: Beryl Cespedes Department: Room: Gender: Female Customer Contact Specialist: : 1945 Requested By: Martha Castañeda Order Number: [id number] Leslie MD: Ayanna Franco M.D. Measurements Intervals [place] Rate: 69 P: 34 ID: [id number] QRS: -30 QRSD: 90 T: 19 QT: 395 QTc: 425 Interpretive Statements SINUS RHYTHM WITH OCCASIONAL SUPRAVENTRICULAR PREMATURE COMPLEXES BORDERLINE LEFT AXIS DEVIATION [QRS AXIS < -20] No previous ECG available for comparison Electronically Signed On 04-26-2025 05:59:49 CDT by Ayanna Franco M.D. [email or web address]
[2025-04-25 18:38] LABS: Basophils % 0.6 %; Eosinophils # 0.1 10^3/uL (0.0-0.8); Eosinophils % 0.9 %; Hematocrit 40.6 % (36-47); Lymphocytes # 1.6 10^3/uL (0.8-4.8); Lymphocytes % 29.7 %; Mean Corpuscular HGB Conc 31.5 g/dL (30-55); Mean Corpuscular Hemoglobin 31.3 pg (27-33); Mean Corpuscular Volume 99.3 fl (85-98); Mean Platelet Volume 10.2 fL (7.4-10.4); Monocytes % 18.4 %; Neutrophils # 2.69 10^3/uL (1.8-7.7); Neutrophils % 49.8 %; Nucleated Red Blood Cells % 0 %; Platelet Count 184 10^3/cmm (157-399); Red Blood Count 4.09 10^6/uL (3.85-5.65); Red Cell Distribution Width 15.8 % (12.1-15.1); White Blood Count 5.39 10^3/uL (3.29-11.43)
[2025-04-25 18:55] LABS: Slide Review Slide Review Perform
[2025-04-25 18:58] LABS: Alanine Aminotransferase 18 U/L (0-33); Albumin Level 3.4 g/dL (3.5-5.2); Alkaline Phosphatase 79 U/L (35-105); Anion Gap 18.4 (5-19); Aspartate Amino Transferase 31 U/L (0-32); Blood Urea Nitrogen 16 mg/dL (8-23); Calcium 8.7 mg/dL (8.5-10.5); Carbon Dioxide 25 mmol/L (22-29); Chloride 90 mmol/L (98-107); Creatinine Clr Calc Pharmacy 49.9732; Globulin 3.3 g/dL (1.3-4.6); Glucose 133 mg/dL (65-115); Osmolality Calculated 273 mOsm/kg (285-295); Potassium 3.4 mmol/L (3.5-5.1); Sodium 130 mmol/L (136-145); Total Protein 6.7 g/dL (6.6-8.7)
[2025-04-25 18:59] LABS: Lactic Sepsis W/Reflex 1.5 mmol/L (0.5-2.2)
[2025-04-25 19:51] LABS: Influenza A NEGATIVE (Negative); Influenza B NEGATIVE (Negative); SARS-CoV-2 PCR NEGATIVE (Negative)
[2025-04-25 20:34] LABS: Respiratory Syncytial Virus Ce POSITIVE (Negative)
[2025-04-25 21:00] VITALS: BP 117/61; PULSE 73; O2SAT 93
[2025-04-25] MEDS: AZITHROMYCIN ADD-Vantage 500 MG in 0.9% NaCl ADD-Vantage 250 ML 250 MG IV (21:31)
[2025-04-25 21:57] LABS: Bilirubin Urine Negative (Negative); Blood Urine Negative (Negative); Glucose Urine UA Negative (Normal); Ketones Urine Trace (Negative); Leukocyte Esterase Urine 2+ (Negative); Nitrate Urine Negative (Negative); Protein Urine 1+ (Negative); Specific Gravity, Urine 1.013 (1.005-1.030); Urine Appearance Cloudy (CLEAR); Urine Color Dark Yellow (Yellow)
[2025-04-25 22:02] LABS: Bacteria Urine Trace /hpf; Hyaline Casts Urine 12.81 /lpf; RBC Urine 0-2 /hpf (0-2); WBC Urine 21-50 /hpf (0-5)
[2025-04-25] MEDS: cefTRIAXone 1,000 mg SDV 1000 MG IVP (22:58)
[2025-04-25 23:27] VITALS: BP 116/57; PULSE 73; O2SAT 92
== END 2025-04-25 23:32 | disposition home or self-care (01) ==
PROVIDERS: Emergency Provider Emergency Medicine; PCP Registered Nurse
DX: J21.0 Acute bronchiolitis due to respiratory syncytial virus (principal); N39.0 Urinary tract infection, site not specified; R29.6 Repeated falls; Z11.52 Encounter for screening for COVID-19; Z87.891 Personal history of nicotine dependence; I10 Essential (primary) hypertension; Z85.038 Personal history of other malignant neoplasm of large intestine
CPT/HCPCS: 36415; 70450; 71045; 80053; 81001; 83605; 85025; 87040; 87150; 87205; 87637; 93005; 96365; 96366; 96375; 99285; J0456; J0696; J1642; J7050

== ENCOUNTER 2025-05-29 08:15 | Oncology outpatient (recurring) (ONCR) | payer MEDICARE, SELFPAY ==
[2025-05-08 08:50] LABS: Hematocrit 39.3 % (36-47); Hemoglobin 12.20 g/dL (11.27-16.99); Mean Corpuscular HGB Conc 31.0 g/dL (30-55); Mean Corpuscular Hemoglobin 31.1 pg (27-33); Mean Corpuscular Volume 100.3 fl (85-98); Nucleated Red Blood Cells % 0 %; Platelet Count 214 10^3/cmm (157-399); Red Blood Count 3.92 10^6/uL (3.85-5.65); White Blood Count 11.30 10^3/uL (3.29-11.43)
[2025-05-08 09:12] LABS: Carcinoembryonic Antigen 42.4 ng/mL (0.0-4.7)
[2025-05-08 09:25] LABS: Alanine Aminotransferase 14 U/L (0-33); Albumin Level 3.3 g/dL (3.5-5.2); Alkaline Phosphatase 83 U/L (35-105); Anion Gap 20.6 (5-19); Aspartate Amino Transferase 17 U/L (0-32); Blood Urea Nitrogen 13 mg/dL (8-23); Calcium 9.1 mg/dL (8.5-10.5); Carbon Dioxide 21 mmol/L (22-29); Chloride 101 mmol/L (98-107); Globulin 3.6 g/dL (1.3-4.6); Glucose 127 mg/dL (65-115); Osmolality Calculated 288 mOsm/kg (285-295); Potassium 4.6 mmol/L (3.5-5.1); Sodium 138 mmol/L (136-145); Total Protein 6.9 g/dL (6.6-8.7)
[2025-05-08] MEDS: dexamethasone 4 mg/mL INJ 5 mL 12 MG IVP (11:04)
[2025-05-08] MEDS: SODIUM CHLORIDE 0.9% IV (11:32)
[2025-05-08] MEDS: BEVACIZUMAB BVZR IV (11:32)
[2025-05-08] MEDS: atropine 1 mg/mL SDV 1 mL 0.4 MG IV (12:10)
[2025-05-08] MEDS: irinotecan 200 MG, irinotecan 70 MG in dextrose 5% 250 ML 175.67 MG IV (12:49)
[2025-05-08] MEDS: leucovorin 760 MG in dextrose 5% 250 ML 166.67 MG IV (12:49)
[2025-05-08] MEDS: fluorouraciL 3,600 MG, elastomeric pump 1 PUMP in sodium chloride 0.9% (100 ml) 20 ML IV (14:39)
[2025-05-08 14:48] VITALS: BP 134/73; PULSE 87; TEMP 36.2; O2SAT 95
[2025-05-17] MEDS: iohexol 350 mg/mL 500 mL Btl (per mL) PO (09:18)
--- NOTE | 2025-05-17 10:00 | CTR_ITS ---
PROCEDURE INFORMATION: Exam: CT Chest With Contrast; Diagnostic Exam date and time: 05/17/2025 10:11 AM Age: 79 years old Clinical indication: Prior oncological treatment - not specified. Condition or disease; Other: Malignant neoplasm of sigmoid colon, prior surgery; Surgery date: 6+ months; Surgery type: Colon, hyst, gb, appy, port, RT hip TECHNIQUE: Imaging protocol: Diagnostic computed tomography of the chest with contrast. Radiation optimization: All CT scans at this facility use at least one of these dose optimization techniques: automated exposure control; mA and/or kV adjustment per patient size (includes targeted exams where dose is matched to clinical indication); or iterative reconstruction. Contrast material: OMNI 350; Contrast volume: 100 ml; Contrast route: INTRAVENOUS (IV); COMPARISON: CT chest abdpel w/*[id number] 02/06/2025 12:11 PM RADIATION DOSE METRICS: Total DLP (mGy-cm): 1049.39 FINDINGS: Lungs: There are numerous pulmonary nodules bilaterally. There is a nodule involving the right lower lobe (series 5, image 34) measuring 2 cm in size previously measuring 17 mm in size. A few additional nodules were measured and directly compared to prior exam in all measure slightly larger when compared to prior. No consolidated infiltrates are appreciated. Pleural spaces: Unremarkable. No pneumothorax. No pleural effusion. Heart: Unremarkable. No cardiomegaly. No pericardial effusion. Lymph nodes: There are a few small mediastinal lymph nodes. No enlarged nodes are appreciated. Vasculature: Thoracic aorta is normal in caliber without aneurysm or dissection. No definite calcified plaque noted involving the coronary vessels. Bones/joints: Unremarkable. No acute fracture. Soft tissues: Unremarkable. PROCEDURE INFORMATION: Exam: CT Abdomen And Pelvis With Contrast Exam date and time: 05/17/2025 10:11 AM Age: 79 years old Clinical indication: Prior oncological treatment - not specified. Condition or disease; Other: Malignant neoplasm of sigmoid colon, prior surgery; Surgery date: 6+ months; Surgery type: Colon, hyst, gb, appy, port, RT hip TECHNIQUE: Imaging protocol: Computed tomography of the abdomen and pelvis with contrast. Radiation optimization: All CT scans at this facility use at least one of these dose optimization techniques: automated exposure control; mA and/or kV adjustment per patient size (includes targeted exams where dose is matched to clinical indication); or iterative reconstruction. Contrast material: OMNI 350; Contrast volume: 100 ml; Contrast route: INTRAVENOUS (IV); COMPARISON: CT chest abdpel w/*[id number] 11/09/2024 2:10 PM RADIATION DOSE METRICS: Total DLP (mGy-cm): 1049.39 FINDINGS: Diaphragm: There may be a small hiatal hernia. Liver: There is mild fatty infiltration of the liver. Small hypervascular lesion noted involving the right lobe of the liver measures 9 mm in size and is not significantly changed when directly compared to prior exam. The liver is otherwise normal. Gallbladder and biliary ducts: There are surgical clips within the gallbladder fossa. Pancreas: Normal. No ductal dilation. Spleen: Normal. No splenomegaly. Adrenal glands: Normal. No mass. Kidneys and ureters: Normal. No hydronephrosis. Stomach and bowel: Partial colon resection again noted. No dilated loops of large or small bowel is appreciated. No bowel wall thickening is noted. Appendix: The appendix is not definitely identified. Intraperitoneal space: Unremarkable. No free air. No significant fluid collection. Vasculature: The aorta is normal in caliber. There is calcified plaque involving the aorta and its branch vessels. Lymph nodes: Unremarkable. No enlarged lymph nodes. Urinary bladder: Unremarkable as visualized. Reproductive: Unremarkable as visualized. Bones/joints: There are postoperative changes involving the proximal right femur. No acute bony abnormalities are noted. Soft tissues: Unremarkable. CT/CT chest abdpel w/*[id number] IMPRESSION: 1. Numerous bilateral pulmonary nodules. A few of the larger nodules were measured and compared to prior exam and appear to be slightly larger on today's exam. IMPRESSION: 1. Mild fatty infiltration of the liver with small hypervascular lesion involving the right lobe of the liver unchanged. 2. Please see above comments for additional details.
[2025-05-17] MEDS: iohexol 350 mg/mL 500 mL Btl (per mL) IV (10:15)
[2025-05-22 07:53] LABS: Hematocrit 38.6 % (36-47); Hemoglobin 12.30 g/dL (11.27-16.99); Mean Corpuscular HGB Conc 31.9 g/dL (30-55); Mean Corpuscular Hemoglobin 31.0 pg (27-33); Mean Corpuscular Volume 97.2 fl (85-98); Nucleated Red Blood Cells % 0 %; Platelet Count 198 10^3/cmm (157-399); Red Blood Count 3.97 10^6/uL (3.85-5.65); White Blood Count 4.48 10^3/uL (3.29-11.43)
[2025-05-22 08:20] LABS: Carcinoembryonic Antigen 59.9 ng/mL (0.0-4.7)
[2025-05-22 08:32] LABS: Alanine Aminotransferase 15 U/L (0-33); Albumin Level 3.5 g/dL (3.5-5.2); Alkaline Phosphatase 92 U/L (35-105); Anion Gap 17.7 (5-19); Aspartate Amino Transferase 18 U/L (0-32); Blood Urea Nitrogen 12 mg/dL (8-23); Calcium 9.3 mg/dL (8.5-10.5); Carbon Dioxide 24 mmol/L (22-29); Chloride 97 mmol/L (98-107); Creatinine Clr Calc Pharmacy 57.0098; Globulin 3.5 g/dL (1.3-4.6); Glucose 104 mg/dL (65-115); Osmolality Calculated 278 mOsm/kg (285-295); Potassium 4.7 mmol/L (3.5-5.1); Sodium 134 mmol/L (136-145); Total Protein 7.0 g/dL (6.6-8.7)
[2025-05-29 08:21] LABS: Hematocrit 39.2 % (36-47); Hemoglobin 12.30 g/dL (11.27-16.99); Mean Corpuscular HGB Conc 31.4 g/dL (30-55); Mean Corpuscular Hemoglobin 30.7 pg (27-33); Mean Corpuscular Volume 97.8 fl (85-98); Nucleated Red Blood Cells % 0 %; Platelet Count 247 10^3/cmm (157-399); Red Blood Count 4.01 10^6/uL (3.85-5.65); White Blood Count 5.77 10^3/uL (3.29-11.43)
[2025-05-29 08:41] LABS: Alanine Aminotransferase 13 U/L (0-33); Albumin Level 3.6 g/dL (3.5-5.2); Alkaline Phosphatase 83 U/L (35-105); Anion Gap 17.4 (5-19); Aspartate Amino Transferase 18 U/L (0-32); Blood Urea Nitrogen 7 mg/dL (8-23); Calcium 9.2 mg/dL (8.5-10.5); Carbon Dioxide 25 mmol/L (22-29); Chloride 99 mmol/L (98-107); Creatinine Clr Calc Pharmacy 57.1675; Globulin 3.4 g/dL (1.3-4.6); Glucose 123 mg/dL (65-115); Magnesium 2.1 mg/dL (1.7-2.3); Osmolality Calculated 283 mOsm/kg (285-295); Potassium 4.4 mmol/L (3.5-5.1); Sodium 137 mmol/L (136-145); Total Protein 7.0 g/dL (6.6-8.7)
[2025-05-29] MEDS: dexamethasone 4 mg/mL INJ 5 mL 12 MG IVP (09:51)
[2025-05-29] MEDS: atropine 1 mg/mL SDV 1 mL 0.4 MG IV (09:51)
[2025-05-29] MEDS: BEVACIZUMAB BVZR IV (10:15)
[2025-05-29] MEDS: SODIUM CHLORIDE 0.9% IV (10:15)
[2025-05-29] MEDS: irinotecan 200 MG, irinotecan 70 MG in dextrose 5% 250 ML 175.67 MG IV (11:06)
[2025-05-29] MEDS: leucovorin 740 MG in dextrose 5% 250 ML 166.67 MG IV (11:07)
[2025-05-29] MEDS: fluorouraciL 3,600 MG, elastomeric pump 1 PUMP in sodium chloride 0.9% (100 ml) 20 ML IV (12:55)
[2025-05-29 12:59] VITALS: BP 151/84; PULSE 83; RESP 17; TEMP 36.7; O2SAT 97
== END 2025-05-29 23:59 | disposition home or self-care (01) ==
PROVIDERS: Nurse Practitioner; PCP Registered Nurse; Visit Provider Internal Medicine Medical Oncology
DX: Z53.9 Procedure and treatment not carried out, unspecified reason; Z51.12 Encounter for antineoplastic immunotherapy; Z51.11 Encounter for antineoplastic chemotherapy; C18.7 Malignant neoplasm of sigmoid colon; C77.2 Secondary and unspecified malignant neoplasm of intra-abdominal lymph nodes; I10 Essential (primary) hypertension; Z79.899 Other long term (current) drug therapy; R03.0 Elevated blood-pressure reading, without diagnosis of hypertension; Z79.52 Long term (current) use of systemic steroids; Z79.631 Long term (current) use of antimetabolite agent; Z95.828 Presence of other vascular implants and grafts; Z87.891 Personal history of nicotine dependence
CPT/HCPCS: 71260; 74177; 80053; 82378; 83615; 83735; 85025; 96368; 96375; 96413; 96415; 96416; 96417; 96523; 99214; J0461; J0640; J1100; J2469; J7050; J7060; J9190; J9206; Q5118

== ENCOUNTER 2025-05-31 12:22 | Oncology outpatient (recurring) (ONCR) | payer MEDICARE, SELFPAY | END 2025-06-07 23:59 | disposition home or self-care (01) | PROVIDERS: PCP Registered Nurse; Visit Provider Internal Medicine Medical Oncology | DX: Z53.9 Procedure and treatment not carried out, unspecified reason (principal); C18.7 Malignant neoplasm of sigmoid colon; C77.2 Secondary and unspecified malignant neoplasm of intra-abdominal lymph nodes; Z95.828 Presence of other vascular implants and grafts; Z87.891 Personal history of nicotine dependence; R03.0 Elevated blood-pressure reading, without diagnosis of hypertension; R91.1 Solitary pulmonary nodule; K76.0 Fatty (change of) liver, not elsewhere classified; K76.9 Liver disease, unspecified; Z79.899 Other long term (current) drug therapy; Z45.1 Encounter for adjustment and management of infusion pump; Z51.11 Encounter for antineoplastic chemotherapy; Z51.12 Encounter for antineoplastic immunotherapy; Z79.631 Long term (current) use of antimetabolite agent; Z79.52 Long term (current) use of systemic steroids; Z92.21 Personal history of antineoplastic chemotherapy | CPT/HCPCS: 96523 ==

== ENCOUNTER → 2025-06-01 09:42 | Outpatient (BNVA) | payer MEDICARE, SELFPAY | PROVIDERS: PCP Registered Nurse; Visit Provider Registered Nurse | DX: C18.7 Malignant neoplasm of sigmoid colon (principal); C77.2 Secondary and unspecified malignant neoplasm of intra-abdominal lymph nodes; I10 Essential (primary) hypertension; Z79.899 Other long term (current) drug therapy | CPT/HCPCS: 81000 ==

== ENCOUNTER 2025-07-04 12:45 | Oncology outpatient (recurring) (ONCR) | payer MEDICARE, SELFPAY ==
[2025-06-12 08:13] LABS: Hematocrit 36.6 % (36-47); Hemoglobin 11.60 g/dL (11.27-16.99); Mean Corpuscular HGB Conc 31.7 g/dL (30-55); Mean Corpuscular Hemoglobin 30.6 pg (27-33); Mean Corpuscular Volume 96.6 fl (85-98); Nucleated Red Blood Cells % 0 %; Platelet Count 192 10^3/cmm (157-399); Red Blood Count 3.79 10^6/uL (3.85-5.65); White Blood Count 4.10 10^3/uL (3.29-11.43)
[2025-06-12 08:32] LABS: Alanine Aminotransferase 12 U/L (0-33); Albumin Level 3.4 g/dL (3.5-5.2); Alkaline Phosphatase 87 U/L (35-105); Anion Gap 14.6 (5-19); Aspartate Amino Transferase 18 U/L (0-32); Blood Urea Nitrogen 7 mg/dL (8-23); Calcium 9.2 mg/dL (8.5-10.5); Carbon Dioxide 26 mmol/L (22-29); Chloride 104 mmol/L (98-107); Globulin 3.1 g/dL (1.3-4.6); Glucose 109 mg/dL (65-115); Osmolality Calculated 289 mOsm/kg (285-295); Potassium 4.6 mmol/L (3.5-5.1); Sodium 140 mmol/L (136-145); Total Protein 6.5 g/dL (6.6-8.7)
[2025-06-12 11:36] LABS: Carcinoembryonic Antigen 63.3 ng/mL (0.0-4.7)
[2025-07-02 07:58] LABS: Hematocrit 39.3 % (36-47); Hemoglobin 12.40 g/dL (11.27-16.99); Mean Corpuscular HGB Conc 31.6 g/dL (30-55); Mean Corpuscular Hemoglobin 30.2 pg (27-33); Mean Corpuscular Volume 95.6 fl (85-98); Nucleated Red Blood Cells % 0 %; Platelet Count 207 10^3/cmm (157-399); Red Blood Count 4.11 10^6/uL (3.85-5.65); White Blood Count 8.89 10^3/uL (3.29-11.43)
[2025-07-02 08:14] LABS: Carcinoembryonic Antigen 78.9 ng/mL (0.0-4.7)
[2025-07-02 08:25] LABS: Alanine Aminotransferase 10 U/L (0-33); Albumin Level 3.6 g/dL (3.5-5.2); Alkaline Phosphatase 83 U/L (35-105); Anion Gap 17.2 (5-19); Aspartate Amino Transferase 15 U/L (0-32); Blood Urea Nitrogen 20 mg/dL (8-23); Calcium 9.1 mg/dL (8.5-10.5); Carbon Dioxide 23 mmol/L (22-29); Chloride 100 mmol/L (98-107); Creatinine Clr Calc Pharmacy 57.0098; Globulin 3.6 g/dL (1.3-4.6); Glucose 122 mg/dL (65-115); Magnesium 2.0 mg/dL (1.7-2.3); Osmolality Calculated 286 mOsm/kg (285-295); Potassium 4.2 mmol/L (3.5-5.1); Sodium 136 mmol/L (136-145); Total Protein 7.2 g/dL (6.6-8.7)
[2025-07-02] MEDS: dexamethasone 4 mg/mL INJ 5 mL 12 MG IVP (08:59)
[2025-07-02] MEDS: SODIUM CHLORIDE 0.9% IV (09:21)
[2025-07-02] MEDS: BEVACIZUMAB BVZR IV (09:21)
[2025-07-02] MEDS: atropine 1 mg/mL SDV 1 mL 0.4 MG IV (10:11)
[2025-07-02] MEDS: IRINOTECAN IV (10:25)
[2025-07-02] MEDS: DEXTROSE 5% IV (10:25)
[2025-07-02] MEDS: leucovorin 740 MG in dextrose 5% 250 ML 166.67 MG IV (10:26)
[2025-07-02 12:10] VITALS: BP 152/81; PULSE 78; TEMP 36.4; O2SAT 97
[2025-07-02] MEDS: fluorouraciL 3,600 MG, elastomeric pump 1 PUMP in sodium chloride 0.9% (100 ml) 20 ML IV (12:11)
== END 2025-07-08 23:59 | disposition home or self-care (01) ==
PROVIDERS: PCP Registered Nurse; Visit Provider Internal Medicine Medical Oncology
DX: Z53.9 Procedure and treatment not carried out, unspecified reason; Z45.1 Encounter for adjustment and management of infusion pump; Z95.828 Presence of other vascular implants and grafts
CPT/HCPCS: 80053; 82378; 83615; 83735; 85025; 96368; 96375; 96413; 96415; 96416; 96417; 96523; 99214; J0461; J0640; J1100; J2469; J7050; J7060; J9190; J9206; Q5118

== ENCOUNTER 2025-08-01 12:00 | Oncology outpatient (recurring) (ONCR) | payer MEDICARE, SELFPAY ==
[2025-07-16 08:20] LABS: Hematocrit 38.7 % (36-47); Hemoglobin 12.20 g/dL (11.27-16.99); Mean Corpuscular HGB Conc 31.5 g/dL (30-55); Mean Corpuscular Hemoglobin 29.4 pg (27-33); Mean Corpuscular Volume 93.3 fl (85-98); Nucleated Red Blood Cells % 0 %; Platelet Count 200 10^3/cmm (157-399); Red Blood Count 4.15 10^6/uL (3.85-5.65); White Blood Count 5.33 10^3/uL (3.29-11.43)
[2025-07-16 08:46] LABS: Carcinoembryonic Antigen 95.3 ng/mL (0.0-4.7)
[2025-07-16 08:57] LABS: Alanine Aminotransferase 12 U/L (0-33); Albumin Level 3.6 g/dL (3.5-5.2); Alkaline Phosphatase 82 U/L (35-105); Anion Gap 16.2 (5-19); Aspartate Amino Transferase 16 U/L (0-32); Blood Urea Nitrogen 9 mg/dL (8-23); Calcium 9.1 mg/dL (8.5-10.5); Carbon Dioxide 23 mmol/L (22-29); Chloride 102 mmol/L (98-107); Creatinine Clr Calc Pharmacy 56.7430; Globulin 3.6 g/dL (1.3-4.6); Glucose 110 mg/dL (65-115); Osmolality Calculated 283 mOsm/kg (285-295); Potassium 4.2 mmol/L (3.5-5.1); Sodium 137 mmol/L (136-145); Total Protein 7.2 g/dL (6.6-8.7)
[2025-07-16] MEDS: dexamethasone 4 mg/mL INJ 5 mL 12 MG IVP (09:43)
[2025-07-16] MEDS: SODIUM CHLORIDE 0.9% IV (10:24)
[2025-07-16] MEDS: BEVACIZUMAB BVZR IV (10:24)
[2025-07-16] MEDS: atropine 1 mg/mL SDV 1 mL 0.4 MG IV (11:03)
[2025-07-16] MEDS: leucovorin 740 MG in dextrose 5% 250 ML 166.67 MG IV (11:04)
[2025-07-16] MEDS: IRINOTECAN IV (11:05)
[2025-07-16] MEDS: DEXTROSE 5% IV (11:05)
[2025-07-16] MEDS: fluorouraciL 3,550 MG, elastomeric pump 1 PUMP in sodium chloride 0.9% (100 ml) 21 ML IV (13:18)
[2025-07-16 13:22] VITALS: BP 144/81; PULSE 55; RESP 16; TEMP 35.9
[2025-07-30 08:49] LABS: Hematocrit 38.5 % (36-47); Hemoglobin 12.00 g/dL (11.27-16.99); Mean Corpuscular HGB Conc 31.2 g/dL (30-55); Mean Corpuscular Hemoglobin 29.8 pg (27-33); Mean Corpuscular Volume 95.5 fl (85-98); Nucleated Red Blood Cells % 0 %; Platelet Count 177 10^3/cmm (157-399); Red Blood Count 4.03 10^6/uL (3.85-5.65); White Blood Count 5.76 10^3/uL (3.29-11.43)
[2025-07-30 09:19] LABS: Carcinoembryonic Antigen 96.0 ng/mL (0.0-4.7)
[2025-07-30 09:30] LABS: Alanine Aminotransferase 13 U/L (0-33); Albumin Level 3.7 g/dL (3.5-5.2); Alkaline Phosphatase 84 U/L (35-105); Anion Gap 18.3 (5-19); Aspartate Amino Transferase 16 U/L (0-32); Blood Urea Nitrogen 13 mg/dL (8-23); Calcium 9.1 mg/dL (8.5-10.5); Carbon Dioxide 22 mmol/L (22-29); Chloride 100 mmol/L (98-107); Creatinine Clr Calc Pharmacy 56.7430; Globulin 3.1 g/dL (1.3-4.6); Glucose 105 mg/dL (65-115); Osmolality Calculated 282 mOsm/kg (285-295); Potassium 4.3 mmol/L (3.5-5.1); Sodium 136 mmol/L (136-145); Total Protein 6.8 g/dL (6.6-8.7)
[2025-07-30] MEDS: dexamethasone 4 mg/mL INJ 5 mL 12 MG IVP (10:47)
[2025-07-30] MEDS: SODIUM CHLORIDE 0.9% IV (11:12)
[2025-07-30] MEDS: BEVACIZUMAB BVZR IV (11:12)
[2025-07-30] MEDS: atropine 1 mg/mL SDV 1 mL 0.4 MG IV (11:49)
[2025-07-30] MEDS: DEXTROSE 5% IV (12:01)
[2025-07-30] MEDS: IRINOTECAN IV (12:01)
[2025-07-30] MEDS: leucovorin 760 MG in dextrose 5% 250 ML 166.67 MG IV (12:01)
[2025-07-30] MEDS: fluorouraciL 3,600 MG, elastomeric pump 1 PUMP in sodium chloride 0.9% (100 ml) 20 ML IV (14:38)
[2025-07-30 14:46] VITALS: BP 139/66; PULSE 94; RESP 16; TEMP 36.2; O2SAT 93
== END 2025-08-07 23:59 | disposition home or self-care (01) ==
PROVIDERS: Nurse Practitioner; PCP Registered Nurse; Visit Provider Internal Medicine Medical Oncology
DX: Z53.9 Procedure and treatment not carried out, unspecified reason; Z45.1 Encounter for adjustment and management of infusion pump
CPT/HCPCS: 80053; 82378; 85025; 96368; 96375; 96413; 96415; 96416; 96417; 96523; 99213; 99214; J0461; J0640; J1100; J2469; J7050; J7060; J9190; J9206; Q5118

== ENCOUNTER 2025-08-29 13:45 | Oncology outpatient (recurring) (ONCR) | payer MEDICARE, SELFPAY ==
--- NOTE | 2025-08-08 13:00 | CTR_ITS ---
PROCEDURE INFORMATION: Exam: CT Chest With Contrast; Diagnostic Exam date and time: 08/08/2025 1:09 PM Age: 79 years old Clinical indication: Condition or disease; Other: Colon cancer; Prior surgery; Surgery date: 6+ months; Surgery type: Colon, hyst, gb, appy, RT hip TECHNIQUE: Imaging protocol: Diagnostic computed tomography of the chest with contrast. Radiation optimization: All CT scans at this facility use at least one of these dose optimization techniques: automated exposure control; mA and/or kV adjustment per patient size (includes targeted exams where dose is matched to clinical indication); or iterative reconstruction. Contrast material: OMNI 350; Contrast volume: 100 ml; Contrast route: INTRAVENOUS (IV); COMPARISON: CT chest abdpel w/*[id number] 05/17/2025 10:11 AM RADIATION DOSE METRICS: Total DLP (mGy-cm): 1033.58 FINDINGS: Tubes, catheters and devices: Right Port-A-Cath is present with the tip in the SVC. Lungs: There are multiple bilateral pulmonary masses . One of the larger is in the right lower lobe and measures 2.2 x 2.3 cm. On the prior exam it measured 2.0 x 2.1 cm. In the left lower lobe 1 measures 1.9 x 1.3 cm compared to 1.9 x 0.8 cm. Another in the left upper lobe measures 1.0 x 0.8 cm compared to 0.9 x 0.7 cm. Pleural spaces: Unremarkable. No pneumothorax. No pleural effusion. Heart: Unremarkable. No cardiomegaly. No pericardial effusion. Lymph nodes: Unremarkable. No enlarged lymph nodes. Vasculature: Mild atherosclerotic disease of the aorta and branch vessels is evident. No evidence of aneurysmal dilatation. No significant coronary artery calcifications are identified. Bones/joints: There are moderate degenerative changes of the bony structures. Soft tissues: Unremarkable. PROCEDURE INFORMATION: Exam: CT Abdomen And Pelvis With Contrast Exam date and time: 08/08/2025 1:09 PM Age: 79 years old Clinical indication: Condition or disease; Other: Colon cancer; Prior surgery; Surgery date: 6+ months; Surgery type: Colon, hyst, gb, appy, RT hip TECHNIQUE: Imaging protocol: Computed tomography of the abdomen and pelvis with contrast. Radiation optimization: All CT scans at this facility use at least one of these dose optimization techniques: automated exposure control; mA and/or kV adjustment per patient size (includes targeted exams where dose is matched to clinical indication); or iterative reconstruction. Contrast material: OMNI 350; Contrast volume: 100 ml; Contrast route: INTRAVENOUS (IV); COMPARISON: CR XR hip RT 2-3V wo/w pel* [id number] 05/13/2023 3:23 PM RADIATION DOSE METRICS: Total DLP (mGy-cm): 1033.58 FINDINGS: Lungs: Visualized portions of the lungs are clear. No effusions. Diaphragm: There is a hiatal hernia. Liver: Vascular mass in the right lobe of the liver is not identified on today's exam. Gallbladder and biliary ducts: The gallbladder is surgically absent. Pancreas: There is atrophy of the pancreas. Spleen: Normal. No splenomegaly. Adrenal glands: Normal. No mass. Kidneys and ureters: Normal. No hydronephrosis. Stomach and bowel: Postop changes of subtotal colectomy. Anastomosis of the rectosigmoid junction. Appendix: No evidence of appendicitis. Intraperitoneal space: Unremarkable. No free air. No significant fluid collection. Vasculature: Unremarkable. No abdominal aortic aneurysm. Lymph nodes: Unremarkable. No enlarged lymph nodes. Urinary bladder: Unremarkable as visualized. Reproductive: Status post hysterectomy. Bones/joints: Postop changes of fixation of the right femoral neck is noted with compression screw and intramedullary pallavi. There are degenerative changes of the spine. Compression deformity of L3 is noted. There is an associated disc bulge and facet arthropathy which causes spinal stenosis at L3-L4. Soft tissues: There is a complex cystic mass along the anterior pelvic wall which measures 3.7 x 3.0 x 2.7 cm. It is suspicious for metastatic disease given the findings in the chest. CT/CT chest abdpel w/*[id number] IMPRESSION: Multiple bilateral pulmonary metastases. These have increased slightly since the prior examination. IMPRESSION: 1. Complex cystic mass along the anterior pelvic wall which is suspicious for metastatic deposit given the multiple pulmonary metastases. It could also represent a benign inclusion cyst. 2. Status post subtotal colectomy. 3. Status post hysterectomy. 4. Status post cholecystectomy
[2025-08-08] MEDS: iohexol 350 mg/mL 500 mL Btl (per mL) PO (13:06)
[2025-08-08] MEDS: iohexol 350 mg/mL 500 mL Btl (per mL) IV (13:13)
[2025-08-13] MEDS: alteplase 1 mg/mL SDV 2 mL 2 MG INTRACATH (07:54)
[2025-08-13 07:59] LABS: Hematocrit 40.0 % (36-47); Hemoglobin 12.70 g/dL (11.27-16.99); Mean Corpuscular HGB Conc 31.8 g/dL (30-55); Mean Corpuscular Hemoglobin 30.4 pg (27-33); Mean Corpuscular Volume 95.7 fl (85-98); Nucleated Red Blood Cells % 0 %; Platelet Count 174 10^3/cmm (157-399); Red Blood Count 4.18 10^6/uL (3.85-5.65); White Blood Count 5.27 10^3/uL (3.29-11.43)
[2025-08-13 08:23] LABS: Carcinoembryonic Antigen 97.9 ng/mL (0.0-4.7)
[2025-08-13 08:34] LABS: Alanine Aminotransferase 11 U/L (0-33); Albumin Level 3.9 g/dL (3.5-5.2); Alkaline Phosphatase 81 U/L (35-105); Anion Gap 16.1 (5-19); Aspartate Amino Transferase 15 U/L (0-32); Blood Urea Nitrogen 14 mg/dL (8-23); Calcium 9.3 mg/dL (8.5-10.5); Carbon Dioxide 26 mmol/L (22-29); Chloride 100 mmol/L (98-107); Creatinine Clr Calc Pharmacy 56.6935; Globulin 3.0 g/dL (1.3-4.6); Glucose 115 mg/dL (65-115); Osmolality Calculated 287 mOsm/kg (285-295); Potassium 4.1 mmol/L (3.5-5.1); Sodium 138 mmol/L (136-145); Total Protein 6.9 g/dL (6.6-8.7)
[2025-08-13] MEDS: dexamethasone 4 mg/mL INJ 5 mL 12 MG IVP (09:16)
[2025-08-13] MEDS: SODIUM CHLORIDE 0.9% IV (09:30)
[2025-08-13] MEDS: BEVACIZUMAB BVZR IV (09:30)
[2025-08-13] MEDS: atropine 1 mg/mL SDV 1 mL 0.4 MG IV (10:47)
[2025-08-13] MEDS: DEXTROSE 5% IV (11:06)
[2025-08-13] MEDS: leucovorin 740 MG in dextrose 5% 250 ML 216 MG IV (11:06)
[2025-08-13] MEDS: IRINOTECAN IV (11:06)
[2025-08-13] MEDS: fluorouraciL 3,550 MG, elastomeric pump 1 PUMP in sodium chloride 0.9% (100 ml) 21 ML IV (13:03)
[2025-08-13 13:12] LABS: Glucose Urine UA 2+ (Normal); Nitrate Urine Negative (Negative); Specific Gravity, Urine 1.012 (1.005-1.030)
[2025-08-13 13:15] VITALS: BP 156/83; PULSE 92; RESP 17; TEMP 36.3; O2SAT 98
[2025-08-13 13:31] LABS: Add Urine Microscopic? YES
[2025-08-27 08:24] LABS: Hematocrit 39.0 % (36-47); Hemoglobin 12.40 g/dL (11.27-16.99); Mean Corpuscular HGB Conc 31.8 g/dL (30-55); Mean Corpuscular Hemoglobin 30.0 pg (27-33); Mean Corpuscular Volume 94.4 fl (85-98); Nucleated Red Blood Cells % 0 %; Platelet Count 192 10^3/cmm (157-399); Red Blood Count 4.13 10^6/uL (3.85-5.65); White Blood Count 5.34 10^3/uL (3.29-11.43)
[2025-08-27 08:42] LABS: Alanine Aminotransferase 12 U/L (0-33); Albumin Level 3.7 g/dL (3.5-5.2); Alkaline Phosphatase 86 U/L (35-105); Anion Gap 16.8 (5-19); Aspartate Amino Transferase 16 U/L (0-32); Blood Urea Nitrogen 7 mg/dL (8-23); Calcium 9.2 mg/dL (8.5-10.5); Carbon Dioxide 25 mmol/L (22-29); Chloride 99 mmol/L (98-107); Creatinine Clr Calc Pharmacy 56.9011; Globulin 2.9 g/dL (1.3-4.6); Glucose 112 mg/dL (65-115); Osmolality Calculated 283 mOsm/kg (285-295); Potassium 3.8 mmol/L (3.5-5.1); Sodium 137 mmol/L (136-145); Total Protein 6.6 g/dL (6.6-8.7)
[2025-08-27] MEDS: dexamethasone 4 mg/mL INJ 5 mL 12 MG IVP (09:39)
[2025-08-27] MEDS: SODIUM CHLORIDE 0.9% IV (10:05)
[2025-08-27] MEDS: BEVACIZUMAB BVZR IV (10:05)
[2025-08-27] MEDS: atropine 1 mg/mL SDV 1 mL 0.4 MG IV (10:46)
[2025-08-27] MEDS: IRINOTECAN IV (10:48)
[2025-08-27] MEDS: DEXTROSE 5% IV (10:48)
[2025-08-27] MEDS: leucovorin 740 MG in dextrose 5% 250 ML 216 MG IV (10:48)
[2025-08-27] MEDS: fluorouraciL 3,600 MG, elastomeric pump 1 PUMP in sodium chloride 0.9% (100 ml) 20 ML IV (12:40)
[2025-08-27 12:44] VITALS: BP 155/84; PULSE 80; RESP 16; TEMP 35.7; O2SAT 97
== END 2025-08-29 23:59 | disposition home or self-care (01) ==
PROVIDERS: Nurse Practitioner; PCP Registered Nurse; Visit Provider Internal Medicine Medical Oncology
DX: Z45.1 Encounter for adjustment and management of infusion pump; Z95.828 Presence of other vascular implants and grafts; Z53.9 Procedure and treatment not carried out, unspecified reason
CPT/HCPCS: 36593; 71260; 74177; 80053; 81001; 82378; 85025; 96368; 96375; 96413; 96415; 96416; 96417; 96523; 99214; J0461; J0640; J1100; J2469; J2704; J2997; J7050; J7060; J9190; J9206; Q5118

== ENCOUNTER 2025-10-03 13:15 | Oncology outpatient (recurring) (ONCR) | payer MEDICARE, SELFPAY ==
[2025-09-10 08:27] LABS: Hematocrit 39.3 % (36-47); Hemoglobin 12.40 g/dL (11.27-16.99); Mean Corpuscular HGB Conc 31.6 g/dL (30-55); Mean Corpuscular Hemoglobin 30.0 pg (27-33); Mean Corpuscular Volume 94.9 fl (85-98); Nucleated Red Blood Cells % 0 %; Platelet Count 180 10^3/cmm (157-399); Red Blood Count 4.14 10^6/uL (3.85-5.65); White Blood Count 5.80 10^3/uL (3.29-11.43)
[2025-09-10 08:57] LABS: Carcinoembryonic Antigen 106.0 ng/mL (0.0-4.7)
[2025-09-10 09:08] LABS: Alanine Aminotransferase 11 U/L (0-33); Albumin Level 3.7 g/dL (3.5-5.2); Alkaline Phosphatase 81 U/L (35-105); Anion Gap 14.9 (5-19); Aspartate Amino Transferase 17 U/L (0-32); Blood Urea Nitrogen 10 mg/dL (8-23); Calcium 9.2 mg/dL (8.5-10.5); Carbon Dioxide 26 mmol/L (22-29); Chloride 101 mmol/L (98-107); Globulin 2.9 g/dL (1.3-4.6); Glucose 114 mg/dL (65-115); Osmolality Calculated 286 mOsm/kg (285-295); Potassium 3.9 mmol/L (3.5-5.1); Sodium 138 mmol/L (136-145); Total Protein 6.6 g/dL (6.6-8.7)
[2025-09-10] MEDS: dexamethasone 4 mg/mL INJ 5 mL 12 MG IVP (09:40)
[2025-09-10] MEDS: SODIUM CHLORIDE 0.9% IV (09:51)
[2025-09-10] MEDS: BEVACIZUMAB BVZR IV (09:51)
[2025-09-10] MEDS: atropine 1 mg/mL SDV 1 mL 0.4 MG IV (10:35)
[2025-09-10] MEDS: IRINOTECAN IV (10:52)
[2025-09-10] MEDS: DEXTROSE 5% IV (10:52)
[2025-09-10] MEDS: leucovorin 740 MG in dextrose 5% 250 ML 216 MG IV (10:52)
[2025-09-10] MEDS: fluorouraciL 3,550 MG, elastomeric pump 1 PUMP in sodium chloride 0.9% (100 ml) 21 ML IV (13:05)
[2025-09-10 13:22] VITALS: BP 155/84; PULSE 68; RESP 17; TEMP 36.2; O2SAT 99
[2025-09-24 08:50] LABS: Hematocrit 38.2 % (36-47); Hemoglobin 12.10 g/dL (11.27-16.99); Mean Corpuscular HGB Conc 31.7 g/dL (30-55); Mean Corpuscular Hemoglobin 30.4 pg (27-33); Mean Corpuscular Volume 96.0 fl (85-98); Nucleated Red Blood Cells % 0 %; Platelet Count 189 10^3/cmm (157-399); Red Blood Count 3.98 10^6/uL (3.85-5.65); White Blood Count 7.42 10^3/uL (3.29-11.43)
[2025-09-24 09:16] LABS: Carcinoembryonic Antigen 95.0 ng/mL (0.0-4.7)
[2025-09-24 09:27] LABS: Alanine Aminotransferase 11 U/L (0-33); Albumin Level 3.6 g/dL (3.5-5.2); Alkaline Phosphatase 84 U/L (35-105); Anion Gap 14.2 (5-19); Aspartate Amino Transferase 16 U/L (0-32); Blood Urea Nitrogen 5 mg/dL (8-23); Calcium 9.2 mg/dL (8.5-10.5); Carbon Dioxide 27 mmol/L (22-29); Chloride 100 mmol/L (98-107); Globulin 2.8 g/dL (1.3-4.6); Glucose 119 mg/dL (65-115); Osmolality Calculated 282 mOsm/kg (285-295); Potassium 4.2 mmol/L (3.5-5.1); Sodium 137 mmol/L (136-145); Total Protein 6.4 g/dL (6.6-8.7)
[2025-10-01 08:28] LABS: Hematocrit 38.0 % (36-47); Hemoglobin 12.10 g/dL (11.27-16.99); Mean Corpuscular HGB Conc 31.8 g/dL (30-55); Mean Corpuscular Hemoglobin 30.6 pg (27-33); Mean Corpuscular Volume 96.0 fl (85-98); Nucleated Red Blood Cells % 0 %; Platelet Count 240 10^3/cmm (157-399); Red Blood Count 3.96 10^6/uL (3.85-5.65); White Blood Count 7.24 10^3/uL (3.29-11.43)
[2025-10-01 08:59] LABS: Carcinoembryonic Antigen 77.5 ng/mL (0.0-4.7)
[2025-10-01 09:10] LABS: Alanine Aminotransferase 10 U/L (0-33); Albumin Level 3.6 g/dL (3.5-5.2); Alkaline Phosphatase 84 U/L (35-105); Anion Gap 15.2 (5-19); Aspartate Amino Transferase 17 U/L (0-32); Blood Urea Nitrogen 8 mg/dL (8-23); Calcium 9.2 mg/dL (8.5-10.5); Carbon Dioxide 26 mmol/L (22-29); Chloride 100 mmol/L (98-107); Globulin 2.9 g/dL (1.3-4.6); Glucose 114 mg/dL (65-115); Osmolality Calculated 283 mOsm/kg (285-295); Potassium 4.2 mmol/L (3.5-5.1); Sodium 137 mmol/L (136-145); Total Protein 6.5 g/dL (6.6-8.7)
[2025-10-01] MEDS: dexamethasone 4 mg/mL INJ 5 mL 12 MG IVP (09:41)
[2025-10-01] MEDS: atropine 1 mg/mL SDV 1 mL 0.4 MG IV (09:41)
[2025-10-01] MEDS: SODIUM CHLORIDE 0.9% IV (10:11)
[2025-10-01] MEDS: BEVACIZUMAB BVZR IV (10:11)
[2025-10-01] MEDS: DEXTROSE 5% IV (10:44)
[2025-10-01] MEDS: leucovorin 740 MG in dextrose 5% 250 ML 166.67 MG IV (10:44)
[2025-10-01] MEDS: IRINOTECAN IV (10:44)
[2025-10-01] MEDS: fluorouraciL 3,550 MG, elastomeric pump 1 PUMP in sodium chloride 0.9% (100 ml) 21 ML IV (12:27)
[2025-10-01 12:31] VITALS: BP 159/79; PULSE 74; RESP 17; TEMP 37.2; O2SAT 98
== END 2025-10-07 23:59 | disposition home or self-care (01) ==
PROVIDERS: Nurse Practitioner Family; PCP Registered Nurse; Visit Provider Internal Medicine Medical Oncology
DX: Z45.1 Encounter for adjustment and management of infusion pump; Z95.828 Presence of other vascular implants and grafts; Z53.9 Procedure and treatment not carried out, unspecified reason
CPT/HCPCS: 80053; 82378; 85025; 96368; 96375; 96413; 96415; 96416; 96417; 96523; 99214; J0461; J0640; J1100; J2469; J7050; J7060; J9190; J9206; Q5118

== ENCOUNTER 2025-11-06 08:30 | Oncology outpatient (recurring) (ONCR) | payer MEDICARE, SELFPAY ==
[2025-10-23 08:32] LABS: Hematocrit 39.8 % (36-47); Hemoglobin 12.60 g/dL (11.27-16.99); Mean Corpuscular HGB Conc 31.7 g/dL (30-55); Mean Corpuscular Hemoglobin 30.6 pg (27-33); Mean Corpuscular Volume 96.6 fl (85-98); Nucleated Red Blood Cells % 0 %; Platelet Count 224 10^3/cmm (157-399); Red Blood Count 4.12 10^6/uL (3.85-5.65); White Blood Count 7.40 10^3/uL (3.29-11.43)
[2025-10-23 08:57] LABS: Carcinoembryonic Antigen 109.5 ng/mL (0.0-4.7)
[2025-10-23 09:08] LABS: Alanine Aminotransferase 12 U/L (0-33); Albumin Level 3.7 g/dL (3.5-5.2); Alkaline Phosphatase 79 U/L (35-105); Anion Gap 12.9 (5-19); Aspartate Amino Transferase 20 U/L (0-32); Blood Urea Nitrogen 6 mg/dL (8-23); Calcium 8.9 mg/dL (8.5-10.5); Carbon Dioxide 28 mmol/L (22-29); Chloride 99 mmol/L (98-107); Globulin 2.7 g/dL (1.3-4.6); Glucose 121 mg/dL (65-115); Osmolality Calculated 281 mOsm/kg (285-295); Potassium 3.9 mmol/L (3.5-5.1); Sodium 136 mmol/L (136-145); Total Protein 6.4 g/dL (6.6-8.7)
[2025-10-23] MEDS: dexamethasone 4 mg/mL INJ 5 mL 12 MG IVP (11:08)
[2025-10-23] MEDS: SODIUM CHLORIDE 0.9% IV (11:40)
[2025-10-23] MEDS: BEVACIZUMAB BVZR IV (11:40)
[2025-10-23] MEDS: atropine 1 mg/mL SDV 1 mL 0.4 MG IV (12:16)
[2025-10-23] MEDS: leucovorin 740 MG in dextrose 5% 250 ML 166.67 MG IV (12:38)
[2025-10-23] MEDS: DEXTROSE 5% IV (12:39)
[2025-10-23] MEDS: IRINOTECAN IV (12:39)
[2025-10-23 14:15] VITALS: BP 155/83; PULSE 83; TEMP 36.7
[2025-10-23] MEDS: fluorouraciL 3,550 MG, elastomeric pump 1 PUMP in sodium chloride 0.9% (100 ml) 21 ML IV (14:22)
[2025-11-06 08:36] LABS: Hematocrit 39.1 % (36-47); Hemoglobin 12.20 g/dL (11.27-16.99); Mean Corpuscular HGB Conc 31.2 g/dL (30-55); Mean Corpuscular Hemoglobin 30.3 pg (27-33); Mean Corpuscular Volume 97.0 fl (85-98); Nucleated Red Blood Cells % 0 %; Platelet Count 192 10^3/cmm (157-399); Red Blood Count 4.03 10^6/uL (3.85-5.65); White Blood Count 5.01 10^3/uL (3.29-11.43)
[2025-11-06 09:56] LABS: Alanine Aminotransferase 9 U/L (0-33); Albumin Level 3.2 g/dL (3.5-5.2); Alkaline Phosphatase 80 U/L (35-105); Anion Gap 16.7 (5-19); Aspartate Amino Transferase 17 U/L (0-32); Blood Urea Nitrogen 10 mg/dL (8-23); Calcium 8.8 mg/dL (8.5-10.5); Carbon Dioxide 24 mmol/L (22-29); Chloride 99 mmol/L (98-107); Globulin 2.8 g/dL (1.3-4.6); Glucose 179 mg/dL (65-115); Osmolality Calculated 286 mOsm/kg (285-295); Potassium 3.7 mmol/L (3.5-5.1); Sodium 136 mmol/L (136-145); Total Protein 6.0 g/dL (6.6-8.7)
[2025-11-06] MEDS: dexamethasone 4 mg/mL INJ 5 mL 12 MG IVP (10:24)
[2025-11-06] MEDS: BEVACIZUMAB BVZR IV (10:40)
[2025-11-06] MEDS: SODIUM CHLORIDE 0.9% IV (10:40)
[2025-11-06 11:17] LABS: Carcinoembryonic Antigen 108.1 ng/mL (0.0-4.7)
[2025-11-06] MEDS: atropine 1 mg/mL SDV 1 mL 0.4 MG IV (11:45)
[2025-11-06] MEDS: leucovorin 740 MG in dextrose 5% 250 ML 166.67 MG IV (12:00)
[2025-11-06 13:43] VITALS: BP 127/88; PULSE 81; RESP 17; TEMP 36.2; O2SAT 96
[2025-11-06] MEDS: fluorouraciL 3,500 MG, elastomeric pump 1 PUMP in sodium chloride 0.9% (100 ml) 22 ML IV (13:53)
== END 2025-11-07 23:59 | disposition home or self-care (01) ==
PROVIDERS: Nurse Practitioner; Nurse Practitioner Family; PCP Registered Nurse; Visit Provider Internal Medicine Medical Oncology
DX: Z51.11 Encounter for antineoplastic chemotherapy; Z51.12 Encounter for antineoplastic immunotherapy; C18.7 Malignant neoplasm of sigmoid colon; C77.2 Secondary and unspecified malignant neoplasm of intra-abdominal lymph nodes; R63.4 Abnormal weight loss; R03.0 Elevated blood-pressure reading, without diagnosis of hypertension; H44.002 Unspecified purulent endophthalmitis, left eye; Z79.899 Other long term (current) drug therapy; Z79.52 Long term (current) use of systemic steroids; Z79.631 Long term (current) use of antimetabolite agent; Z95.828 Presence of other vascular implants and grafts; Z87.891 Personal history of nicotine dependence; Z53.9 Procedure and treatment not carried out, unspecified reason
CPT/HCPCS: 80053; 82378; 85025; 96368; 96375; 96413; 96415; 96416; 96417; 96523; 99214; J0461; J0640; J1100; J2469; J7050; J7060; J9190; J9206; Q5118